=== PATIENT | male | born 1935 | race Caucasian/White ===

== ENCOUNTER 2024-01-18 09:51 | Emergency (ER) | payer MEDICARE, SELFPAY ==
[2024-01-18 09:57] VITALS: BP 98/62; PULSE 62; RESP 16; TEMP 36.4; O2SAT 97; BMI 31.4
[2024-01-18 10:41] LABS: Appearance Urine Clear (Clear); Bilirubin Urine Negative (Negative); Blood Urine Trace-intact (Negative); Color Urine Yellow (Yellow); Glucose Urine Negative (Negative); Ketones Urine Negative (Negative); Leukocyte Esterase Urine Negative (Negative); Nitrite Urine Negative (Negative); Protein Urine Negative (Negative); Urobilinogen Urine 0.2 (0.2-1.0)
--- NOTE | 2024-01-18 10:51 | ED.GENADULT ---
HPI - General Adult General Date Seen: 01/18/24 Chief complaint: Urogenital Problems, Male Stated complaint: Trouble urinating and with bm Time Seen by Provider: 01/18/24 09:58 Source: patient, RN notes reviewed and old records reviewed Mode of arrival: ambulatory Limitations: no limitations History of Present Illness HPI narrative: Patient is an 89-year-old he here for evaluation of difficulty urinating primarily. His history is a little vague, but he notes difficulty urinating over the past couple of days, wonders if he is also having difficulty with bowel movements. He says he is generally not constipated but sometimes he misses a day or 2. He is not entirely sure when his last bowel movement was. He has not had significant abdominal pain, denies fevers, nausea or vomiting. No urinary symptoms such as bleeding or pain. Takes Flomax. He says he had a little bit of a cough a couple of days ago but that is cleared. He has not had any shortness of breath. He has chronic swelling in his legs which he says is maybe a little worse than usual but not significantly. Related Data Home Medications ?Medication ?Instructions ?Recorded ?Confirmed atenolol 50 mg tablet 50 mg PO DAILY 01/18/24 01/18/24 chlorthalidone 25 mg tablet 25 mg PO DAILY 01/18/24 01/18/24 potassium chloride 20 mEq 20 meq PO 3XD 01/18/24 01/18/24 tablet,extended release(part/cryst) (Klor-Con M) pravastatin 80 mg tablet 80 mg PO QPM 01/18/24 01/18/24 tamsulosin 0.4 mg capsule 0.8 mg PO DAILY 01/18/24 01/18/24 Allergies Allergy/AdvReac Type Severity Reaction Status Date / Time No Known Drug Allergies Allergy Verified 01/18/24 10:01 Review of Systems Status of ROS: Reports: 10 or more systems reviewed and unremarkable except as noted in History and below PFSH PFSH Social History Smoking Status: Never smoker How often do you have a drink containing alcohol: 4 or more times a week How many standard drinks containing alcohol do you have on a typical day: 1 or 2 How often do you have six or more drinks on one occasion: Never AUDIT-C Alcohol total score: 4 Non-prescribed substance use: denies use Exam Narrative: Exam Narrative: Vital signs as noted above. In general, an alert, well-appearing patient. Head: Normocephalic, atraumatic. Eyes: Pupils are equal reactive. Extraocular movements are full. Conjunctivae are normal. ENT: Mucous membranes are moist. Neck: Supple without lymphadenopathy. Heart: Regular rate and rhythm. No murmur or rub. Lungs: Clear bilaterally. No increased work of breathing, crackles or wheezes. Abdomen: Soft and nontender. Rectal: Significantly enlarged prostate, nontender. No masses. No fecal impaction. Extremities: Well perfused. Moderate edema bilaterally. No erythema. No calf tenderness. Pulses intact. Neurologic: Patient is alert and oriented to person and place. Speech is fluent. Face is symmetric. Moves all extremities equally. Affect: Normal. Skin: Warm and dry. Well perfused. Const: Vital Signs, click to edit/add: Vital Signs - 24 hr 01/18/24 09:57 Temperature 97.5 F L Pulse Rate [Pulse Oximeter] 62 Respiratory Rate 16 Blood Pressure [Ri ght Upper Arm] 98/62 Pulse Oximetry 97 Oxygen Delivery Me thod Room Air Documenting provider has reviewed patient's vital signs: yes Course Course ED Course: We placed a Mcmullen here, so far he has had about 800 mL out. Will send a UA. Abdomen is benign, no fecal impaction and does not give a strong history for significant constipation. I think his primary problem is likely prostatic hypertrophy. Urinalysis is notable for 2-5 red cells, otherwise negative. He feels improved after catheter placement. I have recommended him that we leave this in for now, have him follow up with primary care later this week, they could remove in do a trial of void at that time. He does tell me that he has been having trouble intermittently with urinary flow for quite a while. May need urology follow-up but I think in terms of getting followed up in a timely manner primary care is a better option this week and they can go from there. Return for signs of infection other worsening. Vital Signs Vital signs: Initial Vital Signs Temperature 97.5 F L 01/18/24 09:57 Temperature Source Temporal Artery Scan 01/18/24 09:57 Pulse Rate 62 01/18/24 09:57 Respiratory Rate 16 01/18/24 09:57 Blood Pressure 98/62 01/18/24 09:57 Blood Pressure Mean 74 01/18/24 09:57 Blood Pressure Position Sitting 01/18/24 09:57 Pulse Oximetry 97 01/18/24 09:57 Oxygen Delivery Method Room Air 01/18/24 09:57 Vital Signs Temperature 97.5 F L 01/18/24 09:57 Pulse Rate 62 01/18/24 09:57 Respiratory Rate 16 01/18/24 09:57 Blood Pressure 98/62 01/18/24 09:57 Pulse Oximetry 97 01/18/24 09:57 Oxygen Delivery Method Room Air 01/18/24 09:57 Temperature 97.5 F L 01/18/24 09:57 Pulse Rate 62 01/18/24 09:57 Respiratory Rate 16 01/18/24 09:57 Blood Pressure 98/62 01/18/24 09:57 Pulse Oximetry 97 01/18/24 09:57 Oxygen Delivery Method Room Air 01/18/24 09:57 Medical Decision Making Lab Data Labs: Lab Results 01/18/24 Range/Units 10:35 Urine Color Yellow (Yellow) Urine Appearance Clear (Clear) Urine pH 7.0 (5.0-8.5) Ur Specific [place] 1.020 (1.000-1.030) Urine Protein Negative (Negative) Urine Glucose (UA) Negative (Negative) Urine Ketones Negative (Negative) Urine Blood Trace-intact A (Negative) Urine Nitrite Negative (Negative) Urine Bilirubin Negative (Negative) Urine Urobilinogen 0.2 (0.2-1.0) Ur Leukocyte Esterase Negative (Negative) Urine RBC 2-5 A (0-2) Urine WBC 0-2 (0-5) Ur Squamous Epith Cells Few (None-Few) Urine Bacteria None (None) Discharge Plan Discharge Clinical Impression: Benign prostatic hyperplasia, Acute retention of urine Patient Disposition: Home, Self-Care Condition: Improved Instructions: Urinary Retention in Men (ED), Mcmullen Catheter Placement and Care (ED), How to Change a Catheter Drainage Bag (DC) Additional Instructions: I would recommend leaving the catheter in for now, as I think you will have further difficulties with urinary retention if we take it out. Please call tomorrow and make a follow-up appointment with your primary care doctor, you may need follow-up with Urology as well. Your urinalysis today does not show signs of infection. If you develop abdominal pain, fevers, vomiting, etcetera, return at any time. Prescriptions: No Action chlorthalidone 25 mg tablet 25 mg PO DAILY potassium chloride [Klor-Con M20] 20 mEq tablet,ER particles/crystals 20 meq PO 3XD pravastatin 80 mg tablet 80 mg PO QPM tamsulosin 0.4 mg capsule 0.8 mg PO DAILY atenolol 50 mg tablet 50 mg PO DAILY Follow Up/Referrals: Provider,Not a Local [Primary Care Provider] - Stand Alone Forms: [employer] Info Instructions
[2024-01-18 10:59] LABS: Squamous Epithelial Cell Urine Few (None-Few); WBC Urine 0-2 (0-5)
== END 2024-01-18 11:30 | disposition home or self-care (01) ==
PROVIDERS: Emergency Provider Emergency Medicine
DX: R33.9 Retention of urine, unspecified (principal); N40.0 Benign prostatic hyperplasia without lower urinary tract symptoms
CPT/HCPCS: 51702; 81001; 99283; 99284

== ENCOUNTER 2024-01-27 17:47 | Emergency (ER) | payer MEDICARE, SELFPAY ==
[2024-01-27 18:19] VITALS: BP 129/81; PULSE 77; RESP 18; TEMP 37.2; O2SAT 96; BMI 31.6
--- NOTE | 2024-01-27 18:39 | ED.GENADULT ---
HPI - General Adult General Date Seen: 01/27/24 Chief complaint: Urogenital Problems, Male Stated complaint: pain after catheter removal Time Seen by Provider: 01/27/24 18:34 History of Present Illness HPI narrative: 89-year-old gentleman presenting to the ER today with trouble urinating. according to medical record he was seen in the ER on 01/18/2024. Apparently had had symptoms ongoing for a couple of days. Was already on Flomax (for pre-existing BPH?). Mcmullen catheter was placed in the ER and he had 800 mL of urine out. Urinalysis showed scant hematuria but otherwise was negative. Patient felt better after catheter placement and bladder decompression. He was to follow-up with primary care within a week or 2. Long-term plan was to get Urology follow-up. He saw his primary care yesterday at the [facility] clinic in [place] and had the catheter removed. They were able to set him up with an appointment to see a specialist in the [facility] next week. After getting the catheter out yesterday, he was able to void small amounts. He noted 1 episode of blood tinged urine overnight but mostly his urine has been yellow. He feels like he is able to urinate a few drops but not able empty his bladder. He was up frequently all night long because he was going to the bathroom but not able to fully void. He has been able to void sporadically today. He came back to the ER with worsening suprapubic discomfort. He says he is really not able to urinate at all now that he is here in the ER. No other symptoms. No flank pain. No fever or chills. No nausea or vomiting. Related Data Home Medications ?Medication ?Instructions ?Recorded ?Confirmed atenolol 50 mg tablet 50 mg PO DAILY 01/18/24 01/18/24 chlorthalidone 25 mg tablet 25 mg PO DAILY 01/18/24 01/18/24 potassium chloride 20 mEq 20 meq PO 3XD 01/18/24 01/18/24 tablet,extended release(part/cryst) (Klor-Con M) pravastatin 80 mg tablet 80 mg PO QPM 01/18/24 01/18/24 tamsulosin 0.4 mg capsule 0.8 mg PO DAILY 01/18/24 01/18/24 Previous Rx's ?Medication ?Instructions ?Recorded cephalexin 500 mg capsule 500 mg PO BID #14 caps 01/27/24 Allergies Allergy/AdvReac Type Severity Reaction Status Date / Time No Known Drug Allergies Allergy Verified 01/18/24 10:01 [facility] Social History Smoking Status: Never smoker Second hand tobacco smoke exposure: No How often do you have a drink containing alcohol: 4 or more times a week How many standard drinks containing alcohol do you have on a typical day: 1 or 2 How often do you have six or more drinks on one occasion: Never AUDIT-C Alcohol total score: 4 Non-prescribed substance use: denies use service: No Exam Narrative: Exam Narrative: Constitutional: Appears well-developed and well-nourished. Alert. Conversant. Non toxic. HENT: Head: Atraumatic. Nose: Nose normal. Mouth/Throat: Oral mucosa is clear and moist. no trismus. Eyes: Conjunctivae normal. EOM normal. Pupils equal, round, and reactive to light. No scleral icterus. Neck: Normal range of motion. Neck supple. No tracheal deviation present. Cardiovascular: Normal rate, regular rhythm. No gallop. No friction rub. No murmur heard. Pulmonary/Chest: Effort normal. No stridor. No respiratory distress. No wheezes. No rales. No rhonchi . Abdominal: Soft. Bowel sounds normal. No distension. No mass. Suprapubic tenderness. No CVA tenderness No rebound. No guarding. : Normal circumcised penis. Urethral meatus looks normal. Musculoskeletal: RUE: Normal range of motion. No tenderness. No deformity LUE: Normal range of motion. No tenderness. No deformity RLE: Normal range of motion. No edema. No tenderness. No deformity LLE: Normal range of motion. No edema. No tenderness. No deformity Lymph: No inguinal adenopathy. Neurological: Alert and oriented to person, place, and time. Normal strength. CN II-VII intact. No sensory deficit. GCS eye subscore is 4. GCS verbal subscore is 5. GCS motor subscore is 6. Normal coordination Skin: Skin is warm and dry. No rash noted. No pallor. Normal capillary refill. Psychiatric: Normal mood. Normal affect. Const: Vital Signs, click to edit/add: Vital Signs - 24 hr 01/27/24 18:19 Temperature 98.9 F Pulse Rate [Pulse Oximeter] 77 Respiratory Rate 18 Blood Pressure [Ri ght Upper Arm] 129/81 Pulse Oximetry 96 Oxygen Delivery Me thod Room Air Course Course ED Course: Mcmullen catheter was placed by nursing. Nurses reported that there was little bit of purulent material at the urethral meatus. They were able to pass the Mcmullen catheter easily. Patient tolerated the passage well. He then produced about a 1000 mL of cloudy hazy yellow colored urine. He felt dramatically better after decompression of his bladder. Vital Signs Vital signs: Initial Vital Signs Temperature 98.9 F 01/27/24 18:19 Temperature Source Temporal Artery Scan 01/27/24 18:19 Pulse Rate 77 01/27/24 18:19 Respiratory Rate 18 01/27/24 18:19 Blood Pressure 129/81 01/27/24 18:19 Blood Pressure Mean 97 01/27/24 18:19 Blood Pressure Position Sitting 01/27/24 18:19 Pulse Oximetry 96 01/27/24 18:19 Oxygen Delivery Method Room Air 01/27/24 18:19 Vital Signs Temperature 98.9 F 01/27/24 18:19 Pulse Rate 77 01/27/24 18:19 Respiratory Rate 18 01/27/24 18:19 Blood Pressure 129/81 01/27/24 18:19 Pulse Oximetry 96 01/27/24 18:19 Oxygen Delivery Method Room Air 01/27/24 18:19 Temperature 98.9 F 01/27/24 18:19 Pulse Rate 77 01/27/24 18:19 Respiratory Rate 18 01/27/24 18:19 Blood Pressure 129/81 01/27/24 18:19 Pulse Oximetry 96 01/27/24 18:19 Oxygen Delivery Method Room Air 01/27/24 18:19 Medications Administered Medications: Generic Name Dose Route Start Last Admin Trade Name Freq PRN Reason Stop Dose Admin Cephalexin HCl 500 mg 01/27/24 20:56 01/27/24 21:04 Cephalexin 500 Mg Capsule PO 01/27/24 20:57 500 mg ONCE ONE Administration Medical Decision Making MDM Narrative Medical decision making narrative: Very pleasant 89-year-old gentleman returns to the ER today with acute urinary retention. He had been seen here in the ER about 10 days ago with urinary retention and had placement of a Mcmullen catheter. He had outpatient follow-up with primary care yesterday and had the catheter removed. However he has not really been able to void more than a few drops since then. He has suprapubic pain from bladder distention. He is not having any flank pain, nausea vomiting, fever chills or other symptoms of systemic illness. Evaluation does show a small amount of purulence at the urethral meatus. We were able to easily pass a catheter and drained 1000 mL of cloudy yellow urine from his bladder. With this his symptoms felt better. Urinalysis does confirm pyuria, positive nitrite, bacteriuria, as well as leukocyte esterase. He has 5-10 RBC likely from Mcmullen catheter passage. I think this does indicate presence of UTI. Although would be a complicated UTI since he just had a Mcmullen catheter placed, he is not otherwise systemically ill. At this point do not think it needs to be admitted for IV antibiotics. Will start him on cephalexin 500 mg b.i.d. for 7 days. First dose administered here in the ER.. Urine culture is pending. He has an appointment next week to follow-up with urology. He will keep the catheter in place until that appointment. Discussed the risk of worsening infection and precautions for return to the ER. Patient verbalizes understanding. He understands Mcmullen catheter care and can return to the ER if he does develop any catheter with the complications as well. He is comfortable discharging home with his daughter. Lab Data Labs: Lab Results 01/27/24 Range/Units 19:40 Urine Color Yellow (Yellow) Urine Appearance Cloudy A (Clear) Urine pH 6.0 (5.0-8.5) Ur Specific [place] 1.025 (1.000-1.030) Urine Protein 2+ A (Negative) Urine Glucose (UA) Negative (Negative) Urine Ketones Negative (Negative) Urine Blood 3+ A (Negative) Urine Nitrite Positive A (Negative) Urine Bilirubin Negative (Negative) Urine Urobilinogen 0.2 (0.2-1.0) Ur Leukocyte Esterase 2+ A (Negative) Urine RBC 5-10 A (0-2) Urine WBC >100 A (0-5) Ur Squamous Epith Cells None (None-Few) Urine Bacteria Many A (None) Discharge Plan Discharge Clinical Impression: Acute urinary retention, Acute UTI Patient Disposition: Home, Self-Care Condition: Stable Instructions: Urinary Retention in Men (ED), Urinary Tract Infection in Men (DC) Additional Instructions: As we discussed please start on the antibiotics and take your next dose tomorrow morning. Hospital will contact you for we need to change her antibiotics. If you have any worsening symptoms such as fever or chills, body aches or weakness, nausea, or worsening abdominal pain, please return to the ER right away to be rechecked. Please to keep your catheter in place until you see the specialist next week. If you have any problems with the catheter prior to your appointment , please come back to the ER or see your doctor right away. Prescriptions: New cephalexin 500 mg capsule 500 mg PO BID Qty: 14 0RF No Action chlorthalidone 25 mg tablet 25 mg PO DAILY potassium chloride [Klor-Con M20] 20 mEq tablet,ER particles/crystals 20 meq PO 3XD pravastatin 80 mg tablet 80 mg PO QPM tamsulosin 0.4 mg capsule 0.8 mg PO DAILY atenolol 50 mg tablet 50 mg PO DAILY Follow Up/Referrals: Provider,Not a Local [Primary Care Provider] - Stand Alone Forms: [employer] Info Instructions
[2024-01-27 19:52] LABS: Appearance Urine Cloudy (Clear); Bilirubin Urine Negative (Negative); Blood Urine 3+ (Negative); Color Urine Yellow (Yellow); Glucose Urine Negative (Negative); Ketones Urine Negative (Negative); Leukocyte Esterase Urine 2+ (Negative); Nitrite Urine Positive (Negative); Protein Urine 2+ (Negative); Specific Gravity Urine 1.025 (1.000-1.030); Urobilinogen Urine 0.2 (0.2-1.0)
[2024-01-27 20:15] LABS: Bacteria Urine Many; WBC Urine >100 (0-5)
[2024-01-27] MEDS: cephALEXin 500 MG CAPSULE PO (21:04)
--- NOTE | 2024-02-04 12:14 | ED_ITS ---
HPI - General Adult General Chief complaint: Urogenital Problems, Male Stated complaint: pain after catheter removal Time Seen by Provider: 01/27/24 18:34 History of Present Illness HPI narrative: This is an addendum my recent ER note. Patient discharged home with prescription for cephalexin for probable catheter associated UTI. Urine culture came back growing Enterococcus which it would be resistant to cephalosporins. I contacted the patient at home. He is doing well. No fever or chills or other symptoms of did involving urosepsis. Will switch his antibiotics from cephalexin to ciprofloxacin. Prescription E prescribed to his chosen pharmacy at [facility] in [place]. He will pick it up today Related Data Home Medications ?Medication ?Instructions ?Recorded ?Confirmed atenolol 50 mg tablet 50 mg PO DAILY 01/18/24 01/18/24 chlorthalidone 25 mg tablet 25 mg PO DAILY 01/18/24 01/18/24 potassium chloride 20 mEq 20 meq PO 3XD 01/18/24 01/18/24 tablet,extended release(part/cryst) (Klor-Con M) pravastatin 80 mg tablet 80 mg PO QPM 01/18/24 01/18/24 tamsulosin 0.4 mg capsule 0.8 mg PO DAILY 01/18/24 01/18/24 Previous Rx's ?Medication ?Instructions ?Recorded cephalexin 500 mg capsule 500 mg PO BID #14 caps 01/27/24 ciprofloxacin HCl 500 mg tablet 500 mg PO BID #10 tabs 02/04/24 (Cipro) Allergies Allergy/AdvReac Type Severity Reaction Status Date / Time No Known Drug Allergies [facility] Ver[facility]/18/24 10:01 [facility] Social History Smoking Status: Never smoker Second hand tobacco smoke exposure: No How often do you have a drink containing alcohol: 4 or more times a week How many standard drinks containing alcohol do you have on a typical day: 1 or 2 How often do you have six or more drinks on one occasion: Never AUDIT-C Alcohol total score: 4 Non-prescribed substance use: denies use service: No Course Vital Signs Vital signs: Initial Vital Signs Temperature 98.9 F 01/27/24 18:19 Temperature Source Temporal Artery Scan 01/27/24 18:19 Pulse Rate 77 01/27/24 18:19 Respiratory Rate 18 01/27/24 18:19 Blood Pressure 129/81 01/27/24 18:19 Blood Pressure Mean 97 01/27/24 18:19 Blood Pressure Position Sitting 01/27/24 18:19 Pulse Oximetry 96 01/27/24 18:19 Oxygen Delivery Method Room Air 01/27/24 18:19 Vital Signs Temperature 98.9 F 01/27/24 18:19 Pulse Rate 77 01/27/24 18:19 Respiratory Rate 18 01/27/24 18:19 Blood Pressure 129/81 01/27/24 18:19 Pulse Oximetry 96 01/27/24 18:19 Oxygen Delivery Method Room Air 01/27/24 18:19 Temperature 98.9 F 01/27/24 18:19 Pulse Rate 77 01/27/24 18:19 Respiratory Rate 18 01/27/24 18:19 Blood Pressure 129/81 01/27/24 18:19 Pulse Oximetry 96 01/27/24 18:19 Oxygen Delivery Method Room Air 01/27/24 18:19 Medications Administered Medications: Discontinued Medications Generic Name Dose Route Start Last Admin Trade Name [place] PRN Reason Stop Dose Admin Cephalexin HCl 500 mg 01/27/24 20:56 01/27/24 21:04 Cephalexin 500 Mg Capsule PO 01/27/24 20:57 500 mg ONCE ONE Administration Medical Decision Making Lab Data Labs: Lab Results 01/27/24 Range/Units 19:40 Urine Color Yellow (Yellow) Urine Appearance Cloudy A (Clear) Urine pH 6.0 (5.0-8.5) Ur Specific [place] 1.025 (1.000-1.030) Urine Protein 2+ A (Negative) Urine Glucose (UA) Negative (Negative) Urine Ketones Negative (Negative) Urine Blood 3+ A (Negative) Urine Nitrite Positive A (Negative) Urine Bilirubin Negative (Negative) Urine Urobilinogen 0.2 (0.2-1.0) Ur Leukocyte Esterase 2+ A (Negative) Urine RBC 5-10 A (0-2) Urine WBC >100 A (0-5) Ur Squamous Epith Cells None (None-Few) Urine Bacteria Many A (None) Discharge Plan Discharge Clinical Impression: Acute urinary retention, Acute UTI Patient Disposition: Home, Self-Care Condition: Stable Instructions: Urinary Retention in Men (ED), Urinary Tract Infection in Men (DC) Additional Instructions: As we discussed please start on the antibiotics and take your next dose tomorrow morning. Hospital will contact you for we need to change her antibiotics. If you have any worsening symptoms such as fever or chills, body aches or weakness, nausea, or worsening abdominal pain, please return to the ER right away to be rechecked. Please to keep your catheter in place until you see the specialist next week. If you have any problems with the catheter prior to your appointment , please come back to the ER or see your doctor right away. Prescriptions: New cephalexin 500 mg capsule 500 mg PO BID Qty: 14 0RF ciprofloxacin HCl [Cipro] 500 mg tablet 500 mg PO BID Qty: 10 0RF No Action chlorthalidone 25 mg tablet 25 mg PO DAILY potassium chloride [Klor-Con M20] 20 mEq tablet,ER particles/crystals 20 meq PO 3XD pravastatin 80 mg tablet 80 mg PO QPM tamsulosin 0.4 mg capsule 0.8 mg PO DAILY atenolol 50 mg tablet 50 mg PO DAILY Follow Up/Referrals: Provider,Not a Local [Primary Care Provider] - Stand Alone Forms: [employer] Info Instructions
== END 2024-01-27 21:23 | disposition home or self-care (01) ==
PROVIDERS: Emergency Provider Emergency Medicine
DX: N39.0 Urinary tract infection, site not specified (principal)
CPT/HCPCS: 51702; 81001; 87086; 87186; 99282; 99283; A9270

== ENCOUNTER 2024-03-25 12:39 | Outpatient (CLI) | payer MEDICARE, SELFPAY ==
--- OUTSIDE RECORDS SUMMARY | 2024-03-25 12:41 | XMS_ITS | Continuity of Care Document ---
Author Organization [facility], [facility] Address [address] [place] [address] Assessment No assessment recorded. Plan of Treatment Reminders Order Date Submit Date Provider Last Modified By Organization Details Last Modified Time Details Appointments None record ed. Lab None record ed. Referral None record ed. Procedures None record ed. Surgeries None record ed. Imaging None record ed. Medication Orders None record ed. Patient TargetsNo targets recorded. Patient Instructions Encounter Date Encounter Id Patient Instructions Last Modified By Organization Details Last Modified Time 03/04/2024 [id number] failed TOV again , discussed conventional TURP SHANTELLE [email or web address] Not available 03/04/2024 15:52:55 Reason for Referral None Reported. Problems Name Status Onset Date Resolution Date Notes Provider Name and Address Organization Details Recorded Time Acute retention of urine Active 4 Luda Watson PA-C [address] [place] [address], [phone], [facility] 02/03/2024 11:29:06 Retention of urine Active 4 Edmar Vaughn MD [address] [place] [address], [phone], [facility] 02/12/2024 11:33:59 Problem Notes None recorded. Procedures Surgical History Date Name Laterality Status Provider Name and Address Organization Details Recorded Time 4 Cystoscopy- male completed Edmar Vaughn MD [address] [place] [address], [phone], [facility] 03/04/2024 14:49:59 4 Mcmullen Catheter Insertion completed Trey esquivel [facility] 03/04/2024 15:44:20 4 Cipro post Cysto completed Trey Cabral null, [facility] 02/24/2024 14:58:47 4 Fill and Pull/Voiding Trial/TOV completed Trey Cabral null, [facility] 03/04/2024 15:44:41 4 Mcmullen Catheter Insertion completed Edmar Vaughn MD [address] [place] [address],[address], [address], [facility] 02/12/2024 11:53:15 4 Fill and Pull/Voiding Trial/TOV completed Edmar Vaughn MD [address] [place] [address],[address], [place], [address], [facility] 02/12/2024 11:28:34 4 Mcmullen Catheter Insertion completed Concetta Zapata null, [facility] 02/10/2024 14:26:17 4 Fill and Pull/Voiding Trial/TOV completed [facility] Zapata null, [facility] 02/10/2024 14:25:24 4 Mcmullen Catheter Insertion completed Franko magaña null, [facility] 02/03/2024 12:10:15 4 Fill and Pull/Voiding Trial/TOV completed Luda Watson PA-C [address] [place] [address],[address], [place], [address], [facility] 02/03/2024 11:16:06 Imaging Results None recorded. Procedure Notes None recorded. Medical Equipment None Reported. Allergies No known drug allergies Medications Name Sig Start Date Stop Date Status Note LastModified by Organization Details LastModified Time chlorthalid one 25 mg tablet TAKE ONE TABLET BY MOUTH ONE TIME DAILY* active Not Available Not Available No t Available ciprofloxac in 500 mg tablet TAKE ONE TABLET BY MOUTH TWICE DAILY* 03/04 completed Not Available Not Available Not Available pravastatin 80 mg tablet TAKE ONE TABLET BY MOUTH ONE TIME DAILY AT BEDTIME* active Not Available Not Available No t Available tamsulosin 0.4 mg capsule TAKE TWO CAPSULES BY MOUTH DAILY WITH A MEAL.* active Not Available Not Available No t Available cephalexin 500 mg capsule TAKE ONE CAPSULE BY MOUTH TWICE DAILY* 02/02 completed Not Available Not Available Not Available atenolol 50 mg tablet TAKE ONE TABLET BY MOUTH ONE TIME DAILY* active Not Available Not Available No t Available Klor-Con M20 mEq tablet,exte nded release TAKE ONE TABLET BY MOUTH TWICE A DAY WITH MEALS* active Not Available Not Available No t Available Vitals Date Recorded Body height Body mass index (BMI) Body weight Provider Name and Address Organization Details Last Updated DateTime 03/04/2024 180.34 cm 30.7 kg/m2 23949.32 g Edmar Vaughn MD [address] [facility],[address], [place], [address] 03/04/2024 14:26:29 Social History Question Answer Notes LastModified by Organizat ion Details LastModified Time Tobacco Smoking Status [facility] 02/03/2024 10:40:30 What Is Your Level Of Alcohol Consumption? Moderate Beer At Supper Information not available 02/03/2024 What Is Your Level Of Caffeine Consumption? None Information not available 02/03/2024 When Did You Quit Smoking? 16+yearssinc elastcigaret te Information not available 02/03/2024 What Was The Date Of Your Most Recent Tobacco Screening? 03/04/2024 [email or web address] Information not available 03/04/2024 Have You Ever Been Counseled For Unhealthy Alcohol Use? No [email or web address] Information not available 02/12/2024 Do You Use Any Illicit Or Recreational Drugs? No Information not available 02/03/2024 Has Tobacco Cessation Counseling Been Provided? No [email or web address] Information not available 02/12/2024 Do You Or Have You Ever Used Any Other Forms Of Tobacco Or Nicotine? No [email or web address] Information not available 02/12/2024 How Many Days In The Past Year Have You Consumed 5 Or More Drinks? 0 [email or web address] Information not available 02/12/2024 Sex: Unknown Functional Status None recorded. Mental Status None recorded. Family History Relationship Description Onset Age of this Age Resolved Age Notes Father No current problems or disability Mother No current problems or disability Notes:brain cancer-cancer sp ouse-stomach cancer Medical History Condition Response Kidney Stones Y Immunizations Vaccine Type Date Status Provider Name and Address Organization Details Recorded Time Influenza, adjuvanted, trivalent, PF 09/08/2018 completed Miletzi Arvizu-Valer o null, [facility] 02/03/2024 10:37:30 Influenza, adjuvanted, trivalent, PF 09/30/2017 completed Miletzi Arvizu-Valer o null, [facility] 02/03/2024 10:37:30 Influenza, adjuvanted, trivalent, PF 10/14/2019 completed Miletzi Arvizu-Valer o null, [facility] 02/03/2024 10:37:30 zoster recombinant 12/21/2023 completed Miletzi Arvizu-Valer o null, [facility] 02/03/2024 10:37:30 Influenza, high-dose, quadrivalent, PF 06/30/2023 completed Miletzi Arvizu-Valer o null, [facility] 02/03/2024 10:37:30 Influenza, high-dose, quadrivalent, PF 07/31/2022 completed Miletzi Arvizu-Valer o null, [facility] 02/03/2024 10:37:30 Influenza, adjuvanted, quadrivalent, PF 07/08/2021 completed Miletzi Arvizu-Valer o null, [facility] 02/03/2024 10:37:30 COVID-19, mRNA, LNP-S, PF, 30 mcg/0.3 mL dose 10/06/2020 completed Miletzi Arvizu-Valer o null, [facility] 02/03/2024 10:37:30 COVID-19, mRNA, LNP-S, PF, 30 mcg/0.3 mL dose 10/27/2020 completed Miletzi Arvizu-Valer o null, [facility] 02/03/2024 10:37:30 COVID-19, mRNA, LNP-S, PF, 30 mcg/0.3 mL dose 07/08/2021 completed Miletzi Arvizu-Valer o null, [facility] 02/03/2024 10:37:30 COVID-19, mRNA, LNP-S, PF, 30 mcg/0.3 mL dose, gillian-sucrose 02/11/2022 completed Miletzi Arvizu-Valer o null, [facility] 02/03/2024 10:37:30 COVID-19, mRNA, LNP-S, bivalent, PF, 30 mcg/0.3 mL dose 07/31/2022 completed Miletzi Arvizu-Valer o null, [facility] 02/03/2024 10:37:30 RSV, recombinant, protein subunit RSVpreF, adjuvant reconstituted, 0.5 mL, PF 06/30/2023 completed Milnai Arvizu-Valer o null, [facility] 02/03/2024 10:37:30 pneumococcal polysaccharide PPV23 05/25/2006 completed Milnai Arvizu-Valer o null, [facility] 02/03/2024 10:37:30 Tdap 12/21/2023 completed Milnai Arvizu-Valer o null, [facility] 02/03/2024 10:37:30 Novel [id number], all formulations 09/14/2009 [facility] 02/03/2024 10:37:30 Pneumococcal conjugate PCV 13 08/22/2015 completed Milnai Arvizu-Valer o null, [facility] 02/03/2024 10:37:30 Influenza, high-dose, trivalent, PF 09/24/2016 completed Milnai Arvizu-Valer o null, [facility] 02/03/2024 10:37:30 Influenza, high-dose, trivalent, PF 08/21/2014 completed Milnai Arvizu-Valer o null, [facility] 02/03/2024 10:37:30 Influenza, high-dose, trivalent, PF 08/22/2015 completed Miletzi Arvizu-Valer o null, [facility] 02/03/2024 10:37:30 Influenza, split virus, trivalent, preservative 05/29/2008 completed Miletzi Arvizu-Valer o null, [facility] 02/03/2024 10:37:30 Influenza, split virus, trivalent, preservative 05/31/2007 completed Franko Zarateal-Valer o null, [facility] 02/03/2024 10:37:30 Influenza, split virus, trivalent, preservative 06/20/2010 completed Franko Zarateal-Valer o null, [facility] 02/03/2024 10:37:30 Influenza, split virus, trivalent, preservative 06/27/2004 completed Franko Beerigal-Valer o null, [facility] 02/03/2024 10:37:30 Influenza, split virus, trivalent, preservative 08/06/2012 completed Franko Zarateal-Valer o null, [facility] 02/03/2024 10:37:30 Influenza, split virus, trivalent, preservative 08/19/2013 completed Franko Zarateal-Valer o null, [facility] 02/03/2024 10:37:31 Influenza, split virus, trivalent, PF 09/14/2009 completed Franko Zarateal-Valer o null, [facility] 02/03/2024 10:37:31 Td (adult), 5 Lf tetanus toxoid, preservative free, adsorbed 05/25/2006 completed Franko Zarateal-Valer o null, [facility] 02/03/2024 10:37:31 Past Encounters Encounter ID Performer Location Encounter Start Date Encounter Closed Date Diagnosis/Indication Diagnosis SNOMED-CT Code [id number] Franko Arvizu-Latanya lero [facility] [address] [place] [id number] 02/03/2024 10:25:53 02/04/2024 08:33:51 Acute retention of urine [id number] Luda Watson PA-C [facility] [address] [place] [address] 02/10/2024 13:37:37 02/11/2024 09:27:45 Acute retention of urine [id number] Edmar Vaughn MD [facility] [address] [place] [place] [id number] 02/12/2024 10:44:21 02/15/2024 16:00:54 Retention of urine [id number] MD Filippo Clancy [address] [place] [address] 03/04/2024 14:17:21 03/22/2024 12:42:48 Retention of urine [id number] Health Concerns Section Related Observation LastModified by Organization Detai ls LastModified Time None Recorded Concern Status LastModified by Organization Details LastModified Time None Recorded Payers Encounter Date Sequence Insurance Name Policy Number Policy Masterson Covered Member ID Masterson Member ID Guarantor Name 03/04/2024 1 [employer] - DOS ON OR AFTER 19 (MEDICARE REPLACEMENT/ ADVANTAGE - HMO) [id number] 1 Kojo Ness [id number] Kojo Ness Notes Date Note Type Note Provider Name and Address Organization Details Recorded Time 03/04/2024 text/html HPI Notes: here for cysto/TOV today Edmar Vaughn MD [address] [facility] [address], [place], [address], [facility] 03/04/2024 15:55:02
--- OUTSIDE RECORDS SUMMARY | 2024-03-25 12:41 | XMS_ITS | Continuity of Care Document ---
Author Organization [facility], [facility] Address [address] [place] [address] Assessment Encounter Date Assessment Date Assessment LastModified by Organization Details LastModified Time 02/10/2024 02/10/2024 Patient was seen and evaluated by Concetta Betts RN. I did not personally see or evaluate this patient today. -Luda Watson PA-C [email or web address] Not available 02/10/2024 15:48:06 Plan of Treatment Reminders Order Date Submit Date Provider Last Modified By Organization Details Last Modified Time Details Appointments None record ed. Lab None record ed. Referral None record ed. Procedures None record ed. Surgeries None record ed. Imaging None record ed. Medication Orders None record ed. Patient TargetsNo targets recorded. Patient InstructionsNo instructions recorded. Reason for Referral None Reported. Problems Name Status Onset Date Resolution Date Notes Provider Name and Address Organization Details Recorded Time Acute retention of urine Active 4 Luda Watson PA-C [address] [place] [address],[address], [address], [facility] 02/03/2024 11:29:06 Retention of urine Active 4 Edmar Vaughn MD [address] [place] [address],[address], [address], [facility] 02/12/2024 11:33:59 Problem Notes None recorded. Procedures Surgical History Date Name Laterality Status Provider Name and Address Organization Details Recorded Time 4 Cystoscopy- male completed Edmar Vaughn MD [address] [place] [address],[address], [address], [facility] 03/04/2024 14:49:59 4 Mcmullen Catheter Insertion completed Trey esquivel [facility] 03/04/2024 15:44:20 4 Cipro post Cysto completed Trey Ortegai null, [facility] 02/24/2024 14:58:47 4 Fill and Pull/Voiding Trial/TOV completed Tery Dongcki null, [facility] 03/04/2024 15:44:41 4 Mcmullen Catheter Insertion completed Edmar Vaughn MD [address] [place] [address],[address], [address], [facility] 02/12/2024 11:53:15 4 Fill and Pull/Voiding Trial/TOV completed Edmar Vaughn MD [address] [place] [address],[address], [address], [facility] 02/12/2024 11:28:34 4 Mcmullen Catheter Insertion completed Concetta Zapata null, [facility] 02/10/2024 14:26:17 4 Fill and Pull/Voiding Trial/TOV completed Concetta Irelandkeytrish null, [facility] 02/10/2024 14:25:24 4 Mcmullen Catheter Insertion completed Franko magaña null, [facility] 02/03/2024 12:10:15 4 Fill and Pull/Voiding Trial/TOV completed Luda Watson PA-C [address] [place] [address],[address], [address], [facility] 02/03/2024 11:16:06 Imaging Results None recorded. Procedure [...] Available Not Available No t Available Vitals None Recorded Social History Question Answer Notes LastModified by Organizat ion Details LastModified Time Tobacco Smoking Status Former Smoker EDENILSON Rivera [facility] 02/03/2024 10:40:30 What Is Your Level Of Alcohol Consumption? Moderate Beer At Supper Information not available 02/03/2024 What Is Your Level Of Caffeine Consumption? None Information not available 02/03/2024 When Did You Quit Smoking? 16+yearssinc elastcigaret te Information not available 02/03/2024 What Was The Date Of Your Most Recent Tobacco Screening? 03/04/2024 [email or web address] Information not available 03/04/2024 Have You Ever Been Counseled For Unhealthy Alcohol Use? No [email or web address] Information not available 02/12/2024 Do You Use Any Illicit Or Recreational Drugs? No Information not available 02/03/2024 Has Tobacco Cessation Counseling Been Provided? No [email or web address] Information not available 02/12/2024 Do You Or Have You Ever Used Any Other Forms Of Tobacco Or Nicotine? No [email or web address] Information not available 02/12/2024 How Many Days In The Past Year Have You Consumed 5 Or More Drinks? 0 [email or web address] Information not available 02/12/2024 Sex: Unknown Functional [...] Time Influenza, adjuvanted, trivalent, PF 09/08/2018 completed EDENILSON [facility] 02/03/2024 10:37:30 Influenza, adjuvanted, trivalent, PF 09/30/2017 completed Miletzi Arvizu-Valer o null, [facility] 02/03/2024 10:37:30 Influenza, adjuvanted, trivalent, PF 10/14/2019 completed Miletzi Arvizu-Valer o null, [facility] 02/03/2024 10:37:30 zoster recombinant 12/21/2023 completed Miletzi Arvizu-Valer o null, [facility] 02/03/2024 10:37:30 Influenza, high-dose, quadrivalent, PF 06/30/2023 completed Miletzi Arvizu-Valer o null, [facility] 02/03/2024 10:37:30 Influenza, high-dose, quadrivalent, PF 07/31/2022 completed Miletzi Arvizu-Valer o null, [facility] 02/03/2024 10:37:30 Influenza, adjuvanted, quadrivalent, PF 07/08/2021 completed Miletzi Arvizu-Valer o null, [facility] 02/03/2024 10:37:30 COVID-19, mRNA, LNP-S, PF, 30 mcg/0.3 mL dose 10/06/2020 completed Miletzi Arvizu-Valer o null, [facility] 02/03/2024 10:37:30 COVID-19, mRNA, LNP-S, PF, 30 mcg/0.3 mL dose 10/27/2020 completed Miletzi Arvizu-Valer o null, [facility] 02/03/2024 10:37:30 COVID-19, mRNA, LNP-S, PF, 30 mcg/0.3 mL dose 07/08/2021 completed Miletzi Arvizu-Valer o null, [facility] 02/03/2024 10:37:30 COVID-19, mRNA, LNP-S, PF, 30 mcg/0.3 mL dose, gillian-sucrose 02/11/2022 completed Miletzi Arvizu-Valer o null, [facility] 02/03/2024 10:37:30 COVID-19, mRNA, LNP-S, bivalent, PF, 30 mcg/0.3 mL dose 07/31/2022 completed Franko Beerigal-Valer o null, [facility] 02/03/2024 10:37:30 RSV, recombinant, protein subunit RSVpreF, adjuvant reconstituted, 0.5 mL, PF 06/30/2023 [facility] 02/03/2024 10:37:30 pneumococcal polysaccharide PPV23 05/25/2006 completed Milnai Arvizu-Valer o null, [facility] 02/03/2024 10:37:30 Tdap 12/21/2023 [facility], [facility] 02/03/2024 10:37:30 Novel [id number], all formulations 09/14/2009 [facility], [facility] 02/03/2024 10:37:30 Pneumococcal conjugate PCV 13 08/22/2015 [facility], [facility] 02/03/2024 10:37:30 Influenza, high-dose, trivalent, PF 09/24/2016 completed Franko Beerigal-Valer o null, [facility] 02/03/2024 10:37:30 Influenza, high-dose, trivalent, PF 08/21/2014 completed Teddyi Arvizu-Valer o null, [facility] 02/03/2024 10:37:30 Influenza, high-dose, trivalent, PF 08/22/2015 completed Milnai Arvizu-Valer o null, [facility] 02/03/2024 10:37:30 Influenza, split virus, trivalent, preservative 05/29/2008 completed Franko Arvizu-Valer o null, [facility] 02/03/2024 10:37:30 Influenza, split virus, trivalent, preservative 05/31/2007 completed Teddyi Arvizu-Valer o null, [facility] 02/03/2024 10:37:30 Influenza, split virus, trivalent, preservative 06/20/2010 completed Franko Zarateal-Valer o null, [facility] 02/03/2024 10:37:30 Influenza, split virus, trivalent, preservative 06/27/2004 completed Franko Beerigal-Valer o null, [facility] 02/03/2024 10:37:30 Influenza, split virus, trivalent, preservative 08/06/2012 completed Franko Zarateal-Valer o null, [facility] 02/03/2024 10:37:30 Influenza, split virus, trivalent, preservative 08/19/2013 completed Franko Zarateal-Valer o null, [facility] 02/03/2024 10:37:31 Influenza, split virus, trivalent, PF 09/14/2009 completed Franko Arvizu-Valer o null, [facility] 02/03/2024 10:37:31 Td (adult), 5 Lf tetanus toxoid, preservative free, adsorbed 05/25/2006 completed Franko Zarateal-Valer o null, [facility] 02/03/2024 10:37:31 Past Encounters Encounter ID Performer Location Encounter Start Date Encounter Closed Date Diagnosis/Indication Diagnosis SNOMED-CT Code [id number] Franko Arvizu-Latanya lero [facility] [address] [place] [address] 02/03/2024 10:25:53 02/04/2024 08:33:51 Acute retention of urine [id number] Luda Watson PA-C [facility] [address] [place] [address] 02/10/2024 13:37:37 02/11/2024 09:27:45 Acute retention of urine [id number] Health Concerns Section Related Observation LastModified by Organization Detai ls LastModified Time None Recorded Concern Status LastModified by Organization Details LastModified Time None Recorded Payers Encounter Date Sequence Insurance Name Policy Number Policy Masterson Covered Member ID Masterson Member ID Guarantor Name 02/10/2024 1 [employer] - DOS ON OR AFTER 19 (MEDICARE REPLACEMENT/ ADVANTAGE - HMO) [id number] 1 Kojo Ness [id number] Kojo Ness Notes Date Note Type Note Provider Name and Address Organization Details Recorded Time 02/10/2024 text/html HPI Notes: Pt presents for 2nd TOV, did not pass, cath replaced and he will f/u with an MD per Luda's last visit note. Nurse visit completed by Concetta Donnelly RN. Luda Watson PA-C [address] [place] [address],[address], [address], [facility] 02/10/2024 15:48:09
--- OUTSIDE RECORDS SUMMARY | 2024-03-25 12:41 | XMS_ITS | Continuity of Care Document ---
Author Organization [facility], [facility] Address [address] [place] [address] Assessment No assessment recorded. Plan of Treatment [...] Modified By Organization Details Last Modified Time 02/12/2024 [id number] will replace catheter today and plan rtc 1-2 week for cysto trial of voiding. Not available 02/12/2024 11:53:30 Reason for Referral None Reported. Problems Name Status Onset Date Resolution Date Notes Provider Name and Address Organization Details Recorded Time Acute retention of urine Active 4 Luda Watson PA-C [address] [place] [address], [phone], [facility] 02/03/2024 11:29:06 Retention of urine Active 4 Edmar Vaughn MD [address] [place] [address], [phone], [facility] 02/12/2024 11:33:59 Problem Notes None recorded. Procedures Surgical History Date Name Laterality Status Provider Name and Address Organization Details Recorded Time 4 Cystoscopy- male completed Edmar Vaughn MD [address] [place] [address], [phone], [facility] 03/04/2024 14:49:59 4 Mcmullen Catheter Insertion completed Trey esquivel [facility] 03/04/2024 15:44:20 4 Cipro post Cysto completed Trey Cabral null, [facility] 02/24/2024 14:58:47 4 Fill and Pull/Voiding Trial/TOV completed Trey Cabral null, [facility] 03/04/2024 15:44:41 4 Mcmullen Catheter Insertion completed Edmar Vaughn MD [address] [place] [address],[address], [address], [facility] 02/12/2024 11:53:15 4 Fill and Pull/Voiding Trial/TOV completed Edmar Vaughn MD [address] [place] [address],[facility] [address], [address], [facility] 02/12/2024 11:28:34 4 Mcmullen Catheter Insertion completed Concetta Zapata null, [facility] 02/10/2024 14:26:17 4 Fill and Pull/Voiding Trial/TOV completed Concetta Irelandkeytrish null, [facility] 02/10/2024 14:25:24 4 Mcmullen Catheter Insertion completed Franko magaña null, [facility] 02/03/2024 12:10:15 4 Fill and Pull/Voiding Trial/TOV completed Luda Watson PA-C [address] [place] [address],[address], [address], [facility] 02/03/2024 11:16:06 Imaging Results None recorded. Procedure [...] and Address Organization Details Last Updated DateTime 02/12/2024 180.34 cm 31.4 kg/m2 657845.28 g Edmar Vaughn MD [address] [facility] [address], [address] 02/12/2024 11:05:47 Social History Question Answer Notes LastModified by Organizat ion Details LastModified Time Tobacco Smoking Status Former Sm[facility] 02/03/2024 10:40:30 What Is Your Level Of Alcohol Consumption? Moderate Beer At Supper Information not available 02/03/2024 What Is Your Level Of Caffeine Consumption? None Information not available 02/03/2024 When Did You Quit Smoking? 16+yearssinc elastcigaret te Information not available 02/03/2024 What Was The Date Of Your Most Recent Tobacco Screening? 03/04/2024 [email or web address] Information not available 03/04/2024 Have You Ever Been Counseled For Unhealthy Alcohol Use? No [email or web address] Information not available 02/12/2024 Do You Use Any Illicit Or Recreational Drugs? No Information not available 02/03/2024 Has Tobacco Cessation Counseling Been Provided? No Information not available 02/12/2024 Do You Or Have You Ever Used Any Other Forms Of Tobacco Or Nicotine? No [email or web address] Information not available 02/12/2024 How Many Days In The Past Year Have You Consumed 5 Or More Drinks? 0 [email or web address] Information not available 02/12/2024 Sex: Unknown Functional [...] PF 09/08/2018 completed Miletzi Arvizu-Valer o null, [facility] 02/03/2024 10:37:30 Influenza, adjuvanted, trivalent, PF 09/30/2017 completed Miletzi Arvizu-Valer o null, [facility] 02/03/2024 10:37:30 Influenza, adjuvanted, trivalent, PF 10/14/2019 completed Miletzi Arvizu-Valer o null, [facility] 02/03/2024 10:37:30 zoster recombinant 12/21/2023 completed Miletzi Arvizu-Valer o null, [facility] 02/03/2024 10:37:30 Influenza, high-dose, quadrivalent, PF 06/30/2023 completed Miletzi Arvizu-Valer o null, [facility] 02/03/2024 10:37:30 Influenza, high-dose, quadrivalent, PF 07/31/2022 completed Miletzi Arvizu-Valer o null, [facility] 02/03/2024 10:37:30 Influenza, adjuvanted, quadrivalent, PF 07/08/2021 completed Miletzi Arvizu-Valer o null, [facility] 02/03/2024 10:37:30 COVID-19, mRNA, LNP-S, PF, 30 mcg/0.3 mL dose 10/06/2020 completed Miletzi Arvizu-Valer o null, [facility] 02/03/2024 10:37:30 COVID-19, mRNA, LNP-S, PF, 30 mcg/0.3 mL dose 10/27/2020 completed Miletzi Arvizu-Valer o null, [facility] 02/03/2024 10:37:30 COVID-19, mRNA, LNP-S, PF, 30 mcg/0.3 mL dose 07/08/2021 completed Miletzi Arvizu-Valer o null, [facility] 02/03/2024 10:37:30 COVID-19, mRNA, LNP-S, PF, 30 mcg/0.3 mL dose, gillian-sucrose 02/11/2022 completed Miletzi Arvizu-Valer o null, [facility] 02/03/2024 10:37:30 COVID-19, mRNA, LNP-S, bivalent, PF, 30 mcg/0.3 mL dose 07/31/2022 completed Miletzi Arvizu-Valer o null, [facility] 02/03/2024 10:37:30 RSV, recombinant, protein subunit RSVpreF, adjuvant reconstituted, 0.5 mL, PF 06/30/2023 completed Miletzi Arvizu-Valer o null, [facility] 02/03/2024 10:37:30 pneumococcal polysaccharide PPV23 05/25/2006 completed Miletzi Arvizu-Valer o null, [facility] 02/03/2024 10:37:30 Tdap 12/21/2023 completed Miletzi Arvizu-Valer o null, [facility] 02/03/2024 10:37:30 Novel [id number], all formulations 09/14/2009 completed Miletzi Arvizu-Valer o null, [facility] 02/03/2024 10:37:30 Pneumococcal conjugate PCV 13 08/22/2015 completed Miletzi Arvizu-Valer o null, [facility] 02/03/2024 10:37:30 Influenza, high-dose, trivalent, PF 09/24/2016 completed Miletzi Arvizu-Valer o null, [facility] 02/03/2024 10:37:30 Influenza, high-dose, trivalent, PF 08/21/2014 completed Miletzi Arvizu-Valer o null, [facility] 02/03/2024 10:37:30 Influenza, high-dose, trivalent, PF 08/22/2015 completed Miletzi Arvizu-Valer o null, [facility] 02/03/2024 10:37:30 Influenza, split virus, trivalent, preservative 05/29/2008 completed Miletzi Arvizu-Valer o null, [facility] 02/03/2024 10:37:30 Influenza, split virus, trivalent, preservative 05/31/2007 [facility], [facility] 02/03/2024 10:37:30 Influenza, split virus, trivalent, preservative 06/20/2010 completed [facility] Arvizu-Valer o null, [facility] 02/03/2024 10:37:30 Influenza, split virus, trivalent, preservative 06/27/2004 completed Franko Zarateal-Valer o null, [facility] 02/03/2024 10:37:30 Influenza, split virus, trivalent, preservative 08/06/2012 [facility], [facility] 02/03/2024 10:37:30 Influenza, split virus, trivalent, preservative 08/19/2013 [facility], [facility] 02/03/2024 10:37:31 Influenza, split virus, trivalent, PF 09/14/2009 [facility], [facility] 02/03/2024 10:37:31 Td (adult), 5 Lf tetanus toxoid, preservative free, adsorbed 05/25/2006 [facility], [facility] 02/03/2024 10:37:31 Past Encounters Encounter ID Performer Location Encounter Start Date Encounter Closed Date Diagnosis/Indication Diagnosis SNOMED-CT Code [id number] [facility] [address] [place] [id number] 02/03/2024 10:25:53 02/04/2024 08:33:51 Acute retention of urine [id number] Luda Watson PA-C [facility] [address] [place] [address] 02/10/2024 13:37:37 02/11/2024 09:27:45 Acute retention of urine [id number] Edmar Vaughn MD [facility] [address] [place] [address] 02/12/2024 10:44:21 02/15/2024 16:00:54 Retention of urine [id number] Health Concerns Section Related Observation LastModified by Organization Detai ls LastModified Time None Recorded Concern Status LastModified by Organization Details LastModified Time None Recorded Payers Encounter Date Sequence Insurance Name Policy Number Policy Masterson Covered Member ID Masterson Member ID Guarantor Name 02/12/2024 1 [employer] - DOS ON OR AFTER 19 (MEDICARE REPLACEMENT/ ADVANTAGE - HMO) [id number] 1 Kojo Spencer Laabs [id number] Kojo N Laabs Notes Date Note Type Note Provider Name and Address Organization Details Recorded Time 02/12/2024 text/html HPI Notes: follwo up retention, TOV today 400 in and 150 out, double from last visit. tolerates catheter OK. Edmar Vaughn MD [address] [place] [address],[address], [place], [address], [facility] 02/12/2024 11:53:41
--- OUTSIDE RECORDS SUMMARY | 2024-03-25 12:41 | XMS_ITS | Data Portability ---
Author Organization [place] [facility] [place] [facility], [facility] Address [address] [place] [address] [address] [place] [address] Assessment Encounter Date Assessment Date Assessment LastModified by Organization Details LastModified Time 02/03/2024 02/03/2024 89M with acute urinary retention and nocturia. We reviewed etiologies for acute urinary retention including but not limited to acute illness, UTI, BPH, medication side effects, etc. Unfortunately only voided 75 cc of 400 cc instilled for voiding trial. Recommended replacement of Doll catheter today, which he was in agreement with. Will also give Keflex x1 for prophylaxis. May need to consider finasteride or other 5-BULMARO. 1. Acute urinary retention - TOV today with 75 cc out of 400 cc instilled - abx for ppx: Keflex 500 mg x1 - recommended replacement of 16Fr coude Doll today - continue tamsulosin 0.8 mg daily - may need to consider adding 5-BULMARO - follow up in 1 week on nursing schedule for voiding trial - if he fails voiding trial again in 1 week, replace doll and follow up with MD for KIRAN and cysto [email or web address] Not available 02/03/2024 12:06:07 02/10/2024 02/10/2024 Patient was seen and evaluated by Concetta Betts RN. I did not personally see or evaluate this patient today. -Luda Watson PA-C [email or web address] Not available 02/10/2024 15:48:06 Plan of Treatment [...] By Organization Details Last Modified Time 02/12/2024 [id number] will replace catheter today and plan rtc 1-2 week for cysto trial of voiding. [email or web address] Not available 02/12/2024 11:53:30 03/04/2024 [id number] failed TOV again , discussed conventional TURP SHANTELLE [email or web address] Not available 03/04/2024 15:52:55 Reason for Referral None Reported. Problems Name Status Onset Date Resolution Date Notes Provider Name and Address Organization Details Recorded Time Acute retention of urine Active 4 Luda Watson PA-C [address] [place] [address],[address], [address], [facility] 02/03/2024 11:29:06 Retention of urine Active 4 Edmar Vaughn MD [address] [place] [address],[address], [address], [facility] 02/12/2024 11:33:59 Problem Notes None recorded. Procedures Surgical History Date Name Laterality Status Provider Name and Address Organization Details Recorded Time 4 Cystoscopy- male completed Edmar Vaughn MD [address] [place] [address],[address], [address], [facility] 03/04/2024 14:49:59 4 Doll Catheter Insertion completed Trey esquivel, [facility] 03/04/2024 15:44:20 4 Cipro post Cysto completed Trey esquivel, [facility] 02/24/2024 14:58:47 4 Fill and Pull/Voiding Trial/TOV completed Trey esquivel, [facility] 03/04/2024 15:44:41 4 Doll Catheter Insertion completed Edmar Vaughn MD [address] [place] [address],[address], [address], [facility] 02/12/2024 11:53:15 4 Fill and Pull/Voiding Trial/TOV completed Edmar Vaughn MD [address] [place] [address],[address], [address], [facility] 02/12/2024 11:28:34 4 Doll Catheter Insertion completed Concetta Goddardamberly null, [facility] 02/10/2024 14:26:17 4 Fill and Pull/Voiding Trial/TOV completed Concetta Irelandharrison null, [facility] 02/10/2024 14:25:24 4 Doll Catheter Insertion completed Franko magaña null, [facility] 02/03/2024 12:10:15 4 Fill and Pull/Voiding Trial/TOV completed Luda Watson PA-C [address] [place] [address],[address], [address], [facility] 02/03/2024 11:16:06 Imaging Results None [...] and Address Organization Details Last Updated DateTime 02/03/2024 180.34 cm 31.4 kg/m2 188632.28 g Franko weavero [facility] 02/03/2024 10:37:24 Date Recorded Body height Body mass index (BMI) Body weight Provider Name and Address Organization Details Last Updated DateTime 02/12/2024 180.34 cm 31.4 kg/m2 687010.28 g Edmar Vaughn MD [address] [place] [address],[address] [phone] [place] [address] [facility] 02/12/2024 11:05:47 Date Recorded Body height Body mass index (BMI) Body weight Provider Name and Address Organization Details Last Updated DateTime 03/04/2024 180.34 cm 30.7 kg/m2 54088.32 g Edmar Vaughn MD [address] [place] [address],[address] [phone] [place] [address] [facility] 03/04/2024 14:26:29 Social History Question Answer Notes LastModified by Organizat ion Details LastModified Time Tobacco Smoking Status [facility]/03/[facility] 10:40:30 What Is Your Level Of Alcohol Consumption? Moderate Beer At Supper Information not available 02/03/2024 What Is Your Level Of Caffeine Consumption? None Information not available 02/03/2024 When Did You Quit Smoking? 16+yearssinc elastcigaret te Information not available 02/03/2024 What Was The Date Of Your Most Recent Tobacco Screening? 03/04/2024 [email or web address] Information not available 03/04/2024 Have You Ever Been Counseled For Unhealthy Alcohol Use? No Information not available 02/12/2024 Do You Use Any Illicit Or Recreational Drugs? No Information not available 02/03/2024 Has Tobacco Cessation Counseling Been Provided? No Information not available 02/12/2024 Do You Or Have You Ever Used Any Other Forms Of Tobacco Or Nicotine? No [email or web address] Information not available 02/12/2024 How Many Days In The Past Year Have You Consumed 5 Or More Drinks? 0 Information not available 02/12/2024 Sex: Unknown Functional [...] PF 09/08/2018 completed Miletzi Arvizu-Valer o null, [facility] 02/03/2024 10:37:30 Influenza, adjuvanted, trivalent, PF 09/30/2017 completed Miletzi Arvizu-Valer o null, [facility] 02/03/2024 10:37:30 Influenza, adjuvanted, trivalent, PF 10/14/2019 completed Miletzi Arvizu-Valer o null, [facility] 02/03/2024 10:37:30 zoster recombinant 12/21/2023 completed Miletzi Arvizu-Valer o null, [facility] 02/03/2024 10:37:30 Influenza, high-dose, quadrivalent, PF 06/30/2023 completed Miletzi Arvizu-Valer o null, [facility] 02/03/2024 10:37:30 Influenza, high-dose, quadrivalent, PF 07/31/2022 completed Miletzi Arvizu-Valer o null, [facility] 02/03/2024 10:37:30 Influenza, adjuvanted, quadrivalent, PF 07/08/2021 completed Miletzi Arvizu-Valer o null, [facility] 02/03/2024 10:37:30 COVID-19, mRNA, LNP-S, PF, 30 mcg/0.3 mL dose 10/06/2020 completed Miletzi Arvizu-Valer o null, [facility] 02/03/2024 10:37:30 COVID-19, mRNA, LNP-S, PF, 30 mcg/0.3 mL dose 10/27/2020 completed Miletzi Arvizu-Valer o null, [facility] 02/03/2024 10:37:30 COVID-19, mRNA, LNP-S, PF, 30 mcg/0.3 mL dose 07/08/2021 completed Miletzi Arvizu-Valer o null, [facility] 02/03/2024 10:37:30 COVID-19, mRNA, LNP-S, PF, 30 mcg/0.3 mL dose, gillian-sucrose 02/11/2022 completed Miletzi Arvizu-Valer o null, [facility] 02/03/2024 10:37:30 COVID-19, mRNA, LNP-S, bivalent, PF, 30 mcg/0.3 mL dose 07/31/2022 completed Miletzi Arvizu-Valer o null, [facility] 02/03/2024 10:37:30 RSV, recombinant, protein subunit RSVpreF, adjuvant reconstituted, 0.5 mL, PF 06/30/2023 completed Miletzi Arvizu-Valer o null, [facility] 02/03/2024 10:37:30 pneumococcal polysaccharide PPV23 05/25/2006 completed Miletzi Arvizu-Valer o null, [facility] 02/03/2024 10:37:30 Tdap 12/21/2023 completed Miletzi Arvziu-Valer o null, [facility] 02/03/2024 10:37:30 Novel [id number], all formulations 09/14/2009 completed Miletzi Arvizu-Valer o null, [facility] 02/03/2024 10:37:30 Pneumococcal conjugate PCV 13 08/22/2015 completed Miletzi Arvizu-Valer o null, [facility] 02/03/2024 10:37:30 Influenza, high-dose, trivalent, PF 09/24/2016 completed Miletzi Arvizu-Valer o null, [facility] 02/03/2024 10:37:30 Influenza, high-dose, trivalent, PF 08/21/2014 completed Miletzi Arvizu-Valer o null, [facility] 02/03/2024 10:37:30 Influenza, high-dose, trivalent, PF 08/22/2015 completed Miletzi Arvizu-Valer o null, [facility] 02/03/2024 10:37:30 Influenza, split virus, trivalent, preservative 05/29/2008 completed Miletzi Arvizu-Valer o null, [facility] 02/03/2024 10:37:30 Influenza, split virus, trivalent, preservative 05/31/2007 completed Franko Beerigal-Valer o null, [facility] 02/03/2024 10:37:30 Influenza, split virus, trivalent, preservative 06/20/2010 completed Franko Beerigal-Valer o null, [facility] 02/03/2024 10:37:30 Influenza, split virus, trivalent, preservative 06/27/2004 completed Franko Beerigal-Valer o null, [facility] 02/03/2024 10:37:30 Influenza, split virus, trivalent, preservative 08/06/2012 completed Franko Zarateal-Valer o null, [facility] 02/03/2024 10:37:30 Influenza, split virus, trivalent, preservative 08/19/2013 completed Franko Zarateal-Valer o null, [facility] 02/03/2024 10:37:31 Influenza, split virus, trivalent, PF 09/14/2009 completed Franko Zarateal-Valer o null, [facility] 02/03/2024 10:37:31 Td (adult), 5 Lf tetanus toxoid, preservative free, adsorbed 05/25/2006 completed Franko Arvizu-Lisaer o null, [facility] 02/03/2024 10:37:31 Past Encounters Encounter ID Performer Location Encounter Start Date Encounter Closed Date Diagnosis/Indication Diagnosis SNOMED-CT Code [id number] Franko Arvizu-Latanya lero [facility] [address] [place] [address] 02/03/2024 10:25:53 02/04/2024 08:33:51 Acute retention of urine [id number] Luda Watson PA-C [facility] [address] [place] [address] 02/10/2024 13:37:37 02/11/2024 09:27:45 Acute retention of urine [id number] Edmar Vaughn MD [facility] [address] [place] [id number] 02/12/2024 10:44:21 02/15/2024 16:00:54 Retention of urine [id number] Edmar Vaughn MD [facility] [address] [place] [id number] 03/04/2024 14:17:21 03/22/2024 12:42:48 Retention of urine [id number] Health Concerns Section Related Observation LastModified by Organization Detai ls LastModified Time None Recorded Concern Status LastModified by Organization Details LastModified Time None Recorded Advance Directives Directive None Recorded Payers Encounter Date Sequence Insurance Name Policy Number Policy Masterson Covered Member ID Masterson Member ID Guarantor Name 02/03/2024 1 [employer] - DOS ON OR AFTER 19 (MEDICARE REPLACEMENT/ ADVANTAGE - HMO) [id number] 1 Kojo N Laabs [id number] Kojo N Laabs 02/10/2024 1 [employer] - DOS ON OR AFTER 19 (MEDICARE REPLACEMENT/ ADVANTAGE - HMO) [id number] 1 Kojo N Laabs [id number] Kojo N Laabs 02/12/2024 1 [employer] - DOS ON OR AFTER 19 (MEDICARE REPLACEMENT/ ADVANTAGE - HMO) [id number] 1 Kojo N Laabs [id number] Kojo N Laabs 03/04/2024 1 [employer] - DOS ON OR AFTER 19 (MEDICARE REPLACEMENT/ ADVANTAGE - HMO) [id number] 1 Kojo N Laabs [id number] Kojo N Laabs Notes Date Note Type Note Provider Name and Address Organization Details Recorded Time 02/03/2024 text/html HPI Notes: 89M with acute urinary retention. Here with son who also provides some of the history. Seen at [facility] for inability to void on 01/18/24. Had Doll catheter placed for 800 cc of urine. Here for follow up and voiding trial. He reports some difficulty with urination since the beginning of this year. Variable strength of stream. Nocturia 4x/night on average. Had some gross hematuria the day catheter was placed, but he otherwise denies gross hematuria or dysuria. Also denies urinary frequency or urgency. Takes 0.8 mg tamsulosin daily. Denies history of UTIs, but does report kidney stones in the past. Labs: Imaging: PMH: PSH: Soc: Occ: Tobacco: EtOH: FHx: no FHx prostate cancer or bladder cancer Franko esquivel [facility] 02/03/2024 12:10:27 02/10/2024 text/html HPI Notes: Pt presents for 2nd TOV, did not pass, cath replaced and he will f/u with an MD per Luda's last visit note. Nurse visit completed by Concetta Donnelly RN. Luda Watson PA-C [address] [place] [address],[address], [place], [address], [facility] 02/10/2024 15:48:09 02/12/2024 text/html HPI Notes: follw o up retention, TOV today 400 in and 150 out, double from last visit. tolerates catheter OK. Edmar Vaughn MD [address] [place] [address],[address], [place], [address], [facility] 02/12/2024 11:53:41 03/04/2024 text/html HPI Notes: here for cysto/TOV today Edmar Vaughn MD [address] [place] [address],[address], [place], [address], [facility] 03/04/2024 15:55:02
--- OUTSIDE RECORDS SUMMARY | 2024-03-25 12:41 | XMS_ITS | Clinical Summary ---
Author Organization [facility] Address [place], [place] [address] Care Team Providers Care Chief Jailer Name Role Phone Juwan Avery MD Primary Care Provider [phone]- [phone] Allergies No known active allergies Medications Medication Sig Dispensed Refills Start Date End Date Status ASPIRIN 81 MG TAB, DELAYED RELEASE once daily 0 02/15/2007 Active MULTIVITAMIN TAB Once daily 0 05/14/2007 Active VITAMINS A,C,O-NCKB-ZHUCBY (OCUVITE PRESERVISION) 7,160-113-100 tgkl-ys-udza tablet Take 1 tablet by mouth once daily. 0 09/24/2016 Active fluorometholone (FML) 0.1 % ophthalmic suspension 11/05/2017 Active potassium chloride (KLOR-CON M20) 20 mEq extended-release tablet (part/cryst)Indicati ons:Essential hypertension Take 1 Tablet (20 mEq) by mouth two times daily with meals. 180 Tablet 3 12/16/2023 Active chlorthalidone (HYGROTON) 25 mg tabletIndications:Es sential hypertension Take 1 Tablet (25 mg) by mouth once daily. 90 Tablet 3 12/16/2023 Active atenoloL (TENORMIN) 50 mg tabletIndications:Es sential hypertension Take 1 Tablet (50 mg) by mouth once daily. 90 Tablet 12/16/2023 Active pravastatin (PRAVACHOL) 80 mg tabletIndications:Hy perlipidemia, unspecified hyperlipidemia type Take 1 Tablet (80 mg) by mouth at bedtime. 90 Tablet 12/16/2023 Active tamsulosin (FLOMAX) 0.4 mg capsuleIndications:P rostatic hypertrophy TAKE TWO CAPSULES BY MOUTH DAILY with a meal. 180 Capsule 12/16/2023 Active ferrous sulfate 325 mg delayed release tabletIndications:Mi crocytic anemia Take 1 Tablet (325 mg) by mouth two times daily with meals. 90 Tablet 3 03/17/2024 Active polyethylene glycol-electrolyte (GOLYTELY) 236-22.74-6.74 -5.86 gram suspensionIndication s:Microcytic anemia Drink 2 liters the day before colonoscopy and 2 liters 6 hours before colonoscopy appointment 4000 mL 03/17/2024 Active Active Problems Problem Noted Date Diagnosed Date Controlled type 2 diabetes m ellitus without complication, without long-term current use of insulin 10/05/2018 Other and unspecified hyperlipidemia 05/31/2007 Prostatic hypertrophy 02/15/2007 Unspecified essential hypertension AAA (abdominal aortic aneurysm) without rupture Overview: Increasing in size slowly, 4.6 cm in 2021 1 year ultrasound repeat Us in 2022 is stable. Resolved Problems Problem Noted Date Diagnosed Date Resolved Date Unspecified essential hypertension 02/15/2007 05/29/2008 Encounters Date Type Department Care Team Description 03/23/2024 Telephone [facility] [address] [place] [address] Juwan Avery MD COLONOSCOPY (QUESTIONS) 03/23/2024 Telephone [facility] [address] [place] [address] Eliecer Barreto MD Questions 03/17/2024 10:25 AM CDT Office Visit [facility] [address] [place] [address] Brian Pate MD Preoperative Exam ([place], 03/31/24, cystoscopy) 03/17/2024 Telephone [facility] [address] [place] [address] Brian Pate MD referrals needed 03/17/2024 Telephone [facility] [address] [place] [address] Eliecer Barreto MD Appointment 03/17/2024 Travel 01/26/2024 9:25 AM CDT Office Visit [facility] [address] [place] [address] Nicolette Ivan MD Catheter Problem (patient wanting catheter taken out today. ) 01/26/2024 Travel 01/19/2024 8:10 AM CDT Office Visit [facility] [address] [place] [address] Nicolette Ivan MD ER Follow up ([facility] 01/18/24. Urine retention ) 01/19/2024 Travel from Last 3 Months Immunizations Name Administration Dates Next Due COVID-19 vaccine (Maternova-Bio NTech 30mcg/0.3mL) ADRIAN RABAGO 07/08/2021,10/27/2020,10/06/2020 Influenza A (H1N1), Inactivated 09/14/2009 Influenza A (H1N1), Inactiva pablo (Age >=3 Years) 09/14/2009 Influenza, High-dose Inactivated 09/24/2016,07/26,08/21/2014 Influenza, High-dose Quadriv alent Inactivated 06/30/2023,07/31/2022 Influenza, IIV3 (Age 6-35 mos) 09/14/2009 Influenza, IIV3 (Age >=3 years) 08/19/20 13,08/06/2012,06/20/2010,09/14,05/29/2008,05/31/2007,06/27/2004 Influenza, Inactivated AIIV4 (Age 65+ Years) Preserv Free 07/08/2021 Influenza, Inactivated IIV3 (Age 65+ Years) Preserv Free 10/14/2019,09/08/2018,09/30/2017 Pneumococcal Poly,23-Valent (Pneumovax) 05/25/2006 Pneumococcal conj 13-Valent (Prevnar 13) 08/22/2015 RSV, Recombinant ADJ Reconst ituted (Arexvy 120MCG/0.5mL) 06/30/2023 Td (Age >=7 Years) 05/25/2006 Td, Preservative Free (age >= 7 Years) 6 Tdap 12/21/2023 Zoster (Shingrix-RZV, recombinant) 12/21/2023 Family History Medical History Relation Name Comments Other Brother polio Other Father alzheimer's--la te 80s Cancer Mother brain Heart Disease Other 1 none Cancer-colon Other 2 none Cancer-prostate Other 3 none Diabetes Other 4 none Relation Name Status Comments Brother Father Mother Other 1 Other 2 Other 3 Other 4 Social History Tobacco Use Types Packs/Day Years Used Date Smoking Tobacco: Former Cigarettes 1 5 0 08/24/1986 - 08/24/1991 Smokeless Tobacco: Never Tobacco Cessation:Counseling Given: Yes Alcohol Use Standard Drinks/Week Comments Yes 7 (1 standard drink = 0.6 oz pur e alcohol) one beer every night PHQ-2 Answer Date Recorded PHQ-2 TOTAL SCORE 0 12/16/2023 Social Connections Answer Date Recorded Frequency of Communication with Friends and Fami ly 0 12/16/2023 Alcohol Use Answer Date Recorded How often do you have a drink containing alcohol ? 4 12/16/2023 How many drinks containing a lcohol do you have on a typical day when you are drinking? 0 12/16/2023 How often do you have five or more drinks on one occasion? 0 12/16/2023 Financial Resource Strain Answer Date R ecorded Difficulty of Paying Living Expenses 3 12/16/2023 Difficulty of Paying Living Expenses Not on file 12/16/2023 Food Insecurity Answer Date Recorded Worried About Running Out of Food in the Last Ye ar 1 12/16/2023 Transportation Needs Answer Date Record ed Lack of Transportation (Medical) 1 12/16/2023 Housing Stability Answer Date Recorded Unable to Pay for Housing in the Last Year 1 12/16/2023 Sex and Gender Information Value Date Recorded Sex Assigned at Not on file Gender Identity Not on file Sexual Orientation Not on file Obstetrics History Last Filed Vital Signs Vital Sign Reading Time Taken Comments Blood Pressure 132/71 03/17/2024 10:35 AM CDT Pulse 61 03/17/2024 10:35 AM CDT Temperature 36.6 ??C (97.9 ??F) 03/17/2024 10:35 AM C DT Respiratory Rate 20 10/30/2020 9:31 AM CHARGE LPN Oxygen Saturation 99% 03/17/2024 10:35 AM CDT Inhaled Oxygen Concentration - - Weight 99.5 kg (219 lb 4.8 oz) 03/17/2024 10:35 AM CDT Height 175.8 cm (5' 9.2) 03/17/2024 10:35 AM CD T Body Mass Index 32.2 03/17/2024 10:35 AM CDT Plan of Treatment Upcoming Encounters Date Type Department Care Team (Late st Contact Info) Description 03/25/2024 12:45 PM CDT Office Visit [facility] at [facility] [address] [place] [address] Eliecer Barreto MD [address] [place] [address] Arrived Health Maintenance Due Date Last Done Comments COVID-19 vaccine series ( season) 2023 07/31/2022, 02/11/2022, 07/08/2021, Additional history exists Zoster (shingles) series for age 50+ (2 of 2) 02/15/2024 12/21/2023 Influenza for age 65+ 04/24/2024 06/30/2023 , 07/31/2022, 07/08/2021, Additional history exists Depression screening for age 12+ 12/15/2024 12/16/2023, 11/12/2022, 10/22/2021, Additional history exists Medicare Wellness for age 65+ 12/16/2024, 11/12/2022, 10/21/2021, Additional history exists BMI (ht and wt on same day) for age 18+ 03/17/2025 03/17/2024, 12/16/2023, 11/12/2022, Additional history exists Tetanus booster 12/20/2033 12/21/2023, 09/2005, 05/25/2006 Pneumococcal series for age 65+ Completed 5, 05/25/2006 Tdap Completed 12/21/2023 Procedures Procedure Name Priority Date/Time Associated Diagnosis Comments COLONOSCOPY SCREENING Routine 03/25/2024 8:10 AM CDT Microcytic anemia ESOPHAGOGASTRODUODENOSCOPY Routine 03/25 8:10 AM CDT Microcytic anemia EKG 12 LEAD Routine 03/21/2024 10:32 AM CDT Pre-op exam MO READING EKG - NO CHARGE, COMP ONLY Routine 03/21/2024 10:31 AM CDT Pre-op exam BASIC METABOLIC PANEL Routine 03/17/2024 12:13 PM CDT Unspecified essential hypertension FERRITIN Routine 03/17/2024 12:13 PM CDT Microcytic anemia CBC WITH AUTO DIFFERENTIAL Routine 03/17 10:30 AM CDT Unspecified essential hypertension CBC WITH AUTO DIFFERENTIAL Routine 03/17 10:30 AM CDT Unspecified essential hypertension BASIC METABOLIC PANEL Routine 01/19/2024 9:03 AM CDT Prostatic hypertrophy Acute urinary retention from Last 3 Months Results * EKG 12 LEAD (03/21/2024 10:32 AM CDT) Brian Pate MD EKG ORD * MO READING EKG - NO CHARGE, COMP ONLY (03/21/2024 10:31 AM CDT) Brian Pate MD PB - PROVIDER RE ADINGS * (ABNORMAL) FERRITIN (03/17/2024 12:13 PM CDT) Pathologist [facility] FERRITIN 29.4(L) 30.0 - 400.0 ng/mL 03/18/2024 4:09 AM CDT [facility] Blood BLOOD SPECIMEN / Unknown Venipuncture / Unknown 03/17/2024 12:13 PM CDT 03/17/2024 12:13 PM CDT Brian Pate MD CHEMISTRY [facility] [address] [place] [address], * (ABNORMAL) BASIC METABOLIC PANEL (03/17/2024 12:13 PM CDT) Only the most recent of2 resultswithin the time period is included. Pathologist [facility] SODIUM 138 136 - 145 mmol/L 03/18/2024 4:09 AM CDT [facility] POTASSIUM 4.2 3.5 - 5.1 mmol/L 03/18/2024 4:09 AM CDT [facility] CHLORIDE 103 98 - 107 mmol/L 03/18/2024 4:09 AM CDT [facility] CO2,TOTAL 28 22 - 29 mmol/L 03/18/2024 4:09 AM T [facility] ANION GAP 7 5 - 18 03/18/2024 4:09 AM CDT [facility] GLUCOSE 86 70 - 99 mg/dL 03/18/2024 4:09 AM T [facility] CALCIUM 8.8 8.8 - 10.2 mg/dL 03/18/2024 4:09 AM T [facility] BUN 20 8 - 23 mg/dL 03/18/2024 4:09 AM T [facility] CREATININE 1.03 0.70 - 1.20 mg/dL 03/18/2024 4:09 AM T [facility] BUN/CREAT RATIO 19 10 - 20 4:09 AM [facility] eGFR 70(L) >90 mL/min/1.7 3m2 03/18/2024 4:09 AM T [facility] Comment:As of 2021, eG FR is calculated by the CKD-EPI creatinine equation without race adjustment. ??eGFR can be influenced by muscle mass, exercise, and diet. ??The reported eGFR is an estimation only and is only applicable if the renal function is stable. Blood BLOOD SPECIMEN / Unknown Venipuncture / Unknown 03/17/2024 12:13 PM CDT 03/17/2024 12:13 PM CDT Brian Pate MD CHEMISTRY [facility] [address] [place] [address], * (ABNORMAL) CBC WITH AUTO DIFFERENTIAL (03/17/2024 10:30 AM CDT) [facility] WHITE BLOOD COUNT 9.6 4.5 - 11.0 thou/cu mm 03/17/2024 10:36 AM CDT [facility] RED BLOOD COUNT 4.62 4.30 - 5.90 mil/cu mm 03/17/2024 10:36 AM CDT [facility] HEMOGLOBIN 9.4(L) 13.5 - 17.5 g/dL 03/17/2024 10:36 AM CDT [facility] HEMATOCRIT 31.7(L) 37.0 - 53.0 % 03/17/2024 10:36 AM CDT [facility] MCV 69(L) 80 - 100 fL 03/17/2024 10:36 AM CDT [facility] MCH 20.3(L) 26.0 - 34.0 pg 03/17/2024 10:36 AM CDT [facility] MCHC 29.7(L) 32.0 - 36.0 g/dL 03/17/2024 10:36 AM CDT [facility] RDW 20.4(H) 11.5 - 15.5 % 03/17/2024 10:36 AM CDT [facility] PLATELET COUNT 225 140 - 440 thou/cu mm 03/17/2024 10:36 AM CDT [facility] MPV 9.0 6.5 - 11.0 fL 03/17/2024 10:36 AM CDT [facility] % NEUT 57.6 % 03/17/2024 10:36 AM CDT [facility] % LYMPH 24.3 % 03/17/2024 10:36 AM CDT [facility] % MONO 16.1 % 03/17/2024 10:36 AM CDT [facility] % EOS 1.8 % 03/17/2024 10:36 AM CDT [facility] % BASO 0.2 % 03/17/2024 10:36 AM CDT [facility] ABSOLUTE NEUTROPHILS 5.5 1.7 - 7.0 thou/cu mm 03/17/2024 10:36 AM CDT [facility] ABSOLUTE LYMPHOCYTES 2.3 0.9 - 2.9 thou/cu mm 03/17/2024 10:36 AM CDT [facility] ABSOLUTE MONOCYTES 1.6(H) <0.9 thou/cu mm 03/17/2024 10:36 AM CDT [facility] ABSOLUTE EOSINOPHILS 0.2 <0.5 ou/cu mm 03/17/2024 10:36 AM CDT [facility] ABSOLUTE BASOPHILS 0.0 <0.3 ou/cu mm 03/17/2024 10:36 AM CDT [facility] Blood BLOOD SPECIMEN / Unknown Venipuncture / Unknown 03/17/2024 10:30 AM CDT 03/17/2024 10:30 AM CDT Brian Pate MD HEMATOLOGY [facility] [address] [place] [address], from Last 3 Months Care Teams Chief Jailer Relationship Specialty Start Date End Date Juwan Avery MD [address] [place] [address] PCP - General Family Practice 11/12/22
--- OUTSIDE RECORDS SUMMARY | 2024-03-25 12:42 | XMS_ITS | Continuity of Care Document ---
Author Organization [facility] Address [address] [place] [address] Assessment Encounter Date Assessment Date Assessment LastModified [...] up with MD for KIRAN and cysto [email or web address] Not available 02/03/2024 12:06:07 Plan of Treatment Reminders Order Date Submit [...] of urine Active 4 Luda Watson PA-C [address] [place] [address],[address], [place], [address], [facility] 02/03/2024 11:29:06 Retention of urine Active 4 Edmar Vaughn MD [address] [place] [address],[address], [place], [address], [facility] 02/12/2024 11:33:59 Problem Notes None recorded. Procedures Surgical History Date Name Laterality Status Provider Name and Address Organization Details Recorded Time 4 Cystoscopy- male completed Edmar Vaughn MD [address] [place] [address],[address], [place], [address], [facility] 03/04/2024 14:49:59 4 Doll Catheter Insertion completed Trey esquivel, [facility] 03/04/2024 15:44:20 4 Cipro post Cysto completed Trey esquivel, [facility] 02/24/2024 14:58:47 4 Fill and Pull/Voiding Trial/TOV completed Trey esquivel, [facility] 03/04/2024 15:44:41 4 Doll Catheter Insertion completed Edmar Vaughn MD [address] [place] [address],[address], [place], [address], [facility] 02/12/2024 11:53:15 4 Fill and Pull/Voiding Trial/TOV completed Edmar Vaughn MD [address] [place] [address],[address], [place], [address], [facility] 02/12/2024 11:28:34 4 Doll Catheter Insertion completed Concetta esquivel, [facility] 02/10/2024 14:26:17 4 Fill and Pull/Voiding Trial/TOV completed Concetta esquivel, [facility] 02/10/2024 14:25:24 4 Doll Catheter Insertion completed Franko magaña null, [facility] 02/03/2024 12:10:15 4 Fill and Pull/Voiding Trial/TOV completed Luda Watson PA-C [address] [place] [address],[address], [place], [address], [facility] 02/03/2024 11:16:06 Imaging Results None recorded. Procedure [...] Updated DateTime 02/03/2024 180.34 cm 31.4 kg/m2 468127.28 g Franko nichols [facility] 02/03/2024 10:37:24 Social History Question Answer Notes LastModified by Organizat ion Details LastModified Time Tobacco Smoking Status [facility]/03/2024 10:40:30 What Is Your Level Of Alcohol Consumption? Moderate Beer At Supper Information not available 02/03/2024 What Is Your Level Of Caffeine Consumption? None Information not available 02/03/2024 When Did You Quit Smoking? 18+yearssinc elastcigaret te Information not available 02/03/2024 What Was The Date Of Your Most Recent Tobacco Screening? 03/04/2024 Information not available 03/04/2024 Have You Ever Been Counseled For Unhealthy Alcohol Use? No [email or web address] Information not available 02/12/2024 Do You Use Any Illicit Or Recreational Drugs? No Information not available 02/03/2024 Has Tobacco Cessation Counseling Been Provided? No [email or web address] Information not available 02/12/2024 Do You Or Have You Ever Used Any Other Forms Of Tobacco Or Nicotine? No [email or web address] Information not available 02/12/2024 How Many Days [...] PF 09/08/2018 completed Miletzi Arvizu-Valer o null, [facility] 02/03/2024 10:37:30 Influenza, adjuvanted, trivalent, PF 09/30/2017 completed Miletzi Arvizu-Valer o null, [facility] 02/03/2024 10:37:30 Influenza, adjuvanted, trivalent, PF 10/14/2019 completed Miletzi Arvizu-Valer o null, [facility] 02/03/2024 10:37:30 zoster recombinant 12/21/2023 completed Miletzi Arvizu-Valer o null, [facility] 02/03/2024 10:37:30 Influenza, high-dose, quadrivalent, PF 06/30/2023 completed Miletzi Arvizu-Valer o null, [facility] 02/03/2024 10:37:30 Influenza, high-dose, quadrivalent, PF 07/31/2022 completed Miletzi Arvizu-Valer o null, [facility] 02/03/2024 10:37:30 Influenza, adjuvanted, quadrivalent, PF 07/08/2021 completed Miletzi Arvizu-Valer o null, [facility] 02/03/2024 10:37:30 COVID-19, mRNA, LNP-S, PF, 30 mcg/0.3 mL dose 10/06/2020 completed Miletzi Arvizu-Valer o null, [facility] 02/03/2024 10:37:30 COVID-19, mRNA, LNP-S, PF, 30 mcg/0.3 mL dose 10/27/2020 completed Miletzi Arvizu-Valer o null, [facility] 02/03/2024 10:37:30 COVID-19, mRNA, LNP-S, PF, 30 mcg/0.3 mL dose 07/08/2021 completed Miletzi Arvizu-Valer o null, [facility] 02/03/2024 10:37:30 COVID-19, mRNA, LNP-S, PF, 30 mcg/0.3 mL dose, gillian-sucrose 02/11/2022 completed Miletzi Arvizu-Valer o null, [facility] 02/03/2024 10:37:30 COVID-19, mRNA, LNP-S, bivalent, PF, 30 mcg/0.3 mL dose 07/31/2022 completed Miletzi Arvizu-Valer o null, [facility] 02/03/2024 10:37:30 RSV, recombinant, protein subunit RSVpreF, adjuvant reconstituted, 0.5 mL, PF 06/30/2023 completed Miletzi Arvizu-Valer o null, [facility] 02/03/2024 10:37:30 pneumococcal polysaccharide PPV23 05/25/2006 completed Miletzi Arvizu-Valer o null, [facility] 02/03/2024 10:37:30 Tdap 12/21/2023 completed Miletzi Arvizu-Valer o null, [facility] 02/03/2024 10:37:30 Novel [id number], all formulations 09/14/2009 completed Miletzi Arvizu-Valer o null, [facility] 02/03/2024 10:37:30 Pneumococcal conjugate PCV 13 08/22/2015 completed Miletzi Arvizu-Valer o null, [facility] 02/03/2024 10:37:30 Influenza, high-dose, trivalent, PF 09/24/2016 completed Miletzi Arvizu-Valer o null, [facility] 02/03/2024 10:37:30 Influenza, high-dose, trivalent, PF 08/21/2014 completed Miletzi Arvizu-Valer o null, [facility] 02/03/2024 10:37:30 Influenza, high-dose, trivalent, PF 08/22/2015 completed Miletzi Arvizu-Valer o null, [facility] 02/03/2024 10:37:30 Influenza, split virus, trivalent, preservative 05/29/2008 completed Miletzi Arvizu-Valer o null, [facility] 02/03/2024 10:37:30 Influenza, split virus, trivalent, preservative 05/31/2007 completed Miletzi Arvizu-Valer o null, [facility] 02/03/2024 10:37:30 Influenza, split virus, trivalent, preservative 06/20/2010 completed Miletzi Arvizu-Valer o null, [facility] 02/03/2024 10:37:30 Influenza, split virus, trivalent, preservative 06/27/2004 completed Miletzi Arvizu-Valer o null, [facility] 02/03/2024 10:37:30 Influenza, split virus, trivalent, preservative 08/06/2012 completed Miletzi Arvizu-Valer o null, [facility] 02/03/2024 10:37:30 Influenza, split virus, trivalent, preservative 08/19/2013 completed Miletzi Arvizu-Valer o null, [facility] 02/03/2024 10:37:31 Influenza, split virus, trivalent, PF 09/14/2009 completed Miletzi Arvizu-Valer o null, [facility] 02/03/2024 10:37:31 Td (adult), 5 Lf tetanus toxoid, preservative free, adsorbed 05/25/2006 completed Milnai Arvizu-Valer o null, [facility] 02/03/2024 10:37:31 Past Encounters Encounter ID Performer Location Encounter Start Date Encounter Closed Date Diagnosis/Indication Diagnosis SNOMED-CT Code [id number] Franko Arvizu-Latanya lero [facility] [address] [place] [id number] 02/03/2024 10:25:53 02/04/2024 08:33:51 Acute retention of urine [id number] Health Concerns Section Related Observation LastModified by Organization Detai ls LastModified Time None Recorded Concern Status LastModified by Organization Details LastModified Time None Recorded Payers Encounter Date Sequence Insurance Name Policy Number Policy Masterson Covered Member ID Masterson Member ID Guarantor Name 02/03/2024 1 [employer] - DOS ON OR AFTER 19 (MEDICARE REPLACEMENT/ ADVANTAGE - HMO) [id number] 1 Kojo Ness [id number] Kojo Ness Notes Date Note Type Note Provider Name and Address Organization Details Recorded Time 02/03/2024 text/html HPI Notes: 89M with acute urinary retention. Here with son who also provides some of the history. Seen at [place] [facility] for inability to void on 01/18/24. [...] no FHx prostate cancer or bladder cancer EDENILSON Rivera - [facility] 02/03/2024 12:10:27
--- NOTE | 2024-03-25 15:07 | W.ANESCHARGE ---
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
== END 2024-03-25 12:40 | disposition home or self-care (01) ==
LOC: OP CLINIC 12:39
PROVIDERS: Visit Provider Internal Medicine Gastroenterology
DX: D50.9 Iron deficiency anemia, unspecified (principal); K92.1 Melena; K22.89 Other specified disease of esophagus; K63.5 Polyp of colon; D49.0 Neoplasm of unspecified behavior of digestive system; K57.30 Diverticulosis of large intestine without perforation or abscess without bleeding; K56.690 Other partial intestinal obstruction; Z13.71 Encounter for nonprocreative screening for genetic disease carrier status
CPT/HCPCS: 00813; 43239; 45380; 45381; 45385; 81210; 88305; 88341; 88342; 99100; J2704; J3010

== ENCOUNTER 2024-03-31 07:29 | Emergency (ER) | payer MEDICARE, SELFPAY ==
[2024-03-31 07:39] VITALS: BP 124/75; PULSE 71; RESP 18; TEMP 36.1; O2SAT 96; BMI 29.3
--- NOTE | 2024-03-31 08:18 | ED.MALEGU ---
HPI - Male Genitourinary General Date Seen: 03/31/24 Chief complaint: Urogenital Problems, Male Stated complaint: blood in urine, has catheter Time Seen by Provider: 03/31/24 08:13 Source: patient Mode of arrival: ambulatory Limitations: no limitations History of Present Illness HPI Narrative: Is an 89-year-old male presenting to the emergency department for a clogged Mcmullen catheter. He has had this fully and for little over 2 months, placed . It has been giving him no issues at all but he started noticing yesterday morning has little bit of blood when he emptied it. Since then he has had no output from it. Was doing well overall yesterday was able to go about his day as normal. Still has not had any output this morning she was concerned and came to the emergency department for evaluation. Of note was supposed to have a procedure today next for his urethra but that was canceled due to them finding colon cancer on colonoscopy last Thursday. Denies fevers, chills, abdominal pain, diarrhea, constipation, weakness, numbness, headache, vision changes. No other concerns noted Related Data Home Medications ?Medication ?Instructions ?Recorded ?Confirmed atenolol 50 mg tablet 50 mg PO DAILY 01/18/24 03/31/24 chlorthalidone 25 mg tablet 25 mg PO DAILY 01/18/24 03/31/24 potassium chloride 20 mEq 20 meq PO 3XD 01/18/24 03/31/24 tablet,extended release(part/cryst) (Klor-Con M) pravastatin 80 mg tablet 80 mg PO QPM 01/18/24 03/31/24 tamsulosin 0.4 mg capsule 0.8 mg PO DAILY 01/18/24 03/31/24 ferrous sulfate 325 mg (65 mg 325 mg PO BID 03/31/24 03/31/24 iron) tablet,delayed release peg 3350-electrolytes 236 ml PO 03/31/24 gram-22.74 gram-6.74 gram-5.86 gram solution (GaviLyte-G) Previous Rx's ?Medication ?Instructions ?Recorded cephalexin 500 mg capsule 500 mg PO BID #14 caps 01/27/24 ciprofloxacin HCl 500 mg tablet 500 mg PO BID #10 tabs 02/04/24 (Cipro) Allergies Allergy/AdvReac Type Severity Reaction Status Date / Time No Known Drug Allergies Allergy Verified 01/18/24 10:01 Review of Systems Status of ROS: Reports: 10 or more systems reviewed and unremarkable except as noted in History and below PFSH PFS Social History Smoking Status: Never smoker Second hand tobacco smoke exposure: No How often do you have a drink containing alcohol: 4 or more times a week How many standard drinks containing alcohol do you have on a typical day: 1 or 2 How often do you have six or more drinks on one occasion: Never AUDIT-C Alcohol total score: 4 Non-prescribed substance use: denies use service: No Exam Narrative: Exam Narrative: Const: Well-nourished, Well-developed, in new distress Eyes: PERRL, no conjunctival injection, and symmetrical lids HENT: Atraumatic external nose and ears. Moist mucous membranes. Neck: Symmetric, trachea midline, No thyromegaly. CVS: RRR, No murmurs or gallops. Peripheral pulses 2+ and equal in all extremities RESP: Unlabored respiratory effort. Clear to auscultation bilaterally. GI: Mild suprapubic tenderness, Nondistended, No rebound or guarding. MSK:Extremities w/o deformity, Normal Active ROM Skin: Warm, Dry. No rashes or lesions. Neuro: Normal Muscle tone, No focal neurological deficits. Psych: Awake, Alert, & Oriented x3. Appropriate mood and affect. Const: Vital Signs, click to edit/add: Vital Signs - 24 hr 03/31/24 07:39 Temperature 97.0 F L Pulse Rate [Left P ulse Oximeter] 71 Respiratory Rate 18 Blood Pressure [Le ft Upper Arm] 124/75 Pulse Oximetry 96 Oxygen Delivery Me thod Room Air Course Vital Signs Vital signs: Initial Vital Signs Temperature 97.0 F L 03/31/24 07:39 Temperature Source Temporal Artery Scan 03/31/24 07:39 Pulse Rate 71 03/31/24 07:39 Pulse Rhythm Regular 03/31/24 07:39 Pulse Strength 3+ Normal 03/31/24 07:39 Respiratory Rate 18 03/31/24 07:39 Blood Pressure 124/75 03/31/24 07:39 Blood Pressure Mean 91 03/31/24 07:39 Blood Pressure Position Sitting 03/31/24 07:39 Pulse Oximetry 96 03/31/24 07:39 Oxygen Delivery Method Room Air 03/31/24 07:39 Vital Signs Temperature 97.0 F L 03/31/24 07:39 Pulse Rate 71 03/31/24 07:39 Respiratory Rate 18 03/31/24 07:39 Blood Pressure 124/75 03/31/24 07:39 Pulse Oximetry 96 03/31/24 07:39 Oxygen Delivery Method Room Air 03/31/24 07:39 Temperature 97.0 F L 03/31/24 07:39 Pulse Rate 71 03/31/24 07:39 Respiratory Rate 18 03/31/24 07:39 Blood Pressure 124/75 03/31/24 07:39 Pulse Oximetry 96 03/31/24 07:39 Oxygen Delivery Method Room Air 03/31/24 07:39 Medications Administered Medications: Generic Name Dose Route Start Last Admin Trade Name Freq PRN Reason Stop Dose Admin Lidocaine HCl 6 ml 03/31/24 08:06 03/31/24 08:45 Lidocaine Hcl 2 % Jelly (Top) Sterile UR 6 ml ONCE PRN Administration MDM - Male Genitourinary MDM Narrative Medical decision making narrative: Patient is an 89-year-old male presenting to the emergency department for a blocked Mcmullen catheter. We tried to flush it without any success. Will remove the catheter and place a 3 way catheter for possible CBI if indicated. With a new catheter placed we were able to drain 1100 mL of fluid. It was garrison in color no signs of blood. Will do a BMP to make sure there were not any electrolyte abnormalities. BMP showed no concerning abnormalities. And the hour he did drain another 300 mL of fluid. I spoke to family about concern a post obstruction diuresis and explain we can monitor him in the emergency department or they can monitor his urinary drainage at home. They would rather monitor it at home at this time. Patient will be discharged. Lab Data Labs: Lab Results 03/31/24 Range/Units 08:58 Sodium 135 (135-149) mmol/L Potassium 3.7 (3.6-5.1) mmol/L Chloride 101 (96-114) mmol/L Carbon Dioxide 28 (20-32) mmol/L Anion Gap 6 L (7-15) mEq/L BUN 19 (7-30) mg/dL Creatinine 1.0 (0.5-1.5) mg/dL Estimated Creat Clear 55.43 Estimated GFR 73 ml/min Glucose 158 H (60-115) mg/dL Calcium 8.6 (8.4-10.6) mg/dL Discharge Plan Discharge Clinical Impression: Blocked urinary catheter Qualifiers: Encounter type: initial encounter Qualified Code(s): T83.098A - Other mechanical complication of other urinary catheter, initial encounter Patient Disposition: Home, Self-Care Condition: Improved Instructions: Catheter-associated Urinary Tract Infection (ED) Additional Instructions: If you notice another blockage use the provided material to flush it. Monitor his urine output at home for the next few hours. If he noticed greater than 200 mL of output per hour for 3 consecutive hours there is concerned he could be developing post obstruction diuresis and he should be re-evaluated. Prescriptions: No Action chlorthalidone 25 mg tablet 25 mg PO DAILY potassium chloride [Klor-Con M20] 20 mEq tablet,ER particles/crystals 20 meq PO 3XD pravastatin 80 mg tablet 80 mg PO QPM tamsulosin 0.4 mg capsule 0.8 mg PO DAILY atenolol 50 mg tablet 50 mg PO DAILY cephalexin 500 mg capsule 500 mg PO BID Qty: 14 0RF ciprofloxacin HCl [Cipro] 500 mg tablet 500 mg PO BID Qty: 10 0RF ferrous sulfate 325 mg (65 mg iron) tablet,delayed release (DR/EC) 325 mg PO BID peg 3350-electrolytes [GaviLyte-G] 236-22.74-6.74 -5.86 gram recon soln PO Follow Up/Referrals: Provider,Not a Local [Staff Physician] - Stand Alone Forms: [facility] Info Instructions
[2024-03-31] MEDS: lidocaine HCL 2 % JELLY (TOP) STERILE 6 ML UR (08:45)
--- OUTSIDE RECORDS SUMMARY | 2024-03-31 09:06 | XMS_ITS | Continuity of Care Document ---
Author Organization [facility], [facility] Address [address] [place] [address] Assessment Encounter Date Assessment Date Assessment LastModified [...] up with MD for KIRAN and cysto [email or web address] Not available 02/03/2024 12:06:07 Plan of Treatment [...] of urine Active 4 Luda Watson PA-C [address] [place] [address],[address], [place], [address], [facility] 02/03/2024 11:29:06 Retention of urine Active 4 Edmar Vaughn MD [address] [place] [address],[address], [place], [address], [facility] 02/12/2024 11:33:59 Problem Notes None recorded. Procedures Surgical History Date Name Laterality Status Provider Name and Address Organization Details Recorded Time 4 Cystoscopy- male completed Edmar Vuaghn MD [address] [place] [address],[address], [place], [address], [facility] 03/04/2024 14:49:59 4 Doll Catheter Insertion completed Trey esquivel, [facility] 03/04/2024 15:44:20 4 Cipro post Cysto completed Trey esquivel, [facility] 02/24/2024 14:58:47 4 Fill and Pull/Voiding Trial/TOV completed Trey esquivel, [facility] 03/04/2024 15:44:41 4 Doll Catheter Insertion completed Edmar Vaughn MD [address] [place] [address],[address], [place], [address], [facility] 02/12/2024 11:53:15 4 Fill and Pull/Voiding Trial/TOV completed Edmar Vaughn MD [address] [place] [address],[address], [place], [address], [facility] 02/12/2024 11:28:34 4 Doll Catheter Insertion completed Concetta esquivel, [facility] 02/10/2024 14:26:17 4 Fill and Pull/Voiding Trial/TOV completed Concetta esquivel, [facility] 02/10/2024 14:25:24 4 Doll Catheter Insertion completed Franko magaña null, [facility] 02/03/2024 12:10:15 4 Fill and Pull/Voiding Trial/TOV completed Luda Watson PA-C [address] [place] [address],[address], [place], [address], [facility] 02/03/2024 11:16:06 Imaging Results None recorded. [...] Updated DateTime 02/03/2024 180.34 cm 31.4 kg/m2 566872.28 g Franko nichols [facility] 02/03/2024 10:37:24 Social History Question Answer Notes LastModified by Organizat ion Details LastModified Time Tobacco Smoking Status [facility] 10:40:30 What Is Your Level Of Alcohol Consumption? Moderate Beer At Supper Information not available 02/03/2024 What Is Your Level Of Caffeine Consumption? None Information not available 02/03/2024 When Did You Quit Smoking? 16+yearssinc [email or web address] te Information not available 02/03/2024 What Was The Date Of Your Most Recent Tobacco Screening? 03/04/2024 [email or web address] Information not available 03/04/2024 Have You Ever Been Counseled For Unhealthy Alcohol Use? No [email or web address] Information not available 02/12/2024 Do You Use Any Illicit Or Recreational Drugs? No Information not available 02/03/2024 Has Tobacco Cessation Counseling Been Provided? No [email or web address] Information not available 02/12/2024 Do You Or Have You Ever Used Any Other Forms Of Tobacco Or Nicotine? No [email or web address] Information not available 02/12/2024 How Many Days In The Past Year Have You Consumed 5 Or More Drinks? 0 [email or web address] Information not available 02/12/2024 Sex: Unknown Functional [...] PF 09/08/2018 completed Miletzi Arvizu-Valer o null, [facility] 02/03/2024 10:37:30 Influenza, adjuvanted, trivalent, PF 09/30/2017 completed Miletzi Arvizu-Valer o null, [facility] 02/03/2024 10:37:30 Influenza, adjuvanted, trivalent, PF 10/14/2019 completed Miletzi Arvizu-Valer o null, [facility] 02/03/2024 10:37:30 zoster recombinant 12/21/2023 completed Miletzi Arvizu-Valer o null, [facility] 02/03/2024 10:37:30 Influenza, high-dose, quadrivalent, PF 06/30/2023 completed Miletzi Arvizu-Valer o null, [facility] 02/03/2024 10:37:30 Influenza, high-dose, quadrivalent, PF 07/31/2022 completed Miletzi Arvizu-Valer o null, [facility] 02/03/2024 10:37:30 Influenza, adjuvanted, quadrivalent, PF 07/08/2021 completed Miletzi Arvizu-Valer o null, [facility] 02/03/2024 10:37:30 COVID-19, mRNA, LNP-S, PF, 30 mcg/0.3 mL dose 10/06/2020 completed Miletzi Arvizu-Valer o null, [facility] 02/03/2024 10:37:30 COVID-19, mRNA, LNP-S, PF, 30 mcg/0.3 mL dose 10/27/2020 completed Miletzi Arvizu-Valer o null, [facility] 02/03/2024 10:37:30 COVID-19, mRNA, LNP-S, PF, 30 mcg/0.3 mL dose 07/08/2021 completed Miletzi Arvizu-Valer o null, [facility] 02/03/2024 10:37:30 COVID-19, mRNA, LNP-S, PF, 30 mcg/0.3 mL dose, gillian-sucrose 02/11/2022 completed Miletzi Arvizu-Valer o null, [facility] 02/03/2024 10:37:30 COVID-19, mRNA, LNP-S, bivalent, PF, 30 mcg/0.3 mL dose 07/31/2022 completed Miletzi Arvizu-Valer o null, [facility] 02/03/2024 10:37:30 RSV, recombinant, protein subunit RSVpreF, adjuvant reconstituted, 0.5 mL, PF 06/30/2023 completed Miletzi Arvizu-Valer o null, [facility] 02/03/2024 10:37:30 pneumococcal polysaccharide PPV23 05/25/2006 completed Miletzi Arvizu-Valer o null, [facility] 02/03/2024 10:37:30 Tdap 12/21/2023 completed Miletzi Arvizu-Valer o null, [facility] 02/03/2024 10:37:30 Novel [id number], all formulations 09/14/2009 completed Miletzi Arvizu-Valer o null, [facility] 02/03/2024 10:37:30 Pneumococcal conjugate PCV 13 08/22/2015 completed Miletzi Arvizu-Valer o null, [facility] 02/03/2024 10:37:30 Influenza, high-dose, trivalent, PF 09/24/2016 completed Miletzi Arvizu-Valer o null, [facility] 02/03/2024 10:37:30 Influenza, high-dose, trivalent, PF 08/21/2014 completed Miletzi Arvizu-Valer o null, [facility] 02/03/2024 10:37:30 Influenza, high-dose, trivalent, PF 08/22/2015 completed Miletzi Arvizu-Valer o null, [facility] 02/03/2024 10:37:30 Influenza, split virus, trivalent, preservative 05/29/2008 completed Miletzi Arvizu-Valer o null, [facility] 02/03/2024 10:37:30 Influenza, split virus, trivalent, preservative 05/31/2007 completed Miletzi Arvizu-Valer o null, [facility] 02/03/2024 10:37:30 Influenza, split virus, trivalent, preservative 06/20/2010 completed Miletzi Arvizu-Valer o null, [facility] 02/03/2024 10:37:30 Influenza, split virus, trivalent, preservative 06/27/2004 completed Miletzi Arvizu-Valer o null, [facility] 02/03/2024 10:37:30 Influenza, split virus, trivalent, preservative 08/06/2012 completed Miletzi Arvizu-Valer o null, [facility] 02/03/2024 10:37:30 Influenza, split virus, trivalent, preservative 08/19/2013 completed Miletzi Arvizu-Valer o null, [facility] 02/03/2024 10:37:31 Influenza, split virus, trivalent, PF 09/14/2009 completed Miletzi Arvizu-Valer o null, [facility] 02/03/2024 10:37:31 Td (adult), 5 Lf tetanus toxoid, preservative free, adsorbed 05/25/2006 completed Milnai Arvizu-Valer o null, [facility] 02/03/2024 10:37:31 Past Encounters Encounter ID Performer Location Encounter Start Date Encounter Closed Date Diagnosis/Indication Diagnosis SNOMED-CT Code [id number] Franko Arvizu-Latanya lero [facility] [address] [place] [address] 02/03/2024 10:25:53 02/04/2024 08:33:51 Acute retention of urine [id number] Health Concerns Section Related Observation LastModified by Organization Detai ls LastModified Time None Recorded Concern Status LastModified by Organization Details LastModified Time None Recorded Payers Encounter Date Sequence Insurance Name Policy Number Policy Masterson Covered Member ID Masterson Member ID Guarantor Name 02/03/2024 1 [employer] - DOS ON OR AFTER 19 (MEDICARE REPLACEMENT/ ADVANTAGE - HMO) [id number] 1 Kojo Ness [id number] Kojo Ness Notes Date Note Type Note Provider Name and Address Organization Details Recorded Time 02/03/2024 text/html HPI Notes: 89M with acute urinary retention. Here with son who also provides some of the history. Seen at [facility] for inability to void on 01/18/24. [...] cancer or bladder cancer EDENILSON Rivera - [facility] 02/03/2024 12:10:27
--- OUTSIDE RECORDS SUMMARY | 2024-03-31 09:06 | XMS_ITS | Continuity of Care Document ---
Author Organization [facility], [facility] Address [address] [place] [address] Assessment No assessment recorded. Plan of Treatment [...] By Organization Details Last Modified Time 03/04/2024 [id number] failed TOV again , discussed conventional TURP SHANTELLE [email or web address] Not available 03/04/2024 15:52:55 Reason for Referral None Reported. Problems Name Status Onset Date Resolution Date Notes Provider Name and Address Organization Details Recorded Time Acute retention of urine Active 4 Luda Watson PA-C [address] [place] [address], [phone], [facility] 02/03/2024 11:29:06 Retention of urine Active 4 Edmar Vaughn MD [address] [place] [address], [phone], [facility] 02/12/2024 11:33:59 Problem Notes None recorded. Procedures Surgical History Date Name Laterality Status Provider Name and Address Organization Details Recorded Time 4 Cystoscopy- male completed Edmar Vaughn MD [address] [place] [address], [phone], [facility] 03/04/2024 14:49:59 4 Mcmullen Catheter Insertion completed Trey esquivel [facility] 03/04/2024 15:44:20 4 Cipro post Cysto completed Trey Cabral null, [facility] 02/24/2024 14:58:47 4 Fill and Pull/Voiding Trial/TOV completed Trey Cabral null, [facility] 03/04/2024 15:44:41 4 Mcmullen Catheter Insertion completed Edmar Vaughn MD [address] [place] [address],[address], [place], [address], [facility] 02/12/2024 11:53:15 4 Fill and Pull/Voiding Trial/TOV completed Edmar Vaughn MD [address] [place] [address],[address], [place], [address], [facility] 02/12/2024 11:28:34 4 Mcmullen Catheter Insertion completed Concetta Zapata null, [facility] 02/10/2024 14:26:17 4 Fill and Pull/Voiding Trial/TOV completed Concetta Zapata null, [facility] 02/10/2024 14:25:24 4 Mcmullen Catheter Insertion completed Franko magaña null, [facility] 02/03/2024 12:10:15 4 Fill and Pull/Voiding Trial/TOV completed Luda Watson PA-C [address] [place] [address],[address], [place], [address], [facility] 02/03/2024 11:16:06 Imaging Results None recorded. [...] Updated DateTime 03/04/2024 180.34 cm 30.7 kg/m2 11836.32 g Edmar Vaughn MD [address] [facility],[address], [place], [address] 03/04/2024 14:26:29 Social History Question Answer Notes LastModified by Organizat ion Details LastModified Time Tobacco Smoking Status Former Smoker [facility] 02/03/2024 10:40:30 What Is Your Level Of Alcohol Consumption? Moderate Beer At Supper Information not available 02/03/2024 What Is Your Level Of Caffeine Consumption? None Information not available 02/03/2024 When Did You Quit Smoking? 16+yearssinc elastcigaret te Information not available 02/03/2024 What Was The Date Of Your Most Recent Tobacco Screening? 03/04/2024 [email or web address] Information not available 03/04/2024 Have You Ever Been Counseled For Unhealthy Alcohol Use? No [email or web address] Information not available 02/12/2024 Do You Use Any Illicit Or Recreational Drugs? No Information not available 02/03/2024 Has Tobacco Cessation Counseling Been Provided? No [email or web address] Information not available 02/12/2024 Do You Or Have You Ever Used Any Other Forms Of Tobacco Or Nicotine? No [email or web address] Information not available 02/12/2024 How Many Days [...] PF 09/08/2018 completed Miletzi Arvizu-Valer o null, [facility] 02/03/2024 10:37:30 Influenza, adjuvanted, trivalent, PF 09/30/2017 completed Miletzi Arvizu-Valer o null, [facility] 02/03/2024 10:37:30 Influenza, adjuvanted, trivalent, PF 10/14/2019 completed Miletzi Arvizu-Valer o null, [facility] 02/03/2024 10:37:30 zoster recombinant 12/21/2023 completed Miletzi Arvizu-Valer o null, [facility] 02/03/2024 10:37:30 Influenza, high-dose, quadrivalent, PF 06/30/2023 completed Miletzi Arvizu-Valer o null, [facility] 02/03/2024 10:37:30 Influenza, high-dose, quadrivalent, PF 07/31/2022 completed Miletzi Arvizu-Valer o null, [facility] 02/03/2024 10:37:30 Influenza, adjuvanted, quadrivalent, PF 07/08/2021 completed Miletzi Arvizu-Valer o null, [facility] 02/03/2024 10:37:30 COVID-19, mRNA, LNP-S, PF, 30 mcg/0.3 mL dose 10/06/2020 completed Miletzi Arvizu-Valer o null, [facility] 02/03/2024 10:37:30 COVID-19, mRNA, LNP-S, PF, 30 mcg/0.3 mL dose 10/27/2020 completed Miletzi Arvizu-Valer o null, [facility] 02/03/2024 10:37:30 COVID-19, mRNA, LNP-S, PF, 30 mcg/0.3 mL dose 07/08/2021 completed Miletzi Arvizu-Valer o null, [facility] 02/03/2024 10:37:30 COVID-19, mRNA, LNP-S, PF, 30 mcg/0.3 mL dose, gillian-sucrose 02/11/2022 completed Miletzi Arvizu-Valer o null, [facility] 02/03/2024 10:37:30 COVID-19, mRNA, LNP-S, bivalent, PF, 30 mcg/0.3 mL dose 07/31/2022 completed Miletzi Arvizu-Valer o null, [facility] 02/03/2024 10:37:30 RSV, recombinant, protein subunit RSVpreF, adjuvant reconstituted, 0.5 mL, PF 06/30/2023 completed Milnai Arvizu-Valer o null, [facility] 02/03/2024 10:37:30 pneumococcal polysaccharide PPV23 05/25/2006 completed Milnai Arvizu-Valer o null, [facility] 02/03/2024 10:37:30 Tdap 12/21/2023 completed Milnai Arvizu-Valer o null, [facility] 02/03/2024 10:37:30 Novel [id number], all formulations 09/14/2009 [facility], [facility] 02/03/2024 10:37:30 Pneumococcal conjugate PCV 13 08/22/2015 completed Milnai Arvizu-Valer o null, [facility] 02/03/2024 10:37:30 Influenza, high-dose, trivalent, PF 09/24/2016 completed Milnai Arvizu-Valer o null, [facility] 02/03/2024 10:37:30 Influenza, high-dose, trivalent, PF 08/21/2014 completed Milnai Arvizu-Valer o null, [facility] 02/03/2024 10:37:30 Influenza, high-dose, trivalent, PF 08/22/2015 completed Miletzi Arvizu-Valer o null, [facility] 02/03/2024 10:37:30 Influenza, split virus, trivalent, preservative 05/29/2008 completed Miletzi Arvizu-Valer o null, [facility] 02/03/2024 10:37:30 Influenza, split virus, trivalent, preservative 05/31/2007 completed Franko Zarateal-Valer o null, [facility] 02/03/2024 10:37:30 Influenza, split virus, trivalent, preservative 06/20/2010 completed Franko Zarateal-Valer o null, [facility] 02/03/2024 10:37:30 Influenza, split virus, trivalent, preservative 06/27/2004 completed Franko Beerigal-Valer o null, [facility] 02/03/2024 10:37:30 Influenza, split virus, trivalent, preservative 08/06/2012 completed Franko Zarateal-Valer o null, [facility] 02/03/2024 10:37:30 Influenza, split virus, trivalent, preservative 08/19/2013 completed Franko Zarateal-Valer o null, [facility] 02/03/2024 10:37:31 Influenza, split virus, trivalent, PF 09/14/2009 completed Franko Zarateal-Valer o null, [facility] 02/03/2024 10:37:31 Td (adult), 5 Lf tetanus toxoid, preservative free, adsorbed 05/25/2006 completed Franko Zarateal-Valer o null, [facility] 02/03/2024 10:37:31 Past Encounters Encounter ID Performer Location Encounter Start Date Encounter Closed Date Diagnosis/Indication Diagnosis SNOMED-CT Code [id number] Franko Arvizu-Latanya lero [facility] [address] [place] [id number] 02/03/2024 10:25:53 02/04/2024 08:33:51 Acute retention of urine [id number] Luda Watson PA-C [facility] [address] [place] [id number] 02/10/2024 13:37:37 02/11/2024 09:27:45 Acute retention of urine [id number] Edmar Vaughn MD [facility] [address] [id number] 02/12/2024 10:44:21 02/15/2024 16:00:54 Retention of urine [id number] MD Filippo Clancy [address] [id number] 03/04/2024 14:17:21 03/22/2024 12:42:48 Retention of urine [id number] Health Concerns Section Related Observation LastModified by Organization Detai ls LastModified Time None Recorded Concern Status LastModified by Organization Details LastModified Time None Recorded Payers Encounter Date Sequence Insurance Name Policy Number Policy Masterson Covered Member ID Masterson Member ID Guarantor Name 03/04/2024 1 UC[employer] - DOS ON OR AFTER 19 (MEDICARE REPLACEMENT/ ADVANTAGE - HMO) [id number] 1 Kojo Ness [id number] Kojo Ness Notes Date Note Type Note Provider Name and Address Organization Details Recorded Time 03/04/2024 text/html HPI Notes: here for cysto/TOV today Edmar Vaughn MD [address] [facility] [address], [place], [address], [facility] 03/04/2024 15:55:02
--- OUTSIDE RECORDS SUMMARY | 2024-03-31 09:06 | XMS_ITS | Continuity of Care Document ---
Author Organization [facility], [facility] Address [address] [place] [address] Assessment No assessment recorded. Plan of Treatment [...] By Organization Details Last Modified Time 02/12/2024 [id number] will replace catheter today and plan rtc 1-2 week for cysto trial of voiding. Not available 02/12/2024 11:53:30 Reason for Referral None Reported. Problems Name Status Onset Date Resolution Date Notes Provider Name and Address Organization Details Recorded Time Acute retention of urine Active 4 Luda Watson PA-C [address] [place] [address], [address], [facility] 02/03/2024 11:29:06 Retention of urine Active 4 Edmar Vaughn MD [address] [place] [address], [address], [facility] 02/12/2024 11:33:59 Problem Notes None recorded. Procedures Surgical History Date Name Laterality Status Provider Name and Address Organization Details Recorded Time 4 Cystoscopy- male completed Edmar Vaughn MD [address] [place] [address], [phone], [facility] 03/04/2024 14:49:59 4 Mcmullen Catheter Insertion completed Trey esquivel [facility] 03/04/2024 15:44:20 4 Cipro post Cysto completed Trey Cabral null, [facility] 02/24/2024 14:58:47 4 Fill and Pull/Voiding Trial/TOV completed Trey Cabral null, [facility] 03/04/2024 15:44:41 4 Mcmullen Catheter Insertion completed Edmar Vaughn MD [address] [place] [address],[address], [place], [address], [facility] 02/12/2024 11:53:15 4 Fill and Pull/Voiding Trial/TOV completed Edmar Vaughn MD [address] [place] [address],[facility] [address], [place], [address], [facility] 02/12/2024 11:28:34 4 Mcmullen Catheter Insertion completed Concetta Zapata null, [facility] 02/10/2024 14:26:17 4 Fill and Pull/Voiding Trial/TOV completed Concetta Irelandkeytrish null, [facility] 02/10/2024 14:25:24 4 Mcmullen Catheter Insertion completed Franko magaña null, [facility] 02/03/2024 12:10:15 4 Fill and Pull/Voiding Trial/TOV completed Luda Watson PA-C [address] [place] [address],[address], [address], [facility] 02/03/2024 11:16:06 Imaging Results None recorded. [...] Updated DateTime 02/12/2024 180.34 cm 31.4 kg/m2 086652.28 g Edmar Vaughn MD [address] [facility] [address], [place], [address] 02/12/2024 11:05:47 Social History Question Answer Notes LastModified by Organizat ion Details LastModified Time Tobacco Smoking Status Former Sm[facility] 02/03/2024 10:40:30 What Is Your Level Of Alcohol Consumption? Moderate Beer At Supper Information not available 02/03/2024 What Is Your Level Of Caffeine Consumption? None Information not available 02/03/2024 When Did You Quit Smoking? 16+yearssinc elastcigaret te Information not available 02/03/2024 What Was The Date Of Your Most Recent Tobacco Screening? 03/04/2024 [email or web address] Information not available 03/04/2024 Have You Ever Been Counseled For Unhealthy Alcohol Use? No [email or web address] Information not available 02/12/2024 Do You Use Any Illicit Or Recreational Drugs? No Information not available 02/03/2024 Has Tobacco Cessation Counseling Been Provided? No [email or web address] Information not available 02/12/2024 Do You Or Have You Ever Used Any Other Forms Of Tobacco Or Nicotine? No [email or web address] Information not available 02/12/2024 How Many Days In The Past Year Have You Consumed 5 Or More Drinks? 0 [email or web address] Information not available 02/12/2024 Sex: Unknown Functional [...] PF 09/08/2018 completed Miletzi Arvizu-Valer o null, [facility] 02/03/2024 10:37:30 Influenza, adjuvanted, trivalent, PF 09/30/2017 completed Miletzi Arvizu-Valer o null, [facility] 02/03/2024 10:37:30 Influenza, adjuvanted, trivalent, PF 10/14/2019 completed Miletzi Arvizu-Valer o null, [facility] 02/03/2024 10:37:30 zoster recombinant 12/21/2023 completed Miletzi Arvizu-Valer o null, [facility] 02/03/2024 10:37:30 Influenza, high-dose, quadrivalent, PF 06/30/2023 completed Miletzi Arvizu-Valer o null, [facility] 02/03/2024 10:37:30 Influenza, high-dose, quadrivalent, PF 07/31/2022 completed Miletzi Arvizu-Valer o null, [facility] 02/03/2024 10:37:30 Influenza, adjuvanted, quadrivalent, PF 07/08/2021 completed Miletzi Arvizu-Valer o null, [facility] 02/03/2024 10:37:30 COVID-19, mRNA, LNP-S, PF, 30 mcg/0.3 mL dose 10/06/2020 completed Miletzi Arvizu-Valer o null, [facility] 02/03/2024 10:37:30 COVID-19, mRNA, LNP-S, PF, 30 mcg/0.3 mL dose 10/27/2020 completed Miletzi Arvizu-Valer o null, [facility] 02/03/2024 10:37:30 COVID-19, mRNA, LNP-S, PF, 30 mcg/0.3 mL dose 07/08/2021 completed Miletzi Arvizu-Valer o null, [facility] 02/03/2024 10:37:30 COVID-19, mRNA, LNP-S, PF, 30 mcg/0.3 mL dose, gillian-sucrose 02/11/2022 completed Miletzi Arvizu-Valer o null, [facility] 02/03/2024 10:37:30 COVID-19, mRNA, LNP-S, bivalent, PF, 30 mcg/0.3 mL dose 07/31/2022 completed Miletzi Arvizu-Valer o null, [facility] 02/03/2024 10:37:30 RSV, recombinant, protein subunit RSVpreF, adjuvant reconstituted, 0.5 mL, PF 06/30/2023 completed Miletzi Arvizu-Valer o null, [facility] 02/03/2024 10:37:30 pneumococcal polysaccharide PPV23 05/25/2006 completed Miletzi Arvizu-Valer o null, [facility] 02/03/2024 10:37:30 Tdap 12/21/2023 completed Miletzi Arvizu-Valer o null, [facility] 02/03/2024 10:37:30 Novel [id number], all formulations 09/14/2009 completed Miletzi Arvizu-Valer o null, [facility] 02/03/2024 10:37:30 Pneumococcal conjugate PCV 13 08/22/2015 completed Miletzi Arvizu-Valer o null, [facility] 02/03/2024 10:37:30 Influenza, high-dose, trivalent, PF 09/24/2016 completed Miletzi Arvizu-Valer o null, [facility] 02/03/2024 10:37:30 Influenza, high-dose, trivalent, PF 08/21/2014 completed Miletzi Arvizu-Valer o null, [facility] 02/03/2024 10:37:30 Influenza, high-dose, trivalent, PF 08/22/2015 completed Miletzi Arvizu-Valer o null, [facility] 02/03/2024 10:37:30 Influenza, split virus, trivalent, preservative 05/29/2008 completed Miletzi Arvizu-Valer o null, [facility] 02/03/2024 10:37:30 Influenza, split virus, trivalent, preservative 05/31/2007 [facility], [facility] 02/03/2024 10:37:30 Influenza, split virus, trivalent, preservative 06/20/2010 completed [facility] Arvizu-Valer o null, [facility] 02/03/2024 10:37:30 Influenza, split virus, trivalent, preservative 06/27/2004 completed Franko Zarateal-Valer o null, [facility] 02/03/2024 10:37:30 Influenza, split virus, trivalent, preservative 08/06/2012 [facility], [facility] 02/03/2024 10:37:30 Influenza, split virus, trivalent, preservative 08/19/2013 [facility], [facility] 02/03/2024 10:37:31 Influenza, split virus, trivalent, PF 09/14/2009 [facility], [facility] 02/03/2024 10:37:31 Td (adult), 5 Lf tetanus toxoid, preservative free, adsorbed 05/25/2006 [facility], [facility] 02/03/2024 10:37:31 Past Encounters Encounter ID Performer Location Encounter Start Date Encounter Closed Date Diagnosis/Indication Diagnosis [facility]ED[facility] Code [id number] [facility] [address] [place] [id number] 02/03/2024 10:25:53 02/04/2024 08:33:51 Acute retention of urine [id number] Luda Watson PA-C [facility] [address] [place] [address] 02/10/2024 13:37:37 02/11/2024 09:27:45 Acute retention of urine [id number] Edmar Vaughn MD [facility] [address] [place] [address] 02/12/2024 10:44:21 02/15/2024 16:00:54 Retention of urine [id number] Health Concerns Section Related Observation LastModified by Organization Detai ls LastModified Time None Recorded Concern Status LastModified by Organization Details LastModified Time None Recorded Payers Encounter Date Sequence Insurance Name Policy Number Policy Masterson Covered Member ID Masterson Member ID Guarantor Name 02/12/2024 1 [employer] - DOS ON OR AFTER 19 (MEDICARE REPLACEMENT/ ADVANTAGE - HMO) [id number] 1 Kojo Spencer Laabs [id number] Kojo N Laabs Notes Date Note Type Note Provider Name and Address Organization Details Recorded Time 02/12/2024 text/html HPI Notes: follwo up retention, TOV today 400 in and 150 out, double from last visit. tolerates catheter OK. Edmar Vaughn MD [address] [place] [address],[address], [place], [address], [facility] 02/12/2024 11:53:41
--- OUTSIDE RECORDS SUMMARY | 2024-03-31 09:06 | XMS_ITS | Data Portability ---
Author Organization [place] [facility], [facility] Address [address] [place] [address] [address] [place] [address] Assessment Encounter Date Assessment Date Assessment LastModified [...] up with MD for KIRAN and cysto [email or web address] Not available 02/03/2024 12:06:07 02/10/2024 02/10/2024 Patient was seen and evaluated by Concetta Betts RN. I did not personally see or evaluate this patient today. -Luda Watson PA-C [email or web address] Not available 02/10/2024 15:48:06 Plan of Treatment [...] By Organization Details Last Modified Time 02/12/2024 [id number] will replace catheter today and plan rtc 1-2 week for cysto trial of voiding. [email or web address] Not available 02/12/2024 11:53:30 03/04/2024 [id number] failed TOV again , discussed conventional TURP SHANTELLE [email or web address] Not available 03/04/2024 15:52:55 Reason for Referral None Reported. Problems Name Status Onset Date Resolution Date Notes Provider Name and Address Organization Details Recorded Time Acute retention of urine Active 4 Luda Watson PA-C [address] [place] [address],[address], [address], [facility] 02/03/2024 11:29:06 Retention of urine Active 4 Edmar Vaughn MD [address] [place] [address],[address], [address], [facility] 02/12/2024 11:33:59 Problem Notes None recorded. Procedures Surgical History Date Name Laterality Status Provider Name and Address Organization Details Recorded Time 4 Cystoscopy- male completed Edmar Vaughn MD [address] [place] [address],[address], [address], [facility] 03/04/2024 14:49:59 4 Doll Catheter Insertion completed Trey esquivel, [facility] 03/04/2024 15:44:20 4 Cipro post Cysto completed Trey esquivel, [facility] 02/24/2024 14:58:47 4 Fill and Pull/Voiding Trial/TOV completed Trey esquivel, [facility] 03/04/2024 15:44:41 4 Doll Catheter Insertion completed Edmar Vaughn MD [address] [place] [address],[address], [address], [facility] 02/12/2024 11:53:15 4 Fill and Pull/Voiding Trial/TOV completed Edmar Vaughn MD [address] [place] [address],[address], [address], [facility] 02/12/2024 11:28:34 4 Doll Catheter Insertion completed Concetta Goddardamberly null, [facility] 02/10/2024 14:26:17 4 Fill and Pull/Voiding Trial/TOV completed Concetta Irelandharrison null, [facility] 02/10/2024 14:25:24 4 Doll Catheter Insertion completed Franko magaña null, [facility] 02/03/2024 12:10:15 4 Fill and Pull/Voiding Trial/TOV completed Luda Watson PA-C [address] [place] [address],[address], [address], [facility] 02/03/2024 11:16:06 Imaging Results [...] Updated DateTime 02/03/2024 180.34 cm 31.4 kg/m2 821067.28 g Franko weavero [facility] 02/03/2024 10:37:24 Date Recorded Body height Body mass index (BMI) Body weight Provider Name and Address Organization Details Last Updated DateTime 02/12/2024 180.34 cm 31.4 kg/m2 828497.28 g Edmar Vaughn MD [address] [place] [address],[address] [phone] [place] [address] [facility] 02/12/2024 11:05:47 Date Recorded Body height Body mass index (BMI) Body weight Provider Name and Address Organization Details Last Updated DateTime 03/04/2024 180.34 cm 30.7 kg/m2 65004.32 g Edmar Vaughn MD [address] [place] [address],[address] [phone] [place] [address] [facility] 03/04/2024 14:26:29 Social History Question Answer Notes LastModified by Organizat ion Details LastModified Time Tobacco Smoking Status [facility]/03/[facility]24 10:40:30 What Is Your Level Of Alcohol Consumption? Moderate Beer At Supper Information not available 02/03/2024 What Is Your Level Of Caffeine Consumption? None Information not available 02/03/2024 When Did You Quit Smoking? 16+yearssinc elastcigaret te Information not available 02/03/2024 What Was The Date Of Your Most Recent Tobacco Screening? 03/04/2024 [email or web address] Information not available 03/04/2024 Have You Ever Been Counseled For Unhealthy Alcohol Use? No [email or web address] Information not available 02/12/2024 Do You Use Any Illicit Or Recreational Drugs? No Information not available 02/03/2024 Has Tobacco Cessation Counseling Been Provided? No [email or web address] Information not available 02/12/2024 Do You Or Have You Ever Used Any Other Forms Of Tobacco Or Nicotine? No [email or web address] Information not available 02/12/2024 How Many Days In The Past Year Have You Consumed 5 Or More Drinks? 0 [email or web address] Information not available 02/12/2024 Sex: Unknown Functional [...] PF 09/08/2018 completed Miletzi Arvizu-Valer o null, [facility] 02/03/2024 10:37:30 Influenza, adjuvanted, trivalent, PF 09/30/2017 completed Miletzi Arvizu-Valer o null, [facility] 02/03/2024 10:37:30 Influenza, adjuvanted, trivalent, PF 10/14/2019 completed Miletzi Arvizu-Valer o null, [facility] 02/03/2024 10:37:30 zoster recombinant 12/21/2023 completed Miletzi Arvizu-Valer o null, [facility] 02/03/2024 10:37:30 Influenza, high-dose, quadrivalent, PF 06/30/2023 completed Miletzi Arvizu-Valer o null, [facility] 02/03/2024 10:37:30 Influenza, high-dose, quadrivalent, PF 07/31/2022 completed Miletzi Arvizu-Valer o null, [facility] 02/03/2024 10:37:30 Influenza, adjuvanted, quadrivalent, PF 07/08/2021 completed Miletzi Arvizu-Valer o null, [facility] 02/03/2024 10:37:30 COVID-19, mRNA, LNP-S, PF, 30 mcg/0.3 mL dose 10/06/2020 completed Miletzi Arvizu-Valer o null, [facility] 02/03/2024 10:37:30 COVID-19, mRNA, LNP-S, PF, 30 mcg/0.3 mL dose 10/27/2020 completed Miletzi Arvizu-Valer o null, [facility] 02/03/2024 10:37:30 COVID-19, mRNA, LNP-S, PF, 30 mcg/0.3 mL dose 07/08/2021 completed Miletzi Arvizu-Valer o null, [facility] 02/03/2024 10:37:30 COVID-19, mRNA, LNP-S, PF, 30 mcg/0.3 mL dose, gillian-sucrose 02/11/2022 completed Miletzi Arvizu-Valer o null, [facility] 02/03/2024 10:37:30 COVID-19, mRNA, LNP-S, bivalent, PF, 30 mcg/0.3 mL dose 07/31/2022 completed Miletzi Arvizu-Valer o null, [facility] 02/03/2024 10:37:30 RSV, recombinant, protein subunit RSVpreF, adjuvant reconstituted, 0.5 mL, PF 06/30/2023 completed Miletzi Arvizu-Valer o null, [facility] 02/03/2024 10:37:30 pneumococcal polysaccharide PPV23 05/25/2006 completed Miletzi Arvizu-Valer o null, [facility] 02/03/2024 10:37:30 Tdap 12/21/2023 completed Miletzi Arvizu-Valer o null, [facility] 02/03/2024 10:37:30 Novel [id number]-[id number], all formulations 09/14/2009 completed Miletzi Arvizu-Valer o null, [facility] 02/03/2024 10:37:30 Pneumococcal conjugate PCV 13 08/22/2015 completed Miletzi Arvizu-Valer o null, [facility] 02/03/2024 10:37:30 Influenza, high-dose, trivalent, PF 09/24/2016 completed Miletzi Arvizu-Valer o null, [facility] 02/03/2024 10:37:30 Influenza, high-dose, trivalent, PF 08/21/2014 completed Miletzi Arvizu-Valer o null, [facility] 02/03/2024 10:37:30 Influenza, high-dose, trivalent, PF 08/22/2015 completed Miletzi Arvizu-Valer o null, [facility] 02/03/2024 10:37:30 Influenza, split virus, trivalent, preservative 05/29/2008 completed Miletzi Arvizu-Valer o null, [facility] 02/03/2024 10:37:30 Influenza, split virus, trivalent, preservative 05/31/2007 completed Franko Beerigal-Valer o null, [facility] 02/03/2024 10:37:30 Influenza, split virus, trivalent, preservative 06/20/2010 completed Franko Beerigal-Valer o null, [facility] 02/03/2024 10:37:30 Influenza, split virus, trivalent, preservative 06/27/2004 completed Franko Beerigal-Valer o null, [facility] 02/03/2024 10:37:30 Influenza, split virus, trivalent, preservative 08/06/2012 completed Franko Zarateal-Valer o null, [facility] 02/03/2024 10:37:30 Influenza, split virus, trivalent, preservative 08/19/2013 completed Franko Zarateal-Valer o null, [facility] 02/03/2024 10:37:31 Influenza, split virus, trivalent, PF 09/14/2009 completed Franko Zarateal-Valer o null, [facility] 02/03/2024 10:37:31 Td (adult), 5 Lf tetanus toxoid, preservative free, adsorbed 05/25/2006 completed Franko Arvizu-Lisaer o null, [facility] 02/03/2024 10:37:31 Past Encounters Encounter ID Performer Location Encounter Start Date Encounter Closed Date Diagnosis/Indication Diagnosis SNOMED-CT Code [id number] Franko Arvizu-Latanya lero [facility] [address] [place] [address] 02/03/2024 10:25:53 02/04/2024 08:33:51 Acute retention of urine [id number] Luda Watson PA-C [facility] [address] [place] [address] 02/10/2024 13:37:37 02/11/2024 09:27:45 Acute retention of urine [id number] Edmar Vaughn MD [facility] [address] [place] [address] 02/12/2024 10:44:21 02/15/2024 16:00:54 Retention of urine [id number] Edmar Vaughn MD [facility] [address] [place] [id number] 03/04/2024 14:17:21 03/22/2024 12:42:48 Retention of urine [id number] Health Concerns Section Related Observation LastModified by Organization Detai ls LastModified Time None Recorded Concern Status LastModified by Organization Details LastModified Time None Recorded Advance Directives Directive None Recorded Payers Encounter Date Sequence Insurance Name Policy Number Policy Masterson Covered Member ID Masterson Member ID Guarantor Name 02/03/2024 1 [employer] - DOS ON OR AFTER 19 (MEDICARE REPLACEMENT/ ADVANTAGE - HMO) [id number] 1 Kojo N Laabs [id number] Kojo N Laabs 02/10/2024 1 [employer] - DOS ON OR AFTER 19 (MEDICARE REPLACEMENT/ ADVANTAGE - HMO) [id number] 1 Kojo N Laabs [id number] Kojo N Laabs 02/12/2024 1 [employer] - DOS ON OR AFTER 19 (MEDICARE REPLACEMENT/ ADVANTAGE - HMO) [id number] 1 Kojo N Laabs [id number] Kojo N Laabs 03/04/2024 1 [employer] - DOS ON OR AFTER 19 (MEDICARE REPLACEMENT/ ADVANTAGE - HMO) [id number] 1 Kojo N Laabs [id number] Kojo N Laabs Notes Date Note Type Note Provider Name and Address Organization Details Recorded Time 02/03/2024 text/html HPI Notes: 89M with acute urinary retention. Here with son who also provides some of the history. Seen at [facility] for inability to void on 01/18/24. [...] prostate cancer or bladder cancer Franko esquivel [facility] 02/03/2024 12:10:27 02/10/2024 text/html HPI Notes: Pt presents for 2nd TOV, did not pass, cath replaced and he will f/u with an MD per Luda's last visit note. Nurse visit completed by Concetta Donnelly RN. Luda Watson PA-C [address] [place] [address],[address], [address], [facility] 02/10/2024 15:48:09 02/12/2024 text/html HPI Notes: follw o up retention, TOV today 400 in and 150 out, double from last visit. tolerates catheter OK. Edmar Vaughn MD [address] [place] [address],[address], [place], [address], [facility] 02/12/2024 11:53:41 03/04/2024 text/html HPI Notes: here for cysto/TOV today Edmar Vaughn MD [address] [place] [address],[address], [place], [address], [facility] 03/04/2024 15:55:02
--- OUTSIDE RECORDS SUMMARY | 2024-03-31 09:06 | XMS_ITS | Continuity of Care Document ---
Author Organization [facility], [facility] Address [address] [place] [address] Assessment Encounter Date Assessment Date Assessment LastModified by Organization Details LastModified Time 02/10/2024 02/10/2024 Patient was seen and evaluated by Concetta Betts RN. I did not personally see or evaluate this patient today. -Luda Watson PA-C Not available 02/10/2024 15:48:06 Plan of Treatment [...] urine Active 4 Luda Watson PA-C [address] [place] [address],[address], [address], [facility] 02/03/2024 11:29:06 Retention of urine Active 4 Edmar Vaughn MD [address] [place] [address],[address], [address], [facility] 02/12/2024 11:33:59 Problem Notes None recorded. Procedures Surgical History Date Name Laterality Status Provider Name and Address Organization Details Recorded Time 4 Cystoscopy- male completed Edmar Vaughn MD [address] [place] [address],[address], [address], [facility] 03/04/2024 14:49:59 4 Mcmullen Catheter Insertion completed Trey esquivel [facility] 03/04/2024 15:44:20 4 Cipro post Cysto completed Trey Ortegai null, [facility] 02/24/2024 14:58:47 4 Fill and Pull/Voiding Trial/TOV completed Trey Dongcki null, [facility] 03/04/2024 15:44:41 4 Mcmullen Catheter Insertion completed Edmar Vaughn MD [address] [place] [address],[address], [address], [facility] 02/12/2024 11:53:15 4 Fill and Pull/Voiding Trial/TOV completed Edmar Vaughn MD [address] [place] [address],[address], [address], [facility] 02/12/2024 11:28:34 4 Mcmullen Catheter Insertion completed Concetta Zapata null, [facility] 02/10/2024 14:26:17 4 Fill and Pull/Voiding Trial/TOV completed Concetta Irelandkeytrish null, [facility] 02/10/2024 14:25:24 4 Mcmullen Catheter Insertion completed Franko magaña null, [facility] 02/03/2024 12:10:15 4 Fill and Pull/Voiding Trial/TOV completed Luda Watson PA-C [address] [place] [address],[address], [address], [facility] 02/03/2024 11:16:06 Imaging Results None recorded. Procedure [...] Tobacco Smoking Status Former Smoker [place] Rivera [facility] 02/03/2024 10:40:30 What Is Your Level Of Alcohol Consumption? Moderate Beer At Supper Information not available 02/03/2024 What Is Your Level Of Caffeine Consumption? None Information not available 02/03/2024 When Did You Quit Smoking? 16+yearssinc elastcigaret te Information not available 02/03/2024 What Was The Date Of Your Most Recent Tobacco Screening? 03/04/2024 [email or web address] Information not available 03/04/2024 Have You Ever Been Counseled For Unhealthy Alcohol Use? No [email or web address] Information not available 02/12/2024 Do You Use Any Illicit Or Recreational Drugs? No Information not available 02/03/2024 Has Tobacco Cessation Counseling Been Provided? No [email or web address] Information not available 02/12/2024 Do You Or Have You Ever Used Any Other Forms Of Tobacco Or Nicotine? No [email or web address] Information not available 02/12/2024 How Many Days In The Past Year Have You Consumed 5 Or More Drinks? 0 [email or web address] Information not available 02/12/2024 Sex: Unknown Functional [...] adjuvanted, trivalent, PF 09/08/2018 completed [place] [facility] 02/03/2024 10:37:30 Influenza, adjuvanted, trivalent, PF 09/30/2017 completed Miletzi Arvizu-Valer o null, [facility] 02/03/2024 10:37:30 Influenza, adjuvanted, trivalent, PF 10/14/2019 completed Miletzi Arvizu-Valer o null, [facility] 02/03/2024 10:37:30 zoster recombinant 12/21/2023 completed Miletzi Arvizu-Valer o null, [facility] 02/03/2024 10:37:30 Influenza, high-dose, quadrivalent, PF 06/30/2023 completed Miletzi Arvizu-Valer o null, [facility] 02/03/2024 10:37:30 Influenza, high-dose, quadrivalent, PF 07/31/2022 completed Miletzi Arvizu-Valer o null, [facility] 02/03/2024 10:37:30 Influenza, adjuvanted, quadrivalent, PF 07/08/2021 completed Miletzi Arvizu-Valer o null, [facility] 02/03/2024 10:37:30 COVID-19, mRNA, LNP-S, PF, 30 mcg/0.3 mL dose 10/06/2020 completed Miletzi Arvizu-Valer o null, [facility] 02/03/2024 10:37:30 COVID-19, mRNA, LNP-S, PF, 30 mcg/0.3 mL dose 10/27/2020 completed Miletzi Arvizu-Valer o null, [facility] 02/03/2024 10:37:30 COVID-19, mRNA, LNP-S, PF, 30 mcg/0.3 mL dose 07/08/2021 completed Miletzi Arvizu-Valer o null, [facility] 02/03/2024 10:37:30 COVID-19, mRNA, LNP-S, PF, 30 mcg/0.3 mL dose, gillian-sucrose 02/11/2022 completed Miletzi Arvizu-Valer o null, [facility] 02/03/2024 10:37:30 COVID-19, mRNA, LNP-S, bivalent, PF, 30 mcg/0.3 mL dose 07/31/2022 completed Franko Beerigal-Valer o null, [facility] 02/03/2024 10:37:30 RSV, recombinant, protein subunit RSVpreF, adjuvant reconstituted, 0.5 mL, PF 06/30/2023 [facility], [facility] 02/03/2024 10:37:30 pneumococcal polysaccharide PPV23 05/25/2006 completed Milnai Arvizu-Valer o null, [facility] 02/03/2024 10:37:30 Tdap 12/21/2023 completed [facility], [facility] 02/03/2024 10:37:30 Novel [id number]-[id number], all formulations 09/14/2009 [facility], [facility] 02/03/2024 10:37:30 Pneumococcal conjugate PCV 13 08/22/2015 [facility], [facility] 02/03/2024 10:37:30 Influenza, high-dose, trivalent, PF 09/24/2016 completed Franko Beerigal-Valer o null, [facility] 02/03/2024 10:37:30 Influenza, high-dose, trivalent, PF 08/21/2014 completed Teddyi Arvizu-Valer o null, [facility] 02/03/2024 10:37:30 Influenza, high-dose, trivalent, PF 08/22/2015 completed Milnai Arvizu-Valer o null, [facility] 02/03/2024 10:37:30 Influenza, split virus, trivalent, preservative 05/29/2008 completed Franko Arvizu-Valer o null, [facility] 02/03/2024 10:37:30 Influenza, split virus, trivalent, preservative 05/31/2007 completed Teddyi Arvizu-Valer o null, [facility] 02/03/2024 10:37:30 Influenza, split virus, trivalent, preservative 06/20/2010 completed Franko Zarateal-Valer o null, [facility] 02/03/2024 10:37:30 Influenza, split virus, trivalent, preservative 06/27/2004 completed Franko Beerigal-Valer o null, [facility] 02/03/2024 10:37:30 Influenza, split virus, trivalent, preservative 08/06/2012 completed Franko Zarateal-Valer o null, [facility] 02/03/2024 10:37:30 Influenza, split virus, trivalent, preservative 08/19/2013 completed Franko Zarateal-Valer o null, [facility] 02/03/2024 10:37:31 Influenza, split virus, trivalent, PF 09/14/2009 completed Franko Arvizu-Valer o null, [facility] 02/03/2024 10:37:31 Td (adult), 5 Lf tetanus toxoid, preservative free, adsorbed 05/25/2006 completed Franko Zarateal-Valer o null, [facility] 02/03/2024 10:37:31 Past Encounters Encounter ID Performer Location Encounter Start Date Encounter Closed Date Diagnosis/Indication Diagnosis SNOMED-CT Code [id number] Franko Arvizu-Latanya lero [facility] [address] [place] [address] 02/03/2024 10:25:53 02/04/2024 08:33:51 Acute retention of urine [id number] Luda Watson PA-C [facility] [address] [place] [address] 02/10/2024 13:37:37 02/11/2024 09:27:45 Acute retention of urine [id number] Health Concerns Section Related Observation LastModified by Organization Detai ls LastModified Time None Recorded Concern Status LastModified by Organization Details LastModified Time None Recorded Payers Encounter Date Sequence Insurance Name Policy Number Policy Masterson Covered Member ID Masterson Member ID Guarantor Name 02/10/2024 1 [employer] - DOS ON OR AFTER 19 (MEDICARE REPLACEMENT/ ADVANTAGE - HMO) [id number] 1 Kojo Ness [id number] Kojo Ness Notes Date Note Type Note Provider Name and Address Organization Details Recorded Time 02/10/2024 text/html HPI Notes: Pt presents for 2nd TOV, did not pass, cath replaced and he will f/u with an MD per Luda's last visit note. Nurse visit completed by Concetta Donnelly RN. Luda Watson PA-C [address] [place] [address],[address], [address], [facility] 02/10/2024 15:48:09
--- OUTSIDE RECORDS SUMMARY | 2024-03-31 09:06 | XMS_ITS | Clinical Summary ---
Author Organization [employer] Address [place], [place] [address] Care Team Providers [employer] Chief Creative Officer Name Role Phone Juwan Avery MD Primary Care Provider [phone]- [phone] Allergies No known active allergies Medications Medication Sig Dispensed Refills Start Date End Date Status ASPIRIN 81 MG TAB, DELAYED RELEASE once daily 0 02/15/2007 Active MULTIVITAMIN TAB Once daily 0 05/14/2007 Active VITAMINS A,C,S-HQCJ-PVUNQB (OCUVITE PRESERVISION) 7,160-113-100 [id number] tablet Take 1 tablet by mouth once [...] Encounters Date Type Department Care Team Description 03/29/2024 Telephone [facility] [address] [place] [address] Eliecer Barreto MD Results 03/25/2024 12:45 PM CDT Office Visit [facility] at [address] [phone] Eliecer Barreto MD 03/25/2024 Lab Requisition [facility] [phone] Eliecer Barreto MD 03/25/2024 Lab Requisition [facility] [phone] Eliecer Barreto MD 03/23/2024 Telephone [facility] [address] [place] [address] Juwan Avery MD COLONOSCOPY (QUESTIONS) 03/23/2024 Telephone [facility] [address] [place] [address] Eliecer Barreto MD Questions 03/17/2024 10:25 AM CDT Office Visit [facility] [address] [place] [address] VoteBrian bravo MD Preoperative Exam ([place], 03/31/24, cystoscopy) 03/17/2024 Telephone [facility] [address] [place] [address] Brian Pate MD referrals needed 03/17/2024 Telephone [facility] [address] [place] [address] Eliecer Barreto MD Appointment 03/17/2024 Travel 01/26/2024 9:25 AM CDT Office Visit [facility] [address] [place] [address] Nicolette Ivan MD Catheter Problem (patient wanting catheter taken out today. ) 01/26/2024 Travel 01/19/2024 8:10 AM CDT Office Visit [facility] [address] [place] [address] Nicolette Ivan MD ER Follow up ([facility] 01/18/24. Urine retention ) 01/19/2024 Travel from Last 3 Months Immunizations Name Administration Dates Next Due COVID-19 vaccine ([employer] 30mcg/0.3mL) PF MDV 07/08/2021,10/27/2020,10/06/2020 Influenza A (H1N1), Inactivated 09/14/2009 Influenza [...] DT Respiratory Rate 20 10/30/2020 9:31 AM RESIDENTIAL NURSE Oxygen Saturation 99% 03/17/2024 10:35 AM CDT Inhaled Oxygen Concentration - - Weight 99.5 kg (219 lb 4.8 oz) 03/17/2024 10:35 AM CDT Height 175.8 cm (5' 9.2) 03/17/2024 10:35 AM CD T Body Mass Index 32.2 03/17/2024 10:35 AM CDT Plan of Treatment Health Maintenance Due Date Last Done Comments [...] Procedure Name Priority Date/Time Associated Diagnosis Comments LAB TRACKING EVENT Routine 03/25/2024 2:35 PM CDT LAB TRACKING EVENT Routine 03/25/2024 2:10 PM CDT PATH TISSUE EXAM Routine 03/25/2024 2:10 PM CDT COLONOSCOPY SCREENING Routine 03/25/2024 12:00 AM CDT Iron deficiency anemia, unspecified iron deficiency anemia type ESOPHAGOGASTRODUODENOSCOPY Routine 03/25 12:00 AM CDT Iron deficiency anemia, unspecified iron deficiency anemia type EKG 12 LEAD Routine 03/21/2024 10:32 AM CDT Pre-op exam CA READING EKG - NO CHARGE, COMP ONLY [...] retention from Last 3 Months Results * LAB TRACKING EVENT (03/25/2024 2:35 PM CDT) Only the most recent of2 resultswithin the time period is included. Other (Other) Client Collect / Unknown 03/25/2024 2:35 PM CDT 03/25/2024 10:00 PM CDT Eliecer Barreto MD LAB BILL ONLY [facility] [address] [place] [address], * PATH TISSUE EXAM (03/25/2024 2:10 PM CDT) Case Report Pathology Report ?Case: [id number] ? Authorizing Provider: ??Eliecer Barreto, ?? Collected: ? 03/25/2024 1410 ? Ordering Location: ? [facility] ?Received: ?03/26/2024 0617 ? Pathologist: ? Hugh Foote, ? MD ? Specimens: ?? A) - Duodenum Biopsy ? B) - Stomach Biopsy ? C) - Transverse Colon Biopsy ? D) - Descending Colon Biopsy ? 4 12:23 PM CDT [facility] Amendment 03/29/2024 - DNA mismatch repair enzyme IHC added, see final diagnosis and synoptic sections. 4 12:23 PM CDT [facility] Final Diagnosis A) DUODENUM, BIOPSY: 1. Normal duodenal mucosa 2. Negative for celiac disease and other enteropathy B) STOMACH, BIOPSY: 1. Normal gastric antral and body mucosae 2. Negative for Helicobacter C) COLON, PROXIMAL TRANSVERSE, PARTIALLY OBSTRUCTING TUMOR, BIOPSY: 1. Adenocarcinoma, low grade (moderately differentiated) 2. Background adenoma is not present 3. Please order CEA level and CT imaging (chest/abdomen/pelvis) prior to treatment 4. Ancillary Testing: ?? a. Loss of DNA mismatch repair enzyme MLH1 with secondary loss of PMS2 ?? b. BRAF testing is pending (ordered on 03/29/2024); results will be issued in an amendment D) COLON, DESCENDING, POLYPECTOMIES: 1. Sessile serrated adenomas (3) 2. Negative for overt dysplasia 3. Per the colonoscopy report: ?? a. Polyp sizes: 5 mm - 8 mm ?? b. Resection: Complete ?? c. Retrieval: Complete 12:23 PM CDT [facility] Amendment electronically signed by Hugh Foote MD on 03/29/2024 at 12:23 PM Comment C) Dr. Foote discussed the case with Dr. Barreto on 03/28/2024. This case was seen in consultation with Dr. Light. Please contact us with any questions ([facility] GI pathology service [phone]). Formalin-fixed, paraffin-embedded tissue is available for ancillary studies, to request please contact the [facility] ([phone]). Neoplastic tissue available for ancillary studies: ?? [facility] NGS testing: ?- FFPE tissue blocks: C1 ?- Cytology slides: No cytology slides prepared from this specimen ?? Tests using immunostains and/or FISH (requiring 100 cells): C1 ?? Send out (outside vendor) testing requiring 5 x 5 mm of tumor: C1 12:23 PM CDT [facility] Clinical Information Mr. Ness is a 89 y.o. with a preoperative diagnosis of iron deficiency anemia due to suspected upper GI bleeding. EGD reveals a normal esophagus with an irregular Z-line at 40 cm. The stomach was normal. The duodenum was normal. Patient also presents for colonoscopy due to evaluation of unexplained GI bleeding presenting with hematochezia and unexplained iron deficiency anemia. Colonoscopy demonstrates a likely malignant partially obstructing tumor in the proximal transverse colon. 3 separate polyps are present in the descending colon and removed. 4 12:23 PM CDT [facility] Gross Description A) Received in formalin are 4 canseco mucosal fragments ranging from 3 mm to 5 mm in greatest dimension, which are entirely submitted in one cassette. It is labeled with the patient's name and designated duodenum. B) Received in formalin are 4 canseco mucosal fragments ranging from 4 mm to 6 mm in greatest dimension, which are entirely submitted in one cassette. It is labeled with the patient's name and designated random stomach. C) Received in formalin is a 7 x 6 x 1 mm aggregate of canseco mucosa. Submitted in one cassette. It is labeled with the patient's name and designated colon-transverse, mass. D) Received in formalin are 3 canseco mucosal fragments ranging from 5 mm to 7 mm in greatest dimension, which are entirely submitted in one cassette. It is labeled with the patient's name and designated colon-descending, polyps. Jania Canseco 03/26/2024 10:33 AM 12:23 PM CDT [facility] Microscopic Description The final diagnosis is based on microscopic examination of appropriate sections of all specimens. Immunohistochemistry was performed on block C1 and interpreted with the following results: MLH1: Negative MSH2: Positive MSH6: Positive PMS2: Negative 4 12:23 PM CDT [facility] SYNOPTIC REPORTING Colon and Rectum Biomarker Reporting Template COLON AND RECTUM: BIOMARKER REPORTING TEMPLATE - All Specimens Protocol posted: 02/20/2021 RESULTS ?? Mismatch Repair: ? Immunohistochemistry (IHC) Testing for Mismatch Repair (MMR) Proteins: ? MLH1 Result: ?Loss of nuclear expression ? Immunohistochemistry (IHC) Testing for Mismatch Repair (MMR) Proteins: ? MSH2 Result: ?Intact nuclear expression ? Immunohistochemistry (IHC) Testing for Mismatch Repair (MMR) Proteins: ? MSH6 Result: ?Intact nuclear expression ? Immunohistochemistry (IHC) Testing for Mismatch Repair (MMR) Proteins: ? PMS2 Result: ?Loss of nuclear expression ? Immunohistochemistry (IHC) Testing for Mismatch Repair (MMR) Proteins: ?Background nonneoplastic tissue / internal control with intact nuclear expression ? IHC Interpretation: ?Loss of nuclear expression of MLH1 and PMS2: testing for methylation of the MLH1 promoter and / or mutation of BRAF is indicated (the presence of a BRAF V600E mutation and / or MLH1 methylation suggests that the tumor is sporadic and germline evaluation is probably not indicated; absence of both MLH1 methylation and of BRAF V600E mutation suggests the possibility of Bill syndrome and sequencing and / or large deletion / duplication testing of germline MLH1 may be indicated) 4 12:23 PM T [facility] Additional Information Interpreted at [facility], Central Laboratory - [address] [place] [address] [address] Immunohistochemistry controls were reviewed and approved by the pathologist during this examination. 4 12:23 PM [facility] Other (Duodenum Biopsy) 03/25/2024 2:10 PM CDT 03/26/2024 6:17 AM CDT Specimen (specimen) (Stomach Biopsy) 03/25/2024 2:10 PM CDT 03/26/2024 6:17 AM CDT Specimen (specimen) (Transverse Colon Biopsy) 03/25/2024 2:10 PM CDT 03/26/2024 6:17 AM CDT Specimen (specimen) (Descending Colon Biopsy) 03/25/2024 2:10 PM CDT 03/26/2024 6:17 AM CDT Eliecer Barreto MD PATHOLOGY/CYTOLOG Y Performing Organization Address [facility] Co de Phone Number [facility] [address] [place] [address], * ESOPHAGOGASTRODUODENOSCOPY (03/25/2024 12:00 AM CDT) Brian Pate MD GI PROCEDURE ORD * COLONOSCOPY SCREENING (03/25/2024 12:00 AM CDT) Brian Pate MD GI PROCEDURE ORD * EKG 12 LEAD (03/21/2024 10:32 AM CDT) Brian Pate MD EKG ORD * CA READING EKG - NO CHARGE, COMP ONLY (03/21/2024 10:31 AM CDT) Brian Pate MD PB - PROVIDER RE ADINGS * (ABNORMAL) FERRITIN (03/17/2024 12:13 PM CDT) Pathologist [facility] FERRITIN 29.4(L) 30.0 - 400.0 ng/mL 03/18/2024 4:09 AM CDT [facility] Blood BLOOD SPECIMEN / Unknown Venipuncture / Unknown 03/17/2024 12:13 PM CDT 03/17/2024 12:13 PM CDT Brian Pate MD CHEMISTRY Performing Organization Address [facility] Co de Phone Number [facility] [address] [place] [address], * (ABNORMAL) BASIC METABOLIC PANEL (03/17/2024 12:13 PM CDT) Only the most recent of2 resultswithin the time period is included. Pathologist [facility] SODIUM 138 136 - 145 mmol/L 03/18/2024 4:09 AM CDT [facility] POTASSIUM 4.2 3.5 - 5.1 mmol/L 03/18/2024 4:09 AM T [facility] CHLORIDE 103 98 - 107 mmol/L 03/18/2024 4:09 AM CDT [facility] CO2,TOTAL 28 22 - 29 mmol/L 03/18/2024 4:09 AM CDT [facility] ANION GAP 7 5 - 18 03/18/2024 4:09 AM CDT [facility] GLUCOSE 86 70 - 99 mg/dL 03/18/2024 4:09 AM T [facility] CALCIUM 8.8 8.8 - 10.2 mg/dL 03/18/2024 4:09 AM T [facility] BUN 20 8 - 23 mg/dL 03/18/2024 4:09 AM T [facility] CREATININE 1.03 0.70 - 1.20 mg/dL 03/18/2024 4:09 AM T [facility] BUN/CREAT RATIO 19 10 - 20 4:09 AM T [facility] eGFR 70(L) >90 mL/min/1.7 3m2 03/18/2024 4:09 AM T [facility] Comment:As of 2021, eG FR [...] 12:13 PM CDT Brian Pate MD CHEMISTRY [facility] [address] [place] [address], [place] * (ABNORMAL) CBC WITH AUTO DIFFERENTIAL (03/17/2024 10:30 AM CDT) [facility] WHITE BLOOD COUNT 9.6 4.5 - 11.0 thou/cu mm 03/17/2024 10:36 AM CDT [facility] RED BLOOD COUNT 4.62 4.30 - 5.90 mil/cu mm 03/17/2024 10:36 AM CDT [facility] HEMOGLOBIN 9.4(L) 13.5 - 17.5 g/dL 03/17/2024 10:36 AM CDT [facility] HEMATOCRIT 31.7(L) 37.0 - 53.0 % 03/17/2024 10:36 AM CDT [facility] MCV 69(L) 80 - 100 fL 03/17/2024 10:36 AM CDT [facility] MCH 20.3(L) 26.0 - 34.0 pg 03/17/2024 10:36 AM CDT [facility] MCHC 29.7(L) 32.0 - 36.0 g/dL 03/17/2024 10:36 AM CDT [facility] RDW 20.4(H) 11.5 - 15.5 % 03/17/2024 10:36 AM CDT [facility] PLATELET COUNT 225 140 - 440 thou/cu mm 03/17/2024 10:36 AM CDT [facility] MPV 9.0 6.5 - 11.0 fL 03/17/2024 10:36 AM CDT [facility] % NEUT 57.6 % 03/17/2024 10:36 AM CDT [facility] % LYMPH 24.3 % 03/17/2024 10:36 AM CDT [facility] % MONO 16.1 % 03/17/2024 10:36 AM CDT [facility] % EOS 1.8 % 03/17/2024 10:36 AM CDT [facility] % BASO 0.2 % 03/17/2024 10:36 AM CDT [facility] ABSOLUTE NEUTROPHILS 5.5 1.7 - 7.0 thou/cu mm 03/17/2024 10:36 AM CDT [facility] ABSOLUTE LYMPHOCYTES 2.3 0.9 - 2.9 thou/cu mm 03/17/2024 10:36 AM CDT [facility] ABSOLUTE MONOCYTES 1.6(H) <0.9 thou/cu mm 03/17/2024 10:36 AM CDT [facility] ABSOLUTE EOSINOPHILS 0.2 <0.5 thou/cu mm 03/17/2024 10:36 AM CDT [facility] ABSOLUTE BASOPHILS 0.0 <0.3 thou/cu mm 03/17/2024 10:36 AM CDT [facility] Blood BLOOD SPECIMEN / Unknown Venipuncture / Unknown 03/17/2024 10:30 AM CDT 03/17/2024 10:30 AM CDT Brian Pate MD HEMATOLOGY [facility] [address] [place] [address], from Last 3 Months Care [employer] Chief Creative Officer Relationship Specialty Start Date End Date Juwan Avery MD [address] [place] [address] PCP - General Family Practice 3/22/23
[2024-03-31 09:21] LABS: Chloride* 101 mmol/L (96-114); Potassium* 3.7 mmol/L (3.6-5.1); Sodium* 135 mmol/L (135-149)
[2024-03-31 09:24] LABS: Anion Gap 6 mEq/L (7-15); Blood Urea Nitrogen* 19 mg/dL (7-30); Calcium* 8.6 mg/dL (8.4-10.6); Carbon Dioxide* 28 mmol/L (20-32); Est. Creatinine Clearance* 55.43; Estimated Glomerular Filt Rate 73 ml/min; Glucose* 158 mg/dL (60-115)
== END 2024-03-31 10:12 | disposition home or self-care (01) ==
PROVIDERS: Emergency Provider Student in an Organized Health Care Education/Training Program; PCP Family Medicine
DX: T83.098A Other mechanical complication of other urinary catheter, initial encounter (principal)
CPT/HCPCS: 51702; 36415; 80048; 99282

== ENCOUNTER 2024-06-25 09:26 | Emergency (ER) | payer MEDICARE, SELFPAY ==
[2024-06-25 09:34] VITALS: BP 140/76; PULSE 66; RESP 18; TEMP 36.8; O2SAT 97; BMI 30.8
--- NOTE | 2024-06-25 09:51 | ED.MALEGU ---
HPI - Male Genitourinary General Chief complaint: Urogenital Problems, Male Stated complaint: Leaking catheter Time Seen by Provider: 06/25/24 09:47 History of Present Illness HPI Narrative: This 89-year-old male comes in stating that his catheter bag leaked urine last night. He does not report any other symptoms and is simply here requesting a different bag. Related Data Home Medications ?Medication ?Instructions ?Recorded ?Confirmed atenolol 50 mg tablet 50 mg PO DAILY 01/18/24 03/31/24 chlorthalidone 25 mg tablet 25 mg PO DAILY 01/18/24 03/31/24 potassium chloride 20 mEq 20 meq PO 3XD 01/18/24 03/31/24 tablet,extended release(part/cryst) (Klor-Con M) pravastatin 80 mg tablet 80 mg PO QPM 01/18/24 03/31/24 tamsulosin 0.4 mg capsule 0.8 mg PO DAILY 01/18/24 03/31/24 ferrous sulfate 325 mg (65 mg 325 mg PO BID 03/31/24 03/31/24 iron) tablet,delayed release peg 3350-electrolytes 236 ml PO 03/31/24 gram-22.74 gram-6.74 gram-5.86 gram solution (GaviLyte-G) Previous Rx's ?Medication ?Instructions ?Recorded cephalexin 500 mg capsule 500 mg PO BID #14 caps 01/27/24 ciprofloxacin HCl 500 mg tablet 500 mg PO BID #10 tabs 02/04/24 (Cipro) Allergies Allergy/AdvReac Type Severity Reaction Status Date / Time No Known Drug Allergies Allergy Verified 01/18/24 10:01 Review of Systems Status of ROS: Reports: 10 or more systems reviewed and unremarkable except as noted in History and below Narrative: Constitutional: No fevers, no weight gain or loss. Eyes: No discharge. No vision changes. HENT: No congestion, no sore throat, no ear pain. Cardiovascular: No chest pain, no palpitations. Respiratory: No shortness of breath, no wheezes, no cough. Gastrointestinal: No abdominal pain, no vomiting, no diarrhea. Genitourinary: No dysuria, no hematuria. Musculoskeletal: Normal range of motion. Skin: No rashes, no pruritis. Neurological: No dizziness, weakness, sensory change, speech change. Endo/Heme/Allergies: No bruising or bleeding. No polydipsia. Pysch: no suicidality, no anxiety, no insomnia. All other systems reviewed and are negative. PFSH PFS Social History Smoking Status: Never smoker Second hand tobacco smoke exposure: No How often do you have a drink containing alcohol: 4 or more times a week How many standard drinks containing alcohol do you have on a typical day: 1 or 2 How often do you have six or more drinks on one occasion: Never AUDIT-C Alcohol total score: 4 Non-prescribed substance use: denies use service: No Exam Narrative: Exam Narrative: Constitutional: Well-developed, well-nourished, no acute distress. HEENT: Normocephalic, atraumatic. Neck: Normal range of motion. Nontender. Supple. Heart: Intact distal pulses. Lungs: No chest discomfort. No wheezes, rhonchi, or rales. Abdomen: Nontender. Back: Normal range of motion. Extremities: Normal range of motion. No injury. Skin: Intact. No rash. Warm. No erythema or pallor. Neurologic: No altered sensation. No weakness. Alert and oriented. Psychiatric: No suicidality. No anxiety or depression. No insomnia. Nursing notes and vitals signs are reviewed. Const: Vital Signs, click to edit/add: Vital Signs - 24 hr 06/25/24 09:34 Temperature 98.2 F Pulse Rate [Right Pulse Oximeter] 66 Respiratory Rate 18 Blood Pressure [Ri ght Upper Arm] 140/76 H Pulse Oximetry 97 Oxygen Delivery Me thod Room Air Course Vital Signs Vital signs: Initial Vital Signs Temperature 98.2 F 06/25/24 09:34 Temperature Source Temporal Artery Scan 06/25/24 09:34 Pulse Rate 66 06/25/24 09:34 Respiratory Rate 18 06/25/24 09:34 Blood Pressure 140/76 H 06/25/24 09:34 Blood Pressure Mean 97 06/25/24 09:34 Blood Pressure Position Sitting 06/25/24 09:34 Pulse Oximetry 97 06/25/24 09:34 Oxygen Delivery Method Room Air 06/25/24 09:34 Vital Signs Temperature 98.2 F 06/25/24 09:34 Pulse Rate 66 06/25/24 09:34 Respiratory Rate 18 06/25/24 09:34 Blood Pressure 140/76 H 06/25/24 09:34 Pulse Oximetry 97 06/25/24 09:34 Oxygen Delivery Method Room Air 06/25/24 09:34 Temperature 98.2 F 06/25/24 09:34 Pulse Rate 66 06/25/24 09:34 Respiratory Rate 18 06/25/24 09:34 Blood Pressure 140/76 H 06/25/24 09:34 Pulse Oximetry 97 06/25/24 09:34 Oxygen Delivery Method Room Air 06/25/24 09:34 MDM - Male Genitourinary MDM Narrative Medical decision making narrative: This patient comes in requesting a different bag to collect urine from his Mcmullen catheter. He states that he believes that it is leaking as he woke this morning with urine around the bag. The nurse tells me that it appears that the bag was not properly connected to the tubing but he is insistent that there was a problem with the bag itself. He did receive a new catheter bag and will continue his current plans. Discharge Plan Discharge Clinical Impression: Mcmullen catheter problem Patient Disposition: Home, Self-Care Condition: Stable Additional Instructions: Continue current plans. Follow up with MD as needed. Return if worsening. Prescriptions: No Action chlorthalidone 25 mg tablet 25 mg PO DAILY potassium chloride [Klor-Con M20] 20 mEq tablet,ER particles/crystals 20 meq PO 3XD pravastatin 80 mg tablet 80 mg PO QPM tamsulosin 0.4 mg capsule 0.8 mg PO DAILY atenolol 50 mg tablet 50 mg PO DAILY cephalexin 500 mg capsule 500 mg PO BID Qty: 14 0RF ciprofloxacin HCl [Cipro] 500 mg tablet 500 mg PO BID Qty: 10 0RF ferrous sulfate 325 mg (65 mg iron) tablet,delayed release (DR/EC) 325 mg PO BID peg 3350-electrolytes [GaviLyte-G] 236-22.74-6.74 -5.86 gram recon soln PO Follow Up/Referrals: Juwan Avery MD [Primary Care Provider] - Stand Alone Forms: [facility] Instructions
--- OUTSIDE RECORDS SUMMARY | 2024-06-25 10:09 | XMS_ITS | Continuity of Care Document ---
Author Organization [facility], [facility] Address [address] [facility] [place] [address] Assessment No assessment recorded. Plan of Treatment Reminders Order Date Submit Date Provider Last Modified By Organization Details Last Modified Time Details Appointments HOSPITA L 210 2023 08:00A M Nicola Dillon MD Not available Not available Not available Lab None recorde d. Referral None recorde d. Procedures urodyna keesha testing , complex (PROC) 2023 024 [email or web address] Not available 05/11/2024 07:49:35 Surgeries nephrec og, hand assiste d laparos copic (SURG) 2023 024 [email or web address] Not available 06/09/2024 09:18:50 Imaging None recorde d. Medication Orders None recorde d. Patient TargetsNo targets recorded. Patient InstructionsNo instructions recorded. Reason for Referral None Reported. Results Created Date Observation Date Name Description Value Unit Range Abnormal Flag Note LastModifiedBy Organization Detail LastModifiedTime 04/13/[address], abdom en + pelvi s, w/ contr ast No observ ation record ed. [email or web address] Not Available 03/26 09:39:06 04/26/20 24 04/06/2024 CT, chest + abdom en + pelvi s, w/ contr ast No observ ation record ed. [email or web address] Not Available 2023 14:08:46 Result Notes None recorded. Problems Name Problem SNOMED Code Status Onset Date Resolution Date Notes Provider Name and Address Organization Details Recorded Time Acute retention of urine 126602479 Active 024 Luda Watson PA-C [address] [facility] [address], [place], [address] , [facility] 4 11:29:06 Retention of urine 149932505 Active 024 Edmar Vaughn MD [address] [place] [address],[address] [place] [address], [phone], [facility] 4 11:33:59 Problem Notes None recorded. Procedures Surgical History Date Name Laterality Status Provider Name and Address Organization Details Recorded Time 4 Urodynamic Studies completed Garrett Vazquez [facility] 05/16/2024 17:20:05 4 BRAVO CHANGE completed Akila Mccall [facility] 05/27/2024 11:54:40 4 COMPLEX VISIT completed Nicola Dillon MD [address] [place] [address],[address] [place] [address], [phone], [facility] 04/28/2024 14:39:20 4 BRAVO CHANGE completed Nicola Dillon MD [address] [place] [address],[facility] [[email or web address] [address], [place], [address], [facility] 04/28/2024 14:39:08 4 Cystoscopy- male completed Edmar Vaughn MD [address] [place] [address],[facility] [[email or web address]] [address], [place], [address], [facility] 03/04/2024 14:49:59 4 Bravo Catheter Insertion completed Trey Cbaral [facility] 03/04/2024 15:44:20 4 Cipro post Cysto completed Trey Cabral [facility] 02/24/2024 14:58:47 4 Fill and Pull/Voiding Trial/TOV completed Trey Cabral [facility] 03/04/2024 15:44:41 4 Bravo Catheter Insertion completed Edmar Vaughn MD [address] [place] [address],[address], [place], [address], [facility] 02/12/2024 11:53:15 4 Fill and Pull/Voiding Trial/TOV completed Edmar Vaughn MD [address] [place] [address],[address], [place], [address], [facility] 02/12/2024 11:28:34 4 Bravo Catheter Insertion completed Concetta Zapata [facility] 02/10/2024 14:26:17 4 Fill and Pull/Voiding Trial/TOV completed Concetta Zapata [facility] 02/10/2024 14:25:24 4 Bravo Catheter Insertion completed Fantasmaолег magaña [facility] 02/03/2024 12:10:15 4 Fill and Pull/Voiding Trial/TOV completed Luda Watson PA-C [address] [place] [address],[address], [place], [address], [facility] 02/03/2024 11:16:06 Imaging Results None recorded. [...] completed Not Available Not Available Not Available ferrous sulfate 325 mg (65 mg iron) tablet,terrence yed release TAKE ONE TABLET BY MOUTH TWICE A DAY WITH MEALS* active Not Available Not Available No t Available atenolol 50 mg tablet TAKE ONE TABLET BY MOUTH ONE TIME DAILY* active Not Available Not Available No t Available Klor-Con M20 mEq tablet,exte nded release TAKE ONE TABLET BY MOUTH TWICE A DAY WITH MEALS* active Not Available Not Available No t Available GaviLyte-G 236 gram-22.74 gram-6.74 gram-5.86 gram oral solution Drink 2 liters the day before colonosco py and 2 liters 6 hours before colonosco py appointme nt* active Not Available Not Available No t Available Vitals Date Recorded Body height Provider Name an d Address Organization Details Last Updated DateTime 04/28/2024 180.34 cm Nicola Dillon MD [address] [place] [address],[facility] [[email or web address]] [address], [place], [address], [facility] 04/28/2024 14:01:24 Social History Question Answer Notes LastModified by Organizat ion Details LastModified Time Tobacco Smoking Status Former Smoker Franko esquivel, [facility] 02/03/2024 10:40:30 What Is Your Level Of Alcohol Consumption? Moderate Beer At Supper Information not available 02/03/2024 What Is Your Level Of Caffeine Consumption? None Information not available 02/03/2024 When Did You Quit Smoking? 16+yearssinc elastcigaret te Information not available 02/03/2024 What Was The Date Of Your Most Recent Tobacco Screening? 04/28/2024 [email or web address] Information not available 04/28/2024 Have You Ever Been Counseled For Unhealthy Alcohol Use? No [email or web address] Information not available 02/12/2024 Do You Use Any Illicit Or Recreational Drugs? No Information not available 02/03/2024 Has Tobacco Cessation Counseling Been Provided? No [email or web address] Information not available 02/12/2024 Do You Or Have You Ever Used Any Other Forms Of Tobacco Or Nicotine? No [email or web address] Information not available 02/12/2024 How Many Days In The Past Year Have You Consumed 5 Or More Drinks? 0 [email or web address] Information not available 02/12/2024 Sex: Unknown Functional Status None recorded. Mental Status None recorded. Family History Relationship Description Onset Age of this Age Resolved Age Notes LastModified by Organization Details LastModified Time Father No current problems or disability [email or web address] Not available 02/21 14:27:02 Mother No current problems or disability [email or web address] Not available 02/21 14:27:03 Notes:brain cancer-cancer sp ouse-stomach cancer Medical History Condition Response Kidney Stones Y Immunizations Vaccine Type Date Status Provider Name and Address Organization Details Recorded Time Influenza, adjuvanted, trivalent, PF 09/08/2018 completed Miletzi Arvizu-Valer o null, [facility] 02/03/2024 10:37:30 Influenza, adjuvanted, trivalent, PF 09/30/2017 completed [facility], [facility] 02/03/2024 10:37:30 Influenza, adjuvanted, trivalent, PF 10/14/2019 completed Miletzi Arvizu[facility]Valer [facility] null, [facility] 02/03/2024 10:37:30 zoster recombinant 12/21/2023 completed Miletzi Arvizu-Valer o null, [facility] 02/03/2024 10:37:30 Influenza, high-dose, quadrivalent, PF 06/30/2023 completed Miletzi Arvizu-Valer o null, [facility] 02/03/2024 10:37:30 Influenza, high-dose, quadrivalent, PF 07/31/2022 completed Miletzi Arvizu-Valer o null, [facility] 02/03/2024 10:37:30 Influenza, adjuvanted, quadrivalent, PF 07/08/2021 completed Miletzi Arvizu-Valer o null, [facility] 02/03/2024 10:37:30 COVID-19, mRNA, LNP-S, PF, 30 mcg/0.3 mL dose 10/06/2020 completed Miletzi Arvizu-Valer o null, [facility] 02/03/2024 10:37:30 COVID-19, mRNA, LNP-S, PF, 30 mcg/0.3 mL dose 10/27/2020 completed Miletzi Arvizu-Valer o null, [facility] 02/03/2024 10:37:30 COVID-19, mRNA, LNP-S, PF, 30 mcg/0.3 mL dose 07/08/2021 completed Miletzi Arvizu-Valer o null, [facility] 02/03/2024 10:37:30 COVID-19, mRNA, LNP-S, PF, 30 mcg/0.3 mL dose, gillian-sucrose 02/11/2022 completed Miletzi Arvizu-Valer o null, [facility] 02/03/2024 10:37:30 COVID-19, mRNA, LNP-S, bivalent, PF, 30 mcg/0.3 mL dose 07/31/2022 completed Miletzi Arvizu-Valer o null, [facility] 02/03/2024 10:37:30 RSV, recombinant, protein subunit RSVpreF, adjuvant reconstituted, 0.5 mL, PF 06/30/2023 completed Miletzi Arvizu-Valer o null, [facility] 02/03/2024 10:37:30 pneumococcal polysaccharide PPV23 05/25/2006 completed Miletzi Arvizu-Valer o null, [facility] 02/03/2024 10:37:30 Tdap 12/21/2023 completed Miletzi Arvizu-Valer o null, [facility] 02/03/2024 10:37:30 Novel [id number], all formulations 09[facility]14/2009 [facility] 02/03/2024 10:37:30 Pneumococcal conjugate PCV 13 08/22/2015 completed Miletzi Arvizu-Valer o null, [facility] 02/03/2024 10:37:30 Influenza, high-dose, trivalent, PF 09/24/2016 completed Miletzi Arvizu-Valer o null, [facility] 02/03/2024 10:37:30 Influenza, high-dose, trivalent, PF 08/21/2014 completed Miletzi Arvizu-Valer o null, [facility] 02/03/2024 10:37:30 Influenza, high-dose, trivalent, PF 08/22/2015 completed Miletzi Arvizu-Valer o null, [facility] 02/03/2024 10:37:30 Influenza, split virus, trivalent, preservative 05/29/2008 completed Miletzi Arvizu-Valer o null, [facility] 02/03/2024 10:37:30 Influenza, split virus, trivalent, preservative 05/31/2007 completed Miletzi Arvizu-Valer o null, [facility] 02/03/2024 10:37:30 Influenza, split virus, trivalent, preservative 06/20/2010 [facility] 02/03/2024 10:37:30 Influenza, split virus, trivalent, preservative 06/27/2004 [facility], [facility] 02/03/2024 10:37:30 Influenza, split virus, trivalent, preservative 08/06/2012 completed [facility] Arvizu-Valer o null, [facility] 02/03/2024 10:37:30 Influenza, split virus, trivalent, preservative 08/19/2013 [facility]-Lisameg pichardo null, [facility] 02/03/2024 10:37:31 Influenza, split virus, trivalent, PF 09/14/2009 completed [facility] Arvizu-Maliha pichardo null, [facility] 02/03/2024 10:37:31 Td (adult), 5 Lf tetanus toxoid, preservative free, adsorbed 05/25/2006 completed [facility] Arvizu-Maliha pichardo null, [facility] 02/03/2024 10:37:31 Past Encounters Encounter ID Performer Location Encounter Start Date Encounter Closed Date Diagnosis/Indication Diagnosis SNOMED-CT Code Diagnosis ICD10 Code [id number] Nicola Dillon MD [facility] [address] [place] [address] 04/28/2024 13:46:52 05/06/2024 08:43:02 Renal mass 497676760 N28.89 Chronic re tention of urine 099510406 R33.8 Health Concerns Section Related Observation LastModified by Organization Detai ls LastModified Time None Recorded Concern Status LastModified by Organization Details LastModified Time None Recorded Payers Encounter Date Sequence Insurance Name Policy Number Policy Masterson Covered Member ID Masterson Member ID Guarantor Name 04/28/2024 1 [employer] - DOS ON OR AFTER 19 (MEDICARE REPLACEMENT/ ADVANTAGE - HMO) [id number] Kojo Palmer [place] [id number] Kojo Ness Notes Date Note Type Note Provider Name and Address Organization Details Recorded Time 04/28/2024 text/html HPI Notes: Referred for a renal mass. It is 5cm right side. 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 He's failed multiple voiding trials. He came with his daughter. He has met with Dr Morfin with [facility] and they discussed systemic therapy (immunotherapy) as a first step. This would not be standard of care for kidney cancer but could be an option. Without clearly knowing the pathology, it is a bit risky. Nicola Dillon MD [address] [facility],[address], [place], [address], [facility] 04/28/2024 14:39:38
--- OUTSIDE RECORDS SUMMARY | 2024-06-25 10:09 | XMS_ITS | Clinical Summary ---
Author Organization [employer] [facility] Address [place], [place] [address] Care Team Providers Care Aircrewman Name Role Phone Juwan Avery MD Primary Care Provider [phone] Venkat Elena RN Unavailable [phone] Star Morfin MD Unavailable [phone] SoNicola peralta MD Unavailable [phone] Allergies No known active allergies Medications Medication Sig Dispensed Refills Start Date End Date Status MULTIVITAMIN TAB Once daily 0 05/14/2007 Active VITAMINS A,C,L-JVDX-OWFSHC (OCUVITE PRESERVISION) 7,160-113-100 tqfb-[id number]-wkty tablet Take 1 tablet. by mouth two times daily. 0 09/24/2016 Active fluorometholone (FML) 0.1 % ophthalmic suspension 11/05/2017 Active potassium chloride (KLOR-CON M20) 20 mEq extended-release tablet (part/cryst)Indicat ions:Essential hypertension Take 1 Tablet (20 mEq) by mouth two times daily with meals. 180 Tablet 3 12/16/2023 Active chlorthalidone (HYGROTON) 25 mg tabletIndications:E ssential hypertension Take 1 Tablet (25 mg) by mouth once daily. 90 Tablet 3 12/16/2023 Active atenoloL (TENORMIN) 50 mg tabletIndications:E ssential hypertension Take 1 Tablet (50 mg) by mouth once daily. 90 Tablet 3 12/16/2023 Active pravastatin (PRAVACHOL) 80 mg tabletIndications:H yperlipidemia, unspecified hyperlipidemia type Take 1 Tablet (80 mg) by mouth at bedtime. 90 Tablet 3 12/16/2023 Active tamsulosin (FLOMAX) 0.4 mg capsuleIndications: Prostatic hypertrophy TAKE TWO CAPSULES BY MOUTH DAILY with a meal. 180 Capsule 3 12/16/2023 Active Additional Information Patient taking differently: 0.4 mg Oral BID, TAKE TWO CAPSULES BY MOUTH DAILY with a meal., Reported on 04/26/2024 ferrous sulfate 325 mg delayed release tabletIndications:M icrocytic anemia Take 1 Tablet (325 mg) by mouth two times daily with meals. 90 Tablet 3 03/17/2024 Active ibuprofen (AdviL) 200 mg tablet Take 200 mg by mouth 4 times daily if needed. Active sodium chloride (ADSORBONAC) 2 % ophthalmic solution 1 Drop. Activ e ASPIRIN 81 MG TAB, DELAYED RELEASE once daily 0 02/15/2007 06/22/20 24 Discontinu ed(*Med complete/R egimen complete/L evel of care change) Active Problems Problem Noted Date Diagnosed Date Malignant neoplasm of transverse colon Overview (03/31/2024): Colonoscopy 03/2024 tumor, polyps, refer to surgery, repeat in 1 year Acute retention of urine 02/03/2024 Controlled type 2 diabetes m ellitus without complication, without long-term current use of insulin 10/05/2018 Other and unspecified hyperlipidemia 05/31/2007 Prostatic hypertrophy 02/15/2007 Unspecified essential hypertension AAA (abdominal aortic aneurysm) without rupture Overview (11/24/2022): Increasing in size slowly, 4.6 cm in 2021 1 year ultrasound repeat Us in 2022 is stable. Resolved Problems Problem Noted Date Diagnosed Date Resolved Date Unspecified essential hypertension 02/15/2007 05/29/2008 Encounters Date Type Department Care Team Description 06/22/2024 9:35 AM CDT Office Visit [facility] [address] [place] [address] Fazal Perez MD Preoperative Exam (07/04/24/ABNW/LAPAR OSCOPIC RIGHT HEMICOLECTOMY & HAND ASSISTED LAPAROSCOPIC RIGHT NEPHRECTOMY /Sovell, Nicola Damon MD /Star Morfin MD /); Immunization/Injecti on 06/22/2024 Travel 06/09/2024 Telephone [facility] [address] [place] [address] Norma Francisco PA Abstract (Pt has no known allergies- confirmed ) 05/06/2024 11:00 AM CDT Telemedicine [facility] [address] [place] [address] Star Morfin MD Follow Up 05/06/2024 Travel 04/27/2024 Telephone [facility] [address] [place] [address] Star Morfin MD 04/26/2024 2:00 PM CDT Office Visit [facility] [address] [place] [address] Star Morfin MD Initial Consult 04/26/2024 Travel 04/15/2024 Telephone [facility] [address] [place] [address] [facility] 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) 04/15/2024 Telephone [facility] [address] [place] [address] Juwan Avery MD Referral (Specialist ) 04/13/2024 Telephone [facility] [address] [place] [address] Eliecer Barreto MD Results 04/12/2024 1:30 PM CDT Office Visit [facility] [address] [place] [address] Juwan Avery MD Follow Up (Go over results - colonoscopy and CT scan) 04/12/2024 Telephone [facility] [address] [place] [address] Juwan Avery MD Follow Up (Surgical consult information) 04/12/2024 Travel 04/07/2024 Telephone [facility] [address] [place] [address] Eliecer Barreto MD Results 04/06/2024 10:30 AM CDT Ancillary Procedure [facility] [address] [facility] [address] 04/06/2024 Travel 03/29/2024 Telephone [facility] [address] [place] [address] Eliecer Barreto MD Results 03/25/2024 12:45 PM CDT Office Visit [facility] at [facility] [address] [place] [address] Eliecer Barreto MD 03/25/2024 Lab Requisition [facility] [phone] Eliecer Barreto MD 03/25/2024 Lab Requisition [facility] [phone] Eliecer Barreto MD from Last 3 Months Immunizations Name Administration Dates Next Due COVID-19 VACCINE SPIKEVAX (M ODERNA 50MCG/0.5ML) 12YO+ PFS 06/22/2024 COVID-19 vaccine (Giftxoxo-Bio NTech 30mcg/0.3mL) PF, MDV 07/08/2021,10/27/2020,10/06/2020 Influenza A (H1N1), Inactivated 09/14/2009 Influenza A (H1N1), Inactiva pablo (Age >=3 Years) 09/14/2009 Influenza, High-dose Inactivated 09/24/2016,07/26,08/21/2014 Influenza, High-dose Quadriv alent Inactivated 06/30/2023,07/31/2022 Influenza, IIV3 (Age 6-35 mos) 09/14/2009 Influenza, IIV3 (Age >=3 years) 08/19/20 13,08/06/2012,06/20/2010,09/14,05/29/2008,05/31/2007,06/27/2004 Influenza, Inactivated AIIV4 (Age 65+ Years) Preserv Free 07/08/2021 Influenza, Inactivated IIV3 (Age 65+ Years) Preserv Free 06/22/2024,10/14/2019,09/08/2018,09/30 Pneumococcal Poly,23-Valent (Pneumovax) 05/25/2006 Pneumococcal conj 13-Valent [...] Cigarettes 1 5 0 08/24/1986 - 08/24/1991 Passive Smoke Exposure: Never Smokeless Tobacco: Never Tobacco Cessation:Counseling Given: Not Answered Alcohol Use Standard Drinks/Week Comments Not Currently 0 (1 standard drink = 0.6 oz pur e alcohol) one beer every night PHQ-2 Answer Date Recorded PHQ-2 TOTAL SCORE 0 12/16/2023 Social Connections Answer Date Recorded Do you often feel lonely or isolated from those around you? 0 12/16/2023 Alcohol Use Answer Date Recorded How often do you have a drink containing alcohol ? 4 04/12/2024 How many drinks containing a lcohol do you have on a typical day when you are drinking? 0 04/12/2024 How often do you have five or more drinks on one occasion? 0 04/12/2024 Financial Resource Strain Answer Date R ecorded Difficulty of Paying Living Expenses 3 12/16/2023 Difficulty of Paying Living Expenses Not on file 12/16/2023 Food Insecurity Answer Date Recorded Do you worry your food will run out before you are able to buy more? 1 12/16/2023 Transportation Needs Answer Date Record ed Does lack of transportation keep you from medica l appointments? 1 12/16/2023 Does lack of transportation keep you from work, meetings or getting things that you need? 1 12/16/2023 Housing Stability Answer Date Recorded What is your housing situation today? 1 12/16/2023 Sex and Gender Information Value Date Recorded Sex Assigned at Not on file Gender Identity Not on file Sexual Orientation Not on file Obstetrics History Last Filed Vital Signs Vital Sign Reading Time Taken Comments Blood Pressure 131/64 06/22/2024 9:35 AM CDT Pulse 59 06/22/2024 9:35 AM CDT Temperature 36.4 ??C (97.5 ??F) 06/22/2024 9:35 AM CD T Respiratory Rate 16 06/22/2024 9:35 AM CDT Oxygen Saturation 97% 06/22/2024 9:35 AM CDT Inhaled Oxygen Concentration - - Weight 96 kg (211 lb 11.2 oz) 06/22/2024 9:35 AM CDT Height 178.2 cm (5' 10.16) 06/22/2024 9:35 AM C DT Body Mass Index 30.24 06/22/2024 9:35 AM CDT Plan of Treatment Upcoming Encounters Date Type Department Care Team (Latest Contact Info) Description 07/04/2024 7:30 AM UTILITY SPECIALIST Hospital Encounter [facility] [address] [place] [address] [place] [address] [id number] 07/04/2024 7:30 AM UTILITY SPECIALIST - 07/04/2024 1:27 PM UTILITY SPECIALIST Surgery [facility] [address] [place] [address] [place] [address] [id number] LAPAROSCOPIC RIGHT HEMICOLECTOMY Scheduled Procedures Name Priority Associated Diagnoses Date/Ti ri LAPAROSCOPIC SHAYNE COLECTOMY RIGHT Elective Colon adenocarcinoma (HC) 07/04/2024 7:30 AM UTILITY SPECIALIST LAPAROSCOPIC NEPHRECTOMY HAND ASSISTED Elective Colon adenocarcinoma (HC) 07/04/2024 7:30 AM UTILITY SPECIALIST Health Maintenance Due Date Last Done Comments Zoster (shingles) series for age 50+ (2 of 2) 02/15/2024 12/21/2023 COVID-19 vaccine series ( season) 2024 06/22/2024, 07/31/2022, 02/11/2022, Additional history exists Depression screening for age 12+ 12/15/2024 12/16/2023, 11/12/2022, 10/22/2021, Additional history exists Medicare Wellness for age 65+ 12/16/2024, 11/12/2022, 10/21/2021, Additional history exists BMI (ht and wt on same day) for age 18+ 06/22/2025 06/22/2024, 04/26/2024, 03/17/2024, Additional history exists Tetanus booster 12/20/2033 12/21/2023, 09/2005, 05/25/2006 Pneumococcal series for age 65+ Completed 5, 05/25/2006 RSV vaccine for adults or Completed 06/30/2023 Tdap Completed 12/21/2023 Influenza for age 65+ Completed 06/22/2024 , 06/30/2023, 07/31/2022, Additional history exists Procedures Procedure Name Priority Date/Time Associated Diagnosis Comments BASIC METABOLIC PANEL Routine 06/22/2024 10:29 AM CDT Pre-op evaluation Unspecified essential hypertension HEMOGLOBIN Routine 06/22/2024 10:29 AM CDT Pre-op evaluation Malignant neoplasm of transverse colon (HC) Renal mass CWS PATH REVIEW HEMATOLOGY Routine 04/12 2:26 PM CDT Malignant neoplasm of transverse colon (HC) RED CELL MORPHOLOGY Routine 04/12/2024 2 :26 PM CDT Malignant neoplasm of transverse colon (HC) PLATELET ESTIMATE Routine 04/12/2024 2:2 6 PM CDT Malignant neoplasm of transverse colon (HC) CBC WITH AUTO DIFFERENTIAL Routine 04/12 2:26 PM CDT Malignant neoplasm of transverse colon (HC) CEA Routine 04/12/2024 2:26 PM CDT Malignant neoplasm of transverse colon (HC) COMP METABOLIC PANEL Routine 04/12/2024 2:26 PM CDT Malignant neoplasm of transverse colon (HC) CBC WITH AUTO DIFFERENTIAL Routine 04/12 2:26 PM CDT Malignant neoplasm of transverse colon (HC) CT CHEST ABDOMEN PELVIS W Routine 2023 11:05 AM CDT Malignant neoplasm of transverse colon (HC) LAB TRACKING EVENT Routine 03/25/2024 2: 35 PM CDT LAB TRACKING EVENT Routine 03/25/2024 2: 10 PM CDT PATH TISSUE EXAM Routine 03/25/2024 2:10 PM CDT BRAF V600 MUTATION ANALYSIS Routine 09/2023 2:10 PM CDT COLONOSCOPY SCREENING Routine 03/25/2024 12:00 AM CDT Iron deficiency anemia, unspecified iron deficiency anemia type ESOPHAGOGASTRODUODENOSCOPY Routine 03/25 12:00 AM CDT Iron deficiency anemia, unspecified iron deficiency anemia type from Last 3 Months Results * HEMOGLOBIN (06/22/2024 10:29 AM CDT) HEMOGLOBIN 13.3 13.2 - 17.1 g/dL [facility] Blood BLOOD SPECIMEN / Unknown 06/22/2024 10:29 AM CDT 06/22/2024 10:29 AM CDT Fazal Perez MD HEMATOL [employer] [facility] [address] [place] [address], [facility] [address] [place] [address] * (ABNORMAL) BASIC METABOLIC PANEL (06/22/2024 10:29 AM CDT) GLUCOSE 121(H) 65 - 99 mg/dL [facility] Comment: ? Fasting reference interval For someone without known diabetes, a glucose value between 100 and 125 mg/dL is consistent with prediabetes and should be confirmed with a follow-up test. UREA NITROGEN (BUN) 23 7 - 25 mg/dL [facility] CREATININE 1.15 0.70 - 1.22 mg/dL [facility] EGFR 62 > OR = 60 mL/min/1. 73m2 [facility] BUN/CREATININE RATIO SEE NOTE: (calc) [facility] Comment: ?? Not Reported: BUN and Creatinine are within ?? reference range. ? SODIUM 142 135 - 146 mmol/L [facility] POTASSIUM 3.9 3.5 - 5.3 mmol/L [facility] CHLORIDE 103 98 - 110 mmol/L [facility] CARBON DIOXIDE 29 20 - 32 mmol/L [facility] ELECTROLYTE BALANCE 10 7 - 17 mmol/L (calc) [facility] CALCIUM 8.8 8.6 - 10.3 mg/dL [facility] Blood BLOOD SPECIMEN / Unknown 06/22/2024 10:29 AM CDT 06/22/2024 10:29 AM CDT Fazal Perez MD COAL BAGGER RY [employer] [facility] [address] [place] [address], [facility] [address] [place] [address] * CWS PATH REVIEW HEMATOLOGY (04/12/2024 2:26 PM CDT) PATH COMMENT Reviewed by KM on 04/14/2024 04/14/2024 12:49 PM CDT [facility] Comment: Blood BLOOD SPECIMEN / Unknown Venipuncture / Unknown 04/12/2024 2:26 PM CDT 04/12/2024 2:26 PM CDT Eliecer Barreto MD LABORATORY [facility] [address] [place] [address], * (ABNORMAL) CBC WITH AUTO DIFFERENTIAL (04/12/2024 2:26 PM CDT) WHITE BLOOD COUNT 10.1 4.5 - 11.0 thou/cu mm 04/12/2024 3:02 PM CDT [facility] RED BLOOD COUNT 5.06 4.30 - 5.90 mil/cu mm 04/12/2024 3:02 PM CDT [facility] HEMOGLOBIN 11.7(L) 13.5 - 17.5 g/dL 04/12/2024 3:02 PM CDT [facility] HEMATOCRIT 37.8 37.0 - 53.0 % 04/12/2024 3:02 PM CDT [facility] MCV 75(L) 80 - 100 fL 04/12/2024 3:02 PM CDT [facility] MCH 23.1(L) 26.0 - 34.0 pg 04/12/2024 3:02 PM CDT [facility] MCHC 31.0(L) 32.0 - 36.0 g/dL 04/12/2024 3:02 PM CDT [facility] RDW 27.2(H) 11.5 - 15.5 % 04/12/2024 3:02 PM CDT [facility] PLATELET COUNT 229 140 - 440 thou/cu mm 04/12/2024 3:02 PM CDT [facility] MPV 9.9 6.5 - 11.0 fL 04/12/2024 3:02 PM CDT [facility] % NEUT 66.4 % 04/12/2024 3:02 PM CDT [facility] % LYMPH 17.7 % 04/12/2024 3:02 PM CDT [facility] % MONO 13.6 % 04/12/2024 3:02 PM CDT [facility] % EOS 2.0 % 04/12/2024 3:02 PM CDT [facility] % BASO 0.3 % 04/12/2024 3:02 PM CDT [facility] ABSOLUTE NEUTROPHILS 6.7 1.7 - 7.0 thou/cu mm 04/12/2024 3:02 PM CDT [facility] ABSOLUTE LYMPHOCYTES 1.8 0.9 - 2.9 thou/cu mm 04/12/2024 3:02 PM CDT [facility] ABSOLUTE MONOCYTES 1.4(H) <0.9 thou/cu mm 04/12/2024 3:02 PM CDT [facility] ABSOLUTE EOSINOPHILS 0.2 <0.5 thou/cu mm 04/12/2024 3:02 PM CDT [facility] ABSOLUTE BASOPHILS 0.0 <0.3 thou/cu mm 04/12/2024 3:02 PM CDT [facility] Blood BLOOD SPECIMEN / Unknown Venipuncture / Unknown 04/12/2024 2:26 PM CDT 04/12/2024 2:26 PM CDT Eliecer Barreto MD HEMATOLOGY [facility] [address] [place] [address], [place] [phone] * (ABNORMAL) RED CELL MORPHOLOGY (04/12/2024 2:26 PM CDT) ELLIPTOCYTES Moderate 04/12/2024 3:02 PM CDT [facility] RBC COMMENT Present(A) RBC morphology appears normal, RBC morphology within normal limits for newborns. 04/12/2024 3:02 PM CDT [facility] Blood BLOOD SPECIMEN / Unknown Venipuncture / Unknown 04/12/2024 2:26 PM CDT 04/12/2024 2:26 PM CDT Eliecer Barreto MD HEMATOLOGY Performing Organization Address City/[facility]/ZIP Co de Phone Number [facility] [address] [place] [address], [place] [phone] * PLATELET ESTIMATE (04/12/2024 2:26 PM CDT) Pathologist [facility] PLATELET ESTIMATE Adequate Adequate, No estimate 04/12/2024 3:02 PM CDT [facility] Blood BLOOD SPECIMEN / Unknown Venipuncture / Unknown 04/12/2024 2:26 PM CDT 04/12/2024 2:26 PM CDT Eliecer Barreto MD HEMATOLOGY [facility] [address] [place] [address], * CEA (04/12/2024 2:26 PM CDT) [facility] CEA 6.1 ng/mL 04/12/2024 11:40 PM CDT [facility] Blood BLOOD SPECIMEN / Unknown Venipuncture / Unknown 04/12/2024 2:26 PM CDT 04/12/2024 2:26 PM CDT Narrative [facility] - 04/12/2024 11:40 PM CDT ?CEA Ranges Age Range ? Reference Range 20 years up to 70 years (all subjects) ?<4.8 ng/mL 40 years up to 70 years (all subjects) ?<5.3 ng/mL 20 years up to 70 years (non smoker) ?<3.9 ng/mL 40 years up to 70 years (non smoker) ?<5.1 ng/mL 20 years up to 70 years (smoker) ?<5.6 ng/mL 40 years up to 70 years (smoker) ?<6.6 ng/mL The test method changed on 08/26/2022. If this test has been used for serial monitoring, rebaselining is recommended. Rebaselining consists of 2 measurements, collected 3-6 weeks apart. The [employer] CEA assay is an electrochemiluminescence immunoassay ECLIA performed on the [employer] Roxanna e immunoassy analyzers. ?? Values obtained with different assay methods may be different and cannot be used interchangeably. ? Biotin supplements may cause clinically significant interference for this test assay. If interference is suspected, it is strongly recomended that biotin is discontinued for at least one week prior to retesting. Eliecer Barreto MD [facility] [address] [place] [address], * (ABNORMAL) COMP METABOLIC PANEL (04/12/2024 2:26 PM CDT) SODIUM 142 136 - 145 mmol/L 04/12/2024 11:40 PM CDT [facility] POTASSIUM 3.7 3.5 - 5.1 mmol/L 04/12/2024 11:40 PM CDT [facility] CHLORIDE 103 98 - 107 mmol/L 04/12/2024 11:40 PM CDT [facility] CO2,TOTAL 28 22 - 29 mmol/L 04/12/2024 11:40 PM CDT [facility] ANION GAP 11 5 - 18 04/12/2024 11:40 PM CDT [facility] GLUCOSE 109(H) 70 - 99 mg/dL 04/12/2024 11:40 PM CDT [facility] CALCIUM 8.9 8.8 - 10.2 mg/dL 04/12/2024 11:40 PM CDT [facility] BUN 18 8 - 23 mg/dL 04/12/2024 11:40 PM CDT [facility] CREATININE 1.04 0.70 - 1.20 mg/dL 04/12/2024 11:40 PM CDT [facility] BUN/CREAT RATIO 17 10 - 20 11:40 PM CDT [facility] eGFR 69(L) >90 mL/min/1.7 3m2 04/12/2024 11:40 PM CDT [facility] Comment:As of 2021, eG FR is calculated by the CKD-EPI creatinine equation without race adjustment. ??eGFR can be influenced by muscle mass, exercise, and diet. ??The reported eGFR is an estimation only and is only applicable if the renal function is stable. ALBUMIN 3.6(L) 4.0 - 4.9 g/dL 04/12/2024 11:40 PM CDT [facility] PROTEIN,TOTAL 6.3 6.0 - 8.0 g/dL 04/12/2024 11:40 PM CDT [facility] BILIRUBIN,TOTAL 0.4 0.0 - 1.2 mg/dL 04/12/2024 11:40 PM CDT [facility] ALK PHOSPHATASE 60 40 - 129 IU/L 04/12/2024 11:40 PM CDT [facility] ALT (SGPT) 12 10 - 50 IU/L 04/12/2024 11:40 PM CDT [facility] AST (SGOT) 20 10 - 50 IU/L 04/12/2024 11:40 PM CDT [facility] Blood BLOOD SPECIMEN / Unknown Venipuncture / Unknown 04/12/2024 2:26 PM CDT 04/12/2024 2:26 PM CDT Eliecer Barreto MD CHEMISTRY [facility] [address] [place] [address], [place] * CT CHEST ABDOMEN PELVIS W (04/06/2024 11:05 AM CDT) Anatomical Region Laterality Modality Abdomen, Pelvis, AORTA, LIVER, SPLEEN, CHEST Computed Tomography 04/07/2024 9:28 AM CDT Impressions 04/07/2024 9:28 AM CDT 1. Hepatic flexure mass measuring approximately 9.4 cm. Small colocolonic associated intussusception. No associated upstream dilatation to suggest obstruction. 2. No discrete distant metastatic disease. 3. Upper pole right renal heterogeneously enhancing mass measuring up to 4.2 cm. 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 Other less likely differential considerations include oncocytoma or lipid poor angiomyolipoma. No discrete associated renal vein thrombus. 4. Infrarenal abdominal aortic aneurysm measuring up to 4.9 cm. Please note that all CT scans at this facility use dose modulation, iterative reconstruction, and/or weight-based dosing when appropriate to reduce radiation dose to as low as reasonably achievable. Dictated by Bruce Robles MD @ 04/07/2024 9:28:41 AM (Electronically Signed) Narrative 04/07/2024 9:28 AM CDT For Patients: ??As a result of the 21st Century Cures Act, medical imaging exams and procedure reports are released immediately into your electronic medical record. ??You may view this report before your referring provider. ??If you have questions, please contact your health care provider. INDICATION: Malignant neoplasm of transverse colon TECHNIQUE: CT chest, abdomen and pelvis acquired 100 milliliters omni 350 contrast. COMPARISON: None. FINDINGS: CHEST: Lungs and Airways: No mass or consolidation. Basilar linear opacities likely linear atelectasis/linear fibrosis. No endoluminal lesion. Heart and Mediastinum: The visualized portions of the thyroid are normal. No axillary or supraclavicular lymphadenopathy. No mediastinal, hilar or retrocrural lymphadenopathy. Normal heart size. Normal caliber aorta. Atherosclerotic and coronary artery calcifications Pleura: The pleural spaces are normal. ABDOMEN: Liver: Normal enhancement. No focal suspicious hepatic lesions. Gallbladder and biliary: Cholelithiasis. Normal caliber bile ducts. Spleen: Tiny hypodensity in the spleen, statistically of no clinical consequence. Pancreas: Normal enhancement without peripancreatic inflammatory changes or ductal dilatation. Adrenal glands: Normal adrenal glands. Kidneys and ureters: Normal enhancement. No radio-opaque calculi. No hydroureteronephrosis. Subcentimeter hypodensities are too small to characterize however statistically represent cysts. Upper pole right renal heterogeneously enhancing mass measuring up to 4.2 cm. No discrete associated renal vein thrombus. Subcentimeter hypodensities are too small to characterize however statistically represent cysts. 5 millimeter interpolar left renal exophytic focus measuring simple attenuation. Too small to characterize. GI tract: Stomach is partially distended with fluid and air. Duodenum diverticulum. Normal caliber small and large bowel loops. The appendix is not definitively visualized however there are no secondary signs of acute appendicitis. Severe colonic diverticulosis without diverticulitis. Hepatic flexure mass measuring approximately 9.4 cm. Small colocolonic associated intussusception. No associated upstream dilatation to suggest obstruction. Vascular structures: Infrarenal abdominal aortic aneurysm measuring up to 4.9 cm. Severe atherosclerotic calcifications. Lymph nodes: No lymphadenopathy in the abdomen or pelvis by size criteria. Peritoneum: No free air, free fluid, or focal drainable fluid collection. PELVIS: Genitourinary system: Urinary bladder is partially decompressed with a catheter. Catheter tip indents upon the bladder wall. Mild wall thickening in this location, potentially reactive edema however difficult to completely characterize. Prostatomegaly. Tiny bilateral fat containing inguinal hernias. SKELETAL STRUCTURES AND SOFT TISSUES: Vertebral body hemangiomas. Multilevel spondylosis. Procedure Note Bruce Robles MD - 04/07/2024 For Patients: As a result of the 21st Century Cures Act, medical imagingexams and procedure reports are released immediately into your electronicmedical record. You may view this report before your referring provider.If you have questions, please contact your health care provider. INDICATION: Malignant neoplasm of transverse colon TECHNIQUE: CT chest, abdomen and pelvis acquired 100 milliliters omni 350 contrast. COMPARISON: None. FINDINGS: CHEST: Lungs and Airways: No mass or consolidation. Basilar linear opacitieslikely linear atelectasis/linear fibrosis. No endoluminal lesion. Heart and Mediastinum: The visualized portions of the thyroid are normal.No axillary or supraclavicular lymphadenopathy. No mediastinal, hilar orretrocrural lymphadenopathy. Normal heart size. Normal caliber aorta.Atherosclerotic and coronary artery calcifications Pleura: The pleural spaces are normal. ABDOMEN: Liver: Normal enhancement. No focal suspicious hepatic lesions. Gallbladder and biliary: Cholelithiasis. Normal caliber bile ducts. Spleen: Tiny hypodensity in the spleen, statistically of no clinicalconsequence. Pancreas: Normal enhancement without peripancreatic inflammatory changesor ductal dilatation. Adrenal glands: Normal adrenal glands. Kidneys and ureters: Normal enhancement. No radio-opaque calculi. Nohydroureteronephrosis. Subcentimeter hypodensities are too small tocharacterize however statistically represent cysts. Upper pole right renalheterogeneously enhancing mass measuring up to 4.2 cm. No discreteassociated renal vein thrombus. Subcentimeter hypodensities are too smallto characterize however statistically represent cysts. 5 millimeterinterpolar left renal exophytic focus measuring simple attenuation. Toosmall to characterize. GI tract: Stomach is partially distended with fluid and air. Duodenumdiverticulum. Normal caliber small and large bowel loops. The appendix isnot definitively visualized however there are no secondary signs of acuteappendicitis. Severe colonic diverticulosis without diverticulitis.Hepatic flexure mass measuring approximately 9.4 cm. Small colocolonicassociated intussusception. No associated upstream dilatation to suggestobstruction. Vascular structures: Infrarenal abdominal aortic aneurysm measuring up to4.9 cm. Severe atherosclerotic calcifications. Lymph nodes: No lymphadenopathy in the abdomen or pelvis by sizecriteria. Peritoneum: No free air, free fluid, or focal drainable fluidcollection. PELVIS: Genitourinary system: Urinary bladder is partially decompressed with acatheter. Catheter tip indents upon the bladder wall. Mild wall thickeningin this location, potentially reactive edema however difficult tocompletely characterize. Prostatomegaly. Tiny bilateral fat containinginguinal hernias. SKELETAL STRUCTURES AND SOFT TISSUES: Vertebral body hemangiomas.Multilevel spondylosis. IMPRESSION: 1. Hepatic flexure mass measuring approximately 9.4 cm. Small colocolonicassociated intussusception. No associated upstream dilatation to suggestobstruction. 2. No discrete distant metastatic disease. 3. Upper pole right renal heterogeneously enhancing mass measuring up to4.2 cm. 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 Other less likely differential considerations includeoncocytoma or lipid poor angiomyolipoma. No discrete associated renal veinthrombus. 4. Infrarenal abdominal aortic aneurysm measuring up to 4.9 cm. Please note that all CT scans at this facility use dose modulation,iterative reconstruction, and/or weight-based dosing when appropriate toreduce radiation dose to as low as reasonably achievable. Dictated by Bruce Robles MD @ 04/07/2024 9:28:41 AM (Electronically Signed) Eliecer Barreto MD CT * LAB TRACKING EVENT (03/25/2024 2:35 PM CDT) Only the most recent of2 resultswithin the time period is included. Other (Other) Client Collect / Unknown 03/25/2024 2:35 PM CDT 03/25/2024 10:00 PM CDT Eliecer Barreto MD LAB BILL ONLY Performing Organization Address City/[facility] Co de Phone Number [facility] [address] [place] [address], * BRAF V600 MUTATION ANALYSIS (03/25/2024 2:10 PM CDT) RESULT COMMENT See Anatomic Pathology case 04/05/2024 2:49 PM CDT [facility] Other (Transverse Colon Biopsy) 03/25/2024 2:10 PM CDT 03/29/2024 12:40 PM CDT Eliecer Barreto MD LABORATORY Performing Organization Address City/[facility] Co de Phone Number [facility] [address] [place] [address], * PATH TISSUE EXAM (03/25/2024 2:10 PM CDT) Case Report Pathology Report ?Case: [id number] ? Authorizing Provider: ??Eliecer Barreto, ?? Collected: ? 03/25/2024 1410 ? Ordering Location: ? [facility] ?Received: ?03/26/2024 0617 ? Pathologist: ? Hugh Foote, ? MD ? Specimens: ?? A) - Duodenum Biopsy ? B) - Stomach Biopsy ? C) - Transverse Colon Biopsy ? D) - Descending Colon Biopsy ? 4 2:26 PM CDT [facility] Amendment 03/29/2024 - DNA mismatch repair enzyme IHC added, see final diagnosis and synoptic sections. 04/05/2024 - Report updated to incorporate BRAF testing, see synoptic section and updated diagnosis ?? 4 2:26 PM CDT [facility] Final Diagnosis A) DUODENUM, BIOPSY: [...] enzyme MLH1 with secondary loss of PMS2 (intact staining for MSH2 and MSH6) ?? b. Positive for BRAF mutation ?? c. See comment and synoptic sections below D) COLON, DESCENDING, POLYPECTOMIES: 1. Sessile serrated adenomas (3) 2. Negative for overt dysplasia 3. Per the colonoscopy report: ?? a. Polyp sizes: 5 mm - 8 mm ?? b. Resection: Complete ?? c. Retrieval: Complete 4 2:26 PM CDT [facility] Amendment electronically signed by Moses Rodas IV, MD on 04/05/2024 at 2:26 PM Amendment electronically signed by Hugh Foote MD on 03/29/2024 at 12:23 PM Comment C) Dr. Foote discussed the case with Dr. Barreto on 03/28/2024. This case was seen in consultation with Dr. Light. Please contact us with any questions ([facility] GI pathology service [phone]). Formalin-fixed, paraffin-embedded tissue is available for ancillary studies, to request please contact the [facility] ([phone]). Neoplastic tissue available for ancillary studies: ?? Joby NGS testing: ?- FFPE tissue blocks: C1 ?- Cytology slides: No cytology slides prepared from this specimen ?? Tests using immunostains and/or FISH (requiring 100 cells): C1 ?? 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 Microsatellite instability (MSI) is present in all such cases, so PCR testing would be redundant. Bill Syndrome is essentially excluded; however, if there is high clinical suspicion or if patient is younger than 50, consideration should be given to additional testing for other inherited colon cancer syndromes. Please contact us if you have questions ([facility] GI Pathology Service [phone]). 4 2:26 PM CDT [facility] Clinical Information Mr. Ness is a [...] in the descending colon and removed. 4 2:26 PM CDT [facility] Gross Description A) Received in formalin [...] colon-descending, polyps. Jania Canseco 03/26/2024 10:33 AM 2:26 PM CDT [facility] Microscopic Description The final diagnosis is based on microscopic examination of appropriate sections of all specimens. Immunohistochemistry was performed on block C1 and interpreted with the following results: MLH1: Negative MSH2: Positive MSH6: Positive PMS2: Negative 2:26 PM CDT [facility] Molecular Diagnostics Summary BRAF V600 Mutation Analysis Result: ?? Positive for BRAF V600 mutation (codon 600, exon 15) BRAF Methods: DNA is extracted from FFPE sections using the enavu?? DNA Sample Preparation kit after a corresponding H&E stained slide is evaluated by a pathologist. Sample is macrodissected to enrich for tumor if section contains less than 50% tumor. Extracted DNA is then tested using the roxanna?? 4800 BRAF V600 Test. Specimen Assessment: ?? H&E slide reviewed by Ed East M.D. and determined adequate for analysis. The roxanna?? 4800 BRAF V600 Mutation Test is an in vitro diagnostic device intended for the qualitative detection of BRAF V600 mutation in DNA extracted from formalin-fixed, paraffin-embedded human tissue. The roxanna?? 4800 BRAF V600 Mutation Test is a real-time PCR test on the roxanna?? 4800 system. In addition to the most common V600E mutations, in data submitted to the FDA the BRAF V600 mutation assay was also able to detect V600K, V600E2, and V600D mutations (Gio package insert BRAF V600 assay). FDA required disclaimer: ??This test was developed and its performance characteristics determined by the [facility]. It has not been cleared or approved by the FDA. The FDA has determined, however, that in most cases, such approval is not necessary. This test is used for clinical purposes. It should not be regarded as investigational or for research. 08/13/202 4 2:26 PM CDT [facility] SYNOPTIC REPORTING Colon and Rectum [...] testing of germline MLH1 may be indicated) Colon and Rectum Biomarker Reporting Template COLON AND RECTUM: BIOMARKER REPORTING TEMPLATE - C Protocol posted: 02/20/2021 RESULTS ?? BRAF: ? BRAF Mutational Analysis: ?BRAF V600E (c.1799 T>A) mutation METHODS ?? Dissection Method(s): ?Whole tissue section - no tumor enrichment procedure employed (test name): BRAF ?? BRAF Testing Method(s): ?Real-time PCR 4 2:26 PM [facility] Additional Information Interpreted at [facility], Central Laboratory - [address] [facility] [address], [place] [address] Immunohistochemistry controls were reviewed and approved by the pathologist during this examination. 2:26 PM CDT [facility]- [facility]AL [facility]ORATORY Other (Duodenum Biopsy) 03/25/2024 2:10 PM CDT 03/26/2024 6:17 AM CDT Specimen (specimen) (Stomach Biopsy) 03/25/2024 2:10 PM CDT 03/26/2024 6:17 AM CDT Specimen (specimen) (Transverse Colon Biopsy) 03/25/2024 2:10 PM CDT 03/26/2024 6:17 AM CDT Specimen (specimen) (Descending Colon Biopsy) 03/25/2024 2:10 PM CDT 03/26/2024 6:17 AM CDT Eliecer Barreto MD PATHOLOGY/CYTOLOG Y [facility] 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
--- OUTSIDE RECORDS SUMMARY | 2024-06-25 10:09 | XMS_ITS | Continuity of Care Document ---
Author Organization [facility], [facility] Address [address] [place] [address] Assessment No assessment recorded. Plan of Treatment Reminders Order Date Submit Date Provider Last Modified By Organization Details Last Modified Time Details Appointments [facility] 210 2023 08:00A M Nicola Dillon MD Not available Not available Not available Lab None recorded. Referral None recorded. Procedures None recorded. Surgeries None recorded. Imaging None recorded. Medication Orders None recorded. Patient TargetsNo targets recorded. Patient InstructionsNo instructions recorded. Reason for Referral None Reported. Problems Name Problem SNOMED Code Status Onset Date Resolution Date Notes Provider Name and Address Organization Details Recorded Time Acute retention of urine 861859578 Active 024 Luda Watson PA-C [address] [facility] [address] [place] [address], [phone], [facility] 4 11:29:06 Retention of urine 301263028 Active 024 Edmar Vaughn MD [address] [facility],[address] [place] [address], [phone], [facility] 4 11:33:59 Problem Notes None recorded. Procedures Surgical History Date Name Laterality Status Provider Name and Address Organization Details Recorded Time 4 Urodynamic Studies completed Garrett Vazquez [facility] 05/16/2024 17:20:05 4 BRAVO CHANGE completed Akila Mccall [facility] 05/27/2024 11:54:40 4 COMPLEX VISIT completed Nicola Dillon MD [address] [facility],[address] [place] [address], [phone], [facility] 04/28/2024 14:39:20 4 BRAVO CHANGE completed Nicola Dillon MD [address] [facility],[address], [place], [address], [facility] 04/28/2024 14:39:08 4 Cystoscopy- male completed Edmar Vaughn MD [address] [facility],[address], [place], [address], [facility] 03/04/2024 14:49:59 4 Bravo Catheter Insertion completed Trey Cabral [facility] 03/04/2024 15:44:20 4 Cipro post Cysto completed Trey Cabral [facility] 02/24/2024 14:58:47 4 Fill and Pull/Voiding Trial/TOV completed Trey Cabral [facility] 03/04/2024 15:44:41 4 Bravo Catheter Insertion completed Edmar Vaughn MD [address] [place] [address],[address], [place], [address], [facility] 02/12/2024 11:53:15 4 Fill and Pull/Voiding Trial/TOV completed Edmar Vaughn MD [address] [place] [address],[address], [place], [address], [facility] 02/12/2024 11:28:34 4 Bravo Catheter Insertion completed Concetta Zapata [facility] 02/10/2024 14:26:17 4 Fill and Pull/Voiding Trial/TOV completed Concetta Zapata [facility] 02/10/2024 14:25:24 4 Bravo Catheter Insertion [facility] 02/03/2024 12:10:15 4 Fill and Pull/Voiding Trial/TOV completed Luda Watson PA-C [address] [place] [address],[address], [place], [address], [facility] 02/03/2024 11:16:06 Imaging Results None [...] d Address Organization Details Last Updated DateTime 05/27/2024 180.34 cm Akila Mccall [facility] 05/27/2024 11:54:17 Social History Question Answer Notes LastModified by Organizat ion Details LastModified Time Tobacco Smoking Status Former Smoker Franko esquivel [facility] 02/03/2024 10:40:30 What Is Your [...] Been Counseled For Unhealthy Alcohol Use? No [email or web address] Information not available 02/12/2024 Do You Use Any Illicit Or Recreational Drugs? No Information not available 02/03/2024 Has Tobacco Cessation Counseling Been Provided? No [email or web address] Information not available 02/12/2024 Do You Or Have You Ever Used Any Other Forms Of Tobacco Or Nicotine? No Information not available 02/12/2024 How Many Days In The Past Year Have You Consumed 5 Or More Drinks? 0 [email or web address] Information not available 02/12/2024 Sex: Unknown Functional Status None recorded. Mental Status None recorded. Family History Relationship Description Onset Age of this Age Resolved Age Notes LastModified by Organization Details LastModified Time Father No current problems or disability Not available 02/21 14:27:02 Mother No current problems or disability [email or web address] Not available 02/21 14:27:03 Notes:brain cancer-cancer sp ouse-stomach cancer Medical History Condition Response Kidney Stones Y Immunizations Vaccine Type Date Status Provider Name and Address Organization Details Recorded Time Influenza, adjuvanted, trivalent, PF 09/08/2018 completed Miletzi Arvizu-Valer o null, [facility] 02/03/2024 10:37:30 Influenza, adjuvanted, trivalent, PF 09/30/2017 completed Miletzi Arvizu-Valer o null, [facility] 02/03/2024 10:37:30 Influenza, adjuvanted, trivalent, PF 10/14/2019 completed Miletzi Arvizu-Valer o null, [facility] 02/03/2024 10:37:30 zoster recombinant 12/21/2023 completed Miletzi Arvizu-Valer o null, [facility] 02/03/2024 10:37:30 Influenza, high-dose, quadrivalent, PF 06/30/2023 completed Miletzi Arvizu-Valer o null, [facility] 02/03/2024 10:37:30 Influenza, high-dose, quadrivalent, PF 07/31/2022 completed Miletzi Arvizu-Valer o null, [facility] 02/03/2024 10:37:30 Influenza, adjuvanted, quadrivalent, PF 07/08/2021 completed Miletzi Arvizu-Valer o null, [facility] 02/03/2024 10:37:30 COVID-19, mRNA, LNP-S, PF, 30 mcg/0.3 mL dose 10/06/2020 completed Miletzi Arvizu-Valer o null, [facility] 02/03/2024 10:37:30 COVID-19, mRNA, LNP-S, PF, 30 mcg/0.3 mL dose 10/27/2020 completed Miletzi Arvizu-Valer o null, [facility] 02/03/2024 10:37:30 COVID-19, mRNA, LNP-S, PF, 30 mcg/0.3 mL dose 07/08/2021 completed Miletzi Arvizu-Valer o null, [facility] 02/03/2024 10:37:30 COVID-19, mRNA, LNP-S, PF, 30 mcg/0.3 mL dose, gillian-sucrose 02/11/2022 completed Miletzi Arvizu-Valer o null, [facility] 02/03/2024 10:37:30 COVID-19, mRNA, LNP-S, bivalent, PF, 30 mcg/0.3 mL dose 07/31/2022 completed Miletzi Arvizu-Valer o null, [facility] 02/03/2024 10:37:30 RSV, recombinant, protein subunit RSVpreF, adjuvant reconstituted, 0.5 mL, PF 06/30/2023 completed Miletzi Arvizu-Valer o null, [facility] 02/03/2024 10:37:30 pneumococcal polysaccharide PPV23 05/25/2006 completed Miletzi Arvizu-Valer o null, [facility] 02/03/2024 10:37:30 Tdap 12/21/2023 completed Miletzi Arvizu-Valer o null, [facility] 02/03/2024 10:37:30 Novel [id number], all formulations 09/14/2009 completed Miletzi Arvizu-Valer o null, [facility] 02/03/2024 10:37:30 Pneumococcal conjugate PCV 13 08/22/2015 completed Miletzi Arvizu-Valer o null, [facility] 02/03/2024 10:37:30 Influenza, high-dose, trivalent, PF 09/24/2016 completed Miletzi Arvizu-Valer o null, [facility] 02/03/2024 10:37:30 Influenza, high-dose, trivalent, PF 08/21/2014 completed Miletzi Arvizu-Valer o null, [facility] 02/03/2024 10:37:30 Influenza, high-dose, trivalent, PF 08/22/2015 completed Miletzi Arvizu-Valer o null, [facility] 02/03/2024 10:37:30 Influenza, split virus, trivalent, preservative 05/29/2008 completed Miletzi Arvizu-Valer o null, [facility] 02/03/2024 10:37:30 Influenza, split virus, trivalent, preservative 05/31/2007 completed Miletzi Arvizu-Valer o null, [facility] 02/03/2024 10:37:30 Influenza, split virus, trivalent, preservative 06/20/2010 completed Miletzi Arvizu-Valer o null, [facility] 02/03/2024 10:37:30 Influenza, split virus, trivalent, preservative 06/27/2004 completed Miletzi Arvizu-Valer o null, [facility] 02/03/2024 10:37:30 Influenza, split virus, trivalent, preservative 08/06/2012 completed Miletzi Arvizu-Valer o null, [facility] 02/03/2024 10:37:30 Influenza, split virus, trivalent, preservative 08/19/2013 completed Miletzi Arvizu-Valer o null, [facility] 02/03/2024 10:37:31 Influenza, split virus, trivalent, PF 09/14/2009 completed Miletzi Arvizu-Valer o null, [place] [facility] 02/03/2024 10:37:31 Td (adult), 5 Lf tetanus toxoid, preservative free, adsorbed 05/25/2006 completed EDENILSON Dickson [facility] 02/03/2024 10:37:31 Past Encounters Encounter ID Performer Location Encounter Start Date Encounter Closed Date Diagnosis/Indication Diagnosis SNOMED-CT Code Diagnosis ICD10 Code [id number] Nicola Dillon MD [facility] [address] [place] [address] 04/28/2024 13:46:52 05/06/2024 08:43:02 Renal mass 083948205 N28.89 Chronic re tention of urine 691177503 R33.8 [id number] Akila Mccall [facility] [address] [place] [address] 05/27/2024 10:39:20 05/30/2024 10:54:56 Retention of urine 536118821 R33.9 Health Concerns Section Related Observation LastModified by Organization Detai ls LastModified Time None Recorded Concern Status LastModified by Organization Details LastModified Time None Recorded Payers Encounter Date Sequence Insurance Name Policy Number Policy Masterson Covered Member ID Masterson Member ID Guarantor Name 05/27/2024 1 [employer] - DOS ON OR AFTER 19 (MEDICARE REPLACEMENT/ ADVANTAGE - HMO) [id number] 1 Kojo Ness [id number] Kojo Ness Notes Date Note Type Note Provider Name and Address Organization Details Recorded Time 05/27/2024 text/html HPI Notes: Date of Service: 05/27/2024 Indication: Urinary retention Referring Physician: Dr. Dillon Testing today included: Multichannel cystometry, EMG, and pressure flow study. Details of procedure: After discussing the purpose and nature of visit, the patient consented to proceed. Urine collected from 7fr coude cath. Urine dipstick negative for infection. Uroflow: Not performed d/t bravo catheter. Filling phase: 7 fr air charged catheters were used. Fill rate: 45-50mL/minute The first sensation of bladder filling occurred at 42 mL. The first desire to void occurred at 66 mL. The strong desire to void occurred at 95 mL The maximum capacity is 178mL. The bladder compliance is low. Detrusor pressure during filling is active Detrusor Overactivity: Patient demonstrated DO at 153 mL. Stress Urinary Incontinence: No QUINCY noted Pressure flow study: Patient voided 80 mL after permission to void was given. Maximum flow rate 3.7 mL/second with PDet at max flow 73cm H2O. Post void residual 98mL. Visual detrusor contraction was noted. Abdominal straining was noted. *Notable flatulence during voiding phase, but RN ensured rectal catheter stayed in place. EMG: The sphincteric EMG shows an increase in activity with increased abdominal pressure. The EMG activity shows relaxation with permission to void. Jordy Notes: - Bravo cath replaced after test - Sacrum appears red- possible stage 1 pressure wound. Patient is able to stand/reposition himself. He does admit to sitting for long periods of time each day. I encouraged patient to reposition himself every 2 hours while awake to prevent skin breakdown Patient was given (Bactrim DS #1) for UTI prevention Jordy name: EDENILSON Jamison RN - [facility] 05/27/2024 11:56:43
--- OUTSIDE RECORDS SUMMARY | 2024-06-25 10:09 | XMS_ITS | Data Portability ---
Author Organization [facility], [facility] Address [address] [place] [address] [address] [place] [address] Assessment No assessment recorded. Plan of Treatment [...] assiste d laparos copic (SURG) 2023 024 [email or web address] Not available 06/09/2024 09:18:50 Imaging None recorde d. Medication Orders None recorde d. Patient TargetsNo targets recorded. Patient Instructions Encounter Date Encounter Id Patient Instructions Last Modified By Organization Details Last Modified Time 02/12/2024 [id number] will replace catheter today and plan rtc 1-2 week for cysto trial of voiding. [email or web address] Not available 02/12/2024 11:53:30 03/04/2024 [id number] failed TOV again , discussed conventional TURP SHANTELLE [email or web address] Not available 03/04/2024 15:52:55 Reason for Referral None Reported. Results Created Date Observation Date Name Description Value Unit Range Abnormal Flag Note LastModifiedBy Organization Detail LastModifiedTime 04/13/20 CT, abdom en + pelvi s, w/ [...] Details Recorded Time Acute retention of urine [id number] Active 024 Luda Watson PA-C [address] [place] [address],[address], [address], [facility] 4 11:29:06 Retention of urine [id number] Active 024 Edmar Vaughn MD [address] [place] [address],[address], [place], [address], [facility] 4 11:33:59 Problem Notes None recorded. Procedures Surgical History Date Name Laterality Status Provider Name and Address Organization Details Recorded Time 4 Urodynamic Studies completed Garrett Vazquez [facility] 05/16/2024 17:20:05 4 BRAVO CHANGE completed Akila Mccall [facility] 05/27/2024 11:54:40 4 COMPLEX VISIT completed Nicola Dillon MD [address] [place] [address],[address], [address], [facility] 04/28/2024 14:39:20 4 BRAVO CHANGE completed Nicola Dillon MD [address] [place] [address],[address], [address], [facility] 04/28/2024 14:39:08 4 Cystoscopy- male completed Edmar Vaughn MD [address] [place] [address],[address], [address], [facility] 03/04/2024 14:49:59 4 Bravo Catheter Insertion completed Trey Cabral [facility] 03/04/2024 15:44:20 4 Cipro post Cysto completed Trey Cabral [facility] 02/24/2024 14:58:47 4 Fill and Pull/Voiding Trial/TOV completed Trey Cabral [facility] 03/04/2024 15:44:41 4 Bravo Catheter Insertion completed Edmar Vaughn MD [address] [place] [address],[address], [address], [facility] 02/12/2024 11:53:15 4 Fill and Pull/Voiding Trial/TOV completed Edmar Vaughn MD [address] [place] [address],[address], [address], [facility] 02/12/2024 11:28:34 4 Bravo Catheter Insertion completed Concetta Zapata [facility] 02/10/2024 14:26:17 4 Fill and Pull/Voiding Trial/TOV completed Concetta Zapata [facility] 02/10/2024 14:25:24 4 Bravo Catheter Insertion completed Franko magaña [facility] 02/03/2024 12:10:15 4 Fill and Pull/Voiding Trial/TOV completed Luda Watson PA-C [address] [place] [address],[address], [address], [facility] 02/03/2024 11:16:06 Imaging Results Imaging Date Name Status LastModified by Organiz ation Details LastModified Time 04/13/2024 CT, abdomen + pelvis, w/ contrast completed [email or web address] Information not available 04/22/2024 09:39:06 04/06/2024 CT, chest + abdomen + pelvis, w/ contrast completed [email or web address] Information not available 04/26/2024 14:08:46 Procedure Notes None recorded. Medical Equipment None [...] Updated DateTime 02/12/2024 180.34 cm 31.4 kg/m2 180031.28 g Edmar Vaughn MD [address] [place] [address], [phone] [place] [address] 02/12/2024 11:05:47 Date Recorded Body height Body mass index (BMI) Body weight Provider Name and Address Organization Details Last Updated DateTime 03/04/2024 180.34 cm 30.7 kg/m2 32668.32 g Edmar Vaughn MD [address] [place] [address], [phone] [place] [address] 03/04/2024 14:26:29 Date Recorded Body height Provider Name an d Address Organization Details Last Updated DateTime 04/28/2024 180.34 cm Nicola Dillon MD [address] [place] [address], [phone] [place] [address] 04/28/2024 14:01:24 Date Recorded Body height Provider Name an d Address Organization Details Last Updated DateTime 05/27/2024 180.34 cm Akila Mccall [facility] 05/27/2024 11:54:17 Date Recorded Body height Provider Name an d Address Organization Details Last Updated DateTime 06/13/2024 180.34 cm Alma Delia Shellrbmicah [facility] 06/13/2024 13:46:21 Social History Question Answer Notes LastModified by Organizat ion Details LastModified Time Tobacco Smoking Status Former Smoker Franko esquivel [facility] 02/03/2024 10:40:30 What Is Your [...] Been Counseled For Unhealthy Alcohol Use? No [email or web address] Information not available 02/12/2024 Do You Use Any Illicit Or Recreational Drugs? No Information not available 02/03/2024 Has Tobacco Cessation Counseling Been Provided? No [email or web address] Information not available 02/12/2024 Do You Or Have You Ever Used Any Other Forms Of Tobacco Or Nicotine? No [email or web address] Information not available 02/12/2024 How Many Days In The Past Year Have You Consumed 5 Or More Drinks? 0 [email or web address] Information not available 02/12/2024 Sex: Unknown Functional Status None recorded. Mental Status None recorded. Family History Relationship Description Onset Age of this Age Resolved Age Notes LastModified by Organization Details LastModified Time Father No current problems or disability [email or web address] Not available 02/21 14:27:02 Mother No current problems or disability [email or web address] Not available 02/21 14:27:03 Notes:brain cancer-cancer sp ouse-stomach cancer Medical History Condition Response Kidney Stones Y Immunizations Vaccine Type Date Status Provider Name and Address Organization Details Recorded Time Influenza, adjuvanted, trivalent, PF 09/08/2018 john esquivel [facility] 02/03/2024 10:37:30 Influenza, adjuvanted, trivalent, PF 09/30/2017 john esquivel [facility] 02/03/2024 10:37:30 Influenza, adjuvanted, trivalent, PF 10/14/2019 completed Miletzi Arvizu-Valer o null, [facility] 02/03/2024 10:37:30 zoster recombinant 12/21/2023 completed Miletzi Arvizu-Valer o null, [facility] 02/03/2024 10:37:30 Influenza, high-dose, quadrivalent, PF 06/30/2023 completed Miletzi Arvizu-Valer o null, [facility] 02/03/2024 10:37:30 Influenza, high-dose, quadrivalent, PF 07/31/2022 completed Miletzi Arvizu-Valer o null, [facility] 02/03/2024 10:37:30 Influenza, adjuvanted, quadrivalent, PF 07/08/2021 completed Miletzi Arvizu-Valer o null, [facility] 02/03/2024 10:37:30 COVID-19, mRNA, LNP-S, PF, 30 mcg/0.3 mL dose 10/06/2020 completed Miletzi Arvizu-Valer o null, [facility] 02/03/2024 10:37:30 COVID-19, mRNA, LNP-S, PF, 30 mcg/0.3 mL dose 10/27/2020 completed Miletzi Arvizu-Valer o null, [facility] 02/03/2024 10:37:30 COVID-19, mRNA, LNP-S, PF, 30 mcg/0.3 mL dose 07/08/2021 completed Miletzi Arvizu-Valer o null, [facility] 02/03/2024 10:37:30 COVID-19, mRNA, LNP-S, PF, 30 mcg/0.3 mL dose, gillian-sucrose 02/11/2022 completed Miletzi Arvizu-Valer o null, [facility] 02/03/2024 10:37:30 COVID-19, mRNA, LNP-S, bivalent, PF, 30 mcg/0.3 mL dose 07/31/2022 completed Miletzi Arvizu-Valer o null, [facility] 02/03/2024 10:37:30 RSV, recombinant, protein subunit RSVpreF, adjuvant reconstituted, 0.5 mL, PF 06/30/2023 completed Miletzi Arvizu-Valer o null, [facility] 02/03/2024 10:37:30 pneumococcal polysaccharide PPV23 05/25/2006 completed Miletzi Arvizu-Valer o null, [facility] 02/03/2024 10:37:30 Tdap 12/21/2023 completed Miletzi Arvizu-Valer o null, [facility] 02/03/2024 10:37:30 Novel [id number], all formulations 09/14/2009 completed Miletzi Arvizu-Valer o null, [facility] 02/03/2024 10:37:30 Pneumococcal conjugate PCV 13 08/22/2015 [facility] null, [facility] 02/03/2024 10:37:30 Influenza, high-dose, trivalent, PF 09/24/2016 completed Miletzi Arvizu-Valer o null, [facility] 02/03/2024 10:37:30 Influenza, high-dose, trivalent, PF 08/21/2014 completed Miletzi Arvizu-Valer o null, [facility] 02/03/2024 10:37:30 Influenza, high-dose, trivalent, PF 08/22/2015 completed Miletzi Arvizu-Valer o null, [facility] 02/03/2024 10:37:30 Influenza, split virus, trivalent, preservative 05/29/2008 completed Miletzi Arvizu-Valer o null, [facility] 02/03/2024 10:37:30 Influenza, split virus, trivalent, preservative 05/31/2007 completed Miletzi Arvizu-Valer o null, [facility] 02/03/2024 10:37:30 Influenza, split virus, trivalent, preservative 06/20/2010 completed Miletzi Arvizu-Valer o null, [facility] 02/03/2024 10:37:30 Influenza, split virus, trivalent, preservative 06/27/2004 completed Fantasmaолег Arvizu-Valer o null, [facility] 02/03/2024 10:37:30 Influenza, split virus, trivalent, preservative 08/06/2012 completed Teddyyvonne Zarateal-Valer o null, [facility] 02/03/2024 10:37:30 Influenza, split virus, trivalent, preservative 08/19/2013 completed Teddyyvonne Zarateal-Valer o null, [facility] 02/03/2024 10:37:31 Influenza, split virus, trivalent, PF 09/14/2009 completed Fantasmaолег Arvizu-Maliha pichardo null, [facility] 02/03/2024 10:37:31 Td (adult), 5 Lf tetanus toxoid, preservative free, adsorbed 05/25/2006 completed Franko Arvizu-Maliha pichardo null, [facility] 02/03/2024 10:37:31 Past Encounters Encounter ID Performer Location Encounter Start Date Encounter Closed Date Diagnosis/Indication Diagnosis SNOMED-CT Code Diagnosis ICD10 Code [id number] Franko Nolberto-Nadira alero [facility] [address] [place] [id number] 02/03/2024 10:25:53 02/04/2024 08:33:51 Acute retention of urine 811598427 R33.8 [id number] Luda Watson PA-C [facility] [address] [place] [address] 02/10/2024 13:37:37 02/11/2024 09:27:45 Acute retention of urine 165563416 R33.8 [id number] MD SARAHI Cl[facility] [address] [place] [id number] 02/12/2024 10:44:21 02/15/2024 16:00:54 Retention of urine 421881285 R33.9 [id number] MD SARAHI Clancy_Michela [address] [place] [address] 03/04/2024 14:17:21 03/22/2024 12:42:48 Retention of urine 450792872 R33.9 [id number] Nicola Dillon MD [facility] 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 [place] [id number] 05/27/2024 10:39:20 05/30/2024 10:54:56 Retention of urine 018923605 R33.9 Health Concerns Section Related Observation LastModified by Organization Detai ls LastModified Time None Recorded Concern Status LastModified by Organization Details LastModified Time None Recorded Advance Directives Directive None Recorded Payers Encounter Date Sequence Insurance Name Policy Number Policy Masterson Covered Member ID Masterson Member ID Guarantor Name 02/12/2024 1 [employer] - DOS ON OR AFTER 19 (MEDICARE REPLACEMENT/ ADVANTAGE - HMO) [id number] 1 Kojo N Laabs [id number] Kojo N Laabs 03/04/2024 1 [employer] - DOS ON OR AFTER 19 (MEDICARE REPLACEMENT/ ADVANTAGE - HMO) [id number] Kojo N Laabs [id number] Kojo N Laabs 04/28/2024 1 [employer] - DOS ON OR AFTER 19 (MEDICARE REPLACEMENT/ ADVANTAGE - HMO) [id number] Kojo N Laabs [id number] Okjo N Laabs 05/27/2024 1 [employer] - DOS ON OR AFTER 19 (MEDICARE REPLACEMENT/ ADVANTAGE - HMO) [id number] Kojo N Laabs [id number] Kojo N Laabs Notes Date Note Type Note Provider Name and Address Organization Details Recorded Time 02/12/2024 text/html HPI Notes: follw o up retention, TOV today 400 in and 150 out, double from last visit. tolerates catheter OK. Edmar Vaughn MD [address] [place] [address],[address], [place], [address], [facility] 02/12/2024 11:53:41 03/04/2024 text/html HPI Notes: here for cysto/TOV today Edmar Vaughn MD [address] [facility],[address], [place], [address], [facility] 03/04/2024 15:55:02 04/28/2024 text/html HPI Notes: Referred for a [...] a bit risky. Nicola Dillon MD [address] [facility],[address], [place], [address], [facility] 04/28/2024 14:39:38 05/27/2024 text/html HPI Notes: Date of Service: [...] prevention Jordy name: [place] Jamison RN - [facility] 05/27/2024 11:56:43
== END 2024-06-25 10:24 | disposition home or self-care (01) ==
LOC: ED 10:08
PROVIDERS: Emergency Provider Emergency Medicine Emergency Medical Services; PCP Family Medicine
DX: T83.031A Leakage of indwelling urethral catheter, initial encounter (principal)
CPT/HCPCS: 99282; 99283; 99284

== ENCOUNTER 2024-08-28 10:30 | Emergency (ER) | payer MEDICARE, SELFPAY ==
--- OUTSIDE RECORDS SUMMARY | 2024-08-28 10:33 | XMS_ITS | Data Portability ---
Author Organization [place] [facility] [place] [facility] Address [address] [place] [address] Assessment No assessment recorded. Plan of Treatment Reminders Order Date Submit Date Provider Last Modified By Organization Details Last Modified Time Details Appointments None recorded . Lab None recorded . Referral None recorded . Procedures urodynam ic testing, complex (PROC) 2023 024 [email or web address] Not available 07:49:35 vascular emboliza tion or occlusio n; for tumors, organ ischemia , or infarcti on (PROC) - 184cc prostate on office ultrasou nd 2023 024 [facility] [address], [address], [place], [address], 5 15:50:32 Surgeries nephrect loretta, hand assisted laparosc opic (SURG) 2023 024 [email or web address] Not available 4 09:18:50 Imaging None recorded . Medication Orders None recorded . Patient TargetsNo targets recorded. Patient Instructions Encounter Date Encounter Id Patient Instructions Last Modified By Organization Details Last Modified Time 03/04/2024 [id number] failed TOV again , discussed conventional TURP SHANTELLE [email or web address] Not available 03/04/2024 15:52:55 06/13/2024 [id number] 35 minutes spent with patient and reviewing chart [email or web address] Not available 07/11/2024 10:10:09 Reason for Referral None Reported. Results Created Date Observation Date Name Description Value Unit Range Abnormal Flag Note LastModifiedBy Organization Detail LastModifiedTime 04/13/[address], abdom en + pelvi s, w/ contr ast No observ ation record ed. [email or web address] Not Available 03/26 09:39:06 04/26/20 24 04/06/2024 CT, chest + abdom en + pelvi s, w/ contr ast No observ ation record ed. [email or web address] Not Available 2023 14:08:46 Result Notes None recorded. Problems Name Problem SNOMED Code Status Onset Date Resolution Date Notes Provider Name and Address Organization Details Recorded Time Acute retention of urine 015025310 Active 024 Luda Watson PA-C [address], [place], [address], [facility] 4 11:29:06 Retention of urine 497849042 Active 024 Edmar Vaughn MD [address], [place], [address], [facility] 4 11:33:59 Problem Notes None recorded. Procedures Surgical History Date Name Laterality Status Provider Name and Address Organization Details Recorded Time 08/18/20 24 Urethral Catheter Change completed Genet Álvarez [facility] 08/19/2024 15:14:03 08/18/20 24 TRUS- Volume size only completed Nicola Dillon MD [address] [place] [address],[address], [place], [address], [facility] 08/18/2024 15:08:20 07/04/20 24 NEPHRECTOMY, HAND ASSISTED LAPAROSCOPIC (SURG) completed Reena Paez [facility] 07/07/2024 09:40:04 06/13/20 24 COMPLEX VISIT completed Nicola Dillon MD [address] [place] [address],[address], [place], [address], [facility] 07/01/2024 13:18:31 05/27/20 24 Urodynamic Studies completed Garrett Vazquez [facility] 05/16/2024 17:20:05 05/27/20 24 BRAVO CHANGE completed Akila Mccall [facility] 05/27/2024 11:54:40 04/28/20 24 COMPLEX VISIT completed Nicola Dillon MD [address] [place] [address],[address], [place], [address], [facility] 04/28/2024 14:39:20 04/28/20 24 BRAVO CHANGE completed Nicola Dillon MD [address] [place] [address],[address], [place], [address], [facility] 04/28/2024 14:39:08 03/04/20 24 Cystoscopy- male completed Edmar Vaughn MD [address] [place] [address],[address], [place], [address], [facility] 03/04/2024 14:49:59 03/04/20 24 Bravo Catheter Insertion completed Trey Cabral [facility] 03/04/2024 15:44:20 03/04/20 24 Cipro post Cysto completed Trey Cabral [facility] 02/24/2024 14:58:47 03/04/20 24 Fill and Pull/Voiding Trial/TOV completed Trey Cabral [facility] 03/04/2024 15:44:41 02/12/20 24 Bravo Catheter Insertion completed Edmar Vaughn MD [address] [place] [address],[address], [place], [address], [facility] 02/12/2024 11:53:15 02/12/20 24 Fill and Pull/Voiding Trial/TOV completed Edmar Vaughn MD [address] [place] [address],[address], [place], [address], [facility] 02/12/2024 11:28:34 02/10/20 24 Bravo Catheter Insertion completed Concetta Zapata [facility] 02/10/2024 14:26:17 02/10/20 24 Fill and Pull/Voiding Trial/TOV completed Concetta Zapata [facility] 02/10/2024 14:25:24 02/03/20 24 Bravo Catheter Insertion completed Franko magaña [facility] 02/03/2024 12:10:15 02/03/20 24 Fill and Pull/Voiding Trial/TOV completed Luda Watson PA-C [address] [place] [address],[address], [place], [address], [facility] 02/03/2024 11:16:06 Imaging Results Imaging Date Name Status LastModified by Organiz ation Details LastModified Time 04/13/2024 CT, abdomen + pelvis, w/ contrast completed [email or web address] Information not available 04/22/2024 09:39:06 04/06/2024 CT, chest + abdomen + pelvis, w/ contrast completed [email or web address] Information not available 04/26/2024 14:08:46 Procedure Notes None recorded. Medical Equipment None Reported. Allergies No known drug allergies Medications Name Sig Start Date Stop Date Status Note LastModified by Organization Details LastModified Time metronidazo le 500 mg tablet Take 1 tablet by mouth at 1pm, 2pm and 11 pm.* 08/18 completed Not Available Not Available Not Available chlorthalid one 25 mg tablet TAKE ONE [...] completed Not Available Not Available Not Available neomycin 500 mg tablet Take 2 tablets by mouth at 1pm, 2pm and 11pm.* active Not Available Not Available No t Available ferrous sulfate 325 mg (65 mg iron) tablet,terrence yed release TAKE ONE TABLET BY MOUTH TWICE A DAY WITH MEALS* active Not Available Not Available No t Available ondansetron 4 mg disintegrat ing tablet DISSOLVE ONE TABLET IN MOUTH EVERY FOUR HOURS NEEDED FOR NAUSEA* active Not Available Not Available No t [...] 6 hours before colonosco py appointme nt* 08/18 completed Not Available Not Available Not Available Vitals Date Recorded Body height Body mass index (BMI) Body weight Provider Name and Address Organization Details Last Updated DateTime 03/04/2024 180.34 cm 30.7 kg/m2 82799.32 g Edmar Vaughn MD [address], [address] 03/04/2024 14:26:29 Date Recorded Body height Provider Name an d Address Organization Details Last Updated DateTime 04/28/2024 180.34 cm Nicola Dillon MD [address],[facility] [address], [place], [address] 04/28/2024 14:01:24 Date Recorded Body height Provider Name an d Address Organization Details Last Updated DateTime 05/27/2024 180.34 cm Akila Mccall [facility] 05/27/2024 11:54:17 Date Recorded Body height Provider Name an d Address Organization Details Last Updated DateTime 06/13/2024 180.34 cm Alma Delia Casey [facility] 06/13/2024 13:46:21 Date Recorded Body height Body mass index (BMI) Body weight Provider Name and Address Organization Details Last Updated DateTime 08/18/2024 180.34 cm 27.9 kg/m2 02780.47 g Genet Henri [facility] 08/18/2024 14:24:16 Social History Question Answer Notes LastModified by Organizat ion Details LastModified Time Tobacco Smoking Status Former Smoker Franko esquivel [facility] 02/03/2024 10:40:30 What Is Your Level Of Alcohol Consumption? Moderate Beer At Supper Information not available 02/03/2024 What Is Your Level Of Caffeine Consumption? None Information not available 02/03/2024 When Did You Quit Smoking? 16+yearssinc elastcigaret te Information not available 02/03/2024 What Was The Date Of Your Most Recent Tobacco Screening? 08/18/2024 [email or web address] Information not available 08/18/2024 Have You Ever Been Counseled For Unhealthy Alcohol Use? No [email or web address] Information not available 02/12/2024 Do You Use Any Illicit Or Recreational Drugs? No Information not available 02/03/2024 Has Tobacco Cessation Counseling Been Provided? No [email or web address] Information not available 02/12/2024 Do You Or Have You Ever Used Any Other Forms Of Tobacco Or Nicotine? No [email or web address] Information not available 02/12/2024 How Many Days In The Past Year Have You Consumed 5 Or More Drinks? 0 [email or web address] Information not available 02/12/2024 Sex: Unknown Functional Status None recorded. Mental Status None recorded. Family History Relationship Description Onset Age of this Age Resolved Age Notes LastModified by Organization Details LastModified Time Father No current problems or disability [email or web address] Not available 02/21 14:27:02 Mother No current problems or disability [email or web address] Not available 02/21 14:27:03 Notes:brain cancer-cancer sp ouse-stomach cancer Medical History Condition Response Kidney Stones Y Immunizations Vaccine Type Date Status Note Provider Nam e and Address Organization Details Recorded Time Influenza, adjuvanted, trivalent, PF 9 completed Miletzi Arvizu-Aurora ro null, [facility] 02/03/2024 10:37:30 Influenza, adjuvanted, trivalent, PF 8 completed Miletzi Arvizu-Aurora ro null, [facility] 02/03/2024 10:37:30 Influenza, adjuvanted, trivalent, PF 0 completed Miletzi Arvizu-Bouchra ro null, [facility] 02/03/2024 10:37:30 zoster recombinant 4 completed Miletzi Arvizu-Bouchra ro null, [facility] 02/03/2024 10:37:30 Influenza, high-dose, quadrivalent, PF 3 completed Miletzi Arvizu-Aurora ro null, [facility] 02/03/2024 10:37:30 Influenza, high-dose, quadrivalent, PF 2 completed Miletzi Arvizu-Aurora ro null, [facility] 02/03/2024 10:37:30 Influenza, adjuvanted, quadrivalent, PF 1 completed Miletzi Arvizu-Bouchra ro null, [facility] 02/03/2024 10:37:30 COVID-19, mRNA, LNP-S, PF, 30 mcg/0.3 mL dose 1 completed Miletzi Arvizu-Aurora ro null, [facility] 02/03/2024 10:37:30 COVID-19, mRNA, LNP-S, PF, 30 mcg/0.3 mL dose 1 completed Miletzi Arvizu-Aurora ro null, [facility] 02/03/2024 10:37:30 COVID-19, mRNA, LNP-S, PF, 30 mcg/0.3 mL dose 1 completed Miletzi Arvizu-Aurora ro null, [facility] 02/03/2024 10:37:30 COVID-19, mRNA, LNP-S, PF, 30 mcg/0.3 mL dose, gillian-sucrose 2 completed Miletzi Arvizu-Bouchra ro null, [facility] 02/03/2024 10:37:30 COVID-19, mRNA, LNP-S, bivalent, PF, 30 mcg/0.3 mL dose 2 completed Miletzi Arvizu-Aurora ro null, [facility] 02/03/2024 10:37:30 RSV, recombinant, protein subunit RSVpreF, adjuvant reconstituted, 0.5 mL, PF 3 completed Miletzi Arvizu-Aurora ro null, [facility] 02/03/2024 10:37:30 pneumococcal polysaccharide PPV23 6 completed Miletzi Arvizu-Aurora ro null, [facility] 02/03/2024 10:37:30 Tdap 4 completed Miletzi Arvizu-Bouchra ro null, [facility] 02/03/2024 10:37:30 Novel Lupdclzyf-Z1P9-06, all formulations 0 completed Miletzi Arvizu-Aurora ro null, [facility] 02/03/2024 10:37:30 Pneumococcal conjugate PCV 13 5 completed Miletzi Arvizu-Bouchra ro null, [facility] 02/03/2024 10:37:30 Influenza, high-dose, trivalent, PF 7 completed Miletzi Arvizu-Bouchra ro null, [facility] 02/03/2024 10:37:30 Influenza, high-dose, trivalent, PF 4 completed Miletzi Arvizu-Aurora ro null, [facility] 02/03/2024 10:37:30 Influenza, high-dose, trivalent, PF 5 completed Miletzi Arvizu-Bouchra ro null, [facility] 02/03/2024 10:37:30 Influenza, split virus, trivalent, preservative 8 completed Miletzi Arvizu-Bouchra ro null, [facility] 02/03/2024 10:37:30 Influenza, split virus, trivalent, preservative 7 completed Miletzi Arvizu-Bouchra ro null, [facility] 02/03/2024 10:37:30 Influenza, split virus, trivalent, preservative 0 completed Miletzi Arvizu-Bouchra ro null, [facility] 02/03/2024 10:37:30 Influenza, split virus, trivalent, preservative 4 completed Miletzi Arvizu-Bouchra ro null, [facility] 02/03/2024 10:37:30 Influenza, split virus, trivalent, preservative 2 completed Miletzi Arvizu-Aurora ro null, [facility] 02/03/2024 10:37:30 Influenza, split virus, trivalent, preservative 3 completed Miletzi Arvizu-Aurora ro null, [facility] 02/03/2024 10:37:31 Influenza, split virus, trivalent, PF 0 completed Miletzi Arvizu-Bouchra ro null, [facility] 02/03/2024 10:37:31 Td (adult), 5 Lf tetanus toxoid, preservative free, adsorbed 6 completed Franko Cyr ro null, [facility] 02/03/2024 10:37:31 Influenza, adjuvanted, trivalent, PF 4 completed Genet Henri null, [facility] 08/18/2024 14:24:21 COVID-19, mRNA, LNP-S, PF, 50 mcg/0.5 mL 4 completed Genet Henri null, [facility] 08/18/2024 14:24:21 Past Encounters Encounter ID Performer Location Encounter Start Date Encounter Closed Date Diagnosis/Indication Diagnosis SNOMED-CT Code Diagnosis ICD10 Code [id number] Franko asencio [facility] [address] [place] [address] 02/03/2024 10:25:53 02/04/2024 08:33:51 Acute retention of urine 328955386 R33.8 [id number] Luda Watson PA-C [facility] [address] [place] [address] 02/10/2024 13:37:37 02/11/2024 09:27:45 Acute retention of urine 230870657 R33.8 [id number] Edmar Vaughn MD [facility] [address] [place] [address] 02/12/2024 10:44:21 02/15/2024 16:00:54 Retention of urine 010952325 R33.9 [id number] Edmar Vaughn MD [facility] [address] [place] [address] 03/04/2024 14:17:21 03/22/2024 12:42:48 Retention of urine 387615585 R33.9 [id number] Nicola Dillon MD [facility] [address] [place] [address] 04/28/2024 13:46:52 05/06/2024 08:43:02 Renal mass 631028689 N28.89 Chronic re tention of urine 883315761 R33.8 [id number] Akila Mccall [facility] [address] [place] [address] 05/27/2024 10:39:20 05/30/2024 10:54:56 Retention of urine 951107106 R33.9 [id number] Nicola Dillon MD [facility] [address] [place] [address] 06/13/2024 13:46:00 07/12/2024 08:41:58 Chronic retention of urine 438116207 R33.8 Renal mass 708610293 N28 .89 [id number] Genet Álvarez [facility] 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 813860 D30.01 Lower urin harshad tract symptoms due to benign prostatic hypertrophy 5939716290 9101 N40.1 Health Concerns Section Related Observation LastModified by Organization Detai ls LastModified Time None Recorded Concern Status LastModified by Organization Details LastModified Time None Recorded Advance Directives Directive None Recorded Payers Encounter Date Sequence Insurance Name Policy Number Policy Masterson Covered Member ID Masterson Member ID Guarantor Name 03/04/2024 1 [employer] - DOS ON OR AFTER 19 (MEDICARE REPLACEMENT/ ADVANTAGE - HMO) [id number] Kojo N Laabs [id number] Kojo N Laabs 04/28/2024 1 [employer] - DOS ON OR AFTER 19 (MEDICARE REPLACEMENT/ ADVANTAGE - HMO) [id number] Kojo N Laabs [id number] Kojo N Laabs 05/27/2024 1 [employer] - DOS ON OR AFTER 19 (MEDICARE REPLACEMENT/ ADVANTAGE - HMO) [id number] Kojo N Laabs [id number] Kojo N Laabs 06/13/2024 1 [employer] - DOS ON OR AFTER 19 (MEDICARE REPLACEMENT/ ADVANTAGE - HMO) [id number] Kojo N Laabs [id number] Kojo N Laabs 08/18/2024 1 [employer] - DOS ON OR AFTER 19 (MEDICARE REPLACEMENT/ ADVANTAGE - HMO) [id number] 1_[id number] Kojo Ness [id number] Kojo Ness Notes Date Note Type Note Provider Name and Address Organization Details Recorded Time 03/04/2024 text/html here for cysto/T OV today Edmar Vaughn MD [address], [place], [address], [facility] 03/04/2024 15:55:02 04/28/2024 text/html Referred for a r enal mass. It is 5cm right side. There [...] a bit risky. Nicola Dillon MD [address], [place], [address], [facility] 04/28/2024 14:39:38 05/27/2024 text/html Date of Service:05/27/2024Indic ation:Urinary retentionReferring Physician:Dr. Peteresting today included:Multichannel cystometry, EMG, and pressure flow study.Details of procedure:After discussing the purpose and nature of visit, the patient consented to proceed. Urine collected from 7fr coude cath. Urine dipstick negative for infection.Uroflow:Not performed d/t bravo catheter.Filling phase:7 fr air charged catheters were used.Fill rate:45-50mL/minuteThe first sensation of bladder filling occurred at 42 mL.The first desire to void occurred at 66 mL.The strong desire to void occurred at 95 mLThe maximum capacity is 178mL.The bladder compliance is low.Detrusor pressure during filling is activeDetrusor Overactivity:Patient demonstrated DO at 153 mL.Stress Urinary Incontinence:No QUINCY notedPressure flow study:Patient voided 80 mL after permission to void was given. Maximum flow rate 3.7 mL/second with PDet at max flow 73cm H2O. Post void residual 98mL. Visual detrusor contraction was noted. Abdominal straining was noted. *Notable flatulence during voiding phase, but RN ensured rectal catheter stayed in place.EMG:The sphincteric EMG shows an increase in activity with increased abdominal pressure. The EMG activity shows relaxation with permission to void.Jordy Notes:- Bravo cath replaced after test- Sacrum appears red- possible stage 1 pressure wound. Patient is able to stand/reposition himself. He does admit to sitting for long periods of time each day. I encouraged patient to reposition himself every 2 hours while awake to prevent skin breakdownPatient was given (Bactrim DS #1) for UTI preventionTester name:Akila esquivel [facility] 05/27/2024 11:56:43 06/13/2024 text/html Follow up for hi s Bravo dependent urinary retention. His son and other family members were a part of the visit. He did have urodynamics on 05/27/23 and we reviewed the results. He does have decent bladder strength indicating prostatic obstruction. 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 He is scheduled for surgical resection on 07/04. Prior to conducting our video visit, the patient was apprised of the risks, benefits and alternatives to video visits including but not limited to poor video quality, interrupted visits due to technological limitations, delays in medical evaluation and treatment due to deficiencies or failures of equipment, failure of security protocols resulting in a breach of privacy of personal medical information and a lack of access to complete medical records resulting in not fully informed decisions. It was not possible for the patient to sign the privacy regulations, HIPAA release and assignment of benefits forms. The patient was given the opportunity to ask questions about these policies and gave verbal acknowledgement and approval of these policies as well as to hold this meeting by video. Lastly, the patient agreed to allowing their medication history to be pulled from a national pharmacy database to facilitate and coordinate their care. Nciola Dillon MD [address] [place] [address],[address], [place], [address], [facility] 07/11/2024 10:10:14 08/18/2024 text/html 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 He's recovered well from the double cancer surgery. He did have a prolonged ileus but is eating well now. Also has urinary retention wtih an indwelling Bravo.He came with his daughter and that was helpful. Genet esquivel [place] [facility] 08/19/2024 15:14:22
--- OUTSIDE RECORDS SUMMARY | 2024-08-28 10:33 | XMS_ITS | Continuity of Care Document ---
Author Organization [facility], [facility] Address [address] [place] [address] Assessment No assessment recorded. Plan of Treatment Reminders Order Date Submit Date Provider Last Modified By Organization Details Last Modified Time Details Appointments None recorded. Lab None recorded. Referral None recorded. Procedures vascular embolizati on or occlusion; for tumors, organ ischemia, or infarction (PROC) - 184cc prostate on office ultrasound 2023 024 [facility], [address], [address], [place], [address], 5 15:50:32 Surgeries None recorded. Imaging None recorded. Medication Orders None recorded. Patient TargetsNo targets recorded. Patient InstructionsNo instructions recorded. Reason for Referral None Reported. Problems Name Problem SNOMED Code Status Onset Date Resolution Date Notes Provider Name and Address Organization Details Recorded Time Acute retention of urine 424895415 Active 024 Luda Watson PA-C [address] [facility],[address] [place] [address], [phone], [facility] 4 11:29:06 Retention of urine 842875721 Active 024 Edmar Vaughn MD [address] [facility],[address], [place], [address], [facility] 4 11:33:59 Problem Notes None recorded. Procedures Surgical History Date Name Laterality Status Provider Name and Address Organization Details Recorded Time 08/18/20 24 Urethral Catheter Change completed Genet Álvarez [facility] 08/19/2024 15:14:03 08/18/20 24 TRUS- Volume size only completed Nicola Dillon MD [address] [facility],[address], [place], [address], [facility] 08/18/2024 15:08:20 07/04/20 24 NEPHRECTOMY, HAND ASSISTED LAPAROSCOPIC (SURG) completed Reena Paez [facility] 07/07/2024 09:40:04 06/13/20 24 COMPLEX VISIT completed Nicola Dillon MD [address] [place] [address],[address], [place], [address], [facility] 07/01/2024 13:18:31 05/27/20 24 Urodynamic Studies completed Garrett Vazquez [facility] 05/16/2024 17:20:05 05/27/20 24 BRAVO CHANGE completed Akila Mccall [facility] 05/27/2024 11:54:40 04/28/20 24 COMPLEX VISIT completed Nicola Dillon MD [address] [place] [address],[address], [place], [address], [facility] 04/28/2024 14:39:20 04/28/20 24 BRAVO CHANGE completed Nicola Dillon MD [address] [place] [address],[address], [place], [address], [facility] 04/28/2024 14:39:08 03/04/20 24 Cystoscopy- male completed Edmar Vaughn MD [address] [place] [address],[address], [place], [address], [facility] 03/04/2024 14:49:59 03/04/20 24 Bravo Catheter Insertion completed Trey Cabral [facility] 03/04/2024 15:44:20 03/04/20 24 Cipro post Cysto completed Trey Cabral [facility] 02/24/2024 14:58:47 03/04/20 24 Fill and Pull/Voiding Trial/TOV [facility] 03/04/2024 15:44:41 02/12/20 24 Bravo Catheter Insertion completed Edmar Vaughn MD [address] [place] [address],[address], [place], [address], [facility] 02/12/2024 11:53:15 02/12/20 24 Fill and Pull/Voiding Trial/TOV completed Edmar Vaughn MD [address] [facility] [address], [place], [address], [facility] 02/12/2024 11:28:34 02/10/20 24 Bravo Catheter Insertion completed Concetta Zapata [facility] 02/10/2024 14:26:17 02/10/20 24 Fill and Pull/Voiding Trial/TOV completed Concetta Zapata [facility] 02/10/2024 14:25:24 02/03/20 24 Bravo Catheter Insertion completed Franko magaña [facility] 02/03/2024 12:10:15 02/03/20 24 Fill and Pull/Voiding Trial/TOV completed Luda Watson PA-C [address] [facility] [address], [place], [address], [facility] 02/03/2024 11:16:06 Imaging Results [...] Updated DateTime 08/18/2024 180.34 cm 27.9 kg/m2 45565.47 g Genet Álvarez [facility] 08/18/2024 14:24:16 Social History Question Answer Notes LastModified by Organizat ion Details LastModified Time Tobacco Smoking Status [facility] 02/03/2024 10:40:30 What Is Your Level Of Alcohol Consumption? Moderate Beer At Supper Information not available 02/03/2024 What Is Your Level Of Caffeine Consumption? None Information not available 02/03/2024 When Did You Quit Smoking? 18+yearssinc elastcigaret te Information not available 02/03/2024 What Was The Date Of Your Most Recent Tobacco Screening? 08/18/2024 Information not available 08/18/2024 Have You Ever Been Counseled For Unhealthy Alcohol Use? No [email or web address] Information not available 02/12/2024 Do You Use Any Illicit Or Recreational Drugs? No Information not available 02/03/2024 Has Tobacco Cessation Counseling Been Provided? No [email or web address] Information not available 02/12/2024 Do You Or Have You Ever Used Any Other Forms Of Tobacco Or Nicotine? No [email or web address] Information not available 02/12/2024 How Many Days In The Past Year Have You Consumed 5 Or More Drinks? 0 [email or web address] Information not available 02/12/2024 Sex: Unknown Functional Status None recorded. Mental Status None recorded. Family History Relationship Description Onset Age of this Age Resolved Age Notes LastModified by Organization Details LastModified Time Father No current problems or disability [email or web address] Not available 02/21 14:27:02 Mother No current problems or disability [email or web address] Not available 02/21 14:27:03 Notes:brain cancer-cancer sp ouse-stomach cancer Medical History Condition Response Kidney Stones Y Immunizations Vaccine Type Date Status Note Provider Nam e and Address Organization Details Recorded Time Influenza, adjuvanted, trivalent, PF 9 completed Miletzi Arvizu-Ceredo ro null, [facility] 02/03/2024 10:37:30 Influenza, adjuvanted, trivalent, PF 8 completed Miletzi Arvizu-Bouchra ro null, [facility] 02/03/2024 10:37:30 Influenza, adjuvanted, trivalent, PF 0 completed Miletzi Arvizu-Bouchra ro null, [facility] 02/03/2024 10:37:30 zoster recombinant 4 completed Miletzi Arvizu-Ceredo ro null, [facility] 02/03/2024 10:37:30 Influenza, high-dose, quadrivalent, PF 3 completed Miletzi Arvizu-Bouchra ro null, [facility] 02/03/2024 10:37:30 Influenza, high-dose, quadrivalent, PF 2 completed Miletzi Arvizu-Bouchra ro null, [facility] 02/03/2024 10:37:30 Influenza, adjuvanted, quadrivalent, PF 1 completed Miletzi Arvizu-Ceredo ro null, [facility] 02/03/2024 10:37:30 COVID-19, mRNA, LNP-S, PF, 30 mcg/0.3 mL dose 1 completed Miletzi Arvizu-Ceredo ro null, [facility] 02/03/2024 10:37:30 COVID-19, mRNA, LNP-S, PF, 30 mcg/0.3 mL dose 1 completed Miletzi Arvizu-Bouchra ro null, [facility] 02/03/2024 10:37:30 COVID-19, mRNA, LNP-S, PF, 30 mcg/0.3 mL dose 1 completed Miletzi Arvizu-Bouchra ro null, [facility] 02/03/2024 10:37:30 COVID-19, mRNA, LNP-S, PF, 30 mcg/0.3 mL dose, gillian-sucrose 2 completed Miletzi Arvizu-Ceredo ro null, [facility] 02/03/2024 10:37:30 COVID-19, mRNA, LNP-S, bivalent, PF, 30 mcg/0.3 mL dose 2 completed Miletzi Arvizu-Ceredo ro null, [facility] 02/03/2024 10:37:30 RSV, recombinant, protein subunit RSVpreF, adjuvant reconstituted, 0.5 mL, PF 3 completed Miletzi Arvizu-Bouchra ro null, [facility] 02/03/2024 10:37:30 pneumococcal polysaccharide PPV23 6 completed Miletzi Arvizu-Ceredo ro null, [facility] 02/03/2024 10:37:30 Tdap 4 completed Miletzi Arvizu-Bouchra ro null, [facility] 02/03/2024 10:37:30 Novel Kpompfett-[id number], all formulations 0 completed Miletzi Arvizu-Ceredo ro null, [facility] 02/03/2024 10:37:30 Pneumococcal conjugate PCV 13 5 completed Miletzi Arvizu-Ceredo ro null, [facility] 02/03/2024 10:37:30 Influenza, high-dose, trivalent, PF 7 completed Miletzi Arvizu-Ceredo ro null, [facility] 02/03/2024 10:37:30 Influenza, high-dose, trivalent, PF 4 completed Miletzi Arvizu-Ceredo ro null, [facility] 02/03/2024 10:37:30 Influenza, high-dose, trivalent, PF 5 completed Miletzi Arvizu-Bouchra ro null, [facility] 02/03/2024 10:37:30 Influenza, split virus, trivalent, preservative 8 completed Miletzi Arvizu-Bouchra ro null, [facility] 02/03/2024 10:37:30 Influenza, split virus, trivalent, preservative 7 completed Miletzi Arvizu-Ceredo ro null, [facility] 02/03/2024 10:37:30 Influenza, split virus, trivalent, preservative 0 completed Miletzi Arvizu-Bouchra ro null, [facility] 02/03/2024 10:37:30 Influenza, split virus, trivalent, preservative 4 completed Milnai Arvizu-Bouchra ro null, [facility] 02/03/2024 10:37:30 Influenza, split virus, trivalent, preservative 2 completed Miletzi Arvizu-Ceredo ro null, [facility] 02/03/2024 10:37:30 Influenza, split virus, trivalent, preservative 3 completed Miletzi Arvizu-Bouchra ro null, [facility] 02/03/2024 10:37:31 Influenza, split virus, trivalent, PF 0 [facility], [facility] 02/03/2024 10:37:31 Td (adult), 5 Lf tetanus toxoid, preservative free, adsorbed 6 completed Miletzi Arvizu-Bouchra ro null, [facility] 02/03/2024 10:37:31 Influenza, adjuvanted, trivalent, PF 4 completed Genet Álvarez null, [facility] 08/18/2024 14:24:21 COVID-19, mRNA, LNP-S, PF, 50 mcg/0.5 mL 4 completed [facility] 08/18/2024 14:24:21 Past Encounters Encounter ID Performer Location Encounter Start Date Encounter Closed Date Diagnosis/Indication Diagnosis SNOMED-CT Code Diagnosis ICD10 Code [id number] Genet Starkss [facility] 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 952918 D30.01 Lower urin harshad tract symptoms due to benign prostatic hypertrophy 8795175419 9101 N40.1 Health Concerns Section Related Observation LastModified by Organization Detai ls LastModified Time None Recorded Concern Status LastModified by Organization Details LastModified Time None Recorded Payers Encounter Date Sequence Insurance Name Policy Number Policy Masterson Covered Member ID Masterson Member ID Guarantor Name 08/18/2024 1 [employer] - DOS ON OR AFTER 19 (MEDICARE REPLACEMENT/ ADVANTAGE - HMO) [id number] Kojo Ness [id number] Kojo Ness Notes Date Note Type Note Provider Name and Address Organization Details Recorded Time 08/18/2024 text/html 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 He's recovered well from the double cancer surgery. He did have a prolonged ileus but is eating well now. Also has urinary retention wtih an indwelling Bravo.He came with his daughter and that was helpful. [facility] 08/19/2024 15:14:22
--- OUTSIDE RECORDS SUMMARY | 2024-08-28 10:33 | XMS_ITS | Clinical Summary ---
Author Organization [facility] Address [place], [place] [address] Care Team Providers Care Streetcar Conductor Name Role Phone Juwan Avery MD Primary Care Provider [phone] Venkat Elena RN Unavailable [phone] Star Morfin MD Unavailable [phone] SoNicola peralta MD Unavailable [phone] [facility] Allergies No known active allergies Medications VITAMINS A,C,X-WCMU-NMSQMK (OCUVITE PRESERVISION) 7,160-113-100 wiww-mn-jium tablet Take 2 Tablets by mouth two times daily. 0 09/24/19 17 Active fluorometholone (FML) 0.1 % ophthalmic suspension Place 1 Drop into right eye two times daily. 11/06/19 18 Active potassium chloride (KLOR-CON M20) 20 mEq extended-release tablet (part/cryst)Indica tions:Essential hypertension Take 1 Tablet (20 mEq) by mouth two times daily with meals. 180 Tablet 3 12/16/19 24 Active atenoloL (TENORMIN) 50 mg tabletIndications: Essential hypertension Take 1 Tablet (50 mg) by mouth once daily. 90 Tablet 3 12/16/19 24 Active pravastatin (PRAVACHOL) 80 mg tabletIndications: Hyperlipidemia, unspecified hyperlipidemia type Take 1 Tablet (80 mg) by mouth at bedtime. 90 Tablet 3 12/16/19 24 Active tamsulosin (FLOMAX) 0.4 mg capsuleIndications :Prostatic hypertrophy TAKE TWO CAPSULES BY MOUTH DAILY with a meal. 180 Capsule 3 12/16/19 Active Additional Information Patient taking differently: 0.4 mg Oral BID, (No instructions reported), Informant: Family, Reported on 07/04/2024 ferrous sulfate 325 mg delayed release tabletIndications: Microcytic anemia Take 1 Tablet (325 mg) by mouth two times daily with meals. 90 Tablet 3 03/17/20 Active sodium chloride (ADSORBONAC) 2 % ophthalmic solution Place 1 Drop into right eye two times daily. Active ondansetron (ZOFRAN ODT) 4 mg disintegrating tabletIndications: Metastatic carcinoid tumor (HC) Take 1 tablet every 4 hours if needed for nausea. 6 Tablet 06/29/20 Active WalkerIndications: Renal mass, right Walker with front wheels for home use. 1 Each 07/11/20 Active acetaminophen (TYLENOL EXTRA STRGTH) 500 mg tabletIndications: Renal mass, right,Post-operati ve pain Take 1-2 Tablets (500-1,000 mg) by mouth every 6 hours if needed for Pain. Max acetaminophen dose: 4000mg in 24 hrs. 07/15/20 Active apixaban (Eliquis) 2.5 mg tabletIndications: Renal mass, right,Malignant neoplasm of transverse colon (HC) Take 1 Tablet (2.5 mg) by mouth two times daily for 17 days. 34 Tablet 4 4:32 PM LEAD QA ANALYST 07/15/20 024 Active Problems Problem Noted Date Diagnosed Date Renal mass, right 07/04/2024 Bilateral leg edema 07/04/2024 Malignant neoplasm of transverse colon 4 Overview (03/31/2024): Colonoscopy 03/2024 tumor, polyps, refer [...] Encounters Date Type Department Care Team Description 08/23/2024 2:15 PM LEAD QA ANALYST Orders Only [facility] [address] [facility] [address] [facility], [place] [facility] 08/23/2024 Travel 08/15/2024 8:45 AM LEAD QA ANALYST Home Care Visit [facility] [address] [place] [address] Bruce Nunes, PT PT - OASIS DISCHARGE 08/10/2024 8:45 AM LEAD QA ANALYST Home Care Visit [facility] [address] [place] [address] Bruce Nunes, PT PT - HOME VISIT 08/05/2024 8:45 AM LEAD QA ANALYST Home Care Visit [facility] [address] [place] [address] Bruce Nunes, PT PT - HOME VISIT 08/05/2024 Travel 08/02/2024 9:00 AM LEAD QA ANALYST Home Care Visit [facility] [address] [place] [address] Bruce Nunes, PT PT - HOME VISIT 08/02/2024 Travel 07/29/2024 9:00 AM LEAD QA ANALYST Home Care Visit [facility] [address] [place] [address] Bruce Nunes, PT PT - HOME VISIT 07/27/2024 9:00 AM LEAD QA ANALYST Home Care Visit [facility] [address] [place] [address] Bruce Nunes, PT PT - HOME VISIT 07/27/2024 Travel 07/26/2024 10:30 AM LEAD QA ANALYST Office Visit [facility] [address] [place] [address] Star Morfin MD Post-op 07/26/[address] [place] [address] [place], [facility] 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) 07/26/2024 Travel 07/25/2024 Telephone [facility] [address] [place] [address] Silvia Palmer, Results 07/22/2024 11:00 AM LEAD QA ANALYST Office Visit [facility] [address] [place] [address] Silvia Palmer, DO Hospital F/U (R hemicolectomy ) 07/22/2024 Travel 07/19/2024 10:30 AM LEAD QA ANALYST Home Care Visit [facility] [address] [place] [phone] Bruce Nunes, PT PT - OASIS START OF CARE 07/19/2024 Plan of Care Documentation [facility] [address] [place] [phone] 07/19/2024 Patient Outreach [facility] Care Management - Advanced Care Team [address] [place] [address] Gabi Kennedy, IT SECURITY SPECIALIST Complex Care Management (CCM Engagement Outreach) 07/19/2024 Travel 07/18/2024 Patient Outreach [facility] [address] [place] [address] Claritza Ramos, RN Primary RN Care Management; Hospital F/U (LACE 65) 07/15/2024 Home Care Visit [facility] [address] [place] [phone] Toyin Blas, RN CARE COORDINATION 07/12/2024 Travel 07/04/2024 8:07 AM LEAD QA ANALYST Anesthesia Event [facility] [address] [place] [address] Tyler Mckoy MD Nelson, Kathryn M, LINER WORKER Student 07/04/2024 7:30 AM LEAD QA ANALYST - 07/04/2024 1:27 PM LEAD QA ANALYST Surgery [facility] [address] [place] [address] Star Morfin MD LAPAROSCOPIC RIGHT HEMICOLECTOMY 07/04/2024 6:35 AM LEAD QA ANALYST - 07/15/2024 5:16 PM LEAD QA ANALYST Hospital Encounter [facility] [address] [place] [address] Star Morfin MD 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); Renal mass, right; Post-operative pain; Deep vein thrombosis (DVT) prophylaxis prescribed at discharge Discharge Disposition: Home Health 07/04/2024 Travel 07/01/2024 1:50 PM LEAD QA ANALYST Nurse/Clinic Staff Only [facility] [address] [place] [address] Urinary Problem (Leaking doll cath leg bag) 07/01/2024 Travel 07/01/2024 Telephone [facility] [address] [place] [address] Star Morfin MD pre surgical call 06/29/2024 Telephone [facility] [address] [place] [phone] Star Morfin MD pre op teaching 06/22/2024 9:35 AM CDT Office Visit [facility] [address] [place] [address] Fazal Perez MD Preoperative Exam (07/04/24/ABNW/LAPA ROSCOPIC RIGHT HEMICOLECTOMY & HAND ASSISTED LAPAROSCOPIC RIGHT NEPHRECTOMY /Nicola Dillon MD /Star Morfin MD /); Immunization/Inject ion 06/22/2024 Travel 06/09/2024 Telephone [facility] [address] [place] [address] Norma Francisco PA Abstract (Pt has no known allergies- confirmed ) from Last 3 Months Immunizations Name Administration Dates Next Due COVID-19 VACCINE SPIKEVAX (M ODERNA 50MCG/0.5ML) 12YO+ PFS 06/22/2024 COVID-19 vaccine ([employer] NTech 30mcg/0.3mL) ADRIAN RABAGO 07/08/2021,10/27/2020,10/06/2020 Influenza A [...] Not Answered Alcohol Use Standard Drinks/Week Comments Yes 0 (1 standard drink = 0.6 oz pur e alcohol) one beer every night [facility] Utilities Answer Date Recorded Do you have trouble paying f or utilities (for example, heat, electricity, water, phone)? Yes 07/05/2024 PHQ-2 Answer Date Recorded PHQ-2 TOTAL SCORE 0 12/16/2023 Social Connections Answer Date Recorded Do you often feel lonely or isolated from those around you? 0 07/05/2024 Alcohol Use Answer Date Recorded How often [...] you are able to buy more? 1 07/05/2024 Transportation Needs Answer Date Record ed Does lack of transportation keep you from medica l appointments? 1 07/05/2024 Does lack of transportation keep you from work, meetings or getting things that you need? 1 07/05/2024 Housing Stability Answer Date Recorded What is your housing situation today? 1 07/05/2024 Interpersonal Safety Answer Date Record ed Are you being hit, kicked, p ushed or yelled at (see row info)? No 07/05/2024 Interpersonal Safety Abuse 12 - 18 Not on file 07/05/2024 Interpersonal Safety Ambulatory Vulnerability No t on file 07/05/2024 Sex and Gender Information Value Date Recorded Sex Assigned at Not on file Legal Sex Male 7:00 AM LEAD QA ANALYST Gender Identity Not on file Sexual Orientation Not on file Occupation Industry Job Start Date Job End Date retired Not on file Not on file Not on file Obstetrics History Last Filed Vital Signs Vital Sign Reading Time Taken Comments Blood Pressure 128/64 08/15/2024 9:37 AM LEAD QA ANALYST Pulse 52 08/15/2024 9:37 AM LEAD QA ANALYST Temperature 37.3 C (99.1 F) 08/15/2024 9:37 AM LEAD QA ANALYST Respiratory Rate 18 08/15/2024 9:37 AM LEAD QA ANALYST Oxygen Saturation 98% 08/15/2024 9:37 AM LEAD QA ANALYST Inhaled Oxygen Concentration - - Weight 88.2 kg (194 lb 8 oz) 07/26/2024 10:24 AM LEAD QA ANALYST Height 177.8 cm (5' 10) 07/26/2024 10:24 AM LEAD QA ANALYST Body Mass Index 27.91 07/26/2024 10:24 AM LEAD QA ANALYST Plan of Treatment Upcoming Encounters Date Type Department Care Team (Late st Contact Info) Description 08/30/2024 3:00 PM LEAD QA ANALYST Office Visit [facility] [place] [address] [place] [phone] Marquita Omer MD [address] [facility] [place] [address] Health Maintenance Due Date Last Done Comments Zoster (shingles) series for age 50+ (2 of 2) 02/15/2024 12/21/2023 COVID-19 vaccine series ( season) 2024 06/22/2024, 07/31/2022, 02/11/2022, Additional history exists Depression screening for age 12+ 12/15/2024 12/16/2023, 11/12/2022, 10/22/2021, Additional history exists Medicare Wellness for age 65+ 12/16/2024, 11/12/2022, 10/21/2021, Additional history exists BMI (ht and wt on same day) for age 18+ 07/26/2025 07/26/2024, 06/22/2024, 04/26/2024, Additional history exists Tetanus booster 12/20/2033 12/21/2023, 09/2005, 05/25/2006 Pneumococcal series for age 50+ Completed 5, 05/25/2006 RSV vaccine for adults or Completed 06/30/2023 Tdap Completed 12/21/2023 Influenza for age 65+ Completed 06/22/2024 , 06/30/2023, 07/31/2022, Additional history exists Procedures Procedure Name Priority Date/Time Associated Diagnosis Comments CBC W PLT NO DIFF Routine 08/23/2024 2:1 3 PM LEAD QA ANALYST Anemia due to acute blood loss BASIC METABOLIC PANEL Routine 08/23/2024 2:13 PM LEAD QA ANALYST SUNG (acute kidney injury) (HC) CBC WITH AUTO DIFFERENTIAL Routine 07/22/2024 11:28 AM LEAD QA ANALYST Hospital discharge follow-up Anemia due to acute blood loss BASIC METABOLIC PANEL Routine 07/22/2024 11:28 AM LEAD QA ANALYST Hospital discharge follow-up BASIC METABOLIC PANEL Early AM 07/14/2024 5:22 AM LEAD QA ANALYST CBC W PLT NO DIFF Early AM 07/14/2024 5:2 2 AM LEAD QA ANALYST XR ABDOMEN 1 VIEW PORTABLE Routine 07/13/2024 8:[address] ABDOMEN PELVIS WO BILLY 07/12/2024 1:30 PM LEAD QA ANALYST XR ABDOMEN 1 VIEW PORTABLE Routine 07/12/2024 9:19 AM LEAD QA ANALYST CBC W PLT NO DIFF Early AM 07/12/2024 4:4 7 AM LEAD QA ANALYST BASIC METABOLIC PANEL Early AM 07/12/2024 4:47 AM LEAD QA ANALYST XR ABDOMEN 1 VIEW PORTABLE Routine 07/11/2024 9:36 AM LEAD QA ANALYST CBC W PLT NO DIFF Early AM 07/11/2024 5:0 4 AM LEAD QA ANALYST BASIC METABOLIC PANEL Early AM 07/11/2024 5:04 AM LEAD QA ANALYST LACTATE VENOUS Early AM 07/10/2024 5:57 AM LEAD QA ANALYST CBC W PLT NO DIFF Early AM 07/10/2024 5:5 7 AM LEAD QA ANALYST BASIC METABOLIC PANEL Early AM 07/10/2024 5:57 AM LEAD QA ANALYST CBC WITH AUTO DIFFERENTIAL Timed 07/09/2024 1:29 PM LEAD QA ANALYST LACTATE VENOUS STAT 07/09/2024 1:29 PM LEAD QA ANALYST BASIC METABOLIC PANEL Today 07/09/2024 1:29 PM LEAD QA ANALYST CBC WITH AUTO DIFFERENTIAL Timed 07/09/2024 1:29 PM LEAD QA ANALYST LACTATE VENOUS STAT 07/09/2024 11:17 AM LEAD QA ANALYST XR ABDOMEN 1 VIEW PORTABLE STAT 07/09/2024 9:19 AM LEAD QA ANALYST CBC WITH AUTO DIFFERENTIAL STAT 07/09/2024 9:05 AM LEAD QA ANALYST LACTATE VENOUS STAT 07/09/2024 9:05 AM LEAD QA ANALYST CBC WITH AUTO DIFFERENTIAL STAT 07/09/2024 9:05 AM LEAD QA ANALYST BLOOD GAS,VENOUS STAT 07/09/2024 9:05 AM LEAD QA ANALYST GLUCOSE METER Timed 07/09/2024 9:02 AM LEAD QA ANALYST XR CHEST 1 VIEW PORTABLE STAT 07/09/2024 8:44 AM LEAD QA ANALYST BASIC METABOLIC PANEL Early AM 07/09/2024 4:43 AM LEAD QA ANALYST US RENAL LEFT Routine 07/08/2024 3:49 PM LEAD QA ANALYST BASIC METABOLIC PANEL Early AM 07/08/2024 5:47 AM LEAD QA ANALYST CBC W PLT NO DIFF Early AM 07/08/2024 5:4 7 AM LEAD QA ANALYST URINALYSIS MICROSCOPIC Timed 07/07/2024 9:54 AM LEAD QA ANALYST URINE CULTURE Today 07/07/2024 9:54 AM LEAD QA ANALYST UA W/ SEDIMENT EXAM REFLEXED PER CRITERIA Today 07/07/2024 9:54 AM LEAD QA ANALYST BASIC METABOLIC PANEL Early AM 07/07/2024 5:05 AM LEAD QA ANALYST CBC W PLT NO DIFF Early AM 07/07/2024 5:0 5 AM LEAD QA ANALYST BASIC METABOLIC PANEL Early AM 07/06/2024 6:07 AM LEAD QA ANALYST CBC W PLT NO DIFF Early AM 07/06/2024 6:0 7 AM LEAD QA ANALYST BASIC METABOLIC PANEL Early AM 07/05/2024 4:12 AM LEAD QA ANALYST CBC W PLT NO DIFF Early AM 07/05/2024 4:1 2 AM LEAD QA ANALYST GLUCOSE METER Timed 07/04/2024 12:26 PM LEAD QA ANALYST PATH TISSUE EXAM Today 07/04/2024 9:45 AM LEAD QA ANALYST OR IMAGE CAPTURE Routine 07/04/2024 8:50 AM LEAD QA ANALYST AHC AN IV START Routine 07/04/2024 8:40 AM LEAD QA ANALYST ENDOTRACHEAL TUBE Routine 07/04/2024 8:3 8 AM LEAD QA ANALYST TYPE & SCREEN Preop 07/04/2024 7:37 AM LEAD QA ANALYST LAPAROSCOPIC NEPHRECTOMY HAND ASSISTED Elective 07/04/2024 7:35 AM LEAD QA ANALYST Colon adenocarcinoma (HC) LAPAROSCOPIC SHAYNE COLECTOMY RIGHT Elective 07/04/2024 7:35 AM LEAD QA ANALYST Colon adenocarcinoma (HC) GLUCOSE METER Timed 07/04/2024 7:31 AM LEAD QA ANALYST SCAN-CARDIAC STRIP 07/04/2024 12 :00 AM LEAD QA ANALYST BASIC METABOLIC PANEL Routine 06/22/2024 10:29 AM CDT Pre-op evaluation Unspecified essential hypertension HEMOGLOBIN Routine 06/22/2024 10:29 AM CDT Pre-op evaluation Malignant neoplasm of transverse colon (HC) Renal mass from Last 3 Months Results * (ABNORMAL) CBC W PLT NO DIFF (08/23/2024 2:13 PM LEAD QA ANALYST) Only the most recent of9 resultswithin the time period is included. WHITE BLOOD CELL COUNT 9.9 3.8 - 10.8 Thousand/u L [facility] RED BLOOD CELL COUNT 4.42 4.20 - 5.80 Million/uL [facility] HEMOGLOBIN 12.6(L) 13.2 - 17.1 g/dL [facility] HEMATOCRIT 39.6 38.5 - 50.0 % [facility] MCV 89.6 80.0 - 100.0 fL [facility] MCH 28.5 27.0 - 33.0 pg [facility] MCHC 31.8(L) 32.0 - 36.0 g/dL [facility] Comment: For adults, a slight decrease in the calculated MCHC value (in the range of 30 to 32 g/dL) is most likely not clinically significant; however, it should be interpreted with caution in correlation with other red cell parameters and the patient's clinical condition. RDW 14.5 11.0 - 15.0 % [facility] PLATELET COUNT 156 140 - 400 Thousand/u L [facility] MPV 11.5 7.5 - 12.5 fL [facility] Blood BLOOD SPECIMEN / Unknown 08/23/2024 2:13 PM LEAD QA ANALYST 08/23/2024 2:13 PM LEAD QA ANALYST us Silvia Palmer DO HEMATOLOGY Final Result [facility] [address] [place] [address], [facility] [address] [place] [address] * (ABNORMAL) BASIC METABOLIC PANEL (08/23/2024 2:13 PM LEAD QA ANALYST) Only the most recent of13 resultswithin the time period is included. Pathologist [facility] GLUCOSE 91 65 - 99 mg/dL [facility] Comment: Fasting reference interval UREA NITROGEN (BUN) 23 7 - 25 mg/dL [facility] CREATININE 1.58(H) 0.70 - 1.22 mg/dL [facility] EGFR 42(L) > OR = 60 mL/min/1.7 3m2 [facility] BUN/CREATININE RATIO 15 6 - 22 (calc) [facility] SODIUM 142 135 - 146 mmol/L [facility] POTASSIUM 4.7 3.5 - 5.3 mmol/L [facility] CHLORIDE 106 98 - 110 mmol/L [facility] CARBON DIOXIDE 29 20 - 32 mmol/L [facility] ELECTROLYTE BALANCE 7 7 - 17 mmol/L (calc) [facility] CALCIUM 9.2 8.6 - 10.3 mg/dL [facility] Blood BLOOD SPECIMEN / Unknown 08/23/2024 2:13 PM LEAD QA ANALYST 08/23/2024 2:13 PM LEAD QA ANALYST us Silvia Palmer DO CHEMISTRY Final Result [facility] [address] [place] [address], [facility] [address] [place] [address] * (ABNORMAL) CBC AND DIFFERENTIAL (07/22/2024 11:28 AM LEAD QA ANALYST) WHITE BLOOD CELL COUNT 8.5 3.8 - 10.8 Thousand/u L [facility] RED BLOOD CELL COUNT 4.45 4.20 - 5.80 Million/uL [facility] HEMOGLOBIN 12.3(L) 13.2 - 17.1 g/dL [facility] HEMATOCRIT 39.5 38.5 - 50.0 % [facility] MCV 88.8 80.0 - 100.0 fL [facility] MCH 27.6 27.0 - 33.0 pg [facility] MCHC 31.1(L) 32.0 - 36.0 g/dL [facility] Comment: For adults, a slight decrease in the calculated MCHC value (in the range of 30 to 32 g/dL) is most likely not clinically significant; however, it should be interpreted with caution in correlation with other red cell parameters and the patient's clinical condition. RDW 14.2 11.0 - 15.0 % [facility] PLATELET COUNT 268 140 - 400 Thousand/u L [facility] MPV 11.2 7.5 - 12.5 fL [facility] ABSOLUTE NEUTROPHILS 6,018 1,500 - 7,800 cells/uL [facility] ABSOLUTE LYMPHOCYTES 1,462 850 - 3,900 cells/uL [facility] ABSOLUTE MONOCYTES 748 200 - 950 cells/uL [facility] ABSOLUTE EOSINOPHILS 238 15 - 500 cells/uL [facility] ABSOLUTE BASOPHILS 34 0 - 200 cells/uL [facility] NEUTROPHILS 70.8 % [facility] LYMPHOCYTES 17.2 % [facility] MONOCYTES 8.8 % [facility] EOSINOPHILS 2.8 % [facility] BASOPHILS 0.4 % [facility] Blood BLOOD SPECIMEN / Unknown 07/22/2024 11:28 AM LEAD QA ANALYST 07/22/2024 11:28 AM LEAD QA ANALYST us Silvia Palmer DO HEMATOLOGY Final Result [facility] [address] [place] [address], [facility] [address] [facility] [place] [address] * XR ABDOMEN 1 VIEW PORTABLE (07/13/2024 8:03 AM LEAD QA ANALYST) Only the most recent of4 resultswithin the time period is included. Anatomical Region Laterality Modality Abdomen Digital Radiogra phy 07/13/2024 9:03 AM LEAD QA ANALYST Narrative 07/13/2024 9:03 AM LEAD QA ANALYST For Patients: As a result of the Cures Act, medical imaging exams and procedure reports are released immediately into your electronic medical record. You may view this report before your referring provider. If you have questions, please contact your health care provider. Indication: Abnormal bowel function. Technique: Abdomen hemipelvis. View. Comparison: CT abdomen and pelvis June 2024 Findings: Re-demonstration of normal gaseous distention of the small bowel loops scattered throughout the abdomen. No significant change when compared to recent CT abdomen and pelvis given the difference in the technique. Doll catheter is identified projecting over the left Impression: Findings are again concerning for ileus bowel pattern versus developing small bowel obstruction. Continued radiographic follow-up is recommended Dictated by Nayely Abdul MD @ Jul 13 2024 9:03AM (Electronically Signed) [email or web address] Procedure Note Nayely Abdul MD - 07/13/2024 For Patients: As a result of the Cures Act, medical imagingexams and procedure reports are released immediately into your electronicmedical record. You may view this report before your referring provider.If you have questions, please contact your health care provider. Indication: Abnormal bowel function. Technique: Abdomen hemipelvis. View. Comparison: CT abdomen and pelvis June 2024 Findings: Re-demonstration of normal gaseous distention of the small bowel loopsscattered throughout the abdomen. No significant change when compared torecent CT abdomen and pelvis given the difference in the technique. Foleycatheter is identified projecting over the left Impression: Findings are again concerning for ileus bowel pattern versus developingsmall bowel obstruction. Continued radiographic follow-up is recommended Dictated by Nayely Abdul MD @ Jul 13 2024 9:03AM (Electronically Signed) [email or web address] us [facility] Final Result * CT ABDOMEN PELVIS WO (07/12/2024 1:30 PM LEAD QA ANALYST) Anatomical Region Laterality Modality Abdomen, Pelvis, AORTA, LIVER, SPLEEN Computed Tomography 07/12/2024 4:56 PM LEAD QA ANALYST Narrative 07/12/2024 4:56 PM LEAD QA ANALYST For Patients: As a result of the Cures Act, medical imaging exams and procedure reports are released immediately into your electronic medical record. You may view this report before your referring provider. If you have questions, please contact your health care provider. Indication: Postoperative nausea and vomiting and distended loops of bowel Technique: CT abdomen and pelvis after the intravenous administration of oral contrast Comparison: CT chest, abdomen and pelvis 04/06/2024 Findings: Multivessel coronary artery atherosclerotic calcifications are noted within the borderline enlarged heart. Very small right pleural effusion and bibasilar atelectasis noted. Cholelithiasis is redemonstrated. The liver, spleen, adrenal glands, and pancreas are normal. Interval right nephrectomy. Left kidney cysts and tiny nonobstructive stones are unchanged. Doll catheter is within the decompressed urinary bladder. The prostate is enlarged. Postsurgical changes of right hemicolectomy are present. Dilated loops of small bowel measuring up to 33 millimeters are identified and there is no abrupt discrete transition point; gradual tapering and nonvisualization of contrast in the region of the anastomosis within the right mid abdomen. Stable distal colonic diverticulosis. There is no free air, ascites or lymphadenopathy. Infrarenal abdominal aortic aneurysm averages 47 millimeters, previously 46 millimeters. Midline abdominal incision is noted throughout the mid to upper abdomen. Bones are stable. Impression: Ileus versus developing small bowel obstruction Please note that all CT scans at this facility use dose modulation, iterative reconstruction, and/or weight-based dosing when appropriate to reduce radiation dose to as low as reasonably achievable. Dictated by Thanh Arellano MD @ 07/12/2024 4:56:17 PM (Electronically Signed) Procedure Note Thanh Arellano MD - 07/12/2024 For Patients: As a result of the Cures Act, medical imagingexams and procedure reports are released immediately into your electronicmedical record. You may view this report before your referring provider.If you have questions, please contact your health care provider. Indication: Postoperative nausea and vomiting and distended loops of bowel Technique: CT abdomen and pelvis after the intravenous administration of oralcontrast Comparison: CT chest, abdomen and pelvis 04/06/2024 Findings: Multivessel coronary artery atherosclerotic calcifications are notedwithin the borderline enlarged heart. Very small right pleural effusionand bibasilar atelectasis noted. Cholelithiasis is redemonstrated. The liver, spleen, adrenal glands, andpancreas are normal. Interval right nephrectomy. Left kidney cysts andtiny nonobstructive stones are unchanged. Doll catheter is within thedecompressed urinary bladder. The prostate is enlarged. Postsurgical changes of right hemicolectomy are present. Dilated loops ofsmall bowel measuring up to 33 millimeters are identified and there is noabrupt discrete transition point; gradual tapering and nonvisualization ofcontrast in the region of the anastomosis within the right mid abdomen.Stable distal colonic diverticulosis. There is no free air, ascites or lymphadenopathy. Infrarenal abdominalaortic aneurysm averages 47 millimeters, previously 46 millimeters. Midline abdominal incision is noted throughout the mid to upper abdomen.Bones are stable. Impression: Ileus versus developing small bowel obstruction Please note that all CT scans at this facility use dose modulation,iterative reconstruction, and/or weight-based dosing when appropriate toreduce radiation dose to as low as reasonably achievable. Dictated by Thanh Arellano MD @ 07/12/2024 4:56:17 PM (Electronically Signed) us Oksana REECE CT Final Result * LACTATE VENOUS (07/10/2024 5:57 AM LEAD QA ANALYST) Only the most recent of4 resultswithin the time period is included. LACTATE,VENOUS 1.2 0.5 - 2.0 mmol/L 07/10/2024 6:35 AM LEAD QA ANALYST [facility] [employer] [facility] Blood BLOOD SPECIMEN / Unknown Venipuncture / Unknown 07/10/2024 5:57 AM LEAD QA ANALYST 07/10/2024 6:14 AM LEAD QA ANALYST us Alphonso Esteban RN CHEMISTRY Final Result [facility] [address] [place] [address], [place] * (ABNORMAL) CBC WITH AUTO DIFFERENTIAL (07/09/2024 1:29 PM LEAD QA ANALYST) Only the most recent of2 resultswithin the time period is included. WHITE BLOOD COUNT 15.8(H) 4.5 - 11.0 thou/cu mm 07/09/2024 1:[address] [facility] TRAL LABORATORY RED BLOOD COUNT 4.86 4.30 - 5.90 mil/cu mm 07/09/2024 1:[address] [facility] TRAL LAB[facility]ORY HEMOGLOBIN 12.8(L) 13.5 - 17.5 g/dL 07/09/2024 1:[address] [facility] TRAL LABORATORY HEMATOCRIT 40.8 37.0 - 53.0 % 07/09/2024 1:[address] [facility] TRAL LAB[facility]ATORY MCV 84 80 - 100 fL 07/09/2024 1:[address] [facility] TRAL LAB[facility] MCH 26.3 26.0 - 34.0 pg 07/09/2024 1:[address] [facility] TR[facility] LAB[facility] MCHC 31.4(L) 32.0 - 36.0 g/dL 07/09/2024 1:[address] [facility] TRAL LAB[facility] RDW 16.2(H) 11.5 - 15.5 % 07/09/2024 1:[address] [facility] TRAL LAB[facility]ATORY PLATELET COUNT 226 140 - 440 thou/cu mm 07/09/2024 1:[address] [facility] TRAL LAB[facility] MPV 10.7 6.5 - 11.0 fL 07/09/2024 1:[address] [facility]AL LAB[facility] NRBC 0.0 % 07/09/2024 1:[address] [facility] LAB[facility] ABS NRBC 0.0 thou /cu mm 07/09/2024 1:[address] [facility] TRAL LABORATORY % NEUT 79.7 % 07/09/2024 1:[address] [facility] TRAL LAB[facility] % LYMPH 9.8 % 07/09/2024 1:[address] [facility] TRAL LAB[facility]ORY % MONO 9.9 % 07/09/2024 1:[address] [facility] TRAL LAB[facility] % EOS 0.1 % 07/09/2024 1:55 PM LEAD QA ANALYST [facility] TRAL LABORATORY % BASO 0.1 % 07/09/2024 1:55 PM LEAD QA ANALYST [facility] TRAL LABOR[facility] % IMMATURE GRAN (METAS,MYELOS,AR OS) 0.4 % 07/09/2024 1:55 PM LEAD QA ANALYST [facility] TRAL LABORATORY ABSOLUTE NEUTROPHILS 12.6(H) 1.7 - 7.0 thou/cu mm 07/09/2024 1:55 PM LEAD QA ANALYST [facility] TRAL LAB[facility] ABSOLUTE LYMPHOCYTES 1.5 0.9 - 2.9 thou/cu mm 07/09/2024 1:55 PM LEAD QA ANALYST [facility] TRAL LAB[facility]ORY ABSOLUTE MONOCYTES 1.6(H) <0.9 thou/cu mm 07/09/2024 1:55 PM LEAD QA ANALYST [facility] TRAL [facility] ABSOLUTE EOSINOPHILS 0.0 <0.5 thou/cu mm 07/09/2024 1:55 PM LEAD QA ANALYST [facility] ABSOLUTE BASOPHILS 0.0 <0.3 thou/cu mm 07/09/2024 1:55 PM LEAD QA ANALYST [facility] TRAL [facility] ABSOLUTE IMMATURE GRANULOCYTES(MET ,MYELOS,PROS) 0.1 <0.3 thou/cu mm 07/09/2024 1:55 PM LEAD QA ANALYST [facility] Blood BLOOD SPECIMEN / Unknown Butterfly / Unknown 07/09/2024 1:29 PM LEAD QA ANALYST 07/09/2024 1:[address] [facility] us Radha REECE HEMATOLOGY Final Result [facility] [address] [place] [address], * (ABNORMAL) BLOOD GAS,VENOUS (07/09/2024 9:05 AM LEAD QA ANALYST) PH, VENOUS 7.35 7.32 - 7.43 07/09/2024 9:21 AM LEAD QA ANALYST [facility] PCO2, VENOUS 39(L) 41 - 51 mmHg 07/09/2024 9:21 AM LEAD QA ANALYST [facility] TRA [facility]ORATORY PO2, VENOUS 61(H) 35 - 40 mmHg 07/09/2024 9:21 AM [facility] HCO3,VENOUS 22 22 - 29 mmol/L 07/09/2024 9:21 AM [facility] BASE EXCESS, VENOUS, POCT -3.8(L) -2.0 - 3.0 07/09/2024 9:21 AM [facility] O2 SATURATION, VENOUS 90(H) 70 - 75 % 07/09/2024 9:21 AM [facility] PATIENT TEMPERATURE 37.0 Degrees C 07/09/2024 9:21 AM [facility] Blood VENOUS BLOOD SPECIMEN / Unknown Non-Lab Venipuncture / Unknown 07/09/2024 9:05 AM LEAD QA ANALYST 07/09/2024 9:15 AM LEAD QA ANALYST us Alphonso Esteban RN CHEMISTRY Final Result Performing Organization Address City/[facility]/ZIP Co de Phone Number [facility] [address] [address], [place] * (ABNORMAL) GLUCOSE METER (07/09/2024 9:02 AM LEAD QA ANALYST) Only the most recent of3 resultswithin the time period is included. [facility] Signature GLUCOSE METER 177(H) 65 - 100 mg/dL 07/09/2024 9:07 AM LEAD QA ANALYST [facility] Blood BLOOD SPECIMEN / Unknown 07/09/2024 9:02 AM LEAD QA ANALYST 07/09/2024 9:07 AM LEAD QA ANALYST us Star Morfin MD CHEMISTRY Final Re sult [facility] [address] [place] [id number], [place] * XR Chest 1 View Portable - BENZENE OPERATOR (07/09/2024 8:44 AM LEAD QA ANALYST) Anatomical Region Laterality Modality HEART, THORAX, CHEST Digital Rad iography 07/09/2024 9:28 AM LEAD QA ANALYST Narrative 07/09/2024 9:28 AM LEAD QA ANALYST For Patients: As a result of the Cures Act, medical imaging exams and procedure reports are released immediately into your electronic medical record. You may view this report before your referring provider. If you have questions, please contact your health care provider. INDICATION: Shortness of breath TECHNIQUE: Single-view chest. COMPARISON: No comparison FINDINGS: Enlarged cardiac silhouette low lung volumes. Findings of probable pneumoperitoneum subcutaneous emphysema along the right lateral chest wall. No pneumothorax is seen basilar atelectasis. Dictated by Jennifer Salter MD @ Jul 09 2024 9:28AM (Electronically Signed) [email or web address] Procedure Note Jennifer Salter MD - 07/09/2024 For Patients: As a result of the Cures Act, medical imagingexams and procedure reports are released immediately into your electronicmedical record. You may view this report before your referring provider.If you have questions, please contact your health care provider. INDICATION: Shortness of breath TECHNIQUE: Single-view chest. COMPARISON: No comparison FINDINGS: Enlarged cardiac silhouette low lung volumes. Findings of probablepneumoperitoneum subcutaneous emphysema along the right lateral chestwall. No pneumothorax is seen basilar atelectasis. 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 No hydronephrosis or other acute source for renal failure demonstrated in the remaining left kidney. Dictated by Pierre Zepeda MD @ 07/08/2024 6:07:34 PM (Electronically Signed) Narrative 07/08/2024 6:07 PM LEAD QA ANALYST For Patients: As a result of the Cures Act, medical imaging exams and procedure reports are released immediately into your electronic medical record. You may view this report before your referring provider. If you have questions, please contact your health care provider. INDICATION: Renal failure. COMPARISON: CT 06 April 2024. FINDINGS: Left kidney is 15 x 8 x 7 cm. Normal cortical thickness. No solid mass. Partially exophytic upper pole 6 x 5 x 5 cm cyst. No complexity identified. Enlarged prostate. Doll catheter. No imaging of the right kidney which reportedly has been removed in the interim from comparison. Procedure Note Pierre Zepeda MD - 07/08/2024 For Patients: As a result of the Cures Act, medical imagingexams and procedure reports are released immediately into your electronicmedical record. You may view this report before your referring provider.If you have questions, please contact your health care provider. INDICATION: Renal failure. COMPARISON: CT 06 April 2024. FINDINGS: Left kidney is 15 x 8 x 7 cm. Normal cortical thickness. No solid mass.Partially exophytic upper pole 6 x 5 x 5 cm cyst. No complexityidentified. Enlarged prostate. Doll catheter. No imaging of the rightkidney which reportedly has been removed in the interim from comparison. 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 Arch chronic cyst upper poleleft kidney. No hydronephrosis or other acute source for renal failuredemonstrated in the remaining left kidney. Dictated by Pierre Zepeda MD @ 07/08/2024 6:07:34 PM (Electronically Signed) us Fazal Villarreal MD Final Result * (ABNORMAL) URINALYSIS MICROSCOPIC (07/07/2024 9:54 AM LEAD QA ANALYST) RBC 3-5(A) 0-2, None Seen /HPF 07/07/2024 10:18 AM LEAD QA ANALYST [employer] [facility]AL LAB[facility]AT[facility] WBC 26-50(A) 0-2, 3-5, None Seen /HPF 07/07/2024 10:18 AM LEAD QA ANALYST [facility] BACTERIA None Seen None Seen, Rare, Few Bacteria/ HPF 07/07/2024 10:18 AM LEAD QA ANALYST [facility] TRAL LABORATORY EPITHELIAL CELLS None Seen None Seen, Few Epi/HPF 07/07/2024 10:18 AM LEAD QA ANALYST [facility] TRAL LABORATORY HYALINE CASTS 11-25(A) 0-2, 3-5 /LPF 07/07/2024 10:18 AM LEAD QA ANALYST [facility] Urine URINE SPECIMEN / Unknown Non-Blood / Unknown 07/07/2024 9:54 AM LEAD QA ANALYST 07/07/2024 10:09 AM LEAD QA ANALYST Emilie REECE URINE Fin al Result Performing Organization Address City/[facility]/ZIP Co de Phone Number [facility] [address] [address], [place] * URINE CULTURE (07/07/2024 9:54 AM LEAD QA ANALYST) CULTURE No growth (<1,000 CFU/mL) 07/08/2024 7:40 AM LEAD QA ANALYST [facility] Urine URINE SPECIMEN / Unknown Non-Blood / Unknown 07/07/2024 9:54 AM LEAD QA ANALYST 07/07/2024 10:09 AM LEAD QA ANALYST Emilie REECE MICROBIOLOGY Fin al Result Performing Organization Address City/[facility]/ZIP Co de Phone Number [facility] [address] [address], [place] * (ABNORMAL) UA W/ SEDIMENT EXAM REFLEXED PER CRITERIA (07/07/2024 9:54 AM LEAD QA ANALYST) COLOR Yellow Yellow Color 07/07/2024 10:18 AM LEAD QA ANALYST [facility] [employer] LABORATORY- NTRAL LABORATORY CLARITY Clear Clear Clarity 07/07/2024 10:18 AM LEAD QA ANALYST [facility] LABORAT[facility]- NTRND LABORATORY SPECIFIC GRAVITY,URINE 1.010 1.010, 1.015, 1.020, 1.025 07/07/2024 10:18 AM LEAD QA ANALYST [facility] NTRND LABORATORY PH,URINE 5.5 6.0, 7.0, 8.0, 5.5, 6.5, 7.5, 8.5 07/07/2024 10:18 AM LEAD QA ANALYST [facility]- NTRND LAB[facility]ATORY UROBILINOGEN, QUALITATIVE Normal Normal EU/dl 07/07/2024 10:18 AM LEAD QA ANALYST [facility] NTRND LABORATORY PROTEIN, URINE Trace(A) Negative mg/dL 07/07/2024 10:18 AM LEAD QA ANALYST [facility]- NTRAL LABORATORY GLUCOSE, URINE Negative Negative mg/dL 07/07/2024 10:18 AM LEAD QA ANALYST [facility] NTRAL LABORATORY KETONES,URINE Negative Negative mg/dL 07/07/2024 10:18 AM LEAD QA ANALYST [facility] NTRAL LABORATORY BILIRUBIN,URI NE Negative Negative 07/07/2024 10:18 AM LEAD QA ANALYST [facility] NTRND LABORATORY OCCULT BLOOD,URINE Moderate(A) Negative 07/07/2024 10:18 AM [facility] NTRAL LABORATORY NITRITE Negative Negative 07/07/2024 10:18 AM [facility] NTRND LABORATORY LEUKOCYTE ESTERASE Moderate(A) Negative 07/07/2024 10:18 AM LEAD QA ANALYST [facility] NTRND LABORATORY Urine URINE SPECIMEN / Unknown Non-Blood / Unknown 07/07/2024 9:54 AM LEAD QA ANALYST 07/07/2024 10:09 AM LEAD QA ANALYST Emilie REECE URINE Fin al Result [facility] [address] [place] [address], * PATH TISSUE EXAM (07/04/2024 9:45 AM LEAD QA ANALYST) Case Report Pathology Report Case: [id number] Authorizing Provider: Nicola Dillon MD Collected: 07/04/202445 Ordering Location: [facility] Received: 07/04/2024 0954 [facility] Pathologist: Luis E Palacios MD Specimens: A) - Right Kidney B) - Right Colon 07/05/2024 4:15 PM LEAD QA ANALYST [facility] [employer] LABORATORY-C ENTRAL LABORATORY Final Diagnosis A) KIDNEY, RIGHT, HAND ASSISTED LAPAROSCOPIC RIGHT NEPHRECTOMY 1. Renal oncocytoma (4 cm) 2. Multiple benign cortical cysts 3. Margins are free of neoplasm B) TERMINAL ILEUM, APPENDIX AND RIGHT COLON, RIGHT HEMICOLECTOMY: 1. Adenocarcinoma, low grade (moderately differentiated), characterized by: a. Tumor site: Hepatic flexure b. Tumor size: 6.5 cm c. Tumor extension: pT2 (tumor invades muscularis propria) d. Lymphovascular invasion: Absent e. Perineural invasion: Absent f. Tumor budding: Low score g. Margins negative h. See synoptic section below for complete details 2. Ancillary testing performed on prior biopsy [id number]: a. 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 Positive for BRAF mutation 3. Lymph nodes: Negative for metastatic carcinoma in 65 lymph nodes 4. 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 Appendix: fibrous obliteration of lumen is present 07/05/2024 4:15 PM LEAD QA ANALYST [facility]C ENTRAL LABORATORY Comment Dr. Kodak Terrell has reviewed slides A3-A7 [address] Juan F East has reviewed slides B5-B8. 07/05/2024 4:15 PM LEAD QA ANALYST [employer] LABORATORY-C ENTRAL LABORATORY Clinical Information Colon cancer and renal mass 07/05/2024 4:15 PM LEAD QA ANALYST [facility] ENTRAL LABORATORY Gross Description A) Received fresh, labeled with the patient's name and right kidney, is a 752 g right radical nephrectomy specimen to include a kidney (10.5 x 5.5 x 4.5 cm), with attached ureter (5.5 x 0.4 cm) and attached perinephric fat to a thickness of up to 3 mL cm. The hilar vessel margins appear patent without gross renal vein margin tumor involvement. The margins are trimmed en face as is the ureteral margin. The focally intact Gerota's fascia is inked blue. The perinephric fat is inked black. The kidney is bivalved to reveal a tumor located in the upper pole with the following characteristics: Size: 4 x 3.5 x 2.8 cm Color: brown-canseco with a homogenous appearance Canseco/white change: Absent Cystic change: Absent Necrosis: Absent Intra-tumor hemorrhage: Absent Distance of tumor to margins: Ureter: 8 cm Vascular: 2 cm Hilar soft tissue: 1.3 cm Other: N/A Extent of tumor involvement: Confined to the kidney: Yes Extension through capsule into perinephric fat: No Renal vein: No Renal sinus fat: Yes Major renal calyx: Yes Gerota's fascia: No - 2 cm Additional findings: Other lesions: multiple benign appearing unilocular cysts Cortical thickness: 0.5 cm Ureter and renal pelvis: Grossly unremarkable Adrenal gland present: No Lymph nodes: No Self Propelled Mining Machine Operator sections: 1. Ureteral margin 2. Hilar vessels subjacent to the trimmed staple line 3-4. Tumor with overlying pelvis, renal sinus and adjacent kidney parenchyma 4-5. Tumor with adjacent parenchyma and renal sinus 6. Tumor with renal pyramid 7. Additional pharmacy services representative mass bulging the renal cortex 8. Ureteropelvic junction 9. Gerota's fascia and hilar soft tissue margin perpendicular 10. Lower pole with cyst The specimen is photographed and the images are uploaded. Time and date in formalin: 954 on 07/04/2024 B) Received fresh, labeled with the patient's name and right hemicolectomy is a right hemicolectomy consisting of 8.5 cm long, 2.5 cm diameter terminal ileum, 32 cm long, 4.5 cm diameter right colon with attached appendix, closed by 2 staple lines. The smooth serosa is inked blue. The retroperitoneal margin is inked black. The staple lines are trimmed and the open specimen reveals a fungating tumor, previously injected tattoo ink and 3 sessile polyps in the distal colon. Tumor characteristics: Tumor location: Ascending colon Tumor size: 6.5 x 6 x 2.2 cm Tumor extension: Invades into the bowel wall with possible superficial extension into the pericolonic fat Tumor perforation: Absent Tumor deposits: None identified grossly Distance of tumor from margins: Proximal margin: 17 cm Distal margin: 21 cm Mesenteric margin: 12 cm Retroperitoneal margin: 2 cm Lymph nodes: Lymph nodes found: 59 possible lymph nodes are identified Grossly involved: None identified Additional findings: Other lesions: 3 sessile polyps at the ascending colon between 0.5 and 1.3 cm greatest dimension located 14 cm distal to the tumor, and 5 cm from the closest, distal margin Ileal mucosa: Grossly unremarkable Colonic mucosa: Grossly unremarkable Appendix: Grossly unremarkable, 7 x 0.6 cm Self Propelled Mining Machine Operator sections are submitted as follows: 1. Proximal colon subjacent to trimmed staple line (grossly normal) en face 2. Distal margin (grossly normal) en face 3. Mesenteric vessels subjacent to the trimmed staple line en face 4. Retroperitoneal (posterior soft tissue) margin (perpendicular) 5-7. Tumor with possible extension into the pericolonic fat 8. Tumor with adjacent bowel 9. 2 sessile polyps in toto 10. 1 sessile polyp trisected 11. Appendix with entire bisected tip 12. 7 possible lymph nodes in toto 13. 7 possible lymph nodes in toto 14. 7 possible lymph nodes in toto 15. 6 possible lymph nodes in toto 16. 6 possible lymph nodes in toto 17. 6 possible lymph nodes in toto 18. 6 possible lymph nodes in toto 19. 2 lymph nodes bisected, separately inked blue and red 20-23. 12 lymph nodes bisected, separately inked blue, green and red; 3 lymph nodes per cassette Digital photographs have been uploaded. Placed in formalin at 1053 on 07/04/2024 DPL 07/04/2024 07/05/2024 4:15 PM LEAD QA ANALYST [employer] LABORATORY-C ENTRAL LABORATORY Microscopic Description The final diagnosis is based on microscopic examination of appropriate sections of all specimens. 07/05/2024 4:15 PM LEAD QA ANALYST [employer] LABORATORY-C ENTRAL LABORATORY SYNOPTIC REPORTING COLON AND RECTUM: Resection COLON AND RECTUM: RESECTION - All Specimens 8th Edition - Protocol posted: 08/05/2023 SPECIMEN Procedure: Right hemicolectomy TUMOR Tumor Site: Hepatic flexure Histologic Type: Adenocarcinoma Histologic Grade: G2, moderately differentiated Tumor Size: Greatest dimension (Centimeters): 6.5 cm Additional Dimension (Centimeters): 6 cm Additional Dimension (Centimeters): 2.2 cm Tumor Extent: Invades into muscularis propria Macroscopic Tumor Perforation: Not identified Lymphatic and / or Vascular Invasion: Not identified Perineural Invasion: Not identified Tumor Budding Score: Low (0-4) Type of Polyp in which Invasive Carcinoma Arose: None identified Treatment Effect: No known presurgical therapy MARGINS Margin Status for Invasive Carcinoma: All margins negative for invasive carcinoma Closest Margin(s) to Invasive Carcinoma: Deep: Mesenteric Distance from Invasive Carcinoma to Closest Margin: 2 cm Distance from Invasive Carcinoma to Distal Margin: 21 cm Margin Status for Non-Invasive Tumor: Not applicable REGIONAL LYMPH NODES Regional Lymph Node Status: : All regional lymph nodes negative for tumor Number of Lymph Nodes Examined: 65 Tumor Deposits: Not identified pTNM CLASSIFICATION (AJCC 8th Edition) Reporting of pT, pN, and (when applicable) pM categories is based on information available to the pathologist at the time the report is issued. As per the AJCC (Chapter 1, 8th Ed.) it is the managing physician s responsibility to establish the final pathologic stage based upon all pertinent information, including but potentially not limited to this pathology report. pT Category: pT2 pN Category: pN0 Comment(s): Best block for potential ancillary testing: B6 07/05/2024 4:15 PM LEAD QA ANALYST [facility] Additional Information [facility] - [address] [address] 07/05/2024 4:15 PM LEAD QA ANALYST [facility] LABORATORY Tissue (Right Kidney) 07/04/2024 9:45 AM LEAD QA ANALYST 07/04/2024 9:54 AM LEAD QA ANALYST Tissue specimen (specimen) (Right Colon) 07/04/2024 9:45 AM LEAD QA ANALYST 07/04/2024 10:44 AM LEAD QA ANALYST Nicola Dillon MD PATHOLOGY/CYTOLOGY Final Result [facility] [address] [place] [address], * IV Start (07/04/2024 8:40 AM LEAD QA ANALYST) Narrative Anai Perdomo CRNA Student - 07/05/2024 6:33 AM LEAD QA ANALYST Anai Perdomo CRNA Student 07/04/2024 8:41 AM IV Start Patient location during procedure: OR PIV Site was prepped per hospital policy Laterality: right Needle Size: 18 G Site: wrist Insertion Technique: anatomical landmarks Supplies Used: extension set Tyler Mckoy MD ANESTHESIA PX NOTE ORDERABLES Final Result * ETT (07/04/2024 8:38 AM LEAD QA ANALYST) Narrative Anai Perdomo CRNA Student - 07/04/2024 8:38 AM LEAD QA ANALYST Anai Perdomo CRNA Student 07/04/2024 8:40 AM Procedure: ETT Patient location during procedure: OR ETT Properties Mask Ventilation: oral airway and difficult Final Technique: direct laryngoscopy and cricoid pressure Type: straight Location: oral Cuffed: yes Tube Size: 8.0 mm Stylet: yes Laryngoscope Blade: Jay Blade Size: 2 Cormack-Lehane Grade View: 2 Insertion Attempts: 1 Placement Verification: auscultation, end tidal CO2 and symmetrical chest wall movement Assessment: pharynx clear, atraumatic and dentition unchanged Secured at: 23 Measured From: lips Tooth guard used and removed: yes Difficulty: 1 (somewhat) Difficulty Comment: anterior glottis and limited neck mobility Notes: DLx1 with MAC 3 and Jay 2 by NANCY. DLx1 with Jay 2 by TERRI with successful intubation attempt x1. us Tyler Mckoy MD ANESTHESIA PX NOTE ORDERABLES Final Result * Type and Screen (07/04/2024 7:37 AM LEAD QA ANALYST) Pathologist [facility] ABORH A Rh Positive 07/04/2024 8:42 AM LEAD QA ANALYST [facility] [employer] LAB-CENTRAL LAB BLOOD BANK ANTIBODY SCREEN Negative Negative 07/04/2024 8:42 AM LEAD QA ANALYST [facility] LAB-CENTRAL LAB BLOOD BANK SPECIMEN EXPIRATION DATE/TIME 07/07/24 23:59 07/04/2024 8:42 AM LEAD QA ANALYST [facility] LAB-CENTRAL LAB BLOOD BANK Blood BLOOD SPECIMEN / Unknown Venipuncture / Unknown 07/04/2024 7:37 AM LEAD QA ANALYST 07/04/2024 7:48 AM LEAD QA ANALYST Norma REECE BLOOD BANK Final Resu lt [facility] LAB-CENTRAL LAB BLOOD BANK [address] [place] [address], * SCAN-CARDIAC STRIP (07/04/2024 12:00 AM LEAD QA ANALYST) Narrative 07/04/2024 12:00 AM LEAD QA ANALYST Ordered by an unspecified provider. us Other Clinical Staff OTHER Final Resul t * HEMOGLOBIN (06/22/2024 10:29 AM CDT) HEMOGLOBIN 13.3 13.2 - 17.1 g/dL [employer] Blood BLOOD SPECIMEN / Unknown 06/22/2024 10:29 AM CDT 06/22/2024 10:29 AM CDT Fazal Perez MD HEMATOLOGY Final Result 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
--- OUTSIDE RECORDS SUMMARY | 2024-08-28 10:33 | XMS_ITS | Continuity of Care Document ---
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
[2024-08-28 11:33] VITALS: BP 157/78; PULSE 58; RESP 16; TEMP 36.9; O2SAT 98; BMI 27.1
--- OUTSIDE RECORDS SUMMARY | 2024-08-28 11:56 | XMS_ITS | Clinical Summary ---
Author Organization [facility] Address [place], [place] [address] Care Team Providers Care Svp Programmatic Tv Name Role Phone Juwan Avery MD Primary Care Provider [phone] Venkat Elena RN Unavailable [phone] Star Morfin MD Unavailable [phone] SoNicola peralta MD Unavailable [phone] [facility] Allergies No known active allergies Medications VITAMINS A,C,O-OEEN-ZKREQZ (OCUVITE PRESERVISION) 7,[id number] jsai-mq-ibda tablet Take 2 Tablets by mouth two [...] 17 days. 34 Tablet 4 4:32 PM R[facility]ER [employer] [employer]ARD 07/15/20 024 Active Problems Problem Noted Date [...] Department Care Team Description 08/23/2024 2:15 PM [facility] Orders Only [facility] [address] [facility] [address] [facility], [place] [facility] 08/23/2024 Travel 08/15/2024 8:45 AM [facility] [employer] Home Care Visit [facility] [address] [place] [address] Bruce Nunes, PT PT - OASIS DISCHARGE 08/10/2024 8:45 AM [facility] [employer] Home Care Visit [facility] [address] [place] [address] Bruce Nunes, PT PT - HOME VISIT 08/05/2024 8:45 AM [facility] [employer] Home Care Visit [facility] [address] [place] [phone] Bruce Nunes, PT PT - HOME VISIT 08/05/2024 Travel 08/02/2024 9:00 AM [employer] [employer] [employer] Home Care Visit [facility] [address] [place] [phone] Bruce Nunes, PT PT - HOME VISIT 08/02/2024 Travel 07/29/2024 9:00 AM [employer] [employer] [employer] Home Care Visit [facility] [address] [place] [address] Bruce Nunes, PT PT - HOME VISIT 07/27/2024 9:00 AM [employer] [employer] [employer] Home Care Visit [facility] [address] [place] [address] Bruce Nunes, PT PT - HOME VISIT 07/27/2024 Travel 07/26/2024 10:30 AM [employer] [employer] Office Visit [facility] [address] [place] [address] Star Morfin MD Post-op 07/26/[address] [place] [address] [place], [facility] Cancer 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) 07/26/2024 Travel 07/25/[address] [facility] [address] [place] [address] Silvia Palmer, Results 07/22/2024 11:00 AM [employer] [employer] Office Visit [facility] [address] [place] [address] Silvia Palmer, DO Hospital F/U (R hemicolectomy ) 07/22/2024 Travel 07/19/2024 10:30 AM [employer] [employer] [employer] Home Care Visit [facility] [address] [place] [phone] Bruce Nunes, PT PT - OASIS START OF CARE 07/19/2024 Plan of Care Documentation [facility] [address] [place] [phone] 07/19/2024 Patient Outreach [facility] Care Management - Advanced Care Team [address] [place] [address] Gabi Kennedy, MATRIX BATH ATTENDANT Complex Care Management (CCM Engagement Outreach) 07/19/2024 Travel 07/18/[address] 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 Student 07/04/2024 7:30 AM [facility] [employer]ARD - 07/04/2024 1:27 PM [employer] [employer] Surgery [facility] [address] [place] [address] Star Morfin MD LAPAROSCOPIC RIGHT HEMICOLECTOMY 07/04/2024 6:35 AM [employer] - 07/15/2024 5:16 PM R[employer]ER [employer] BOARD Hospital Encounter [facility] [address] [place] [phone] Star Morfin MD 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 [address] [place] [address] Urinary Problem (Leaking doll cath leg bag) 07/01/2024 Travel 07/01/2024 Telephone [facility] [address] [place] [address] Star Morfin MD pre surgical call 06/29/2024 Telephone [facility] [address] [place] [phone] Star Morfin MD pre op teaching 06/22/2024 9:35 AM CDT Office Visit [facility] [address] [place] [address] Fazal Perez MD Preoperative Exam (07/04/24/ABNW/LAPA ROSCOPIC RIGHT HEMICOLECTOMY & HAND ASSISTED LAPAROSCOPIC RIGHT NEPHRECTOMY /Nicola Dillon MD /Star Morfin MD /); Immunization/Inject ion 06/22/2024 Travel 06/09/2024 Telephone [facility] [address] [place] [phone] Norma Francisco PA Abstract (Pt has no known allergies- confirmed ) from Last 3 Months Immunizations Name Administration Dates Next Due COVID-19 VACCINE SPIKEVAX (M ODERNA 50MCG/0.5ML) 12YO+ PFS 06/22/2024 COVID-19 vaccine (Comeks-Bio NTech 30mcg/0.3mL) [place] RABAGO 07/08/2021,10/27/2020,10/06/2020 Influenza A [...] pur e alcohol) one beer every night [facility] Utilities Answer Date Recorded Do you [...] on file Legal Sex Male 7:00 AM [employer] [employer] Gender Identity Not on file Sexual Orientation Not on file Occupation Industry Job Start Date Job End Date retired Not on file Not on file Not on file Obstetrics History Last Filed Vital Signs Vital Sign Reading Time Taken Comments Blood Pressure 128/64 08/15/2024 9:37 AM [facility] [employer]ARD Pulse 52 08/15/2024 9:37 AM [employer] [employer] Temperature 37.3 C (99.1 F) 08/15/2024 9:37 AM [employer] [employer]ARD Respiratory Rate 18 08/15/2024 9:37 AM [employer] [employer] BOARD Oxygen Saturation 98% 08/15/2024 9:37 AM [employer] [employer]ARD Inhaled Oxygen Concentration - - Weight 88.2 kg (194 lb 8 oz) 07/26/2024 10:24 AM [facility] BOARD Height 177.8 cm (5' 10) 07/26/2024 10:24 AM [facility] BOARD Body Mass Index 27.91 07/26/2024 10:24 AM R[employer]ER [facility] BOARD Plan of Treatment Upcoming Encounters Date Type Department Care Team (Late st Contact Info) Description 08/30/2024 3:00 PM [employer] [employer]ARD Office Visit [facility] Cancer [place] [address] [place] [phone] Marquita Omer MD [address] [facility] [place] [place] [address] Health Maintenance Due Date Last Done Comments [...] NO DIFF Routine 08/23/2024 2:1 3 PM [employer] [employer]ARD Anemia due to acute blood loss BASIC METABOLIC PANEL Routine 08/23/2024 2:13 PM [employer] [employer] [employer]ARD SUNG (acute kidney injury) (HC) CBC WITH AUTO DIFFERENTIAL Routine 07/22/2024 11:28 AM [employer] [employer] [employer] Hospital discharge follow-up Anemia due to acute blood loss BASIC METABOLIC PANEL Routine 07/22/2024 11:28 AM [employer] [employer] [employer] Hospital discharge follow-up BASIC METABOLIC PANEL Early AM 07/14/2024 5:22 AM [employer] [employer]ARD CBC W PLT NO DIFF Early AM 07/14/2024 5:2 2 AM [employer] [employer]ARD XR ABDOMEN 1 VIEW PORTABLE Routine 07/13/2024 8:[address] ABDOMEN PELVIS WO BILLY 07/12/2024 1:30 PM [employer]ARD XR ABDOMEN 1 VIEW PORTABLE Routine 07/12/2024 9:19 AM R[employer] BOARD CBC W PLT NO DIFF Early AM 07/12/2024 4:4 7 AM [employer]ARD BASIC METABOLIC PANEL Early AM 07/12/2024 4:47 AM [employer]ARD XR ABDOMEN 1 VIEW PORTABLE Routine 07/11/2024 9:36 AM R[employer] BOARD CBC W PLT NO DIFF Early AM 07/11/2024 5:0 4 AM [employer] [employer]ARD BASIC METABOLIC PANEL Early AM 07/11/2024 5:04 AM [employer]ARD LACTATE VENOUS Early AM 07/10/2024 5:57 AM [employer] [employer]ARD CBC W PLT NO DIFF Early AM 07/10/2024 5:5 7 AM [employer]ARD BASIC METABOLIC PANEL Early AM 07/10/2024 5:57 AM [employer] [employer]ARD CBC WITH AUTO DIFFERENTIAL Timed 07/09/2024 1:29 PM [facility] [employer]ARD LACTATE VENOUS STAT 07/09/2024 1:29 PM [employer] [employer] BOARD BASIC METABOLIC PANEL Today 07/09/2024 1:29 PM [employer] [employer]ARD CBC WITH AUTO DIFFERENTIAL Timed 07/09/2024 1:29 PM [employer] [employer]ARD LACTATE VENOUS STAT 07/09/2024 11:17 AM [facility] [employer]ARD XR ABDOMEN 1 VIEW PORTABLE STAT 07/09/2024 9:19 AM [facility] [employer] BOARD CBC WITH AUTO DIFFERENTIAL STAT 07/09/2024 9:05 AM [facility] [employer]ARD LACTATE VENOUS STAT 07/09/2024 9:05 AM R[employer] [employer] BOARD CBC WITH AUTO DIFFERENTIAL STAT 07/09/2024 9:05 AM [facility] BOARD BLOOD GAS,VENOUS STAT 07/09/2024 9:05 AM [facility] [employer]ARD GLUCOSE METER Timed 07/09/2024 9:02 AM [employer] [employer]ARD XR CHEST 1 VIEW PORTABLE STAT 07/09/2024 8:44 AM [employer] [employer] BOARD BASIC METABOLIC PANEL Early AM 07/09/2024 4:43 AM [employer]ARD US RENAL LEFT Routine 07/08/2024 3:49 PM [employer] [employer]ARD BASIC METABOLIC PANEL Early AM 07/08/2024 5:47 AM [employer] [employer]ARD CBC W PLT NO DIFF Early AM 07/08/2024 5:4 7 AM [employer] [employer]ARD URINALYSIS MICROSCOPIC Timed 07/07/2024 9:54 AM [employer] [employer] BOARD URINE CULTURE Today 07/07/2024 9:54 AM [employer] [employer]AVE BOARD UA W/ SEDIMENT EXAM REFLEXED PER CRITERIA Today 07/07/2024 9:54 AM R[employer]ER [employer]AVE BOARD BASIC METABOLIC PANEL Early AM 07/07/2024 5:05 AM [employer] [employer] BOARD CBC W PLT NO DIFF Early AM 07/07/2024 5:0 5 AM [employer] BOARD BASIC METABOLIC PANEL Early AM 07/06/2024 6:07 AM [employer] BOARD CBC W PLT NO DIFF Early AM 07/06/2024 6:0 7 AM [employer] [employer] BOARD BASIC METABOLIC PANEL Early AM 07/05/2024 4:12 AM [employer] [employer]ARD CBC W PLT NO DIFF Early AM 07/05/2024 4:1 2 AM [employer] [employer] BOARD GLUCOSE METER Timed 07/04/2024 12:26 PM [employer]ER [employer]AVE BOARD PATH TISSUE EXAM Today 07/04/2024 9:45 AM R[employer]ER [employer]AVE BOARD OR IMAGE CAPTURE Routine 07/04/2024 8:50 AM R[employer]ER [employer] BOARD AHC AN IV START Routine 07/04/2024 8:40 AM R[facility]ER OCTAVE BOARD ENDOTRACHEAL TUBE Routine 07/04/2024 8:3 8 AM [employer] [employer] [employer]ARD TYPE & SCREEN Preop 07/04/2024 7:37 AM [employer] [employer] BOARD LAPAROSCOPIC NEPHRECTOMY HAND ASSISTED Elective 07/04/2024 7:35 AM R[employer]ER OCTAVE BOARD Colon adenocarcinoma (HC) LAPAROSCOPIC SHAYNE COLECTOMY RIGHT Elective 07/04/2024 7:35 AM RACKER OCTAVE BOARD Colon adenocarcinoma (HC) GLUCOSE METER Timed 07/04/2024 7:31 AM [employer] BOARD SCAN-CARDIAC STRIP 07/04/2024 12 :00 AM R[employer]ER [employer]AVE BOARD BASIC METABOLIC PANEL Routine 06/22/2024 10:29 AM CDT Pre-op evaluation Unspecified essential hypertension HEMOGLOBIN Routine 06/22/2024 10:29 AM CDT Pre-op evaluation Malignant neoplasm of transverse colon (HC) Renal mass from Last 3 Months Results * (ABNORMAL) CBC W PLT NO DIFF (08/23/2024 2:13 PM RACKER OCTAVE BOARD) Only the most recent of9 resultswithin the time period is included. WHITE BLOOD CELL COUNT 9.9 3.8 - 10.8 Thousand/u L [facility] RED BLOOD CELL COUNT 4.42 4.20 - 5.80 Million/uL [facility] HEMOGLOBIN 12.6(L) 13.2 - 17.1 g/dL [facility] HEMATOCRIT 39.6 38.5 - 50.0 % [facility] MCV 89.6 80.0 - 100.0 fL [facility] MCH 28.5 27.0 - 33.0 pg [facility] MCHC 31.8(L) 32.0 - 36.0 g/dL [facility] Comment: For adults, a slight decrease in the calculated MCHC value (in the range of 30 to 32 g/dL) is most likely not clinically significant; however, it should be interpreted with caution in correlation with other red cell parameters and the patient's clinical condition. RDW 14.5 11.0 - 15.0 % [facility] PLATELET COUNT 156 140 - 400 Thousand/u L [facility] MPV 11.5 7.5 - 12.5 fL [facility] Blood BLOOD SPECIMEN / Unknown 08/23/2024 2:13 PM [facility] [employer] BOARD 08/23/2024 2:13 PM [employer] [employer] BOARD us Silvia Palmer DO HEMATOLOGY Final Result [facility] [address] [place] [address], [facility] [address] [place] [address] * (ABNORMAL) BASIC METABOLIC PANEL (08/23/2024 2:13 PM R[employer] [employer] BOARD) Only the most recent of13 resultswithin the time period is included. Pathologist [facility] GLUCOSE 91 65 - 99 mg/dL [facility] [...] CALCIUM 9.2 8.6 - 10.3 mg/dL [facility] Blood BLOOD SPECIMEN / Unknown 08/23/2024 2:13 PM [facility] [employer] [employer]ARD 08/23/2024 2:13 PM [facility] [employer] us Silvia Palmer DO CHEMISTRY Final Result [facility] [address] [place] [address], [facility] [address] [place] [address] * (ABNORMAL) CBC AND DIFFERENTIAL (07/22/2024 11:28 AM R[employer] [employer] BOARD) WHITE BLOOD CELL COUNT 8.5 3.8 - 10.8 Thousand/u L [facility] RED BLOOD CELL COUNT 4.45 4.20 - 5.80 Million/uL [facility] HEMOGLOBIN 12.3(L) 13.2 - 17.1 g/dL [facility] HEMATOCRIT 39.5 38.5 - 50.0 % [facility] MCV 88.8 80.0 - 100.0 fL [facility] MCH 27.6 27.0 - [...] BLOOD SPECIMEN / Unknown 07/22/2024 11:28 AM [facility] [employer] BOARD 07/22/2024 11:28 AM [employer] us Silvia Palmer DO HEMATOLOGY Final Result [facility] [address] [place] [address], [facility] [address] [place] [address] * XR ABDOMEN 1 VIEW PORTABLE (07/13/2024 8:03 AM R[facility]ER [employer]AVE BOARD) Only the most recent of4 resultswithin the time period is included. Anatomical Region Laterality Modality Abdomen Digital Radiogra phy 07/13/2024 9:03 AM R[facility] [employer] BOARD Narrative 07/13/2024 9:03 AM R[employer]ER OCTAVE BOARD For Patients: As a result of the [...] @ Jul 13 2024 9:03AM (Electronically Signed) [email or web address] Procedure Note Nayely Abdul MD - 07/13/2024 [...] @ Jul 13 2024 9:03AM (Electronically Signed) [email or web address] us Oksana REECE GENERAL IMAGING Final Result * CT ABDOMEN PELVIS WO (07/12/2024 1:30 PM RACKER [employer]AVE BOARD) Anatomical Region Laterality Modality Abdomen, Pelvis, AORTA, LIVER, SPLEEN Computed Tomography 07/12/2024 4:56 PM [employer]ER [employer] BOARD Narrative 07/12/2024 4:56 PM [employer] BOARD For Patients: As a result of the [...] @ 07/12/2024 4:56:17 PM (Electronically Signed) us Oskana REECE CT Final Result * LACTATE VENOUS (07/10/2024 5:57 AM R[facility] [employer] BOARD) Only the most recent of4 resultswithin the time period is included. LACTATE,VENOUS 1.2 0.5 - 2.0 mmol/L 07/10/2024 6:35 AM [facility] [employer] BOARD [facility] [employer] [facility] Blood BLOOD SPECIMEN / Unknown Venipuncture / Unknown 07/10/2024 5:57 AM [facility]ARD 07/10/2024 6:14 AM [employer] us Alphonso Esteban RN CHEMISTRY Final Result [facility] [address] [place] [address], [place] * (ABNORMAL) CBC WITH AUTO DIFFERENTIAL (07/09/2024 1:29 PM R[facility]ER [employer]AVE BOARD) Only the most recent of2 resultswithin the time period is included. WHITE BLOOD COUNT 15.8(H) 4.5 - 11.0 thou/cu mm 07/09/2024 1:55 PM [facility] RED BLOOD COUNT 4.86 4.30 - 5.90 mil/cu mm 07/09/2024 1:55 PM [facility] HEMOGLOBIN 12.8(L) 13.5 - 17.5 g/dL 07/09/2024 1:55 PM [facility] HEMATOCRIT 40.8 37.0 - 53.0 % 07/09/2024 1:55 PM [facility] MCV 84 80 - 100 fL 07/09/2024 1:55 PM [facility] MCH 26.3 26.0 - 34.0 pg 07/09/2024 1:55 PM [facility] MCHC 31.4(L) 32.0 - 36.0 g/dL 07/09/2024 1:55 PM [facility] RDW 16.2(H) 11.5 - 15.5 % 07/09/2024 1:55 PM [facility] PLATELET COUNT 226 140 - 440 thou/cu mm 07/09/2024 1:55 PM [facility] MPV 10.7 6.5 - 11.0 fL 07/09/2024 1:55 PM [facility] NRBC 0.0 % 07/09/2024 1:55 PM [facility] ABS NRBC 0.0 thou /cu mm 07/09/2024 1:55 PM [facility] % NEUT 79.7 % 07/09/2024 1:55 PM [facility] % LYMPH 9.8 % 07/09/2024 1:55 PM [facility] % MONO 9.9 % 07/09/2024 1:55 PM [facility] % EOS 0.1 % 07/09/2024 1:55 PM [facility] % BASO 0.1 % 07/09/2024 1:55 PM [facility] [employer] [employer] % IMMATURE GRAN (METAS,MYELOS,TN OS) 0.4 % 07/09/2024 1:55 PM [facility] [employer] [employer]ARD [facility] ABSOLUTE NEUTROPHILS 12.6(H) 1.7 - 7.0 thou/cu mm 07/09/2024 1:55 PM [facility] [employer]ARD [facility] ABSOLUTE LYMPHOCYTES 1.5 0.9 - 2.9 thou/cu mm 07/09/2024 1:55 PM [facility] [employer]ARD [facility] ABSOLUTE MONOCYTES 1.6(H) <0.9 thou/cu mm 07/09/2024 1:55 PM [facility] [employer] ABSOLUTE EOSINOPHILS 0.0 <0.5 thou/cu mm 07/09/2024 1:55 PM [facility] [employer] [facility] ABSOLUTE BASOPHILS 0.0 <0.3 thou/cu mm 07/09/2024 1:55 PM [facility] [employer] [employer]ARD [facility] ABSOLUTE IMMATURE GRANULOCYTES(MET ,MYELOS,PROS) 0.1 <0.3 thou/cu mm 07/09/2024 1:55 PM [facility] Blood BLOOD SPECIMEN / Unknown Butterfly / Unknown 07/09/2024 1:29 PM [facility] [employer] [employer]ARD 07/09/2024 1:49 PM [facility] us Radha REECE HEMATOLOGY Final Result [facility] [address] [place] [address], * (ABNORMAL) BLOOD GAS,VENOUS (07/09/2024 9:05 AM R[facility]ER [employer] BOARD) PH, VENOUS 7.35 7.32 - 7.43 07/09/2024 9:21 AM [facility] PCO2, VENOUS 39(L) 41 - 51 mmHg 07/09/2024 9:21 AM [facility] [employer] [employer]ARD [facility] PO2, VENOUS 61(H) 35 - 40 mmHg 07/09/2024 9:[address] [facility] HCO3,VENOUS 22 22 - 29 mmol/L 07/09/2024 9:[address] [facility] BASE EXCESS, VENOUS, POCT -3.8(L) -2.0 - 3.0 07/09/2024 9:[address] [facility] O2 SATURATION, VENOUS 90(H) 70 - 75 % 07/09/2024 9:[address] [facility] PATIENT TEMPERATURE 37.0 Degrees C 07/09/2024 9:[address] [facility] Blood VENOUS BLOOD SPECIMEN / Unknown Non-Lab Venipuncture / Unknown 07/09/2024 9:05 AM [facility] [employer] 07/09/2024 9:15 AM [employer] [employer] [employer] us Alphonso Esteban RN CHEMISTRY Final Result Performing Organization Address City/[facility]/ZIP Co de Phone Number [facility] [address] [address], [place] * (ABNORMAL) GLUCOSE METER (07/09/2024 9:02 AM RACKER [employer]AVE BOARD) Only the most recent of3 resultswithin the time period is included. [facility] Signature GLUCOSE METER 177(H) 65 - 100 mg/dL 07/09/2024 9:07 AM [facility] BOARD [facility] Blood BLOOD SPECIMEN / Unknown 07/09/2024 9:02 AM [employer]ARD 07/09/2024 9:07 AM [employer] us Star Morfin MD CHEMISTRY Final Re sult [facility] [address] [place] [address], [place] * XR Chest 1 View Portable - FRONT WORKER (07/09/2024 8:44 AM R[facility] [employer]) Anatomical Region Laterality Modality HEART, THORAX, CHEST Digital Rad iography 07/09/2024 9:28 AM [employer] [employer]ARD Narrative 07/09/2024 9:28 AM [employer] [employer] For Patients: As a result of the [...] @ Jul 09 2024 9:28AM (Electronically Signed) [email or web address] Procedure Note Jennifer Salter MD - 07/09/2024 [...] @ Jul 09 2024 9:28AM (Electronically Signed) [email or web address] us Alphonso Esteban RN GENERAL IMAGING Final Result * US RENAL LEFT LIMITED (07/08/2024 3:49 PM R[employer]ER [employer] BOARD) Anatomical Region Laterality Modality KIDNEY L, KIDNEYS Ultrasound 07/08/2024 6:07 PM [employer] [employer] Impressions 07/08/2024 6:07 PM [employer] 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 No hydronephrosis or other acute source for renal failure demonstrated in the remaining left kidney. Dictated by Pierre Zepeda MD @ 07/08/2024 6:07:34 PM (Electronically Signed) Narrative 07/08/2024 6:07 PM [employer] [employer] For Patients: As a result of the [...] * (ABNORMAL) URINALYSIS MICROSCOPIC (07/07/2024 9:54 AM RACKER [employer] BOARD) RBC 3-5(A) 0-2, None Seen /HPF 07/07/2024 10:18 AM [employer] [employer] [facility] WBC 26-50(A) 0-2, 3-5, None Seen /HPF 07/07/2024 10:18 AM [facility] [employer] BACTERIA None Seen None Seen, Rare, Few Bacteria/ HPF 07/07/2024 10:18 AM [facility] [employer] EPITHELIAL CELLS None Seen None Seen, Few Epi/HPF 07/07/2024 10:18 AM [facility] [employer] [facility] HYALINE CASTS 11-25(A) 0-2, 3-5 /LPF 07/07/2024 10:18 AM [facility] Urine URINE SPECIMEN / Unknown Non-Blood / Unknown 07/07/2024 9:54 AM [employer] [employer]ARD 07/07/2024 10:09 AM [facility] [employer] Emilie REECE URINE Fin al Result Performing Organization Address City/[facility]/ZIP Co de Phone Number [facility] [address] [address], [place] * URINE CULTURE (07/07/2024 9:54 AM [facility] [employer]) CULTURE No growth (<1,000 CFU/mL) 07/08/2024 7:40 AM [facility] [employer] Urine URINE SPECIMEN / Unknown Non-Blood / Unknown 07/07/2024 9:54 AM [employer] [employer]ARD 07/07/2024 10:09 AM [facility] [employer] [employer] Emilie REECE MICROBIOLOGY Fin al Result Performing Organization Address City/[facility]/ZIP Co de Phone Number [facility] [address] [address], [place] * (ABNORMAL) UA W/ SEDIMENT EXAM REFLEXED PER CRITERIA (07/07/2024 9:54 AM R[facility]ER [facility] BOARD) COLOR Yellow Yellow Color 07/07/2024 10:18 AM [facility]ARD [facility] [employer] LABORATORY- [facility] CLARITY Clear Clear Clarity 07/07/2024 10:18 AM [facility]ARD [facility] SPECIFIC GRAVITY,URINE 1.010 1.010, 1.015, 1.020, 1.025 07/07/2024 10:18 AM [facility] PH,URINE 5.5 6.0, 7.0, 8.0, 5.5, 6.5, 7.5, 8.5 07/07/2024 10:18 AM [facility] UROBILINOGEN, QUALITATIVE Normal Normal EU/dl 07/07/2024 10:18 AM [facility] PROTEIN, URINE Trace(A) Negative mg/dL 07/07/2024 10:18 AM [facility] [employer] [employer] GLUCOSE, URINE Negative Negative mg/dL 07/07/2024 10:18 AM [facility] KETONES,URINE Negative Negative mg/dL 07/07/2024 10:18 AM [facility] BILIRUBIN,URI NE Negative Negative 07/07/2024 10:18 AM [facility] OCCULT BLOOD,URINE Moderate(A) Negative 07/07/2024 10:18 AM [facility] NITRITE Negative Negative 07/07/2024 10:18 AM [facility] LEUKOCYTE ESTERASE Moderate(A) Negative 07/07/2024 10:18 AM [facility] Urine URINE SPECIMEN / Unknown Non-Blood / Unknown 07/07/2024 9:54 AM [facility] 07/07/2024 10:09 AM [facility] Emilie REECE URINE Fin al Result [facility] [address] [place] [address], * PATH TISSUE EXAM (07/04/2024 9:45 AM [facility] [employer] [employer]) Case Report Pathology Report Case: [id number] Authorizing Provider: Nicola Dillon MD Collected: 07/04/202445 Ordering Location: [facility] Received: 07/04/2024 0954 [place] [facility] Pathologist: Luis E Palacios MD Specimens: A) - Right Kidney B) - Right Colon 07/05/2024 4:15 PM RACKER OCTAVE BOARD [facility] [employer] LABORATORY-C ENTRAL LABORATORY Final Diagnosis A) KIDNEY, [...] 2. Ancillary testing performed on prior biopsy [id number]: a. 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 Positive for BRAF mutation 3. Lymph nodes: Negative for metastatic carcinoma in 65 lymph nodes 4. 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 Appendix: fibrous obliteration of lumen is present 07/05/2024 4:15 PM RACKER OCTAVE BOARD [email or web address]AL LABORATORY Comment Dr. Kodak Terrell has reviewed slides A3-A7 [address] Juan F East has reviewed slides B5-B8. 07/05/2024 4:15 PM RACKER OCTAVE BOARD [employer] LABORATORY-C ENTRAL LABORATORY Clinical Information Colon cancer and renal mass 07/05/2024 4:15 PM RACKER OCTAVE BOARD [email or web address]-C ENTRAL LABORATORY Gross Description A) Received [...] Adrenal gland present: No Lymph nodes: No Russet Repairer sections: 1. Ureteral margin 2. Hilar vessels subjacent to the trimmed staple line 3-4. Tumor with overlying pelvis, renal sinus and adjacent kidney parenchyma 4-5. Tumor with adjacent parenchyma and renal sinus 6. Tumor with renal pyramid 7. Additional physician representative mass bulging the renal cortex 8. [...] Appendix: Grossly unremarkable, 7 x 0.6 cm Russet Repairer sections are submitted as follows: 1. Proximal [...] on 07/04/2024 DPL 07/04/2024 07/05/2024 4:15 PM RACKER OCTAVE BOARD [employer] LABORATORY-C ENTRAL LABORATORY Microscopic Description The final diagnosis is based on microscopic examination of appropriate sections of all specimens. 07/05/2024 4:15 PM RACKER OCTAVE BOARD [employer] LABORATORY-C ENTRAL LABORATORY SYNOPTIC REPORTING COLON AND [...] potential ancillary testing: B6 07/05/2024 4:15 PM RACKER OCTAVE BOARD [email or web address]C ENTRAL LABORATORY Additional Information Interpreted at [facility] - [address] [address] 07/05/2024 4:15 PM RACKER OCTAVE BOARD [email or web address]-C ENTRAL LABORATORY Tissue (Right Kidney) 07/04/2024 9:45 AM RACKER OCTAVE BOARD 07/04/2024 9:54 AM RACKER OCTAVE BOARD Tissue specimen (specimen) (Right Colon) 07/04/2024 9:45 AM RACKER OCTAVE BOARD 07/04/2024 10:44 AM RACKER OCTAVE BOARD Nicola Dillon MD PATHOLOGY/CYTOLOGY Final Result [email or web address] [address] [place] [address], * IV Start (07/04/2024 8:40 AM RACKER OCTAVE BOARD) Narrative Anai Perdomo CRNA Student - 07/05/2024 6:33 AM RACKER OCTAVE BOARD Anai Perdomo CRNA Student 07/04/2024 8:41 AM IV Start Patient location during procedure: OR PIV Site was prepped per hospital policy Laterality: right Needle Size: 18 G Site: wrist Insertion Technique: anatomical landmarks Supplies Used: extension set Tyler Mckoy MD ANESTHESIA PX NOTE ORDERABLES Final Result * ETT (07/04/2024 8:38 AM RACKER OCTAVE BOARD) Narrative Anai Perdomo CRNA Student - 07/04/2024 8:38 AM RACKER OCTAVE BOARD Anai Perdomo CRNA Student 07/04/2024 8:40 AM [...] * Type and Screen (07/04/2024 7:37 AM RACKER OCTAVE BOARD) Pathologist [facility] ABORH A Rh Positive 07/04/2024 8:42 AM RACKER OCTAVE BOARD [facility] [employer] LAB-CENTRAL LAB BLOOD BANK ANTIBODY SCREEN Negative Negative 07/04/2024 8:42 AM RACKER OCTAVE BOARD [facility] LAB-CENTRAL LAB BLOOD BANK SPECIMEN EXPIRATION DATE/TIME 07/07/24 23:59 07/04/2024 8:42 AM RACKER OCTAVE BOARD [facility] LAB-CENTRAL LAB BLOOD BANK Blood BLOOD SPECIMEN / Unknown Venipuncture / Unknown 07/04/2024 7:37 AM RACKER OCTAVE BOARD 07/04/2024 7:48 AM RACKER OCTAVE BOARD Norma REECE BLOOD BANK Final Resu lt [facility] LAB-CENTRAL LAB BLOOD BANK [address] [place] [address], * SCAN-CARDIAC STRIP (07/04/2024 12:00 AM RACKER OCTAVE BOARD) Narrative 07/04/2024 12:00 AM RACKER OCTAVE BOARD Ordered by an unspecified provider. us Other Clinical Staff OTHER Final Resul t * HEMOGLOBIN (06/22/2024 10:29 AM CDT) HEMOGLOBIN 13.3 13.2 - 17.1 g/dL [facility]-Harrison Johnson Blood BLOOD SPECIMEN / Unknown 06/22/2024 10:29 AM CDT 06/22/2024 10:29 AM CDT Fazal Perez MD HEMATOLOGY Final Result [facility] [address] [facility] [facility] [place] [address], [facility]ostics[facility] Johnson [address] [place] [address] from Last 3 Months Insurance [employer] MEDICARE ADVANTAGE MR MEDICARE PART A HB ONLY HC [employer] MEDICARE PDGM WORKERS COMP Advance Directives * Full Code (Latest Code Status on File) Date Activated Date Inactivated Comments 07/04/2024 6:49 AM 07/15/2024 7:21 PM Question Answer Comments Code Status Discussion: Reviewed Preferences Care Teams Svp Programmatic Tv Relationship Specialty Start Date End Date Juwan Avery MD [address] [place] [address] PCP - General Family Practice 11/12/22 Venkat Elena, RN [address] [address] Nurse Navigator - Oncology Registered Nurse 04/26/24 Star Morfin MD [address] [place] [address] Surgery - General 04/26/24 Nicola Dillon MD [address] [place] [address] Surgery - Urology 05/03/24 Akila Markham, RN [address] [place] [address] Nurse Navigator - Oncology Registered Nurse 07/28/24
--- OUTSIDE RECORDS SUMMARY | 2024-08-28 11:56 | XMS_ITS | Continuity of Care Document ---
Author Name NwHIN User [email or web address] llowed Address Unknown Organization Unknown Address Unknown Encounters FILTER APPLIED:Only known Encounters with Admission Date within the last 5 years Encounter Location Admission Discharge Billing Code Gis Professor Attender Inpatient [facility] RHINA CARDONA
== END 2024-08-28 12:00 | disposition left against medical advice (07) ==
LOC: ED 11:55
PROVIDERS: PCP Family Medicine
DX: Z53.21 Procedure and treatment not carried out due to patient leaving prior to being seen by health care provider (principal)

== ENCOUNTER 2024-09-05 17:24 | Emergency (ER) | payer MEDICARE, SELFPAY ==
--- OUTSIDE RECORDS SUMMARY | 2024-09-05 17:27 | XMS_ITS | Data Portability ---
Author Organization [place] [facility] Address [address] [place] [address] Assessment No assessment recorded. Plan of Treatment Reminders Order Date Submit Date Provider Last Modified By Organization Details Last Modified Time Details Appointments None recorded . Lab None recorded . Referral None recorded . Procedures urodynam ic testing, complex (PROC) 2023 024 [email or web address] Not available 4 07:49:35 vascular emboliza tion or occlusio n; for tumors, organ ischemia , or infarcti on (PROC) - 184cc prostate on office ultrasou nd 2023 024 kaveh [facility], [address], [address], [place], [address], 5 08:15:21 Surgeries nephrect loretta, hand assisted laparosc opic (SURG) 2023 024 [email or web address] Not available 4 09:18:50 Imaging None recorded . Medication Orders None recorded . Patient TargetsNo targets recorded. Patient Instructions Encounter Date Encounter Id Patient Instructions Last Modified By Organization Details Last Modified Time 03/04/2024 [id number] failed TOV again , discussed conventional TURP SHANTELLE Not available 03/04/2024 15:52:55 06/13/2024 [id number] 35 minutes spent with patient and reviewing chart [email or web address] Not available 07/11/2024 10:10:09 Reason for Referral None Reported. Results Created Date Observation Date Name Description Value Unit Range Abnormal Flag Note LastModifiedBy Organization Detail LastModifiedTime 04/13/[address], abdom en + pelvi s, w/ contr ast No observ ation record ed. [email or web address] Not Available 03/26 09:39:06 04/26/20 24 04/06/2024 CT, chest + abdom en + pelvi s, w/ contr ast No observ ation record ed. [email or web address] Not Available 2023 14:08:46 Result Notes None recorded. Problems Name Problem SNOMED Code Status Onset Date Resolution Date Notes Provider Name and Address Organization Details Recorded Time Acute retention of urine 958583658 Active 024 Luda Watson PA-C [address], [place], [address], [facility] 4 11:29:06 Retention of urine 917437410 Active 024 Edmar Vaughn MD [address], [place], [address], [facility] 4 11:33:59 Problem Notes None recorded. Procedures Surgical History Date Name Laterality Status Provider Name and Address Organization Details Recorded Time 08/18/20 24 Urethral Catheter Change completed Genet Álvarez [facility] 08/19/2024 15:14:03 08/18/20 24 TRUS- Volume size only completed Nicola Dillon MD [address] [place] [address],[address], [place], [address], [facility] 08/18/2024 15:08:20 07/04/20 24 NEPHRECTOMY, HAND ASSISTED LAPAROSCOPIC (SURG) completed Reena Paez [facility] 07/07/2024 09:40:04 06/13/20 24 COMPLEX VISIT completed Nicola Dillon MD [address] [place] [address],[address], [place], [address], [facility] 07/01/2024 13:18:31 05/27/20 24 Urodynamic Studies completed Garrett Vazquez [facility] 05/16/2024 17:20:05 05/27/20 24 BRAVO CHANGE completed Akila Mccall [facility] 05/27/2024 11:54:40 04/28/20 24 COMPLEX VISIT completed Nicola Dillon MD [address] [place] [address],[address], [place], [address], [facility] 04/28/2024 14:39:20 04/28/20 24 BRAVO CHANGE completed Nicola Dillon MD [address], [place], [address], [facility] 04/28/2024 14:39:08 03/04/20 24 Cystoscopy- male completed Edmar Vaughn MD [address] [place] [address],[address], [place], [address], [facility] 03/04/2024 14:49:59 03/04/20 24 Bravo Catheter Insertion completed Trey Cabral [facility] 03/04/2024 15:44:20 03/04/20 24 Cipro post Cysto completed Trey Cabral [facility] 02/24/2024 14:58:47 03/04/20 24 Fill and Pull/Voiding Trial/TOV completed Trey Cabral [facility] 03/04/2024 15:44:41 02/12/20 24 Bravo Catheter Insertion completed Edmar Vaughn MD [address] [place] [address],[address], [place], [address], [facility] 02/12/2024 11:53:15 02/12/20 24 Fill and Pull/Voiding Trial/TOV completed Edmar Vaughn MD [address] [place] [address],[address], [place], [address], [facility] 02/12/2024 11:28:34 02/10/20 24 Bravo Catheter Insertion completed Concetta Zapata [facility] 02/10/2024 14:26:17 02/10/20 24 Fill and Pull/Voiding Trial/TOV completed Concetta Zapata [facility] 02/10/2024 14:25:24 02/03/20 24 Bravo Catheter Insertion completed Franko magaña [facility] 02/03/2024 12:10:15 02/03/20 24 Fill and Pull/Voiding Trial/TOV completed Luda Watson PA-C [address] [place] [address],[address], [place], [address], [facility] 02/03/2024 11:16:06 Imaging Results Imaging Date Name [...] Updated DateTime 03/04/2024 180.34 cm 30.7 kg/m2 12902.32 g Edmar Vaughn MD [address] [facility],[address], [address] 03/04/2024 14:26:29 Date Recorded Body height Provider Name an d Address Organization Details Last Updated DateTime 04/28/2024 180.34 cm Nicola Dillon MD [address],[facility] [address], [place], [address] 04/28/2024 14:01:24 Date Recorded Body height Provider Name an d Address Organization Details Last Updated DateTime 05/27/2024 180.34 cm Akila Cal [facility] 05/27/2024 11:54:17 Date Recorded Body height Provider Name an d Address Organization Details Last Updated DateTime 06/13/2024 180.34 cm Alma Delia Casey [facility] 06/13/2024 13:46:21 Date Recorded Body height Body mass index (BMI) Body weight Provider Name and Address Organization Details Last Updated DateTime 08/18/2024 180.34 cm 27.9 kg/m2 03854.47 g Genet Henri [facility] 08/18/2024 14:24:16 Social History Question Answer Notes LastModified by Organizat ion Details LastModified Time Tobacco Smoking Status Former Smoker [facility] 02/03/2024 10:40:30 What Is [...] Been Counseled For Unhealthy Alcohol Use? No [email or web address] Information not available 02/12/2024 Do You Use Any Illicit Or Recreational Drugs? No Information not available 02/03/2024 Has Tobacco Cessation Counseling Been Provided? No [email or web address] Information not available 02/12/2024 Do You Or Have You Ever Used Any Other Forms Of Tobacco Or Nicotine? No [email or web address] Information not available 02/12/2024 How Many Days In The Past Year Have You Consumed 5 Or More Drinks? 0 [email or web address] Information not available 02/12/2024 Sex: Unknown Functional Status None recorded. Mental Status None recorded. Family History Relationship Description Onset Age of this Age Resolved Age Notes LastModified by Organization Details LastModified Time Father No current problems or disability [email or web address] Not available 02/21 14:27:02 Mother No current problems or disability [email or web address] Not available 02/21 14:27:03 Notes:brain cancer-cancer sp ouse-stomach cancer Medical History Condition Response Kidney Stones Y Immunizations Vaccine Type Date Status Note Provider Nam e and Address Organization Details Recorded Time Influenza, adjuvanted, trivalent, PF 9 completed Miletzi Arvizu-Bouchra ro null, [facility] 02/03/2024 10:37:30 Influenza, adjuvanted, trivalent, PF 8 completed Miletzi Arvizu-Bouchra ro null, [facility] 02/03/2024 10:37:30 Influenza, adjuvanted, trivalent, PF 0 completed Miletzi Arvizu-Bouchra ro null, [facility] 02/03/2024 10:37:30 zoster recombinant 4 completed Miletzi Avrizu-[place] ro null, [facility] 02/03/2024 10:37:30 Influenza, high-dose, quadrivalent, PF 3 completed Miletzi Arvizu-Bouchra ro null, [facility] 02/03/2024 10:37:30 Influenza, high-dose, quadrivalent, PF 2 completed Miletzi Arvizu-[place] ro null, [facility] 02/03/2024 10:37:30 Influenza, adjuvanted, quadrivalent, PF 1 completed Miletzi Arvizu-Bouchra ro null, [facility] 02/03/2024 10:37:30 COVID-19, mRNA, LNP-S, PF, 30 mcg/0.3 mL dose 1 completed Miletzi Arvizu-Bouchra ro null, [facility] 02/03/2024 10:37:30 COVID-19, mRNA, LNP-S, PF, 30 mcg/0.3 mL dose 1 completed Miletzi Arvizu-Bouchra ro null, [facility] 02/03/2024 10:37:30 COVID-19, mRNA, LNP-S, PF, 30 mcg/0.3 mL dose 1 completed Miletzi Arvizu-[place] ro null, [facility] 02/03/2024 10:37:30 COVID-19, mRNA, LNP-S, PF, 30 mcg/0.3 mL dose, gillian-sucrose 2 completed Miletzi Arvizu-Bouchra ro null, [facility] 02/03/2024 10:37:30 COVID-19, mRNA, LNP-S, bivalent, PF, 30 mcg/0.3 mL dose 2 completed Miletzi Arvizu-Bouchra ro null, [facility] 02/03/2024 10:37:30 RSV, recombinant, protein subunit RSVpreF, adjuvant reconstituted, 0.5 mL, PF 3 completed Miletzi Arvizu-[place] ro null, [facility] 02/03/2024 10:37:30 pneumococcal polysaccharide PPV23 6 completed Miletzi Arvizu-[place] ro null, [facility] 02/03/2024 10:37:30 Tdap 4 completed Miletzi Arvizu-Bouchra ro null, [facility] 02/03/2024 10:37:30 Novel Wocsnndag-[id number], all formulations 0 completed Miletzi Arvizu-Bouchra ro null, [facility] 02/03/2024 10:37:30 Pneumococcal conjugate PCV 13 5 completed Miletzi [facility]izu[facility] [facility], [facility] 02/03/[facility] 10:37:30 Influenza, high-dose, trivalent, PF 7 completed Miletzi Arvizu-Bouchra ro null, [facility] 02/03/2024 10:37:30 Influenza, high-dose, trivalent, PF 4 completed Miletzi Arvizu-[place] ro null, [facility] 02/03/2024 10:37:30 Influenza, high-dose, trivalent, PF 5 completed Miletzi Arvizu-[place] ro null, [facility] 02/03/2024 10:37:30 Influenza, split virus, trivalent, preservative 8 completed Miletzi Arvizu-[place] ro null, [facility] 02/03/2024 10:37:30 Influenza, split virus, trivalent, preservative 7 completed Miletzi Arvizu-[place] ro null, [facility] 02/03/2024 10:37:30 Influenza, split virus, trivalent, preservative 0 completed Miletzi Arvizu-Bouchra ro null, [facility] 02/03/2024 10:37:30 Influenza, split virus, trivalent, preservative 4 completed Miletzi Arvizu-Bouchra ro null, [facility] 02/03/2024 10:37:30 Influenza, split virus, trivalent, preservative 2 completed Miletzi Arvizu-Bouchra ro null, [facility] 02/03/2024 10:37:30 Influenza, split virus, trivalent, preservative 3 completed Miletzi Arvizu-Bouchra ro null, [facility] 02/03/2024 10:37:31 Influenza, split virus, trivalent, PF 0 completed Miletzi Arvizu-[place] ro null, [facility] 02/03/2024 10:37:31 Td (adult), 5 Lf tetanus toxoid, preservative free, adsorbed 6 completed Franko Arvizu-Bouchra ro null, [facility] 02/03/2024 10:37:31 Influenza, adjuvanted, trivalent, PF 4 completed Genet Henri null, [facility] 08/18/2024 14:24:21 COVID-19, mRNA, LNP-S, PF, 50 mcg/0.5 mL 4 completed Genet Álvarez null, [facility] 08/18/2024 14:24:21 Past Encounters Encounter ID Performer Location Encounter Start Date Encounter Closed Date Diagnosis/Indication Diagnosis SNOMED-CT Code Diagnosis ICD10 Code Diagnosis Note [id number] Franko Arvizu-Nadira hinesro [facility] [address] [place] [address] 02/03/2024 10:25:53 02/04/2024 08:33:51 Acute retention of urine 645848319 R33.8 [id number] Luda Watson PA-C [facility] [address] [place] [address] 02/10/2024 13:37:37 02/11/2024 09:27:45 Acute retention of urine 412448147 R33.8 [id number] Edmar Vaughn MD [facility] [address] [place] [address] 02/12/2024 10:44:21 02/15/2024 16:00:54 Retention of urine 270687620 R33.9 [id number] Edmar Vaughn MD [facility] [address] [place] [address] 03/04/2024 14:17:21 03/22/2024 12:42:48 Retention of urine 044454456 R33.9 [id number] Nicola Dillon MD [facility] [address] [place] [address] 04/28/2024 13:46:52 05/06/2024 08:43:02 Renal mass 752780195 N28.89 It is reasonable to have surgery to remove his kidney and colonic mass.I'll talk to Dr Morfin again and we'll try and coordinate the schedule. They were considerin g systemic therapy but would prefer to handle it surgically . Chronic re tention of urine 276680182 R33.8 We'll manage this with Bravo drainage for now. He'll also need Urodynamic s to asses bladder strength or lack of it. [id number] Akila Mccall [facility] [address] 05/27/2024 10:39:20 05/30/2024 10:54:56 Retention of urine 058253894 R33.9 F/u with CS or TF for UDS review [id number] Nicola Dillon MD [facility] [address] [place] [address] 06/13/2024 13:46:00 07/12/2024 08:41:58 Chronic retention of urine 785403657 R33.8 Will keep the Bravo for the next month but he could benefit from a HoLEP or Auquablati on. 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 I'll have him f/u with Dr Gonzáles or Levi to further discuss. Renal mass 659094061 N28 .89 Will plan on a combined colectomy and nephrectom y. Risks, benefits, and complicati ons of the procedure were discussed including infection, bleeding, voiding discomfort , urinary retention, fever, chills, sepsis, and others. In particular , nephrectom y has the added risk of bowel or vascular injury. All questions were answered. [id number] Genet Álvarez [facility] [address] 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 He would not need any follow up.He can f/u prn. 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 We discussed suprapubic prostatect loretta, HoLEP and PAE. Given his age and recent surgeries, prostate artery embolizati on is a safe and effective option. Dr Khan. Health Concerns Section Related Observation LastModified by Organization Detai ls LastModified Time None Recorded Concern Status LastModified by Organization Details LastModified Time None Recorded Advance Directives Directive None Recorded Payers Encounter Date Sequence Insurance Name Policy Number Policy Masterson Covered Member ID Masterson Member ID Guarantor Name 03/04/2024 1 [employer] - DOS ON OR AFTER 19 (MEDICARE REPLACEMENT/ ADVANTAGE - HMO) [id number] Kojo N Laabs [id number] Kojo N Laabs 04/28/2024 1 [employer] - DOS ON OR AFTER 19 (MEDICARE REPLACEMENT/ ADVANTAGE - HMO) [id number] Kojo N Laabs [id number] Kojo N Laabs 05/27/2024 1 [employer] - DOS ON OR AFTER 19 (MEDICARE REPLACEMENT/ ADVANTAGE - HMO) [id number] Kojo N Laabs [id number] Kojo N Laabs 06/13/2024 1 [employer] - DOS ON OR AFTER 19 (MEDICARE REPLACEMENT/ ADVANTAGE - HMO) [id number] 1_[id number] Kojo N Laabs [id number] Kojo N Laabs 08/18/2024 1 [employer] - DOS ON OR AFTER 19 (MEDICARE REPLACEMENT/ ADVANTAGE - HMO) [id number] 1_[id number] Kojo N Laabs [id number] Kojo N Laabs Notes Date Note Type Note Provider Name and Address Organization Details Recorded Time 03/04/2024 text/html here for cysto/T OV today Edmar Vaughn MD [address] [place] [address],[address], [place], [address], [facility] 03/04/2024 15:55:02 04/28/2024 text/html Referred for [...] a bit risky. Nicola Dillon MD [address] [facility], [place], [address], [facility] 04/28/2024 14:39:38 05/27/2024 text/html Date of [...] DS #1) for UTI preventionTester name:Akila esquivel [facility] 05/27/2024 11:56:43 06/13/2024 text/html Follow up [...] database to facilitate and coordinate their care. 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 He's recovered well from the double cancer surgery. He did have a prolonged ileus but is eating well now. Also has urinary retention wtih an indwelling Bravo.He came with his daughter and that was helpful. Genet esquivel [facility] 08/19/2024 15:14:22
--- OUTSIDE RECORDS SUMMARY | 2024-09-05 17:27 | XMS_ITS | Clinical Summary ---
Author Organization [employer] [facility] Address [place], [place] [address] Care Team Providers Care Public Health Dentist Name Role Phone Juwan Avery MD Primary Care Provider [phone] Venkat Elena RN Unavailable [phone] Star Morfin MD Unavailable [phone] SoNicola peralta MD Unavailable [phone] [facility] Unavailable Allergies No known active allergies Medications VITAMINS A,C,U-TRHE-BBURJY (OCUVITE PRESERVISION) 7,160-113-100 [id number] tablet Take 2 Tablets by mouth two [...] (No instructions reported), Informant: Family, Reported on 08/30/2024 ferrous sulfate 325 mg delayed release tabletIndications: [...] dose: 4000mg in 24 hrs. 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, pN0, cM0) - Signed by Marquita Omer MD on 08/30/2024 Overview (03/31/2024): Colonoscopy 03/2024 tumor, polyps, refer [...] Encounters Date Type Department Care Team Description 08/30/2024 3:00 PM DIRECTOR OF PROPERTY MANAGEMENT Office Visit [facility] [address] [facility] [place] [address] Marquita Omer MD Consult 08/30/2024 Travel 08/23/2024 2:15 PM DIRECTOR OF PROPERTY MANAGEMENT Orders Only [facility] [address] [facility] [place] [address] Lab, [place] Lab 08/23/2024 Travel 08/15/2024 8:45 AM DIRECTOR OF PROPERTY MANAGEMENT Home Care Visit [facility] [address] [place] [address] Bruce Nunes, PT PT - OASIS DISCHARGE 08/10/2024 8:45 AM DIRECTOR OF PROPERTY MANAGEMENT Home Care Visit [facility] [address] [place] [phone] Bruce Nunes, PT PT - HOME VISIT 08/05/2024 8:45 AM DIRECTOR OF PROPERTY MANAGEMENT Home Care Visit [facility] [address] [place] [phone] Bruce Nunes, PT PT - HOME VISIT 08/05/2024 Travel 08/02/2024 9:00 AM DIRECTOR OF PROPERTY MANAGEMENT Home Care Visit [facility] [address] [place] [address] Bruce Nunes, PT PT - HOME VISIT 08/02/2024 Travel 07/29/2024 9:00 AM DIRECTOR OF PROPERTY MANAGEMENT Home Care Visit [facility] [address] [place] [phone] Bruce Nunes, PT PT - HOME VISIT 07/27/2024 9:00 AM DIRECTOR OF PROPERTY MANAGEMENT Home Care Visit [facility] [address] [place] [phone] Bruce Nunes, PT PT - HOME VISIT 07/27/2024 Travel 07/26/2024 10:30 AM DIRECTOR OF PROPERTY MANAGEMENT Office Visit [facility] [address] [place] [address] Star Morfin MD Post-op 07/26/2024 Telephone [facility] [address] [facility] [place] [phone] [place] 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) 07/26/2024 Travel 07/25/2024 Telephone [facility] [address] [place] [address] Silvia Palmer, DO Results 07/22/2024 11:00 AM DIRECTOR OF PROPERTY MANAGEMENT Office Visit [facility] [address] [place] [address] Silvia Palmer, DO Hospital F/U (R hemicolectomy ) 07/22/2024 Travel 07/19/2024 10:30 AM DIRECTOR OF PROPERTY MANAGEMENT Home Care Visit [facility] [address] [place] [phone] Bruce Nunes, PT PT - OASIS START OF CARE 07/19/2024 Plan of Care Documentation [facility] [address] [place] [phone] 07/19/2024 Patient Outreach [facility] - Advanced Care Team [address] [place] [address] Gabi Kennedy, PATIENT ADVOCATE Complex Care Management (CCM Engagement Outreach) 07/19/2024 Travel 07/18/2024 Patient Outreach [facility] [address] [place] [address] Claritza Ramos, RN Primary RN Care Management; Hospital F/U (LACE 65) 07/15/2024 Home Care Visit [facility] [address] [place] [phone] Toyin Blas, RN CARE COORDINATION 07/12/2024 Travel 07/04/2024 8:07 AM DIRECTOR OF PROPERTY MANAGEMENT Anesthesia Event [facility] [address] [place] [address] Tyler Mckoy MD Nelson, Kathryn M, MIX HOUSE TENDER Student 07/04/2024 7:30 AM DIRECTOR OF PROPERTY MANAGEMENT - 07/04/2024 1:27 PM DIRECTOR OF PROPERTY MANAGEMENT Surgery [facility] [address], [place] [address] Star Morfin MD LAPAROSCOPIC RIGHT HEMICOLECTOMY 07/04/2024 6:35 AM DIRECTOR OF PROPERTY MANAGEMENT - 07/15/2024 5:16 PM DIRECTOR OF PROPERTY MANAGEMENT Hospital Encounter [facility] [address] [place] [address] Star Morfin MD 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); Renal mass, right; Post-operative pain; Deep vein thrombosis (DVT) prophylaxis prescribed at discharge Discharge Disposition: Home Health 07/04/2024 Travel 07/01/2024 1:50 PM DIRECTOR OF PROPERTY MANAGEMENT Nurse/Clinic Staff Only [facility] [address] [place] [address] Urinary Problem (Leaking doll cath leg bag) 07/01/2024 Travel 07/01/2024 Telephone [facility] [address] [place] [address] Star Morfin MD pre surgical call 06/29/2024 Telephone [facility] [address] [place] [address] Star Morfin MD pre op teaching 06/22/2024 9:35 AM CDT Office Visit [facility] [address] [place] [address] Fazal Perez MD Preoperative Exam (07/04/24/ABNW/LAPA ROSCOPIC RIGHT HEMICOLECTOMY & HAND ASSISTED LAPAROSCOPIC RIGHT NEPHRECTOMY /Nicloa Dillon MD /Star Morfin MD /); Immunization/Inject ion 06/22/2024 Travel 06/09/2024 Telephone [facility] [address] [place] [address] Norma Francisco PA Abstract (Pt has no known allergies- confirmed ) from Last 3 Months Immunizations Name Administration Dates Next Due COVID-19 VACCINE SPIKEVAX (M ODERNA 50MCG/0.5ML) 12YO+ PFS 06/22/2024 COVID-19 vaccine (WIB-Bio NTech 30mcg/0.3mL) ADRIAN RABAGO 07/08/2021,10/27/2020,10/06/2020 Influenza A [...] pur e alcohol) one beer every night [facility] Utilities Answer Date Recorded Do you [...] on file Legal Sex Male 7:00 AM DIRECTOR OF PROPERTY MANAGEMENT Gender Identity Not on file Sexual Orientation Not on file Occupation Industry Job Start Date Job End Date retired Not on file Not on file Not on file Obstetrics History Last Filed Vital Signs Vital Sign Reading Time Taken Comments Blood Pressure 152/69 08/30/2024 2:40 PM DIRECTOR OF PROPERTY MANAGEMENT Pulse 50 08/30/2024 2:40 PM DIRECTOR OF PROPERTY MANAGEMENT Temperature 37.3 C (99.1 F) 08/15/2024 9:37 AM DIRECTOR OF PROPERTY MANAGEMENT Respiratory Rate 18 08/30/2024 2:40 PM DIRECTOR OF PROPERTY MANAGEMENT Oxygen Saturation 99% 08/30/2024 2:40 PM DIRECTOR OF PROPERTY MANAGEMENT Inhaled Oxygen Concentration - - Weight 93 kg (205 lb) 08/30/2024 2:40 PM DIRECTOR OF PROPERTY MANAGEMENT Height 177.8 cm (5' 10) 07/26/2024 10:24 AM DIRECTOR OF PROPERTY MANAGEMENT Body Mass Index 29.41 07/26/2024 10:24 AM DIRECTOR OF PROPERTY MANAGEMENT Plan of Treatment Upcoming Encounters Date Type Department Care Team (Late st Contact Info) Description 12/08/2024 3:15 PM CDT Orders Only [facility] [address] [place] [address] [place] 12/14/2024 3:15 PM CDT Office Visit [facility] [address] [facility] [place] [phone] Yadi Crane, BDC MANAGER [address] [place] [address] Health Maintenance Due Date Last Done Comments [...] NO DIFF Routine 08/23/2024 2:1 3 PM DIRECTOR OF PROPERTY MANAGEMENT Anemia due to acute blood loss BASIC METABOLIC PANEL Routine 08/23/2024 2:13 PM DIRECTOR OF PROPERTY MANAGEMENT SUNG (acute kidney injury) (HC) CBC WITH AUTO DIFFERENTIAL Routine 07/22/2024 11:28 AM DIRECTOR OF PROPERTY MANAGEMENT Hospital discharge follow-up Anemia due to acute blood loss BASIC METABOLIC PANEL Routine 07/22/2024 11:28 AM DIRECTOR OF PROPERTY MANAGEMENT Hospital discharge follow-up BASIC METABOLIC PANEL Early AM 07/14/2024 5:22 AM DIRECTOR OF PROPERTY MANAGEMENT CBC W PLT NO DIFF Early AM 07/14/2024 5:2 2 AM DIRECTOR OF PROPERTY MANAGEMENT XR ABDOMEN 1 VIEW PORTABLE Routine 07/13/2024 8:03 AM DIRECT[address] OF PROPERTY MANAGEMENT CT ABDOMEN PELVIS WO BILLY 07/12/2024 1:30 PM DIRECTOR OF PROPERTY MANAGEMENT XR ABDOMEN 1 VIEW PORTABLE Routine 07/12/2024 9:19 AM DIRECTOR OF PROPERTY MANAGEMENT CBC W PLT NO DIFF Early AM 07/12/2024 4:4 7 AM DIRECTOR OF PROPERTY MANAGEMENT BASIC METABOLIC PANEL Early AM 07/12/2024 4:47 AM DIRECTOR OF PROPERTY MANAGEMENT XR ABDOMEN 1 VIEW PORTABLE Routine 07/11/2024 9:36 AM DIRECTOR OF PROPERTY MANAGEMENT CBC W PLT NO DIFF Early AM 07/11/2024 5:0 4 AM DIRECTOR OF PROPERTY MANAGEMENT BASIC METABOLIC PANEL Early AM 07/11/2024 5:04 AM DIRECTOR OF PROPERTY MANAGEMENT LACTATE VENOUS Early AM 07/10/2024 5:57 AM DIRECTOR OF PROPERTY MANAGEMENT CBC W PLT NO DIFF Early AM 07/10/2024 5:5 7 AM DIRECTOR OF PROPERTY MANAGEMENT BASIC METABOLIC PANEL Early AM 07/10/2024 5:57 AM DIRECTOR OF PROPERTY MANAGEMENT CBC WITH AUTO DIFFERENTIAL Timed 07/09/2024 1:29 PM DIRECTOR OF PROPERTY MANAGEMENT LACTATE VENOUS STAT 07/09/2024 1:29 PM DIRECTOR OF PROPERTY MANAGEMENT BASIC METABOLIC PANEL Today 07/09/2024 1:29 PM DIRECTOR OF PROPERTY MANAGEMENT CBC WITH AUTO DIFFERENTIAL Timed 07/09/2024 1:29 PM DIRECTOR OF PROPERTY MANAGEMENT LACTATE VENOUS STAT 07/09/2024 11:17 AM DIRECTOR OF PROPERTY MANAGEMENT XR ABDOMEN 1 VIEW PORTABLE STAT 07/09/2024 9:19 AM DIRECTOR OF PROPERTY MANAGEMENT CBC WITH AUTO DIFFERENTIAL STAT 07/09/2024 9:05 AM DIRECTOR OF PROPERTY MANAGEMENT LACTATE VENOUS STAT 07/09/2024 9:05 AM DIRECTOR OF PROPERTY MANAGEMENT CBC WITH AUTO DIFFERENTIAL STAT 07/09/2024 9:05 AM DIRECTOR OF PROPERTY MANAGEMENT BLOOD GAS,VENOUS STAT 07/09/2024 9:05 AM DIRECTOR OF PROPERTY MANAGEMENT GLUCOSE METER Timed 07/09/2024 9:02 AM DIRECTOR OF PROPERTY MANAGEMENT XR CHEST 1 VIEW PORTABLE STAT 07/09/2024 8:44 AM DIRECTOR OF PROPERTY MANAGEMENT BASIC METABOLIC PANEL Early AM 07/09/2024 4:43 AM DIRECTOR OF PROPERTY MANAGEMENT US RENAL LEFT Routine 07/08/2024 3:49 PM DIRECTOR OF PROPERTY MANAGEMENT BASIC METABOLIC PANEL Early AM 07/08/2024 5:47 AM DIRECTOR OF PROPERTY MANAGEMENT CBC W PLT NO DIFF Early AM 07/08/2024 5:4 7 AM DIRECTOR OF PROPERTY MANAGEMENT URINALYSIS MICROSCOPIC Timed 07/07/2024 9:54 AM DIRECTOR OF PROPERTY MANAGEMENT URINE CULTURE Today 07/07/2024 9:54 AM DIRECTOR OF PROPERTY MANAGEMENT UA W/ SEDIMENT EXAM REFLEXED PER CRITERIA Today 07/07/2024 9:54 AM DIRECTOR OF PROPERTY MANAGEMENT BASIC METABOLIC PANEL Early AM 07/07/2024 5:05 AM DIRECTOR OF PROPERTY MANAGEMENT CBC W PLT NO DIFF Early AM 07/07/2024 5:0 5 AM DIRECTOR OF PROPERTY MANAGEMENT BASIC METABOLIC PANEL Early AM 07/06/2024 6:07 AM DIRECTOR OF PROPERTY MANAGEMENT CBC W PLT NO DIFF Early AM 07/06/2024 6:0 7 AM DIRECTOR OF PROPERTY MANAGEMENT BASIC METABOLIC PANEL Early AM 07/05/2024 4:12 AM DIRECTOR OF PROPERTY MANAGEMENT CBC W PLT NO DIFF Early AM 07/05/2024 4:1 2 AM DIRECTOR OF PROPERTY MANAGEMENT GLUCOSE METER Timed 07/04/2024 12:26 PM DIRECTOR OF PROPERTY MANAGEMENT PATH TISSUE EXAM Today 07/04/2024 9:45 AM DIRECTOR OF PROPERTY MANAGEMENT OR IMAGE CAPTURE Routine 07/04/2024 8:50 AM DIRECTOR OF PROPERTY MANAGEMENT AHC AN IV START Routine 07/04/2024 8:40 AM DIRECTOR OF PROPERTY MANAGEMENT ENDOTRACHEAL TUBE Routine 07/04/2024 8:3 8 AM DIRECTOR OF PROPERTY MANAGEMENT TYPE & SCREEN Preop 07/04/2024 7:37 AM DIRECTOR OF PROPERTY MANAGEMENT LAPAROSCOPIC NEPHRECTOMY HAND ASSISTED Elective 07/04/2024 7:35 AM DIRECTOR OF PROPERTY MANAGEMENT Colon adenocarcinoma (HC) LAPAROSCOPIC SHAYNE COLECTOMY RIGHT Elective 07/04/2024 7:35 AM DIRECTOR OF PROPERTY MANAGEMENT Colon adenocarcinoma (HC) GLUCOSE METER Timed 07/04/2024 7:31 AM DIRECTOR OF PROPERTY MANAGEMENT SCAN-CARDIAC STRIP 07/04/2024 12 :00 AM DIRECTOR OF PROPERTY MANAGEMENT BASIC METABOLIC PANEL Routine 06/22/2024 10:29 AM CDT Pre-op evaluation Unspecified essential hypertension HEMOGLOBIN Routine 06/22/2024 10:29 AM CDT Pre-op evaluation Malignant neoplasm of transverse colon (HC) Renal mass from Last 3 Months Results * (ABNORMAL) CBC W PLT NO DIFF (08/23/2024 2:13 PM DIRECTOR OF PROPERTY MANAGEMENT) Only the most recent of9 resultswithin the time period is included. WHITE BLOOD CELL COUNT 9.9 3.8 - 10.8 Thousand/u L [facility] RED BLOOD CELL COUNT 4.42 4.20 - 5.80 Million/uL [facility] HEMOGLOBIN 12.6(L) 13.2 - 17.1 g/dL [facility] HEMATOCRIT 39.6 38.5 - 50.0 % [facility] MCV 89.6 80.0 - 100.0 fL [facility] MCH 28.5 27.0 - 33.0 pg [facility] MCHC 31.8(L) 32.0 - 36.0 g/dL [facility] Comment: For adults, a slight decrease in the calculated MCHC value (in the range of 30 to 32 g/dL) is most likely not clinically significant; however, it should be interpreted with caution in correlation with other red cell parameters and the patient's clinical condition. RDW 14.5 11.0 - 15.0 % [facility] PLATELET COUNT 156 140 - 400 Thousand/u L [facility] MPV 11.5 7.5 - 12.5 fL [facility] Blood BLOOD SPECIMEN / Unknown 08/23/2024 2:13 PM DIRECTOR OF PROPERTY MANAGEMENT 08/23/2024 2:13 PM DIRECTOR OF PROPERTY MANAGEMENT us Silvia Palmer DO HEMATOLOGY Final Result [facility] [address] [place] [address], [facility] [address] [place] [address] * (ABNORMAL) BASIC METABOLIC PANEL (08/23/2024 2:13 PM DIRECTOR OF PROPERTY MANAGEMENT) Only the most recent of13 resultswithin the time period is included. Pathologist [facility] GLUCOSE 91 65 - 99 mg/dL [facility] [place] Comment: Fasting reference interval UREA NITROGEN (BUN) 23 7 - 25 mg/dL [facility] CREATININE 1.58(H) 0.70 - 1.22 mg/dL [facility] EGFR 42(L) > OR = 60 mL/min/1.7 3m2 [facility] BUN/CREATININE RATIO 15 6 - 22 (calc) [facility] SODIUM 142 135 - 146 mmol/L [facility] POTASSIUM 4.7 3.5 - 5.3 mmol/L [facility] CHLORIDE 106 98 - 110 mmol/L [facility] CARBON DIOXIDE 29 20 - 32 mmol/L [facility] ELECTROLYTE BALANCE 7 7 - 17 mmol/L (calc) [facility] CALCIUM 9.2 8.6 - 10.3 mg/dL [facility] Blood BLOOD SPECIMEN / Unknown 08/23/2024 2:13 PM DIRECTOR OF PROPERTY MANAGEMENT 08/23/2024 2:13 PM DIRECTOR OF PROPERTY MANAGEMENT us Silvia Palmer DO CHEMISTRY Final Result [facility] [address] [place] [address], [facility] [address] [place] [address] * (ABNORMAL) CBC AND DIFFERENTIAL (07/22/2024 11:28 AM DIRECTOR OF PROPERTY MANAGEMENT) [facility] WHITE BLOOD CELL COUNT 8.5 3.8 - 10.8 Thousand/u L [facility] RED BLOOD CELL COUNT 4.45 4.20 - 5.80 Million/uL [facility] HEMOGLOBIN 12.3(L) 13.2 - 17.1 g/dL [facility] HEMATOCRIT 39.5 38.5 - 50.0 % [facility] MCV 88.8 80.0 - 100.0 fL [facility] MCH 27.6 27.0 - [...] BLOOD SPECIMEN / Unknown 07/22/2024 11:28 AM DIRECTOR OF PROPERTY MANAGEMENT 07/22/2024 11:28 AM DIRECTOR OF PROPERTY MANAGEMENT us Silvia Palmer DO HEMATOLOGY Final Result [facility] [address] [place] [address], [facility] [address] [place] [address] * XR ABDOMEN 1 VIEW PORTABLE (07/13/2024 8:03 AM DIRECTOR OF PROPERTY MANAGEMENT) Only the most recent of4 resultswithin the time period is included. Anatomical Region Laterality Modality Abdomen Digital Radiogra phy 07/13/2024 9:03 AM DIRECTOR OF PROPERTY MANAGEMENT Narrative 07/13/2024 9:03 AM DIRECTOR OF PROPERTY MANAGEMENT For Patients: As a result of the [...] @ Jul 13 2024 9:03AM (Electronically Signed) [email or web address] Procedure Note Nayely Abdul MD - 07/13/2024 [...] @ Jul 13 2024 9:03AM (Electronically Signed) [email or web address] us Oksana REECE GENERAL IMAGING Final Result * CT ABDOMEN PELVIS WO (07/12/2024 1:30 PM DIRECTOR OF PROPERTY MANAGEMENT) Anatomical Region Laterality Modality Abdomen, Pelvis, AORTA, LIVER, SPLEEN Computed Tomography 07/12/2024 4:56 PM DIRECTOR OF PROPERTY MANAGEMENT Narrative 07/12/2024 4:56 PM DIRECTOR OF PROPERTY MANAGEMENT For Patients: As a result of the [...] MD @ 07/12/2024 4:56:17 PM (Electronically Signed) Oksana REECE CT Final Result * LACTATE VENOUS (07/10/2024 5:57 AM DIRECTOR OF PROPERTY MANAGEMENT) Only the most recent of4 resultswithin the time period is included. LACTATE,VENOUS 1.2 0.5 - 2.0 mmol/L 07/10/2024 6:35 AM DIRECTOR OF PROPERTY MANAGEMENT [facility] Blood BLOOD SPECIMEN / Unknown Venipuncture / Unknown 07/10/2024 5:57 AM DIRECTOR OF PROPERTY MANAGEMENT 07/10/2024 6:14 AM DIRECTOR OF PROPERTY MANAGEMENT Alphonso L Seese RN CHEMISTRY Final Result [facility] [address] [place] [address], [place] * (ABNORMAL) CBC WITH AUTO DIFFERENTIAL (07/09/2024 1:29 PM DIRECTOR OF PROPERTY MANAGEMENT) Only the most recent of2 resultswithin the time period is included. WHITE BLOOD COUNT 15.8(H) 4.5 - 11.0 thou/cu mm 07/09/2024 1:55 PM [facility] RED BLOOD COUNT 4.86 4.30 - 5.90 mil/cu mm 07/09/2024 1:55 PM [facility] HEMOGLOBIN 12.8(L) 13.5 - 17.5 g/dL 07/09/2024 1:55 PM DIRECTOR OF PROPERTY MANAGEMENT [facility] HEMATOCRIT 40.8 37.0 - 53.0 % 07/09/2024 1:55 PM DIRECTOR OF PROPERTY MANAGEMENT [facility] MCV 84 80 - 100 fL 07/09/2024 1:55 PM DIRECTOR OF PROPERTY MANAGEMENT [facility] MCH 26.3 26.0 - 34.0 pg 07/09/2024 1:55 PM DIRECTOR OF PROPERTY MANAGEMENT [facility] MCHC 31.4(L) 32.0 - 36.0 g/dL 07/09/2024 1:55 PM [facility] RDW 16.2(H) 11.5 - 15.5 % 07/09/2024 1:55 PM [facility] PLATELET COUNT 226 140 - 440 thou/cu mm 07/09/2024 1:55 PM [facility] MPV 10.7 6.5 - 11.0 fL 07/09/2024 1:55 PM [facility] NRBC 0.0 % 07/09/2024 1:55 PM [facility] ABS NRBC 0.0 thou /cu mm 07/09/2024 1:55 PM [facility] % NEUT 79.7 % 07/09/2024 1:55 PM DIRECTOR OF PROPERTY MANAGEMENT [facility] % LYMPH 9.8 % 07/09/2024 1:55 PM DIRECTOR OF PROPERTY MANAGEMENT [facility] % MONO 9.9 % 07/09/2024 1:55 PM DIRECTOR OF PROPERTY MANAGEMENT [facility] % EOS 0.1 % 07/09/2024 1:55 PM DIRECTOR OF PROPERTY MANAGEMENT [facility] % BASO 0.1 % 07/09/2024 1:55 PM DIRECTOR OF PROPERTY MANAGEMENT [facility] % IMMATURE GRAN (METAS,MYELOS,[place] OS) 0.4 % 07/09/2024 1:55 PM DIRECTOR OF PROPERTY MANAGEMENT [facility] ABSOLUTE NEUTROPHILS 12.6(H) 1.7 - 7.0 thou/cu mm 07/09/2024 1:55 PM DIRECTOR OF PROPERTY MANAGEMENT [facility] ABSOLUTE LYMPHOCYTES 1.5 0.9 - 2.9 thou/cu mm 07/09/2024 1:55 PM DIRECTOR OF PROPERTY MANAGEMENT [facility] ABSOLUTE MONOCYTES 1.6(H) <0.9 thou/cu mm 07/09/2024 1:55 PM DIRECTOR OF PROPERTY MANAGEMENT [facility] ABSOLUTE EOSINOPHILS 0.0 <0.5 thou/cu mm 07/09/2024 1:55 PM DIRECTOR OF PROPERTY MANAGEMENT [facility] ABSOLUTE BASOPHILS 0.0 <0.3 thou/cu mm 07/09/2024 1:55 PM DIRECTOR OF PROPERTY MANAGEMENT [facility] ABSOLUTE IMMATURE GRANULOCYTES(MET ,MYELOS,PROS) 0.1 <0.3 thou/cu mm 07/09/2024 1:55 PM DIRECTOR OF PROPERTY MANAGEMENT [facility] Blood BLOOD SPECIMEN / Unknown Butterfly / Unknown 07/09/2024 1:29 PM DIRECTOR OF PROPERTY MANAGEMENT 07/09/2024 1:49 PM DIRECTOR OF PROPERTY MANAGEMENT us Radha REECE HEMATOLOGY Final Result [facility] [address] [place] [address], [place] * (ABNORMAL) BLOOD GAS,VENOUS (07/09/2024 9:05 AM DIRECTOR OF PROPERTY MANAGEMENT) PH, VENOUS 7.35 7.32 - 7.43 07/09/2024 9:21 AM DIRECTOR OF PROPERTY MANAGEMENT [facility] PCO2, VENOUS 39(L) 41 - 51 mmHg 07/09/2024 9:21 AM DIRECTOR OF PROPERTY MANAGEMENT [facility] PO2, VENOUS 61(H) 35 - 40 mmHg 07/09/2024 9:21 AM DIRECTOR OF PROPERTY MANAGEMENT [facility] HCO3,VENOUS 22 22 - 29 mmol/L 07/09/2024 9:21 AM DIRECTOR OF PROPERTY MANAGEMENT [facility] BASE EXCESS, VENOUS, POCT -3.8(L) -2.0 - 3.0 07/09/2024 9:21 AM [facility] O2 SATURATION, VENOUS 90(H) 70 - 75 % 07/09/2024 9:21 AM [facility] PATIENT TEMPERATURE 37.0 Degrees C 07/09/2024 9:21 AM [facility] Blood VENOUS BLOOD SPECIMEN / Unknown Non-Lab Venipuncture / Unknown 07/09/2024 9:05 AM DIRECTOR OF PROPERTY MANAGEMENT 07/09/2024 9:15 AM DIRECTOR OF PROPERTY MANAGEMENT us Alphonso Esteban RN CHEMISTRY Final Result Performing Organization Address [facility] Co de Phone Number [facility] [address] [address], [place] * (ABNORMAL) GLUCOSE METER (07/09/2024 9:02 AM DIRECTOR OF PROPERTY MANAGEMENT) Only the most recent of3 resultswithin the time period is included. GLUCOSE METER 177(H) 65 - 100 mg/dL 07/09/2024 9:07 AM DIRECTOR OF PROPERTY MANAGEMENT [facility] Blood BLOOD SPECIMEN / Unknown 07/09/2024 9:02 AM DIRECTOR OF PROPERTY MANAGEMENT 07/09/2024 9:07 AM DIRECTOR OF PROPERTY MANAGEMENT Star Morfin MD CHEMISTRY Final Re sult Performing Organization Address City/[facility]/ZIP Co de Phone Number [facility] [address] [place] [id number], [place] * XR Chest 1 View Portable - ELIGIBILITY CONSULTANT (07/09/2024 8:44 AM DIRECTOR OF PROPERTY MANAGEMENT) Anatomical Region Laterality Modality HEART, THORAX, CHEST Digital Rad iography 07/09/2024 9:28 AM DIRECTOR OF PROPERTY MANAGEMENT Narrative 07/09/2024 9:28 AM DIRECTOR OF PROPERTY MANAGEMENT For Patients: As a result of the [...] @ Jul 09 2024 9:28AM (Electronically Signed) [email or web address] Procedure Note Jennifer Salter MD - 07/09/2024 [...] @ Jul 09 2024 9:28AM (Electronically Signed) [email or web address] us Alphonso Esteban RN GENERAL IMAGING Final Result * US RENAL LEFT LIMITED (07/08/2024 3:49 PM DIRECTOR OF PROPERTY MANAGEMENT) Anatomical Region Laterality Modality KIDNEY L, KIDNEYS Ultrasound 07/08/2024 6:07 PM DIRECTOR OF PROPERTY MANAGEMENT Addenda Addendum by Pierre Zepeda MD on 09/02/2024 2:12 PM DIRECTOR OF PROPERTY MANAGEMENT INDICATION: Renal failure. COMPARISON: CT 06 April [...] Pierre Zepeda MD @ 07/08/2024 6:07:34 PM ----- ADDENDUM ----- TECHNIQUE: Transabdominal grayscale and Doppler imaging of the kidneys and bladder. 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 No hydronephrosis or other acute source for renal failure demonstrated in the remaining left kidney. Dictated by Pierre Zepeda MD @ 07/08/2024 6:07:34 PM (Electronically Signed) Narrative 07/08/2024 6:07 PM DIRECTOR OF PROPERTY MANAGEMENT For Patients: As a result of the [...] PM (Electronically Signed) us Fazal Villarreal MD Edited Resul t - Final * (ABNORMAL) URINALYSIS MICROSCOPIC (07/07/2024 9:54 AM DIRECTOR OF PROPERTY MANAGEMENT) RBC 3-5(A) 0-2, None Seen /HPF 07/07/2024 10:18 AM DIRECTOR OF PROPERTY MANAGEMENT [facility] WBC 26-50(A) 0-2, 3-5, None Seen /HPF 07/07/2024 10:18 AM DIRECTOR OF PROPERTY MANAGEMENT [facility] BACTERIA None Seen None Seen, Rare, Few Bacteria/ HPF 07/07/2024 10:18 AM DIRECTOR OF PROPERTY MANAGEMENT [facility] EPITHELIAL CELLS None Seen None Seen, Few Epi/HPF 07/07/2024 10:18 AM DIRECTOR OF PROPERTY MANAGEMENT [facility] HYALINE CASTS 11-25(A) 0-2, 3-5 /LPF 07/07/2024 10:18 AM DIRECTOR OF PROPERTY MANAGEMENT [facility] Urine URINE SPECIMEN / Unknown Non-Blood / Unknown 07/07/2024 9:54 AM DIRECTOR OF PROPERTY MANAGEMENT 07/07/2024 10:09 AM DIRECTOR OF PROPERTY MANAGEMENT us Emilie REECE URINE Fin al Result [facility] [address] [place] [address], * URINE CULTURE (07/07/2024 9:54 AM DIRECTOR OF PROPERTY MANAGEMENT) CULTURE No growth (<1,000 CFU/mL) 07/08/2024 7:[address] [facility] Urine URINE SPECIMEN / Unknown Non-Blood / Unknown 07/07/2024 9:54 AM DIRECTOR OF PROPERTY MANAGEMENT 07/07/2024 10:09 AM [facility] Emilie REECE MICROBIOLOGY Fin al Result [facility] [address] [place] [address], * (ABNORMAL) UA W/ SEDIMENT EXAM REFLEXED PER CRITERIA (07/07/2024 9:54 AM DIRECTOR OF PROPERTY MANAGEMENT) COLOR Yellow Yellow Color 07/07/2024 10:18 AM [facility] CLARITY Clear Clear Clarity 07/07/2024 10:18 AM [facility] SPECIFIC GRAVITY,URINE 1.010 1.010, 1.015, 1.020, 1.025 07/07/2024 10:18 AM [facility] PH,URINE 5.5 6.0, 7.0, 8.0, 5.5, 6.5, 7.5, 8.5 07/07/2024 10:18 AM [facility] UROBILINOGEN, QUALITATIVE Normal Normal EU/dl 07/07/2024 10:18 AM [facility] PROTEIN, URINE Trace(A) Negative mg/dL 07/07/2024 10:18 AM [facility] [place] [facility] GLUCOSE, URINE Negative Negative mg/dL 07/07/2024 10:18 AM [facility] KETONES,URINE Negative Negative mg/dL 07/07/2024 10:18 AM [facility] BILIRUBIN,URI NE Negative Negative 07/07/2024 10:18 AM [facility] OCCULT BLOOD,URINE Moderate(A) Negative 07/07/2024 10:18 AM [facility] NITRITE Negative Negative 07/07/2024 10:18 AM [facility] LEUKOCYTE ESTERASE Moderate(A) Negative 07/07/2024 10:18 AM DIRECTOR OF PROPERTY MANAGEMENT [facility] Urine URINE SPECIMEN / Unknown Non-Blood / Unknown 07/07/2024 9:54 AM DIRECTOR OF PROPERTY MANAGEMENT 07/07/2024 10:09 AM DIRECTOR OF PROPERTY MANAGEMENT Emilie Toyincarley Vazquez PA URINE Fin al Result [facility] [address] [place] [address], [place] * PATH TISSUE EXAM (07/04/2024 9:45 AM DIRECTOR OF PROPERTY MANAGEMENT) Case Report Pathology Report Case: [id number] Authorizing Provider: Nicola Dillon MD Collected: 07/04/2024 0945 Ordering Location: [facility] Received: 07/04/2024 0954 Hospital Pathologist: Luis E Palacios MD Specimens: A) - Right Kidney B) - Right Colon 07/05/2024 4:15 PM DIRECTOR OF PROPERTY MANAGEMENT [facility] Final Diagnosis A) KIDNEY, RIGHT, [...] 2. Ancillary testing performed on prior biopsy [id number]: a. 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 Positive for BRAF mutation 3. Lymph nodes: Negative for metastatic carcinoma in 65 lymph nodes 4. 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 Appendix: fibrous obliteration of lumen is present 07/05/2024 4:15 PM DIRECTOR OF PROPERTY MANAGEMENT [facility] Comment Dr. Kodak Terrell has reviewed slides A3-A7 [address] Dr. Juan F East has reviewed slides B5-B8. 07/05/2024 4:15 PM DIRECTOR OF PROPERTY MANAGEMENT [facility] Clinical Information Colon cancer and renal mass 07/05/2024 4:15 PM DIRECTOR OF PROPERTY MANAGEMENT [facility] Gross Description A) Received fresh, labeled [...] Adrenal gland present: No Lymph nodes: No [employer] sections: 1. Ureteral margin 2. Hilar vessels subjacent to the trimmed staple line 3-4. Tumor with overlying pelvis, renal sinus and adjacent kidney parenchyma 4-5. Tumor with adjacent parenchyma and renal sinus 6. Tumor with renal pyramid 7. Additional c s s representative mass bulging the renal cortex 8. [...] Appendix: Grossly unremarkable, 7 x 0.6 cm [employer] sections are submitted as follows: 1. Proximal [...] on 07/04/2024 DPL 07/04/2024 07/05/2024 4:15 PM DIRECTOR OF PROPERTY MANAGEMENT [facility] Microscopic Description The final diagnosis is based on microscopic examination of appropriate sections of all specimens. 07/05/2024 4:15 PM DIRECTOR OF PROPERTY MANAGEMENT [facility] SYNOPTIC REPORTING COLON AND RECTUM: [...] potential ancillary testing: B6 07/05/2024 4:15 PM DIRECTOR OF PROPERTY MANAGEMENT [facility] Additional Information [facility] - [address], [place] [address] 07/05/2024 4:15 PM DIRECTOR OF PROPERTY MANAGEMENT [facility] Tissue (Right Kidney) 07/04/2024 9:45 AM DIRECTOR OF PROPERTY MANAGEMENT 07/04/2024 9:54 AM DIRECTOR OF PROPERTY MANAGEMENT Tissue specimen (specimen) (Right Colon) 07/04/2024 9:45 AM DIRECTOR OF PROPERTY MANAGEMENT 07/04/2024 10:44 AM DIRECTOR OF PROPERTY MANAGEMENT Nicola Dillon MD PATHOLOGY/CYTOLOGY Final Result [facility] [address] [place] [address], [place] * IV Start (07/04/2024 8:40 AM DIRECTOR OF PROPERTY MANAGEMENT) Narrative Anai Perdomo CRNA Student - 07/05/2024 6:33 AM DIRECTOR OF PROPERTY MANAGEMENT Anai Perdomo CRNA Student 07/04/2024 8:41 AM IV Start Patient location during procedure: OR PIV Site was prepped per hospital policy Laterality: right Needle Size: 18 G Site: wrist Insertion Technique: anatomical landmarks Supplies Used: extension set us Tyler Mckoy MD ANESTHESIA PX NOTE ORDERABLES Final Result * ETT (07/04/2024 8:38 AM DIRECTOR OF PROPERTY MANAGEMENT) Narrative Anai Perdomo CRNA Student - 07/04/2024 8:38 AM DIRECTOR OF PROPERTY MANAGEMENT Anai Perdomo CRNA Student 07/04/2024 8:40 AM [...] mobility Notes: DLx1 with MAC 3 and Ajy 2 by NANCY. DLx1 with Jay 2 by TERRI with successful intubation attempt x1. us Tyler Mckoy MD ANESTHESIA PX NOTE ORDERABLES Final Result * Type and Screen (07/04/2024 7:37 AM DIRECTOR OF PROPERTY MANAGEMENT) ABORH A Rh Positive 07/04/2024 8:42 AM DIRECTOR OF PROPERTY MANAGEMENT [facility] B[facility]OD BANK ANTIBODY SCREEN Negative Negative 07/04/2024 8:42 AM DIRECTOR OF PROPERTY MANAGEMENT [facility] BLOOD BANK SPECIMEN EXPIRATION DATE/TIME 07/07/24 23:59 07/04/2024 8:42 AM DIRECTOR OF PROPERTY MANAGEMENT [facility] B[facility]OD BANK Blood BLOOD SPECIMEN / Unknown Venipuncture / Unknown 07/04/2024 7:37 AM DIRECTOR OF PROPERTY MANAGEMENT 07/04/2024 7:48 AM DIRECTOR OF PROPERTY MANAGEMENT us Norma REECE BLOOD BANK Final Resu lt [facility] BLOOD BANK [address] [place] [address], [place] [phone] * SCAN-CARDIAC STRIP (07/04/2024 12:00 AM DIRECTOR OF PROPERTY MANAGEMENT) Narrative 07/04/2024 12:00 AM DIRECTOR OF PROPERTY MANAGEMENT Ordered by an unspecified provider. Other Clinical Staff OTHER Final Resul t * HEMOGLOBIN (06/22/2024 10:29 AM CDT) HEMOGLOBIN 13.3 13.2 - 17.1 g/dL [facility] Blood BLOOD SPECIMEN / Unknown 06/22/2024 10:29 AM CDT 06/22/2024 10:29 AM CDT Fazal Perez MD HEMATOLOGY Final Result [facility] [address] [place] [address], [place] [phone] [facility] [address] [facility] [place] [address] from Last 3 Months Insurance [employer] MEDICARE ADVANTAGE MR MEDICARE PART A HB ONLY HC [employer] MEDICARE PDGM WORKERS COMP Advance Directives * Full Code (Latest Code Status on File) Date Activated Date Inactivated Comments 07/04/2024 6:49 AM 07/15/2024 7:21 PM Question Answer Comments Code Status Discussion: Reviewed Preferences Care Teams Public Health Dentist Relationship Specialty Start Date End Date Juwan Avery MD [facility] [place] [address] PCP - General Family Practice 11/12/22 Venkat Elena, RN [address] [address] Nurse Navigator - Oncology Registered Nurse 04/26/24 Star Morfin MD [address] [place] [address] Surgery - General 04/26/24 Nicola Dillon MD [address] [place] [address] Surgery - Urology 05/03/24 Akila Markham RN [address] [place] [address] Nurse Navigator - Oncology Registered Nurse 07/28/24
--- OUTSIDE RECORDS SUMMARY | 2024-09-05 17:27 | XMS_ITS | Continuity of Care Document ---
Author Organization [facility] Address [address] [place] [address] Assessment No assessment recorded. Plan of Treatment Reminders Order Date Submit Date Provider Last Modified By Organization Details Last Modified Time Details Appointments None recorded. Lab None recorded. Referral None recorded. Procedures vascular embolizatio n or occlusion; for tumors, organ ischemia, or infarction (PROC) - 184cc prostate on office ultrasound 2023 024 [facility], [address], [place], [address], 5 08:15:21 Surgeries None recorded. Imaging None recorded. Medication Orders None recorded. Patient TargetsNo targets recorded. Patient InstructionsNo instructions recorded. Reason for Referral None Reported. Problems Name Problem SNOMED Code Status Onset Date Resolution Date Notes Provider Name and Address Organization Details Recorded Time Acute retention of urine 286682259 Active 024 Luda Watson PA-C [address] [facility] [place] [address], [phone], [facility] 4 11:29:06 Retention of urine 938573058 Active 024 Edmar Vaughn MD [address] [facility],[address] [place] [address], [phone], [facility] 4 11:33:59 Problem Notes None recorded. Procedures Surgical History Date Name Laterality Status Provider Name and Address Organization Details Recorded Time 08/18/20 24 Urethral Catheter Change completed Genet Álvarez [facility] 08/19/2024 15:14:03 08/18/20 24 TRUS- Volume size only completed Nicola Dillon MD [address] [facility],[address], [place], [address], [facility] 08/18/2024 15:08:20 07/04/20 24 NEPHRECTOMY, HAND ASSISTED LAPAROSCOPIC (SURG) completed Reena Paez [facility] 07/07/2024 09:40:04 06/13/20 24 COMPLEX VISIT completed Nicola Dillon MD [address] [place] [address],[address], [place], [address], [facility] 07/01/2024 13:18:31 05/27/20 24 Urodynamic Studies completed Garrett Vazquez [facility] 05/16/2024 17:20:05 05/27/20 24 BRAVO CHANGE completed Akila Mccall [facility] 05/27/2024 11:54:40 04/28/20 24 COMPLEX VISIT completed Nicola Dillon MD [address] [place] [address],[address], [place], [address], [facility] 04/28/2024 14:39:20 04/28/20 24 BRAVO CHANGE completed Nicola Dillon MD [address] [place] [address],[address], [place], [address], [facility] 04/28/2024 14:39:08 03/04/20 24 Cystoscopy- male completed Edmar Vaughn MD [address] [place] [address],[address], [place], [address], [facility] 03/04/2024 14:49:59 03/04/20 24 Bravo Catheter Insertion completed Trey Cabral [facility] 03/04/2024 15:44:20 03/04/20 24 Cipro post Cysto completed Trey Cabral [facility] 02/24/2024 14:58:47 03/04/20 24 Fill and Pull/Voiding Trial/TOV completed Trey Cabral [facility] 03/04/2024 15:44:41 02/12/20 24 Bravo Catheter Insertion completed Edmar Vaughn MD [address] [place] [address],[address], [place], [address], [facility] 02/12/2024 11:53:15 02/12/20 24 Fill and Pull/Voiding Trial/TOV completed Edmar Vaughn MD [address] [facility],[address], [address], [facility] 02/12/2024 11:28:34 02/10/20 24 Bravo Catheter Insertion completed Concetta Zapata [facility] 02/10/2024 14:26:17 02/10/20 24 Fill and Pull/Voiding Trial/TOV completed Concetta Zapata [facility] 02/10/2024 14:25:24 02/03/20 24 Bravo Catheter Insertion completed Franko magaña [facility] 02/03/2024 12:10:15 02/03/20 24 Fill and Pull/Voiding Trial/TOV completed Luda Watson PA-C [address] [facility] [address], [place], [address], [facility] 02/03/2024 11:16:06 Imaging Results [...] Updated DateTime 08/18/2024 180.34 cm 27.9 kg/m2 66678.47 g Genet Álvarez [facility] 08/18/2024 14:24:16 Social History Question Answer Notes LastModified by Organizat ion Details LastModified Time Tobacco Smoking Status [facility] 02/03/2024 10:40:30 What Is Your Level Of Alcohol Consumption? Moderate Beer At Supper Information not available 02/03/2024 What Is Your Level Of Caffeine Consumption? None Information not available 02/03/2024 When Did You Quit Smoking? 16+yearssinc elastcigaret te Information not available 02/03/2024 What Was The Date Of Your Most Recent Tobacco Screening? 08/18/2024 [email or web address] Information not available 08/18/2024 Have You Ever Been Counseled For Unhealthy Alcohol Use? No [email or web address] Information not available 02/12/2024 Do You Use Any Illicit Or Recreational Drugs? No Information not available 02/03/2024 Has Tobacco Cessation Counseling Been Provided? No [email or web address] Information not available 02/12/2024 Do You Or Have You Ever Used Any Other Forms Of Tobacco Or Nicotine? No [email or web address] Information not available 02/12/2024 How Many Days In The Past Year Have You Consumed 5 Or More Drinks? 0 [email or web address] Information not available 02/12/2024 Sex: Unknown Functional Status None recorded. Mental Status None recorded. Family History Relationship Description Onset Age of this Age Resolved Age Notes LastModified by Organization Details LastModified Time Father No current problems or disability [email or web address] Not available 02/21 14:27:02 Mother No current problems or disability [email or web address] Not available 02/21 14:27:03 Notes:brain cancer-cancer sp ouse-stomach cancer Medical History Condition Response Kidney Stones Y Immunizations Vaccine Type Date Status Note Provider Nam e and Address Organization Details Recorded Time Influenza, adjuvanted, trivalent, PF 9 completed Miletzi Arvizu-Bouchra ro null, [facility] 02/03/2024 10:37:30 Influenza, adjuvanted, trivalent, PF 8 completed Miletzi Arvizu-Willard ro null, [facility] 02/03/2024 10:37:30 Influenza, adjuvanted, trivalent, PF 0 completed Miletzi Arvizu-Willard ro null, [facility] 02/03/2024 10:37:30 zoster recombinant 4 completed Miletzi Arvizu-Willard ro null, [facility] 02/03/2024 10:37:30 Influenza, high-dose, quadrivalent, PF 3 completed Miletzi Arvizu-Willard ro null, [facility] 02/03/2024 10:37:30 Influenza, high-dose, quadrivalent, PF 2 completed Miletzi Arvizu-Bouchra ro null, [facility] 02/03/2024 10:37:30 Influenza, adjuvanted, quadrivalent, PF 1 completed Miletzi Arvizu-Bouchra ro null, [facility] 02/03/2024 10:37:30 COVID-19, mRNA, LNP-S, PF, 30 mcg/0.3 mL dose 1 completed Miletzi Arvizu-Willard ro null, [facility] 02/03/2024 10:37:30 COVID-19, mRNA, LNP-S, PF, 30 mcg/0.3 mL dose 1 completed Miletzi Arvizu-Bouchra ro null, [facility] 02/03/2024 10:37:30 COVID-19, mRNA, LNP-S, PF, 30 mcg/0.3 mL dose 1 completed Miletzi Arvizu-Bouchra ro null, [facility] 02/03/2024 10:37:30 COVID-19, mRNA, LNP-S, PF, 30 mcg/0.3 mL dose, gillian-sucrose 2 completed Miletzi Arvizu-Bouchra ro null, [facility] 02/03/2024 10:37:30 COVID-19, mRNA, LNP-S, bivalent, PF, 30 mcg/0.3 mL dose 2 completed Miletzi Arvizu-Bouchra ro null, [facility] 02/03/2024 10:37:30 RSV, recombinant, protein subunit RSVpreF, adjuvant reconstituted, 0.5 mL, PF 3 completed Miletzi Arvizu-Willard ro null, [facility] 02/03/2024 10:37:30 pneumococcal polysaccharide PPV23 6 completed Miletzi Arvizu-Willard ro null, [facility] 02/03/2024 10:37:30 Tdap 4 completed Miletzi Arvizu-Bouchra ro null, [facility] 02/03/2024 10:37:30 Novel [id number], all formulations 0 completed Miletzi Arvizu-Bouchra ro null, [facility] 02/03/2024 10:37:30 Pneumococcal conjugate PCV 13 5 completed Miletzi Arvizu-Willard ro null, [facility] 02/03/2024 10:37:30 Influenza, high-dose, trivalent, PF 7 completed Miletzi Arvizu-Bouchra ro null, [facility] 02/03/2024 10:37:30 Influenza, high-dose, trivalent, PF 4 completed Miletzi Arvizu-Bouchra ro null, [facility] 02/03/2024 10:37:30 Influenza, high-dose, trivalent, PF 5 completed Miletzi Arvizu-Bouchra ro null, [facility] 02/03/2024 10:37:30 Influenza, split virus, trivalent, preservative 8 completed Miletzi Arvizu-Willard ro null, [facility] 02/03/2024 10:37:30 Influenza, split virus, trivalent, preservative 7 completed Miletzi Arvizu-Willard ro null, [facility] 02/03/2024 10:37:30 Influenza, split virus, trivalent, preservative 0 completed Miletzi Arvizu-Willard ro null, [facility] 02/03/2024 10:37:30 Influenza, split virus, trivalent, preservative 4 completed Milnai Arvizu-Willard ro null, [facility] 02/03/2024 10:37:30 Influenza, split virus, trivalent, preservative 2 completed Miletzi Arvizu-Willard ro null, [facility] 02/03/2024 10:37:30 Influenza, split virus, trivalent, preservative 3 completed Miletzi Arvizu-Willard ro null, [facility] 02/03/2024 10:37:31 Influenza, split virus, trivalent, PF 0 [facility] 02/03/2024 10:37:31 Td (adult), 5 Lf tetanus toxoid, preservative free, adsorbed 6 completed Miletzi Arvizu-Bouchra ro null, [facility] 02/03/2024 10:37:31 Influenza, adjuvanted, trivalent, PF 4 completed Genet Álvarez null, [facility] 08/18/2024 14:24:21 COVID-19, mRNA, LNP-S, PF, 50 mcg/0.5 mL 4 completed [place] [facility] 08/18/2024 14:24:21 Past Encounters Encounter ID Performer Location Encounter Start Date Encounter Closed Date Diagnosis/Indication Diagnosis SNOMED-CT Code Diagnosis ICD10 Code Diagnosis Note [id number] Genet Álvarez [facility] 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 He would not need any follow up.He can f/u prn. Lower urin harshad tract symptoms due to benign prostatic hypertrophy [id number] 9101 N40.1 Catheter dependent with a very [...] AFTER 19 (MEDICARE REPLACEMENT/ ADVANTAGE - HMO) [id number] Kojo Ness [id number] Kojo Ness Notes Date Note Type Note [...] daughter and that was helpful. [place] [facility] 08/19/2024 15:14:22
[2024-09-05 17:33] VITALS: BP 157/70; PULSE 56; RESP 18; TEMP 36.4; O2SAT 97; BMI 27.9
--- NOTE | 2024-09-05 18:13 | ED_ITS ---
HPI - Male Genitourinary General Time Seen by Provider: 18:13 Date Seen: 09/05/24 Chief complaint: Urogenital Problems, Male Stated complaint: Catheter blood in urine Time Seen by Provider: 09/05/24 18:12 Source: patient, RN notes reviewed and old records reviewed Mode of arrival: ambulatory Limitations: no limitations History of Present Illness HPI Narrative: Lorrie is a very pleasant 89-year-old gentleman with a history of a Mcmullen catheter, hyperlipidemia comes to the emergency room for blood in his catheter. He had just noticed this this afternoon. He denies fever chills abdominal pain. He was here a few days ago for changing of his catheter bag which was leaking but did not have the catheter itself changed. While being interviewed patient had some episodes of coughing and states his voice has been somewhat hoarse. He notes has been on and off but the coughing to started today. Again no fever chills chest pain shortness of breath abdominal pain or vomiting or nausea. Related Data Home Medications ?Medication ?Instructions ?Recorded ?Confirmed atenolol 50 mg tablet 50 mg PO DAILY 01/18/24 03/31/24 chlorthalidone 25 mg tablet 25 mg PO DAILY 01/18/24 03/31/24 potassium chloride 20 mEq 20 meq PO 3XD 01/18/24 03/31/24 tablet,extended release(part/cryst) (Klor-Con M) pravastatin 80 mg tablet 80 mg PO QPM 01/18/24 03/31/24 tamsulosin 0.4 mg capsule 0.8 mg PO DAILY 01/18/24 03/31/24 ferrous sulfate 325 mg (65 mg 325 mg PO BID 03/31/24 03/31/24 iron) tablet,delayed release peg 3350-electrolytes 236 ml PO 03/31/24 gram-22.74 gram-6.74 gram-5.86 gram solution (GaviLyte-G) Previous Rx's ?Medication ?Instructions ?Recorded cephalexin 500 mg capsule 500 mg PO BID #14 caps 01/27/24 ciprofloxacin HCl 500 mg tablet 500 mg PO BID #10 tabs 02/04/24 (Cipro) Allergies Allergy/AdvReac Type Severity Reaction Status Date / Time No Known Drug Allergies Allergy Verified 08/28/24 11:39 Review of Systems Status of ROS: Reports: 10 or more systems reviewed and unremarkable except as noted in History and below Const: Denies: fever, chills or fatigue ENMT: Reports: hoarseness; Denies: throat pain or nasal congestion Cardio: Denies: chest pain or shortness of breath with exertion Resp: Reports: cough; Denies: shortness of breath or wheezing GI: Denies: abdominal pain, nausea or vomiting Endo: Denies: fatigue Allergy/Immuno: Denies: wheezing PFSH PFSH Social History Smoking Status: Never smoker Second hand tobacco smoke exposure: No How often do you have a drink containing alcohol: 4 or more times a week How many standard drinks containing alcohol do you have on a typical day: 1 or 2 How often do you have six or more drinks on one occasion: Never AUDIT-C Alcohol total score: 4 Non-prescribed substance use: denies use service: No Exam Narrative: Exam Narrative: Alert and oriented. No acute distress. Heart with regular rate and rhythm. Lungs are clear bilaterally. Abdomen soft. Examination of lower extremities shows 1+ peripheral edema. Patient does have dark tinged urine with a few clots in his bag. Const: Vital Signs, click to edit/add: Vital Signs - 24 hr 09/05/24 17:33 Temperature 97.5 F L Pulse Rate [Pulse Oximeter] 56 L Respiratory Rate 18 Blood Pressure [Ri ght Upper Arm] 157/70 H Pulse Oximetry 97 Oxygen Delivery Me thod Room Air Documenting provider has reviewed patient's vital signs: yes Course Course ED Course: Patient arrives at the ER with clots in his bag. No abdominal pain nausea or vomiting or fever. Will changes bag out at this time and collect the 1st urine from that. Also check a basic CBC and urinalysis as I am wondering about underlying UTI. Patient is not currently on any blood thinners. Will also swab him for COVID influenza and RSV as this appears to be a new cough for him. Reevaluation(s) Reevaluation #1: Patient noted to have a normal white count but unfortunately has not elevation of potassium to 5.2 and creatinine to 1.6 with a BUN of 31. Patient is on potassium 3 times daily which is likely part of the elevated number. Creatinine is 1.6 which is elevated from 1.0 in March. At this time will give patient 1 L of normal saline. Vital Signs Vital signs: Initial Vital Signs Temperature 97.5 F L 09/05/24 17:33 Temperature Source Temporal Artery Scan 09/05/24 17:33 Pulse Rate 56 L 09/05/24 17:33 Respiratory Rate 18 09/05/24 17:33 Blood Pressure 157/70 H 09/05/24 17:33 Blood Pressure Mean 99 09/05/24 17:33 Blood Pressure Position Sitting 09/05/24 17:33 Pulse Oximetry 97 09/05/24 17:33 Oxygen Delivery Method Room Air 09/05/24 17:33 Vital Signs Temperature 97.5 F L 09/05/24 17:33 Pulse Rate 56 L 09/05/24 17:33 Respiratory Rate 18 09/05/24 17:33 Blood Pressure 157/70 H 09/05/24 17:33 Pulse Oximetry 97 09/05/24 17:33 Oxygen Delivery Method Room Air 09/05/24 17:33 Temperature 97.5 F L 09/05/24 17:33 Pulse Rate 56 L 09/05/24 17:33 Respiratory Rate 18 09/05/24 17:33 Blood Pressure 157/70 H 09/05/24 17:33 Pulse Oximetry 97 09/05/24 17:33 Oxygen Delivery Method Room Air 09/05/24 17:33 Medications Administered Medications: Discontinued Medications Generic Name Dose Route Start Last Admin Trade Name Rancho PRN Reason Stop Dose Admin Sodium Chloride 500 mls @ 500 mls/hr 09/05/24 19:23 09/05/24 19:44 0.9 % Sodium Chloride 500 Ml IV 09/05/24 20:22 Not Given .Q1H ONE Sodium Chloride 500 mls @ 1,000 mls/hr 09/05/24 19:30 09/05/24 21:01 0.9 % Sodium Chloride 500 Ml IV 09/05/24 19:59 Infused .Q30M MARYELLEN Infusion MDM - Male Genitourinary MDM Narrative Medical decision making narrative: 1. Hematuria-patient's catheter and bag was changed. The urinalysis showed h ematuria but only a few white cells. Did discuss with riya and his daughter regarding possible etiologies including infection. At this time he has no fever chills abdominal pain or elevation of white count or fever. Did offer antibiotic but of course antibiotics themselves do have side effects and consequences of taking them. At this time after discussion we will not use an antibiotic but instead await the urine culture. I have asked him to maintain good hydration. Of course should he have worsening symptoms return. He does describe at times accidentally cooking the catheter bag while sleeping. He cannot recall any specific instance of trauma however. 2. Hyperkalemia-improved to 4.3 after hydration. Did ascertain that he is not currently taking any oral potassium as noted in the medication record. 3. Elevated creatinine-improved to 1.4. Last creatinine here was 1.0 summer 2023. 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 Does have a follow-up appointment with kidney specialist in the near future. 4. Cough-negative for COVID or influenza or RSV. 5. Disposition-home at this time. Return for fever, chills, vomiting, body aches and as needed. Medical Records Attestation: I reviewed the patient's medical records. Lab Data Attestation: I reviewed the patient's lab results. Labs: Lab Results 09/05/24 09/05/24 09/05/24 Range/Units 17:31 18:31 18:40 WBC 7.73 (4.50-11.00) K/uL RBC 4.59 (4.30-5.90) m/uL Hgb 13.0 L (13.5-17.5) gm/dL Hct 41.7 (37.0-53.0) % MCV 91 (80-100) fL MCH 28 (26-34) pg MCHC 31 L (32-36) gm/dL RDW Coeff of Shwetha 16.6 H (11.5-15.5) % Plt Count 161 (140-440) K/uL Neut % (Auto) 58.5 (42.0-72.0) % Lymph % (Auto) 26.4 (20-44) % [place] % (Auto) 11.1 H (0.0-11.0) % Eos % (Auto) 3.6 (0.0-7.0) % Baso % (Auto) 0.3 (0.0-3.0) % Neut # (Auto) 4.52 (1.7-7.0) K/uL Lymph # (Auto) 2.04 (0.90-2.90) K/uL [place] # (Auto) 0.90 (0.00-0.90) K/UL Eos # (Auto) 0.28 (0.00-0.50) K/uL Baso # (Auto) 0.02 (0.00-0.30) K/uL Abs Immat Gran (auto) 0.01 (0.00-0.30) K/uL Imm/Tot Granulo (auto) 0.1 % Sodium 140 (135-149) mmol/L Potassium 5.2 H (3.6-5.1) mmol/L Chloride 106 (96-114) mmol/L Carbon Dioxide 28 (20-32) mmol/L Anion Gap 6 L (7-15) mEq/L BUN 31 H (7-30) mg/dL Creatinine 1.6 H (0.5-1.5) mg/dL Estimated Creat Clear 34.64 Estimated GFR 41 ml/min Glucose 90 (60-115) mg/dL Calcium 9.1 (8.4-10.6) mg/dL Urine Color Cancelled Urine Appearance Cancelled Urine pH Cancelled Ur Specific [place] Cancelled Urine Protein Cancelled Urine Glucose (UA) Cancelled Urine Ketones Cancelled Urine Blood Cancelled Urine Nitrite Cancelled Urine Bilirubin Cancelled Urine Urobilinogen Cancelled Ur Leukocyte Esterase Cancelled Urine RBC Cancelled Urine WBC Cancelled Urine WBC Clumps Cancelled Ur Squamous Epith Cells Cancelled Stalin Biurate Crystals Cancelled Calcium Carbonate Cryst Cancelled Calcium Phosphate Cryst Cancelled Calcium Oxalate Crystal Cancelled Cystine Crystals Cancelled Uric Acid Crystals Cancelled Triple Phos Crystals Cancelled Sulfur Crystals Cancelled Cholesterol Crystals Cancelled Tyrosine Crystals Cancelled Hippuric Acid Crystals Cancelled Amorphous Sediment Cancelled Other Sediment Cancelled Urine Bacteria Cancelled Fatty Casts Cancelled Hyaline Casts Cancelled Fine Granular Casts Cancelled Coarse Granular Casts Cancelled Waxy Casts Cancelled RBC Casts Cancelled WBC Casts Cancelled Other Casts Cancelled Urine Starch Cancelled Urine Mucus Cancelled Urine Trichomonas Cancelled Urine Yeast Cancelled SARS-CoV-2 (PCR) Negative SARS-CoV-2 (Negative) Influenza Type A (PCR) Negative PCR FLU A (Negative) Influenza Type B (PCR) Negative PCR FLU B (Negative) RSV (PCR) Negative PCR RSV (Negative) 09/05/24 09/05/24 Range/Units 19:05 21:30 WBC (4.50-11.00) K/uL RBC (4.30-5.90) m/uL Hgb (13.5-17.5) gm/dL Hct (37.0-53.0) % MCV (80-100) fL MCH (26-34) pg MCHC (32-36) gm/dL RDW Coeff of Shwetha (11.5-15.5) % Plt Count (140-440) K/uL Neut % (Auto) (42.0-72.0) % Lymph % (Auto) (20-44) % [place] % (Auto) (0.0-11.0) % Eos % (Auto) (0.0-7.0) % Baso % (Auto) (0.0-3.0) % Neut # (Auto) (1.7-7.0) K/uL Lymph # (Auto) (0.90-2.90) K/uL [place] # (Auto) (0.00-0.90) K/UL Eos # (Auto) (0.00-0.50) K/uL Baso # (Auto) (0.00-0.30) K/uL Abs Immat Gran (auto) (0.00-0.30) K/uL Imm/Tot Granulo (auto) % Sodium 139 (135-149) mmol/L Potassium 4.3 (3.6-5.1) mmol/L Chloride 108 (96-114) mmol/L Carbon Dioxide 25 (20-32) mmol/L Anion Gap 6 L (7-15) mEq/L BUN 30 (7-30) mg/dL Creatinine 1.4 (0.5-1.5) mg/dL Estimated Creat Clear 39.59 Estimated GFR 49 ml/min Glucose 79 (60-115) mg/dL Calcium 8.7 (8.4-10.6) mg/dL Urine Color Yellow Urine Appearance Cloudy A Urine pH 5.5 Ur Specific [place] 1.015 Urine Protein Trace A Urine Glucose (UA) Negative Urine Ketones Negative Urine Blood 3+ A Urine Nitrite Negative Urine Bilirubin Negative Urine Urobilinogen 0.2 Ur Leukocyte Esterase 1+ A Urine RBC 50-100 A Urine WBC 2-5 Urine WBC Clumps Ur Squamous Epith Cells None [place]am Biurate Crystals Calcium Carbonate Cryst Calcium Phosphate Cryst Calcium Oxalate Crystal Cystine Crystals Uric Acid Crystals Triple Phos Crystals Sulfur Crystals Cholesterol Crystals Tyrosine Crystals Hippuric Acid Crystals Amorphous Sediment Other Sediment Urine Bacteria None Fatty Casts Hyaline Casts Fine Granular Casts Coarse Granular Casts Waxy Casts RBC Casts WBC Casts Other Casts Urine Starch Urine Mucus Urine Trichomonas Urine Yeast SARS-CoV-2 (PCR) (Negative) Influenza Type A (PCR) (Negative) Influenza Type B (PCR) (Negative) RSV (PCR) (Negative) Discharge Plan Discharge Clinical Impression: Acute hyperkalemia, Creatinine elevation Hematuria Qualifiers: Hematuria type: unspecified type Qualified Code(s): R31.9 - Hematuria, unspecified Patient Disposition: Home, Self-Care Condition: Improved Additional Instructions: It is important that you stay well hydrated. The 2nd labs today showed improvement of your potassium and creatinine. Decided tonight to wait on the urine culture before using an antibiotic. However, should you experience vomiting, body aches, fever chills, worsening blood in your urine bag you will need to return to the emergency room for further evaluation. Otherwise, we will call you with results of the culture if you need an antibiotic Return as needed for worsening symptoms. Prescriptions: No Action chlorthalidone 25 mg tablet 25 mg PO DAILY potassium chloride [Klor-Con M20] 20 mEq tablet,ER particles/crystals 20 meq PO 3XD pravastatin 80 mg tablet 80 mg PO QPM tamsulosin 0.4 mg capsule 0.8 mg PO DAILY atenolol 50 mg tablet 50 mg PO DAILY cephalexin 500 mg capsule 500 mg PO BID Qty: 14 0RF ciprofloxacin HCl [Cipro] 500 mg tablet 500 mg PO BID Qty: 10 0RF ferrous sulfate 325 mg (65 mg iron) tablet,delayed release (DR/EC) 325 mg PO BID peg 3350-electrolytes [GaviLyte-G] 236-22.74-6.74 -5.86 gram recon soln PO Follow Up/Referrals: Juwan Avery MD [Primary Care Provider] - Stand Alone Forms: Bundle Info Instructions
[2024-09-05 18:48] LABS: Basophils Absolute Auto 0.02 K/uL (0.00-0.30); Basophils Percent Auto 0.3 % (0.0-3.0); Eosinophils Absolute Auto 0.28 K/uL (0.00-0.50); Eosinophils Percent Auto 3.6 % (0.0-7.0); Hematocrit 41.7 % (37.0-53.0); Immature Granulocytes Abs Auto 0.01 K/uL (0.00-0.30); Immature Granulocytes Pct Auto 0.1 %; Lymphocytes Absolute Auto 2.04 K/uL (0.90-2.90); Lymphocytes Percent Auto 26.4 % (20-44); Mean Corpuscular HGB Conc 31 gm/dL (32-36); Mean Corpuscular Hemoglobin 28 pg (26-34); Mean Corpuscular Volume 91 fL (80-100); Monocytes Percent Auto 11.1 % (0.0-11.0); Neutrophils Absolute Auto 4.52 K/uL (1.7-7.0); Neutrophils Percent Auto 58.5 % (42.0-72.0); Platelet Count* 161 K/uL (140-440); RDW Coefficient of Variation % 16.6 % (11.5-15.5); Red Blood Count 4.59 m/uL (4.30-5.90); White Blood Count* 7.73 K/uL (4.50-11.00)
--- OUTSIDE RECORDS SUMMARY | 2024-09-05 18:55 | XMS_ITS | Continuity of Care Document ---
Author Name [facility] User [email or web address] llowed Address Unknown Organization Unknown Address Unknown Encounters FILTER APPLIED:Only known Encounters with Admission Date within the last 5 years Encounter Location Admission Discharge Billing Code Yard Switcher Attender Inpatient [facility] RHINA CARDONA
--- OUTSIDE RECORDS SUMMARY | 2024-09-05 18:55 | XMS_ITS | Clinical Summary ---
Author Organization [employer] [facility] Address [place], [place] [address] Care Team Providers Care Undercollar Maker Name Role Phone Juwan Avery MD Primary Care Provider [phone] Venkat Elena RN Unavailable [phone] Star Morfin MD Unavailable [phone] SoNicola peralta MD Unavailable [phone] [facility] Unavailable Allergies No known active allergies Medications VITAMINS A,C,A-[id number]-[id number] (OCUVITE PRESERVISION) 7,160-113-100 eddv-zi-gnxe tablet Take 2 Tablets by mouth two [...] Department Care Team Description 08/30/2024 3:00 PM SCHOOL TREASURER Office Visit [facility] [address] [facility] [place] [address] Marquita Omer MD Consult 08/30/2024 Travel 08/23/2024 2:15 PM SCHOOL TREASURER Orders Only [facility] [address] [facility] [place] [address] Lab, [place] Lab 08/23/2024 Travel 08/15/2024 8:45 AM SCHOOL TREASURER Home Care Visit [facility] [address] [place] [address] Bruce Nunes, PT PT - OASIS DISCHARGE 08/10/2024 8:45 AM SCHOOL TREASURER Home Care Visit [facility] [address] [place] [phone] Bruce Nunes, PT PT - HOME VISIT 08/05/2024 8:45 AM SCHOOL TREASURER Home Care Visit [facility] [address] [place] [phone] Bruce Nunes, PT PT - HOME VISIT 08/05/2024 Travel 08/02/2024 9:00 AM SCHOOL TREASURER Home Care Visit [facility] [address] [place] [address] Bruce Nunes, PT PT - HOME VISIT 08/02/2024 Travel 07/29/2024 9:00 AM SCHOOL TREASURER Home Care Visit [facility] [address] [place] [phone] Bruce Nunes, PT PT - HOME VISIT 07/27/2024 9:00 AM SCHOOL TREASURER Home Care Visit [facility] [address] [place] [phone] Bruce Nunes, PT PT - HOME VISIT 07/27/2024 Travel 07/26/2024 10:30 AM SCHOOL TREASURER Office Visit [facility] [address] [place] [address] Star Morfin MD Post-op 07/26/2024 Telephone [facility] [place] [address] [place] [phone] [place], [facility] Cancer 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) 07/26/2024 Travel 07/25/2024 Telephone [facility] [address] [place] [address] Silvia Palmer, DO Results 07/22/2024 11:00 AM SCHOOL TREASURER Office Visit [facility] [address] [place] [address] Silvia Palmer, DO Hospital F/U (R hemicolectomy ) 07/22/2024 Travel 07/19/2024 10:30 AM SCHOOL TREASURER Home Care Visit [facility] [address] [place] [phone] Bruce Nunes, PT PT - OASIS START OF CARE 07/19/2024 Plan of Care Documentation [facility] [address] [place] [phone] 07/19/2024 Patient Outreach [facility] Care Management - Advanced Care Team [address] [place] [address] Gabi Kennedy, PROJECT MANAGER Complex Care Management (CCM Engagement Outreach) 07/19/2024 Travel 07/18/2024 Patient Outreach [facility] [address] [place] [address] Claritza Ramos, RN Primary RN Care Management; Hospital F/U (LACE 65) 07/15/2024 Home Care Visit [facility] [address] [place] [phone] Toyin Blas, RN CARE COORDINATION 07/12/2024 Travel 07/04/2024 8:07 AM SCHOOL TREASURER Anesthesia Event [facility] [address] [place] [address] Tyler Mckoy MD Nelson, Kathryn M, MORTGAGE CLOSER Student 07/04/2024 7:30 AM SCHOOL TREASURER - 07/04/2024 1:27 PM SCHOOL TREASURER Surgery [facility] [address], [place] [address] Star Morfin MD LAPAROSCOPIC RIGHT HEMICOLECTOMY 07/04/2024 6:35 AM SCHOOL TREASURER - 07/15/2024 5:16 PM SCHOOL TREASURER Hospital Encounter [facility] [address] [place] [address] Star Morfin MD 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); Renal mass, right; Post-operative pain; Deep vein thrombosis (DVT) prophylaxis prescribed at discharge Discharge Disposition: Home Health 07/04/2024 Travel 07/01/2024 1:50 PM SCHOOL TREASURER Nurse/Clinic Staff Only [facility] [address] [place] [address] Urinary Problem (Leaking doll cath leg bag) 07/01/2024 Travel 07/01/2024 Telephone [facility] [address] [place] [address] Star Morfin MD pre surgical call 06/29/2024 Telephone [facility] [address] [place] [address] Star Morfin MD pre op teaching 06/22/2024 9:35 AM CDT Office Visit [facility] [address] [place] [address] Fazal Perez MD Preoperative Exam (07/04/24/ABNW/LAPA ROSCOPIC RIGHT HEMICOLECTOMY & HAND ASSISTED LAPAROSCOPIC RIGHT NEPHRECTOMY /Nicola Dillon MD /Star Morfin MD /); Immunization/Inject ion 06/22/2024 Travel 06/09/2024 Telephone [facility] [address] [place] [address] Norma Francisco PA Abstract (Pt has no known allergies- confirmed ) from Last 3 Months Immunizations Name Administration Dates Next Due COVID-19 VACCINE SPIKEVAX (M ODERNA 50MCG/0.5ML) 12YO+ PFS 06/22/2024 COVID-19 vaccine (Sqrl-Bio NTech 30mcg/0.3mL) ADRIAN RABAGO 07/08/2021,10/27/2020,10/06/2020 Influenza A [...] pur e alcohol) one beer every night [facility] Utilities Answer Date Recorded Do you [...] on file Legal Sex Male 7:00 AM SCHOOL TREASURER Gender Identity Not on file Sexual Orientation Not on file Occupation Industry Job Start Date Job End Date retired Not on file Not on file Not on file Obstetrics History Last Filed Vital Signs Vital Sign Reading Time Taken Comments Blood Pressure 152/69 08/30/2024 2:40 PM SCHOOL TREASURER Pulse 50 08/30/2024 2:40 PM SCHOOL TREASURER Temperature 37.3 C (99.1 F) 08/15/2024 9:37 AM SCHOOL TREASURER Respiratory Rate 18 08/30/2024 2:40 PM SCHOOL TREASURER Oxygen Saturation 99% 08/30/2024 2:40 PM SCHOOL TREASURER Inhaled Oxygen Concentration - - Weight 93 kg (205 lb) 08/30/2024 2:40 PM SCHOOL TREASURER Height 177.8 cm (5' 10) 07/26/2024 10:24 AM SCHOOL TREASURER Body Mass Index 29.41 07/26/2024 10:24 AM SCHOOL TREASURER Plan of Treatment Upcoming Encounters Date Type Department Care Team (Late st Contact Info) Description 12/08/2024 3:15 PM CDT Orders Only [facility] [address] [place] [address] [place], [place] 12/14/2024 3:15 PM CDT Office Visit [facility] [place] [address] [facility] [phone] Yadi Crane, DEPUTY INSURANCE COMMISSIONER [address] [place] [address] Health Maintenance Due Date Last [...] NO DIFF Routine 08/23/2024 2:1 3 PM SCHOOL TREASURER Anemia due to acute blood loss BASIC METABOLIC PANEL Routine 08/23/2024 2:13 PM SCHOOL TREASURER SUNG (acute kidney injury) (HC) CBC WITH AUTO DIFFERENTIAL Routine 07/22/2024 11:28 AM SCHOOL TREASURER Hospital discharge follow-up Anemia due to acute blood loss BASIC METABOLIC PANEL Routine 07/22/2024 11:28 AM SCHOOL TREASURER Hospital discharge follow-up BASIC METABOLIC PANEL Early AM 07/14/2024 5:22 AM SCHOOL TREASURER CBC W PLT NO DIFF Early AM 07/14/2024 5:2 2 AM SCHOOL TREASURER XR ABDOMEN 1 VIEW PORTABLE Routine 07/13/2024 8:[address] ABDOMEN PELVIS WO BILLY 07/12/2024 1:30 PM SCHOOL TREASURER XR ABDOMEN 1 VIEW PORTABLE Routine 07/12/2024 9:19 AM SCHOOL TREASURER CBC W PLT NO DIFF Early AM 07/12/2024 4:4 7 AM SCHOOL TREASURER BASIC METABOLIC PANEL Early AM 07/12/2024 4:47 AM SCHOOL TREASURER XR ABDOMEN 1 VIEW PORTABLE Routine 07/11/2024 9:36 AM SCHOOL TREASURER CBC W PLT NO DIFF Early AM 07/11/2024 5:0 4 AM SCHOOL TREASURER BASIC METABOLIC PANEL Early AM 07/11/2024 5:04 AM SCHOOL TREASURER LACTATE VENOUS Early AM 07/10/2024 5:57 AM SCHOOL TREASURER CBC W PLT NO DIFF Early AM 07/10/2024 5:5 7 AM SCHOOL TREASURER BASIC METABOLIC PANEL Early AM 07/10/2024 5:57 AM SCHOOL TREASURER CBC WITH AUTO DIFFERENTIAL Timed 07/09/2024 1:29 PM SCHOOL TREASURER LACTATE VENOUS STAT 07/09/2024 1:29 PM SCHOOL TREASURER BASIC METABOLIC PANEL Today 07/09/2024 1:29 PM SCHOOL TREASURER CBC WITH AUTO DIFFERENTIAL Timed 07/09/2024 1:29 PM SCHOOL TREASURER LACTATE VENOUS STAT 07/09/2024 11:17 AM SCHOOL TREASURER XR ABDOMEN 1 VIEW PORTABLE STAT 07/09/2024 9:19 AM SCHOOL TREASURER CBC WITH AUTO DIFFERENTIAL STAT 07/09/2024 9:05 AM SCHOOL TREASURER LACTATE VENOUS STAT 07/09/2024 9:05 AM SCHOOL TREASURER CBC WITH AUTO DIFFERENTIAL STAT 07/09/2024 9:05 AM SCHOOL TREASURER BLOOD GAS,VENOUS STAT 07/09/2024 9:05 AM SCHOOL TREASURER GLUCOSE METER Timed 07/09/2024 9:02 AM SCHOOL TREASURER XR CHEST 1 VIEW PORTABLE STAT 07/09/2024 8:44 AM SCHOOL TREASURER BASIC METABOLIC PANEL Early AM 07/09/2024 4:43 AM SCHOOL TREASURER US RENAL LEFT Routine 07/08/2024 3:49 PM SCHOOL TREASURER BASIC METABOLIC PANEL Early AM 07/08/2024 5:47 AM SCHOOL TREASURER CBC W PLT NO DIFF Early AM 07/08/2024 5:4 7 AM SCHOOL TREASURER URINALYSIS MICROSCOPIC Timed 07/07/2024 9:54 AM SCHOOL TREASURER URINE CULTURE Today 07/07/2024 9:54 AM SCHOOL TREASURER UA W/ SEDIMENT EXAM REFLEXED PER CRITERIA Today 07/07/2024 9:54 AM SCHOOL TREASURER BASIC METABOLIC PANEL Early AM 07/07/2024 5:05 AM SCHOOL TREASURER CBC W PLT NO DIFF Early AM 07/07/2024 5:0 5 AM SCHOOL TREASURER BASIC METABOLIC PANEL Early AM 07/06/2024 6:07 AM SCHOOL TREASURER CBC W PLT NO DIFF Early AM 07/06/2024 6:0 7 AM SCHOOL TREASURER BASIC METABOLIC PANEL Early AM 07/05/2024 4:12 AM SCHOOL TREASURER CBC W PLT NO DIFF Early AM 07/05/2024 4:1 2 AM SCHOOL TREASURER GLUCOSE METER Timed 07/04/2024 12:26 PM SCHOOL TREASURER PATH TISSUE EXAM Today 07/04/2024 9:45 AM SCHOOL TREASURER OR IMAGE CAPTURE Routine 07/04/2024 8:50 AM SCHOOL TREASURER AHC AN IV START Routine 07/04/2024 8:40 AM SCHOOL TREASURER ENDOTRACHEAL TUBE Routine 07/04/2024 8:3 8 AM SCHOOL TREASURER TYPE & SCREEN Preop 07/04/2024 7:37 AM SCHOOL TREASURER LAPAROSCOPIC NEPHRECTOMY HAND ASSISTED Elective 07/04/2024 7:35 AM SCHOOL TREASURER Colon adenocarcinoma (HC) LAPAROSCOPIC SHAYNE COLECTOMY RIGHT Elective 07/04/2024 7:35 AM SCHOOL TREASURER Colon adenocarcinoma (HC) GLUCOSE METER Timed 07/04/2024 7:31 AM SCHOOL TREASURER SCAN-CARDIAC STRIP 07/04/2024 12 :00 AM SCHOOL TREASURER BASIC METABOLIC PANEL Routine 06/22/2024 10:29 AM CDT Pre-op evaluation Unspecified essential hypertension HEMOGLOBIN Routine 06/22/2024 10:29 AM CDT Pre-op evaluation Malignant neoplasm of transverse colon (HC) Renal mass from Last 3 Months Results * (ABNORMAL) CBC W PLT NO DIFF (08/23/2024 2:13 PM SCHOOL TREASURER) Only the most recent of9 resultswithin the [...] BLOOD SPECIMEN / Unknown 08/23/2024 2:13 PM SCHOOL TREASURER 08/23/2024 2:13 PM SCHOOL TREASURER us Silvia Palmer DO HEMATOLOGY Final Result [facility] [employer] [facility] [address] [place] [address], [facility] [address] [place] [address] * (ABNORMAL) BASIC METABOLIC PANEL (08/23/2024 2:13 PM SCHOOL TREASURER) Only the most recent of13 resultswithin the time period is included. Pathologist [facility] GLUCOSE 91 65 - 99 mg/dL [facility] Comment: Fasting reference interval UREA NITROGEN (BUN) 23 7 - 25 mg/dL [facility] CREATININE 1.58(H) 0.70 - 1.22 mg/dL [facility] EGFR 42(L) > OR = 60 mL/min/1.7 3m2 [facility] BUN/CREATININE RATIO 15 6 - 22 (calc) [facility] SODIUM 142 135 - 146 mmol/L [facility] POTASSIUM 4.7 3.5 - 5.3 mmol/L [facility] [facility] CHLORIDE 106 98 - 110 mmol/L [facility] CARBON DIOXIDE 29 20 - 32 mmol/L [facility] ELECTROLYTE BALANCE 7 7 - 17 mmol/L (calc) [facility] CALCIUM 9.2 8.6 - 10.3 mg/dL [facility] Blood BLOOD SPECIMEN / Unknown 08/23/2024 2:13 PM SCHOOL TREASURER 08/23/2024 2:13 PM SCHOOL TREASURER us Silvia Palmer DO CHEMISTRY Final Result [facility] [facility] [address] [place] [address], [facility] [address] [place] [address] * (ABNORMAL) CBC AND DIFFERENTIAL (07/22/2024 11:28 AM SCHOOL TREASURER) [facility] WHITE BLOOD CELL COUNT 8.5 3.8 - 10.8 Thousand/u L [facility] RED BLOOD CELL COUNT 4.45 4.20 - 5.80 Million/uL [facility] HEMOGLOBIN 12.3(L) 13.2 - 17.1 [...] BLOOD SPECIMEN / Unknown 07/22/2024 11:28 AM SCHOOL TREASURER 07/22/2024 11:28 AM SCHOOL TREASURER us Silvia Palmer DO HEMATOLOGY Final Result [employer] [facility] [address] [place] [address], [facility] [address] [place] [address] * XR ABDOMEN 1 VIEW PORTABLE (07/13/2024 8:03 AM SCHOOL TREASURER) Only the most recent of4 resultswithin the time period is included. Anatomical Region Laterality Modality Abdomen Digital Radiogra phy 07/13/2024 9:03 AM SCHOOL TREASURER Narrative 07/13/2024 9:03 AM SCHOOL TREASURER For Patients: As a result of the [...] @ Jul 13 2024 9:03AM (Electronically Signed) [email or web address] Procedure Note Nayely Abdul MD - 07/13/2024 [...] @ Jul 13 2024 9:03AM (Electronically Signed) [email or web address] Oksana REECE GENERAL IMAGING Final Result * CT ABDOMEN PELVIS WO (07/12/2024 1:30 PM SCHOOL TREASURER) Anatomical Region Laterality Modality Abdomen, Pelvis, AORTA, LIVER, SPLEEN Computed Tomography 07/12/2024 4:56 PM SCHOOL TREASURER Narrative 07/12/2024 4:56 PM SCHOOL TREASURER For Patients: As a result of the [...] Result * LACTATE VENOUS (07/10/2024 5:57 AM SCHOOL TREASURER) Only the most recent of4 resultswithin the time period is included. LACTATE,VENOUS 1.2 0.5 - 2.0 mmol/L 07/10/2024 6:35 AM SCHOOL TREASURER [facility] Blood BLOOD SPECIMEN / Unknown Venipuncture / Unknown 07/10/2024 5:57 AM SCHOOL TREASURER 07/10/2024 6:14 AM SCHOOL TREASURER Alphonso L Seese RN CHEMISTRY Final Result [facility] [address] [place] [address], [place] * (ABNORMAL) CBC WITH AUTO DIFFERENTIAL (07/09/2024 1:29 PM SCHOOL TREASURER) Only the most recent of2 resultswithin the time period is included. WHITE BLOOD COUNT 15.8(H) 4.5 - 11.0 thou/cu mm 07/09/2024 1:55 PM [facility] RED BLOOD COUNT 4.86 4.30 - 5.90 mil/cu mm 07/09/2024 1:55 PM [facility] HEMOGLOBIN 12.8(L) 13.5 - 17.5 g/dL 07/09/2024 1:55 PM SCHOOL TREASURER [facility] HEMATOCRIT 40.8 37.0 - 53.0 % 07/09/2024 1:55 PM SCHOOL TREASURER [facility] MCV 84 80 - 100 fL 07/09/2024 1:55 PM SCHOOL TREASURER [facility] MCH 26.3 26.0 - 34.0 pg 07/09/2024 1:55 PM SCHOOL TREASURER [facility] MCHC 31.4(L) 32.0 - 36.0 g/dL 07/09/2024 1:55 PM [facility] RDW 16.2(H) 11.5 - 15.5 % 07/09/2024 1:55 PM [facility] PLATELET COUNT 226 140 - 440 thou/cu mm 07/09/2024 1:55 PM [facility] MPV 10.7 6.5 - 11.0 fL 07/09/2024 1:55 PM [facility] NRBC 0.0 % 07/09/2024 1:55 PM [facility] ABS NRBC 0.0 thou /cu mm 07/09/2024 1:55 PM [facility] % NEUT 79.7 % 07/09/2024 1:55 PM SCHOOL TREASURER [facility] % LYMPH 9.8 % 07/09/2024 1:55 PM SCHOOL TREASURER [facility] % MONO 9.9 % 07/09/2024 1:55 PM SCHOOL TREASURER [facility] % EOS 0.1 % 07/09/2024 1:55 PM SCHOOL TREASURER [facility] % BASO 0.1 % 07/09/2024 1:55 PM SCHOOL TREASURER [facility] % IMMATURE GRAN (METAS,MYELOS,MD OS) 0.4 % 07/09/2024 1:55 PM SCHOOL TREASURER [facility] ABSOLUTE NEUTROPHILS 12.6(H) 1.7 - 7.0 thou/cu mm 07/09/2024 1:55 PM SCHOOL TREASURER [facility] ABSOLUTE LYMPHOCYTES 1.5 0.9 - 2.9 thou/cu mm 07/09/2024 1:55 PM SCHOOL TREASURER [facility] ABSOLUTE MONOCYTES 1.6(H) <0.9 thou/cu mm 07/09/2024 1:55 PM SCHOOL TREASURER [facility] ABSOLUTE EOSINOPHILS 0.0 <0.5 thou/cu mm 07/09/2024 1:55 PM SCHOOL TREASURER [facility] ABSOLUTE BASOPHILS 0.0 <0.3 thou/cu mm 07/09/2024 1:55 PM SCHOOL TREASURER [facility] ABSOLUTE IMMATURE GRANULOCYTES(MET ,MYELOS,PROS) 0.1 <0.3 thou/cu mm 07/09/2024 1:55 PM SCHOOL TREASURER [facility] Blood BLOOD SPECIMEN / Unknown Butterfly / Unknown 07/09/2024 1:29 PM SCHOOL TREASURER 07/09/2024 1:49 PM SCHOOL TREASURER us Radha REECE HEMATOLOGY Final Result [facility] [address] [place] [address], [place] * (ABNORMAL) BLOOD GAS,VENOUS (07/09/2024 9:05 AM SCHOOL TREASURER) PH, VENOUS 7.35 7.32 - 7.43 07/09/2024 9:21 AM SCHOOL TREASURER [facility] PCO2, VENOUS 39(L) 41 - 51 mmHg 07/09/2024 9:21 AM SCHOOL TREASURER [facility] PO2, VENOUS 61(H) 35 - 40 mmHg 07/09/2024 9:21 AM SCHOOL TREASURER [facility] HCO3,VENOUS 22 22 - 29 mmol/L 07/09/2024 9:21 AM SCHOOL TREASURER [facility] BASE EXCESS, VENOUS, POCT -3.8(L) -2.0 - 3.0 07/09/2024 9:21 AM [facility] O2 SATURATION, VENOUS 90(H) 70 - 75 % 07/09/2024 9:21 AM [facility] PATIENT TEMPERATURE 37.0 Degrees C 07/09/2024 9:21 AM [facility] Blood VENOUS BLOOD SPECIMEN / Unknown Non-Lab Venipuncture / Unknown 07/09/2024 9:05 AM SCHOOL TREASURER 07/09/2024 9:15 AM SCHOOL TREASURER us Alphonso Esteban RN CHEMISTRY Final Result Performing Organization Address [facility] Co de Phone Number [facility] [address] [address], [place] * (ABNORMAL) GLUCOSE METER (07/09/2024 9:02 AM SCHOOL TREASURER) Only the most recent of3 resultswithin the time period is included. GLUCOSE METER 177(H) 65 - 100 mg/dL 07/09/2024 9:07 AM SCHOOL TREASURER [facility] Blood BLOOD SPECIMEN / Unknown 07/09/2024 9:02 AM SCHOOL TREASURER 07/09/2024 9:07 AM SCHOOL TREASURER Star Morfin MD CHEMISTRY Final Re sult Performing Organization Address City/[facility]/ZIP Co de Phone Number [facility] [address] [place] [address], [place] * XR Chest 1 View Portable - ASSET ANALYST (07/09/2024 8:44 AM SCHOOL TREASURER) Anatomical Region Laterality Modality HEART, THORAX, CHEST Digital Rad iography 07/09/2024 9:28 AM SCHOOL TREASURER Narrative 07/09/2024 9:28 AM SCHOOL TREASURER For Patients: As a result of the [...] @ Jul 09 2024 9:28AM (Electronically Signed) [email or web address] Procedure Note Jennifer Salter MD - 07/09/2024 [...] @ Jul 09 2024 9:28AM (Electronically Signed) [email or web address] us Alphonso Esteban RN GENERAL IMAGING Final Result * US RENAL LEFT LIMITED (07/08/2024 3:49 PM SCHOOL TREASURER) Anatomical Region Laterality Modality KIDNEY L, KIDNEYS Ultrasound 07/08/2024 6:07 PM SCHOOL TREASURER Addenda Addendum by Pierre Zepeda MD on 09/02/2024 2:12 PM SCHOOL TREASURER INDICATION: Renal failure. 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 No hydronephrosis or other acute source for renal failure demonstrated in the remaining left kidney. Dictated by Pierre Zepeda MD @ 07/08/2024 6:07:34 PM (Electronically Signed) Narrative 07/08/2024 6:07 PM SCHOOL TREASURER For Patients: As a result of the [...] * (ABNORMAL) URINALYSIS MICROSCOPIC (07/07/2024 9:54 AM SCHOOL TREASURER) RBC 3-5(A) 0-2, None Seen /HPF 07/07/2024 10:18 AM SCHOOL TREASURER [facility] WBC 26-50(A) 0-2, 3-5, None Seen /HPF 07/07/2024 10:18 AM SCHOOL TREASURER [facility] BACTERIA None Seen None Seen, Rare, Few Bacteria/ HPF 07/07/2024 10:18 AM SCHOOL TREASURER [facility] EPITHELIAL CELLS None Seen None Seen, Few Epi/HPF 07/07/2024 10:18 AM SCHOOL TREASURER [facility] HYALINE CASTS 11-25(A) 0-2, 3-5 /LPF 07/07/2024 10:18 AM SCHOOL TREASURER [facility] Urine URINE SPECIMEN / Unknown Non-Blood / Unknown 07/07/2024 9:54 AM SCHOOL TREASURER 07/07/2024 10:09 AM SCHOOL TREASURER us Emilie REECE URINE Fin al Result [facility] [address] [place] [address], * URINE CULTURE (07/07/2024 9:54 AM SCHOOL TREASURER) CULTURE No growth (<1,000 CFU/mL) 07/08/2024 7:40 AM [facility] Urine URINE SPECIMEN / Unknown Non-Blood / Unknown 07/07/2024 9:54 AM SCHOOL TREASURER 07/07/2024 10:09 AM [facility] Emilie REECE MICROBIOLOGY Fin al Result [facility] [address] [place] [id number], * (ABNORMAL) UA W/ SEDIMENT EXAM REFLEXED PER CRITERIA (07/07/2024 9:54 AM SCHOOL T[employer]ER) COLOR Yellow Yellow Color 07/07/2024 10:18 AM [facility] CLARITY Clear Clear Clarity 07/07/2024 10:18 AM [facility] SPECIFIC GRAVITY,URINE 1.010 1.010, 1.015, 1.020, 1.025 07/07/2024 10:18 AM [facility] PH,URINE 5.5 6.0, 7.0, 8.0, 5.5, 6.5, 7.5, 8.5 07/07/2024 10:18 AM [facility] UROBILINOGEN, QUALITATIVE Normal Normal EU/dl 07/07/2024 10:18 AM [facility] PROTEIN, URINE Trace(A) Negative mg/dL 07/07/2024 10:18 AM [facility] [employer] [facility] GLUCOSE, URINE Negative Negative mg/dL 07/07/2024 10:18 AM [facility] KETONES,URINE Negative Negative mg/dL 07/07/2024 10:18 AM [facility] BILIRUBIN,URI NE Negative Negative 07/07/2024 10:18 AM [facility] OCCULT BLOOD,URINE Moderate(A) Negative 07/07/2024 10:18 AM [facility] NITRITE Negative Negative 07/07/2024 10:18 AM [facility] LEUKOCYTE ESTERASE Moderate(A) Negative 07/07/2024 10:18 AM [employer] [facility] Urine URINE SPECIMEN / Unknown Non-Blood / Unknown 07/07/2024 9:54 AM [employer]CHO[employer]ER 07/07/2024 10:09 AM [employer] Emilie Toyincarley Vazquez PA URINE Fin al Result [facility] [address] [place] [address], [place] * PATH TISSUE EXAM (07/04/2024 9:45 AM SCHOOL TRE[employer]ER) Case Report Pathology Report Case: [id number] Authorizing Provider: Nicola Dillon MD Collected: 07/04/2024 0945 Ordering Location: [facility] Received: 07/04/2024 0954 Hospital Pathologist: Luis E Palacios MD Specimens: A) - Right Kidney B) - Right Colon 07/05/2024 4:15 PM [employer] [facility] Final Diagnosis A) KIDNEY, RIGHT, [...] 2. Ancillary testing performed on prior biopsy [id number]: a. 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 Positive for BRAF mutation 3. Lymph nodes: Negative for metastatic carcinoma in 65 lymph nodes 4. 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 Appendix: fibrous obliteration of lumen is present 07/05/2024 4:15 PM SCHOOL TREASURER [facility] ENTRAL LABORATORY Comment Dr. Kodak Terrell has reviewed slides A3-A[address] Juan F East has reviewed slides B5-B8. 07/05/2024 4:15 PM SCHOOL TREASURER [facility] Clinical Information Colon cancer and renal mass 07/05/2024 4:15 PM SCHOOL TREASURER [facility] Gross Description A) Received fresh, labeled [...] Adrenal gland present: No Lymph nodes: No Material Handler 1St Shift sections: 1. Ureteral margin 2. Hilar vessels subjacent to the trimmed staple line 3-4. Tumor with overlying pelvis, renal sinus and adjacent kidney parenchyma 4-5. Tumor with adjacent parenchyma and renal sinus 6. Tumor with renal pyramid 7. Additional sales solutions representative mass bulging the renal cortex 8. [...] Appendix: Grossly unremarkable, 7 x 0.6 cm Material Handler 1St Shift sections are submitted as follows: 1. Proximal [...] on 07/04/2024 DPL 07/04/2024 07/05/2024 4:15 PM SCHOOL TREASURER [facility] Microscopic Description The final diagnosis is based on microscopic examination of appropriate sections of all specimens. 07/05/2024 4:15 PM SCHOOL TREASURER [facility] SYNOPTIC REPORTING COLON AND RECTUM: [...] potential ancillary testing: B6 07/05/2024 4:15 PM SCHOOL TREASURER [facility] Additional Information [facility] - [address] [address] 07/05/2024 4:15 PM SCHOOL TREASURER [facility] EN[facility]AL [facility] Tissue (Right Kidney) 07/04/2024 9:45 AM SCHOOL TREASURER 07/04/2024 9:54 AM SCHOOL TREASURER Tissue specimen (specimen) (Right Colon) 07/04/2024 9:45 AM SCHOOL TREASURER 07/04/2024 10:44 AM SCHOOL TREASURER Nicola Dillon MD PATHOLOGY/CYTOLOGY Final Result [facility]EN[facility]AL LABORATORY [address] [place] [address], [place] * IV Start (07/04/2024 8:40 AM SCHOOL TREASURER) Narrative Anai Perdomo CRNA Student - 07/05/2024 6:33 AM SCHOOL TREASURER Anai Perdomo CRNA Student 07/04/2024 8:41 AM IV Start Patient location during procedure: OR PIV Site was prepped per hospital policy Laterality: right Needle Size: 18 G Site: wrist Insertion Technique: anatomical landmarks Supplies Used: extension set us Tyler Mckoy MD ANESTHESIA PX NOTE ORDERABLES Final Result * ETT (07/04/2024 8:38 AM SCHOOL TREASURER) Narrative Anai Perdomo CRNA Student - 07/04/2024 8:38 AM SCHOOL TREASURER Anai Perdomo CRNA Student 07/04/2024 8:40 AM [...] * Type and Screen (07/04/2024 7:37 AM SCHOOL TREASURER) ABORH A Rh Positive 07/04/2024 8:42 AM SCHOOL TREASURER [facility]-CENTRAL LAB BLOOD BANK ANTIBODY SCREEN Negative Negative 07/04/2024 8:42 AM SCHOOL TREASURER [facility]-CENTRAL LAB BLOOD BANK SPECIMEN EXPIRATION DATE/TIME 07/07/24 23:59 07/04/2024 8:42 AM SCHOOL TREASURER [facility]-C[facility]TRAL LAB BLOOD BANK Blood BLOOD SPECIMEN / Unknown Venipuncture / Unknown 07/04/2024 7:37 AM SCHOOL TREASURER 07/04/2024 7:48 AM SCHOOL TREASURER us Norma REECE BLOOD BANK Final Resu lt [facility]-C[facility]TRAL LAB BLOOD BANK [address] [place] [address], [place] [phone] * SCAN-CARDIAC STRIP (07/04/2024 12:00 AM SCHOOL TREASURER) Narrative 07/04/2024 12:00 AM SCHOOL TREASURER Ordered by an unspecified provider. Other Clinical Staff OTHER Final Resul t * HEMOGLOBIN (06/22/2024 10:29 AM CDT) HEMOGLOBIN 13.3 13.2 - 17.1 g/dL [facility] Blood BLOOD SPECIMEN / Unknown 06/22/2024 10:29 AM CDT 06/22/2024 10:29 AM CDT Fazal Perez MD HEMATOLOGY Final Result [facility] [address] [place] [address], [place] [phone] [facility] [address] [facility] [address] from Last 3 Months Insurance [employer] MED[employer]ARE ADVANTAGE MR MEDICARE PART A HB ONLY HC [employer] MED[employer]ARE PDGM WORKERS COMP Advance Directives * Full Code (Latest Code Status on File) Date Activated Date Inactivated Comments 07/04/2024 6:49 AM 07/15/2024 7:21 PM Question Answer Comments Code Status Discussion: Reviewed Preferences Care Teams Undercollar Maker Relationship Specialty Start Date End Date Juwan Avery MD [facility] [place] [facility] [place] [address] PCP - General Family Practice 11/12/22 Venkat Elena, RN [address] [address] Nurse Navigator - Oncology Registered Nurse 04/26/24 Star Morfin MD [address] [place] [id number] Surgery - General 04/26/24 Nicola Dillon MD [address] [place] [address] Surgery - Urology 05/03/24 Akila Markham RN [address] [place] [id number] Nurse Navigator - Oncology Registered Nurse 07/28/24
[2024-09-05 19:00] LABS: Chloride* 106 mmol/L (96-114); Potassium* 5.2 mmol/L (3.6-5.1); Sodium* 140 mmol/L (135-149)
[2024-09-05 19:03] LABS: Anion Gap 6 mEq/L (7-15); Blood Urea Nitrogen* 31 mg/dL (7-30); Carbon Dioxide* 28 mmol/L (20-32); Creatinine* 1.6 mg/dL (0.5-1.5); Est. Creatinine Clearance* 34.64; Estimated Glomerular Filt Rate 41 ml/min; Glucose* 90 mg/dL (60-115)
[2024-09-05 19:04] LABS: Calcium* 9.1 mg/dL (8.4-10.6)
[2024-09-05 19:16] LABS: Slide Review Reflex No
[2024-09-05 19:19] LABS: Appearance Urine Cloudy (Clear); Bilirubin Urine Negative (Negative); Blood Urine 3+ (Negative); Color Urine Yellow (Yellow); Glucose Urine Negative (Negative); Ketones Urine Negative (Negative); Leukocyte Esterase Urine 1+ (Negative); Nitrite Urine Negative (Negative); Protein Urine Trace (Negative); Specific Gravity Urine 1.015 (1.000-1.030); Urobilinogen Urine 0.2 (0.2-1.0); pH Urine 5.5 (5.0-8.5)
[2024-09-05 19:25] LABS: RBC Urine 50-100 (0-2)
[2024-09-05 19:32] LABS: PCR FLU A Negative PCR FLU A (Negative); PCR FLU B Negative PCR FLU B (Negative); PCR RSV Negative PCR RSV (Negative); SARS PCR* Negative SARS-CoV-2 (Negative)
[2024-09-05] MEDS: 0.9 % SODIUM CHLORIDE 500 ML 500 ML 1000 ML IV (19:45)
[2024-09-05 21:48] LABS: Chloride* 108 mmol/L (96-114); Potassium* 4.3 mmol/L (3.6-5.1); Sodium* 139 mmol/L (135-149)
[2024-09-05 21:51] LABS: Anion Gap 6 mEq/L (7-15); Blood Urea Nitrogen* 30 mg/dL (7-30); Carbon Dioxide* 25 mmol/L (20-32); Creatinine* 1.4 mg/dL (0.5-1.5); Est. Creatinine Clearance* 39.59; Estimated Glomerular Filt Rate 49 ml/min
[2024-09-05 21:52] LABS: Calcium* 8.7 mg/dL (8.4-10.6); Glucose* 79 mg/dL (60-115)
== END 2024-09-05 22:51 | disposition home or self-care (01) ==
PROVIDERS: Emergency Provider Family Medicine; PCP Family Medicine
DX: R31.9 Hematuria, unspecified (principal); E87.5 Hyperkalemia
CPT/HCPCS: 36415; 80048; 81001; 85025; 87086; 87631; 99283; 99284; J7030

== ENCOUNTER 2024-09-26 12:14 | Emergency (ER) | payer MEDICARE, SELFPAY ==
[2024-09-26 12:18] VITALS: BP 134/75; PULSE 99; RESP 18; TEMP 36.7; O2SAT 98; BMI 30.3
--- NOTE | 2024-09-26 12:41 | ED.NURSE ---
Pt presenting for concerns of leaking catheter bag. Leg bag appears to be leaking at the drainage point, even when clamped. New leg bag was replaced for the patient. Pt was denying any pain, and reports he is emptying his bladder normally. Leg bag was replaced for the patient, patient tolerated this well. Pt denied wanting to see a doctor. Pt states he as an appointment later today with a doctor, to see if his catheter can be removed. Pt signed a refusal of services form.
--- OUTSIDE RECORDS SUMMARY | 2024-09-26 12:49 | XMS_ITS | Clinical Summary ---
Author Organization [facility] Address [place], [place] [address] Care Team Providers Care Coyote Hunter Name Role Phone Juwan Avery MD Primary Care Provider [phone] Venkat Elena RN Unavailable [phone] Star Morfin MD Unavailable [phone] SoNicola peralta MD Unavailable [phone] [facility] Un[facility] Allergies No known active allergies Medications VITAMINS A,C,P-VTXF-LQWVUK (OCUVITE PRESERVISION) 7,160-113-100 tgls-cf-bawc tablet Take 2 Tablets by mouth two [...] Encounters Date Type Department Care Team Description 09/20/2024 12:45 PM SPORTS BOOK SERVER Orders Only [facility] [address] [place] [address] [place], [place] Lab 09/20/2024 Travel 09/14/2024 Telephone [facility] [address] [place] [address] Juwan Avery MD Lab (Orders) 08/30/2024 3:00 PM SPORTS BOOK SERVER Office Visit [facility] [address] [facility] [address] Marquita Omer MD Consult 08/30/2024 Travel 08/23/2024 2:15 PM SPORTS BOOK SERVER Orders Only [facility] [address] [place] [address] Lab, [place] Lab 08/23/2024 Travel 08/15/2024 8:45 AM SPORTS BOOK SERVER Home Care Visit [facility] [address] [place] [address] Bruce Nunes, PT PT - OASIS DISCHARGE 08/10/2024 8:45 AM SPORTS BOOK SERVER Home Care Visit [facility] [address] [place] [address] Bruce Nunes, PT PT - HOME VISIT 08/05/2024 8:45 AM SPORTS BOOK SERVER Home Care Visit [facility] [address] [place] [address] Bruce Nunes, PT PT - HOME VISIT 08/05/2024 Travel 08/02/2024 9:00 AM SPORTS BOOK SERVER Home Care Visit [facility] [address] [place] [address] Bruce Nunes, PT PT - HOME VISIT 08/02/2024 Travel 07/29/2024 9:00 AM SPORTS BOOK SERVER Home Care Visit [facility] [address] [place] [address] Bruce Nunes, PT PT - HOME VISIT 07/27/2024 9:00 AM SPORTS BOOK SERVER Home Care Visit [facility] [address] [place] [phone] Bruce Nunes, PT PT - HOME VISIT 07/27/2024 Travel 07/26/2024 10:30 AM SPORTS BOOK SERVER Office Visit [facility] [address] [place] [address] Star Morfin MD Post-op 07/26/[address] 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) 07/26/2024 Travel 07/25/2024 Telephone [facility] [address] [place] [address] Silvia Palmer, Results 07/22/2024 11:00 AM SPORTS BOOK SERVER Office Visit [facility] [address] [place] [address] Silvia Palmer, Hospital F/U (R hemicolectomy ) 07/22/2024 Travel 07/19/2024 10:30 AM SPORTS BOOK SERVER Home Care Visit [facility] [address] [place] [phone] Bruce Nunes, PT PT - OASIS START OF CARE 07/19/2024 Plan of Care Documentation [facility] [address] [place] [phone] 07/19/2024 Patient Outreach [facility] Care Management - Advanced Care Team [address] [place] [address] Gabi Kennedy, LOW PRESSURE FIRER Complex Care Management (CCM Engagement Outreach) 07/19/2024 Travel 07/18/2024 Patient Outreach [facility] [address] [place] [address] Claritza Ramos, RN Primary RN Care Management; Hospital F/U (LACE 65) 07/15/2024 Home Care Visit [facility] [address] [place] [phone] Toyin Blas, RN CARE COORDINATION 07/12/2024 Travel 07/04/2024 8:07 AM SPORTS BOOK SERVER Anesthesia Event [facility] [address] [place] [address] Tyler Mckoy MD Nelson, Kathryn M, SOURCE INSPECTOR Student 07/04/2024 7:30 AM SPORTS BOOK SERVER - 07/04/2024 1:27 PM SPORTS BOOK SERVER Surgery [facility] [address] [place] [address] Star Morfin MD LAPAROSCOPIC RIGHT HEMICOLECTOMY 07/04/2024 6:35 AM SPORTS BOOK SERVER - 07/15/2024 5:16 PM SPORTS BOOK SERVER Hospital Encounter [facility] [address] [place] [address] Star Morfin MD 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); Renal mass, right; Post-operative pain; Deep vein thrombosis (DVT) prophylaxis prescribed at discharge Discharge Disposition: Home Health 07/04/2024 Travel 07/01/2024 1:50 PM SPORTS BOOK SERVER Nurse/Clinic Staff Only [facility] [address] [place] [address] Urinary Problem (Leaking doll cath leg bag) 07/01/2024 Travel 07/01/2024 Telephone [facility] [address] [place] [address] Star Morfin MD pre surgical call 06/29/2024 Telephone [facility] [address] [place] [address] Star Morfin MD pre op teaching from Last 3 Months Immunizations Name Administration Dates Next Due COVID-19 VACCINE SPIKEVAX (M ODERNA 50MCG/0.5ML) 12YO+ PFS 06/22/2024 COVID-19 vaccine (Pfizer-Bio NTech 30mcg/0.3mL) ADRIAN RABAGO 07/08/2021,10/27/2020,10/06/2020 Influenza A [...] Ambulatory Vulnerability No t on file 07/05/2024 Utilities Answer Date Recorded Do you have trouble paying f or utilities (for example, heat, electricity, water, phone)? 1 07/05/2024 Sex and Gender Information Value Date Recorded Sex Assigned at Not on file Legal Sex Male 7:00 AM SPORTS BOOK SERVER Gender Identity Not on file Sexual Orientation Not on file Occupation Industry Job Start Date Job End Date retired Not on file Not on file Not on file Obstetrics History Last Filed Vital Signs Vital Sign Reading Time Taken Comments Blood Pressure 152/69 08/30/2024 2:40 PM SPORTS BOOK SERVER Pulse 50 08/30/2024 2:40 PM SPORTS BOOK SERVER Temperature 37.3 C (99.1 F) 08/15/2024 9:37 AM SPORTS BOOK SERVER Respiratory Rate 18 08/30/2024 2:40 PM SPORTS BOOK SERVER Oxygen Saturation 99% 08/30/2024 2:40 PM SPORTS BOOK SERVER Inhaled Oxygen Concentration - - Weight 93 kg (205 lb) 08/30/2024 2:40 PM SPORTS BOOK SERVER Height 177.8 cm (5' 10) 07/26/2024 10:24 AM SPORTS BOOK SERVER Body Mass Index 29.41 07/26/2024 10:24 AM SPORTS BOOK SERVER Plan of Treatment Upcoming Encounters Date Type Department Care Team (Late st Contact Info) Description 12/08/2024 3:15 PM CDT Orders Only [facility] [address] [place] [address] [place] 12/14/2024 3:15 PM CDT Office Visit [facility] [place] [facility] [place] [address] [place] [place] [phone] Yadi Crane, SENIOR INTEGRATION ARCHITECT [address] [facility] [place] [address] Health Maintenance Due Date Last Done [...] NO DIFF Routine 08/23/2024 2:1 3 PM SPORTS BOOK SERVER Anemia due to acute blood loss BASIC METABOLIC PANEL Routine 08/23/2024 2:13 PM SPORTS BOOK SERVER SUNG (acute kidney injury) (HC) CBC WITH AUTO DIFFERENTIAL Routine 07/22/2024 11:28 AM SPORTS BOOK SERVER Hospital discharge follow-up Anemia due to acute blood loss BASIC METABOLIC PANEL Routine 07/22/2024 11:28 AM SPORTS BOOK SERVER Hospital discharge follow-up BASIC METABOLIC PANEL Early AM 07/14/2024 5:22 AM SPORTS BOOK SERVER CBC W PLT NO DIFF Early AM 07/14/2024 5:2 2 AM SPORTS BOOK SERVER XR ABDOMEN 1 VIEW PORTABLE Routine 07/13/2024 8:[address] ABDOMEN PELVIS WO BILLY 07/12/2024 1:30 PM SPORTS BOOK SERVER XR ABDOMEN 1 VIEW PORTABLE Routine 07/12/2024 9:19 AM SPORTS BOOK SERVER CBC W PLT NO DIFF Early AM 07/12/2024 4:4 7 AM SPORTS BOOK SERVER BASIC METABOLIC PANEL Early AM 07/12/2024 4:47 AM SPORTS BOOK SERVER XR ABDOMEN 1 VIEW PORTABLE Routine 07/11/2024 9:36 AM SPORTS BOOK SERVER CBC W PLT NO DIFF Early AM 07/11/2024 5:0 4 AM SPORTS BOOK SERVER BASIC METABOLIC PANEL Early AM 07/11/2024 5:04 AM SPORTS BOOK SERVER LACTATE VENOUS Early AM 07/10/2024 5:57 AM SPORTS BOOK SERVER CBC W PLT NO DIFF Early AM 07/10/2024 5:5 7 AM SPORTS BOOK SERVER BASIC METABOLIC PANEL Early AM 07/10/2024 5:57 AM SPORTS BOOK SERVER CBC WITH AUTO DIFFERENTIAL Timed 07/09/2024 1:29 PM SPORTS BOOK SERVER LACTATE VENOUS STAT 07/09/2024 1:29 PM SPORTS BOOK SERVER BASIC METABOLIC PANEL Today 07/09/2024 1:29 PM SPORTS BOOK SERVER CBC WITH AUTO DIFFERENTIAL Timed 07/09/2024 1:29 PM SPORTS BOOK SERVER LACTATE VENOUS STAT 07/09/2024 11:17 AM SPORTS BOOK SERVER XR ABDOMEN 1 VIEW PORTABLE STAT 07/09/2024 9:19 AM SPORTS BOOK SERVER CBC WITH AUTO DIFFERENTIAL STAT 07/09/2024 9:05 AM SPORTS BOOK SERVER LACTATE VENOUS STAT 07/09/2024 9:05 AM SPORTS BOOK SERVER CBC WITH AUTO DIFFERENTIAL STAT 07/09/2024 9:05 AM SPORTS BOOK SERVER BLOOD GAS,VENOUS STAT 07/09/2024 9:05 AM SPORTS BOOK SERVER GLUCOSE METER Timed 07/09/2024 9:02 AM SPORTS BOOK SERVER XR CHEST 1 VIEW PORTABLE STAT 07/09/2024 8:44 AM SPORTS BOOK SERVER BASIC METABOLIC PANEL Early AM 07/09/2024 4:43 AM SPORTS BOOK SERVER US RENAL LEFT Routine 07/08/2024 3:49 PM SPORTS BOOK SERVER BASIC METABOLIC PANEL Early AM 07/08/2024 5:47 AM SPORTS BOOK SERVER CBC W PLT NO DIFF Early AM 07/08/2024 5:4 7 AM SPORTS BOOK SERVER URINALYSIS MICROSCOPIC Timed 07/07/2024 9:54 AM SPORTS BOOK SERVER URINE CULTURE Today 07/07/2024 9:54 AM SPORTS BOOK SERVER UA W/ SEDIMENT EXAM REFLEXED PER CRITERIA Today 07/07/2024 9:54 AM SPORTS BOOK SERVER BASIC METABOLIC PANEL Early AM 07/07/2024 5:05 AM SPORTS BOOK SERVER CBC W PLT NO DIFF Early AM 07/07/2024 5:0 5 AM SPORTS BOOK SERVER BASIC METABOLIC PANEL Early AM 07/06/2024 6:07 AM SPORTS BOOK SERVER CBC W PLT NO DIFF Early AM 07/06/2024 6:0 7 AM SPORTS BOOK SERVER BASIC METABOLIC PANEL Early AM 07/05/2024 4:12 AM SPORTS BOOK SERVER CBC W PLT NO DIFF Early AM 07/05/2024 4:1 2 AM SPORTS BOOK SERVER GLUCOSE METER Timed 07/04/2024 12:26 PM SPORTS BOOK SERVER PATH TISSUE EXAM Today 07/04/2024 9:45 AM SPORTS BOOK SERVER OR IMAGE CAPTURE Routine 07/04/2024 8:50 AM SPORTS BOOK SERVER AHC AN IV START Routine 07/04/2024 8:40 AM SPORTS BOOK SERVER ENDOTRACHEAL TUBE Routine 07/04/2024 8:3 8 AM SPORTS BOOK SERVER TYPE & SCREEN Preop 07/04/2024 7:37 AM SPORTS BOOK SERVER LAPAROSCOPIC NEPHRECTOMY HAND ASSISTED Elective 07/04/2024 7:35 AM SPORTS BOOK SERVER Colon adenocarcinoma (HC) LAPAROSCOPIC SHAYNE COLECTOMY RIGHT Elective 07/04/2024 7:35 AM SPORTS BOOK SERVER Colon adenocarcinoma (HC) GLUCOSE METER Timed 07/04/2024 7:31 AM SPORTS BOOK SERVER SCAN-CARDIAC STRIP 07/04/2024 12 :00 AM SPORTS BOOK SERVER from Last 3 Months Results * (ABNORMAL) CBC W PLT NO DIFF (08/23/2024 2:13 PM SPORTS BOOK SERVER) Only the most recent of9 resultswithin the [...] 156 140 - 400 Thousand/u L [facility] MPV 11.5 7.5 - 12.5 fL [facility] Blood BLOOD SPECIMEN / Unknown 08/23/2024 2:13 PM SPORTS BOOK SERVER 08/23/2024 2:13 PM SPORTS BOOK SERVER us Silvia Palmer DO HEMATOLOGY Final Result [facility] [address] [place] [address], [facility] [address] [place] [address] * (ABNORMAL) BASIC METABOLIC PANEL (08/23/2024 2:13 PM SPORTS BOOK SERVER) Only the most recent of12 resultswithin the time period is included. GLUCOSE 91 65 - 99 mg/dL [facility] Comment: Fasting reference interval UREA NITROGEN (BUN) 23 7 - 25 mg/dL [facility] CREATININE 1.58(H) 0.70 - 1.22 mg/dL [facility] EGFR 42(L) > OR = 60 mL/min/1.7 3m2 [facility] BUN/CREATININE RATIO 15 6 - [...] CALCIUM 9.2 8.6 - 10.3 mg/dL [facility] Blood BLOOD SPECIMEN / Unknown 08/23/2024 2:13 PM SPORTS BOOK SERVER 08/23/2024 2:13 PM SPORTS BOOK SERVER us Silvia Palmer DO CHEMISTRY Final Result [facility] [address] [place] [address], [facility] [address] [place] [address] * (ABNORMAL) CBC AND DIFFERENTIAL (07/22/2024 11:28 AM SPORTS BOOK SERVER) WHITE BLOOD CELL COUNT 8.5 3.8 - 10.8 Thousand/u L [facility] RED BLOOD CELL COUNT 4.45 [...] BLOOD SPECIMEN / Unknown 07/22/2024 11:28 AM SPORTS BOOK SERVER 07/22/2024 11:28 AM SPORTS BOOK SERVER us Silvia Palmer DO HEMATOLOGY Final Result [facility] [address] [place] [address], [facility] [address] [place] [address] * XR ABDOMEN 1 VIEW PORTABLE (07/13/2024 8:03 AM SPORTS BOOK SERVER) Only the most recent of4 resultswithin the time period is included. Anatomical Region Laterality Modality Abdomen Digital Radiogra phy 07/13/2024 9:03 AM SPORTS BOOK SERVER Narrative 07/13/2024 9:03 AM SPORTS BOOK SERVER For Patients: As a result of the [...] @ Jul 13 2024 9:03AM (Electronically Signed) [email or web address] Procedure Note Nayely Abdul MD - 07/13/2024 [...] @ Jul 13 2024 9:03AM (Electronically Signed) [email or web address] Oksana REECE GENERAL IMAGING Final Result * CT ABDOMEN PELVIS WO (07/12/2024 1:30 PM SPORTS BOOK SERVER) Anatomical Region Laterality Modality Abdomen, Pelvis, AORTA, LIVER, SPLEEN Computed Tomography 07/12/2024 4:5 6 PM SPORTS BOOK SERVER Narrative 07/12/2024 4:56 PM SPORTS BOOK SERVER For Patients: As a result of the [...] For Patients: As a result of the Century Cures Act, medical imagingexams and procedure [...] Result * LACTATE VENOUS (07/10/2024 5:57 AM SPORTS BOOK SERVER) Only the most recent of4 resultswithin the time period is included. [facility] LACTATE,VENOUS 1.2 0.5 - 2.0 mmol/L 07/10/2024 6:35 AM SPORTS BOOK SERVER [facility] Blood BLOOD SPECIMEN / Unknown Venipuncture / Unknown 07/10/2024 5:57 AM SPORTS BOOK SERVER 07/10/2024 6:14 AM SPORTS BOOK SERVER Alphonso Esteban RN CHEMISTRY Final Result [facility] [address] [place] [address], * (ABNORMAL) CBC WITH AUTO DIFFERENTIAL (07/09/2024 1:29 PM SPORTS BOOK SERVER) Only the most recent of2 resultswithin the time period is included. [facility] WHITE BLOOD COUNT 15.8(H) 4.5 - 11.0 thou/cu mm 07/09/2024 1:55 PM SPORTS BOOK SERVER [facility] RED BLOOD COUNT 4.86 4.30 - 5.90 mil/cu mm 07/09/2024 1:55 PM [facility] HEMOGLOBIN 12.8(L) 13.5 - 17.5 g/dL 07/09/2024 1:55 PM [facility] HEMATOCRIT 40.8 37.0 - 53.0 % 07/09/2024 1:55 PM [facility] MCV 84 80 - 100 fL 07/09/2024 1:55 PM [facility] MCH 26.3 26.0 - 34.0 pg 07/09/2024 1:55 PM [facility] MCHC 31.4(L) 32.0 - 36.0 g/dL 07/09/2024 1:55 PM [facility] RDW 16.2(H) 11.5 - 15.5 % 07/09/2024 1:55 PM [facility] PLATELET COUNT 226 140 - 440 thou/cu mm 07/09/2024 1:55 PM [facility] MPV 10.7 6.5 - 11.0 fL 07/09/2024 1:55 PM [facility] NRBC 0.0 % 07/09/2024 1:55 PM [facility] ABS NRBC 0.0 thou /cu mm 07/09/2024 1:55 PM [facility] % NEUT 79.7 % 07/09/2024 1:55 PM [facility] % LYMPH 9.8 % 07/09/2024 1:55 PM [facility] % MONO 9.9 % 07/09/2024 1:55 PM [facility] % EOS 0.1 % 07/09/2024 1:55 PM [facility] % BASO 0.1 % 07/09/2024 1:55 PM [facility] % IMMATURE GRAN (METAS,MYELOS,[place] OS) 0.4 % 07/09/2024 1:55 PM SPORTS BOOK SERVER [facility] ABSOLUTE NEUTROPHILS 12.6(H) 1.7 - 7.0 thou/cu mm 07/09/2024 1:55 PM SPORTS BOOK SERVER [facility] ABSOLUTE LYMPHOCYTES 1.5 0.9 - 2.9 thou/cu mm 07/09/2024 1:55 PM SPORTS BOOK SERVER [facility] ABSOLUTE MONOCYTES 1.6(H) <0.9 thou/cu mm 07/09/2024 1:55 PM SPORTS BOOK SERVER [facility] ABSOLUTE EOSINOPHILS 0.0 <0.5 thou/cu mm 07/09/2024 1:55 PM SPORTS BOOK SERVER [facility] ABSOLUTE BASOPHILS 0.0 <0.3 thou/cu mm 07/09/2024 1:55 PM SPORTS BOOK SERVER [facility] ABSOLUTE IMMATURE GRANULOCYTES(MET ,MYELOS,PROS) 0.1 <0.3 thou/cu mm 07/09/2024 1:55 PM SPORTS BOOK SERVER [facility] Blood BLOOD SPECIMEN / Unknown Butterfly / Unknown 07/09/2024 1:29 PM SPORTS BOOK SERVER 07/09/2024 1:49 PM SPORTS BOOK SERVER Radha REECE HEMATOLOGY Final Result [facility] [address] [place] [address], * (ABNORMAL) BLOOD GAS,VENOUS (07/09/2024 9:05 AM SPORTS BOOK SERVER) PH, VENOUS 7.35 7.32 - 7.43 07/09/2024 9:21 AM SPORTS BOOK SERVER [facility] PCO2, VENOUS 39(L) 41 - 51 mmHg 07/09/2024 9:21 AM SPORTS BOOK SERVER [facility] PO2, VENOUS 61(H) 35 - 40 mmHg 07/09/2024 9:21 AM SPORTS BOOK SERVER [facility] HCO3,VENOUS 22 22 - 29 mmol/L 07/09/2024 9:21 AM SPORTS BOOK SERVER [facility] BASE EXCESS, VENOUS, POCT -3.8(L) -2.0 - 3.0 07/09/2024 9:21 AM SPORTS BOOK SERVER [facility] O2 SATURATION, VENOUS 90(H) 70 - 75 % 07/09/2024 9:21 AM SPORTS BOOK SERVER [facility] PATIENT TEMPERATURE 37.0 Degrees C 07/09/2024 9:21 AM SPORTS BOOK SERVER [facility] Blood VENOUS BLOOD SPECIMEN / Unknown Non-Lab Venipuncture / Unknown 07/09/2024 9:05 AM SPORTS BOOK SERVER 07/09/2024 9:15 AM SPORTS BOOK SERVER us Alphonso Esteban RN CHEMISTRY Final Result Performing Organization Address City/[facility]/ZIP Co de Phone Number [facility] [address] [address], [place] * (ABNORMAL) GLUCOSE METER (07/09/2024 9:02 AM SPORTS BOOK SERVER) Only the most recent of3 resultswithin the time period is included. GLUCOSE METER 177(H) 65 - 100 mg/dL 07/09/2024 9:07 AM SPORTS BOOK SERVER [facility] Blood BLOOD SPECIMEN / Unknown 07/09/2024 9:02 AM SPORTS BOOK SERVER 07/09/2024 9:07 AM SPORTS BOOK SERVER us Star Morfin MD CHEMISTRY Final Re sult Performing Organization Address [facility]/ZIP Co de Phone Number [facility] [address] [address], [place] * XR Chest 1 View Portable - JEWELRY TECHNICIAN (07/09/2024 8:44 AM SPORTS BOOK SERVER) Anatomical Region Laterality Modality HEART, THORAX, CHEST Digital Rad iography 07/09/2024 9:28 AM SPORTS BOOK SERVER Narrative 07/09/2024 9:28 AM SPORTS BOOK SERVER For Patients: As a result of the Century Cures Act, medical imaging exams and [...] @ Jul 09 2024 9:28AM (Electronically Signed) [email or web address] Procedure Note Jennifer Salter MD - 07/09/2024 [...] @ Jul 09 2024 9:28AM (Electronically Signed) [email or web address] us Alphonso Esteban RN GENERAL IMAGING Final Result * US RENAL LEFT LIMITED (07/08/2024 3:49 PM SPORTS BOOK SERVER) Anatomical Region Laterality Modality KIDNEY L, KIDNEYS Ultrasound 07/08/2024 6:07 PM SPORTS BOOK SERVER Addenda Addendum by Pierre Zepeda MD on 09/02/2024 2:12 PM SPORTS BOOK SERVER INDICATION: Renal failure. 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 No hydronephrosis or other acute source for renal failure demonstrated in the remaining left kidney. Dictated by Pierre Zepeda MD @ 07/08/2024 6:07:34 PM (Electronically Signed) Narrative 07/08/2024 6:07 PM SPORTS BOOK SERVER For Patients: As a result of the [...] PM (Electronically Signed) us Fazal Villarreal MD US Edited Resul t - Final * (ABNORMAL) URINALYSIS MICROSCOPIC (07/07/2024 9:54 AM SPORTS BOOK SERVER) RBC 3-5(A) 0-2, None Seen /HPF 07/07/2024 10:18 AM SPORTS BOOK SERVER [facility] WBC 26-50(A) 0-2, 3-5, None Seen /HPF 07/07/2024 10:18 AM SPORTS BOOK SERVER [facility] BACTERIA None Seen None Seen, Rare, Few Bacteria/ HPF 07/07/2024 10:18 AM SPORTS BOOK SERVER [facility] EPITHELIAL CELLS None Seen None Seen, Few Epi/HPF 07/07/2024 10:18 AM SPORTS BOOK SERVER [facility] HYALINE CASTS 11-25(A) 0-2, 3-5 /LPF 07/07/2024 10:18 AM SPORTS BOOK SERVER [facility] Urine URINE SPECIMEN / Unknown Non-Blood / Unknown 07/07/2024 9:54 AM SPORTS BOOK SERVER 07/07/2024 10:09 AM SPORTS BOOK SERVER Emilie REECE URINE Fin al Result [facility] [address] [place] [address], [place] * URINE CULTURE (07/07/2024 9:54 AM SPORTS BOOK SERVER) CULTURE No growth (<1,000 CFU/mL) 07/08/2024 7:40 AM SPORTS BOOK SERVER [facility] Urine URINE SPECIMEN / Unknown Non-Blood / Unknown 07/07/2024 9:54 AM SPORTS BOOK SERVER 07/07/2024 10:09 AM SPORTS BOOK SERVER Emilie REECE MICROBIOLOGY Fin al Result [facility] [address] [place] [address], [place] * (ABNORMAL) UA W/ SEDIMENT EXAM REFLEXED PER CRITERIA (07/07/2024 9:54 AM SPORTS BOOK SERVER) COLOR Yellow Yellow Color 07/07/2024 10:18 AM [facility] CLARITY Clear Clear Clarity 07/07/2024 10:18 AM [facility] SPECIFIC GRAVITY,URINE 1.010 1.010, 1.015, 1.020, 1.025 07/07/2024 10:18 AM [facility] PH,URINE 5.5 6.0, 7.0, 8.0, 5.5, 6.5, 7.5, 8.5 07/07/2024 10:18 AM [facility] UROBILINOGEN, QUALITATIVE Normal Normal EU/dl 07/07/2024 10:18 AM [facility] PROTEIN, URINE Trace(A) Negative mg/dL 07/07/2024 10:18 AM [facility] GLUCOSE, URINE Negative Negative mg/dL 07/07/2024 10:18 AM [facility] KETONES,URINE Negative Negative mg/dL 07/07/2024 10:18 AM [facility] BILIRUBIN,URI NE Negative Negative 07/07/2024 10:18 AM [facility] OCCULT BLOOD,URINE Moderate(A) Negative 07/07/2024 10:18 AM [facility] NITRITE Negative Negative 07/07/2024 10:18 AM [facility] LEUKOCYTE ESTERASE Moderate(A) Negative 07/07/2024 10:[address] [facility] Urine URINE SPECIMEN / Unknown Non-Blood / Unknown 07/07/2024 9:54 AM [employer] 07/07/2024 10:09 AM [facility] us Emilie Vazquez PA URINE Fin al Result [facility] [address] [place] [address], [place] * PATH TISSUE EXAM (07/04/2024 9:45 AM [employer]) Case Report Pathology Report Case: [id number] Authorizing Provider: Nicola Dillon MD Collected: 07/04/2024 0945 Ordering Location: [facility] Received: 07/04/2024 0954 [facility] Pathologist: Luis E Palacios MD Specimens: A) - Right Kidney B) - Right Colon 07/05/2024 4:15 PM [employer] [facility] Final Diagnosis A) KIDNEY, [...] 2. Ancillary testing performed on prior biopsy [id number]: a. 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 Positive for BRAF mutation 3. Lymph nodes: Negative for metastatic carcinoma in 65 lymph nodes 4. 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 Appendix: fibrous obliteration of lumen is present 07/05/2024 4:15 PM [employer]OOK SERVER [facility] Comment Dr. Kodak Terrell has reviewed slides A3-A[address] Juan F East has reviewed slides B5-B8. 07/05/2024 4:15 PM SPORTS BOOK SERVER [employer] [facility] Clinical Information Colon cancer and renal mass 07/05/2024 4:15 PM SPORTS BOOK SERVER [facility] Gross Description A) Received fresh, [...] Adrenal gland present: No Lymph nodes: No Railcar Switcher sections: 1. Ureteral margin 2. Hilar vessels subjacent to the trimmed staple line 3-4. Tumor with overlying pelvis, renal sinus and adjacent kidney parenchyma 4-5. Tumor with adjacent parenchyma and renal sinus 6. Tumor with renal pyramid 7. Additional food service representative mass bulging the renal cortex 8. [...] Appendix: Grossly unremarkable, 7 x 0.6 cm Railcar Switcher sections are submitted as follows: 1. Proximal [...] on 07/04/2024 DPL 07/04/2024 07/05/2024 4:15 PM SPORTS BOOK SERVER [facility] Microscopic Description The final diagnosis is based on microscopic examination of appropriate sections of all specimens. 07/05/2024 4:15 PM SPORTS BOOK SERVER [facility] SYNOPTIC REPORTING COLON AND RECTUM: [...] potential ancillary testing: B6 07/05/2024 4:15 PM SPORTS BOOK SERVER [facility] [employer] [facility] Additional Information Interpreted at [facility], Central Laboratory - [address] [facility] [address], [place] [address] 07/05/2024 4:15 PM SPORTS BOOK SERVER [facility] [employer] [facility] Tissue (Right Kidney) 07/04/2024 9:45 AM SPORTS BOOK SERVER 07/04/2024 9:54 AM SPORTS BOOK SERVER Tissue specimen (specimen) (Right Colon) 07/04/2024 9:45 AM SPORTS BOOK SERVER 07/04/2024 10:44 AM SPORTS BOOK SERVER Nicola Dillon MD PATHOLOGY/CYTOLOGY Final Result [facility] [address] [place] [address], * IV Start (07/04/2024 8:40 AM SPORTS BOOK SERVER) Narrative Anai Perdomo CRNA Student - 07/05/2024 6:33 AM SPORTS BOOK SERVER Anai Perdomo CRNA Student 07/04/2024 8:41 AM IV Start Patient location during procedure: OR PIV Site was prepped per hospital policy Laterality: right Needle Size: 18 G Site: wrist Insertion Technique: anatomical landmarks Supplies Used: extension set Tyler Mckoy MD ANESTHESIA PX NOTE ORDERABLES Final Result * ETT (07/04/2024 8:38 AM SPORTS BOOK SERVER) Narrative Anai Perdomo, SOURCE INSPECTOR Student - 07/04/2024 8:38 AM SPORTS BOOK SERVER Anai Perdomo SOURCE INSPECTOR Student 07/04/2024 8:40 AM Procedure: ETT Patient [...] with MAC 3 and Jay 2 by SRNA. DLx1 with Jay 2 by MDA with successful intubation attempt x1. Tyler Mckoy MD ANESTHESIA PX NOTE ORDERABLES Final Result * Type and Screen (07/04/2024 7:37 AM SPORTS BOOK SERVER) Pathologist [facility] ABORH A Rh Positive 07/04/2024 8:42 AM SPORTS BOOK SERVER [facility] ANTIBODY SCREEN Negative Negative 07/04/2024 8:42 AM SPORTS BOOK SERVER [facility] SPECIMEN EXPIRATION DATE/TIME 07/07/24 23:59 07/04/2024 8:42 AM SPORTS BOOK SERVER [employer] [facility] Blood BLOOD SPECIMEN / Unknown Venipuncture / Unknown 07/04/2024 7:37 AM SPORTS BOOK SERVER 07/04/2024 7:48 AM SPORTS BOOK SERVER Norma REECE BLOOD BANK Final Resu lt [facility] [address] [place] [address], * SCAN-CARDIAC STRIP (07/04/2024 12:00 AM SPORTS BOOK SERVER) Narrative 07/04/2024 12:00 AM SPORTS BOOK SERVER Ordered by an unspecified provider. us Other Clinical Staff OTHER Final Resul t from Last 3 Months Insurance [employer] MEDICARE ADVANTAGE MR MEDICARE PART A HB ONLY HC [employer] MEDICARE PD WORKERS COMP Advance Directives * Full Code (Latest Code Status on File) Date Activated Date Inactivated Comments 07/04/2024 6:49 AM 07/15/2024 7:21 PM Question Answer Comments Code Status Discussion: Reviewed Preferences Care Teams Coyote Hunter Relationship Specialty Start Date End Date Juwan Avery MD [address] [place] [id number] PCP - General Family Practice 11/12/22 Venkat Elena, RN [address] [address] Nurse Navigator - Oncology Registered Nurse 04/26/24 Star Morfin MD [address] [place] [address] Surgery - General 04/26/24 Nicola Dillon MD [address] [place] [address] Surgery - Urology 05/03/24 Akila Markham, RN [address] [place] [address] Nurse Navigator - Oncology Registered Nurse 07/28/24
== END 2024-09-26 12:49 | disposition home or self-care (01) ==
LOC: ED 12:47
PROVIDERS: Emergency Provider Emergency Medicine Emergency Medical Services; PCP Family Medicine
DX: Z53.21 Procedure and treatment not carried out due to patient leaving prior to being seen by health care provider (principal)

== ENCOUNTER 2024-10-28 13:34 | Emergency (ER) | payer MEDICARE, SELFPAY ==
--- OUTSIDE RECORDS SUMMARY | 2024-10-28 13:36 | XMS_ITS | Data Portability ---
Author Organization [place] [facility], autoContract - [facility] - [place] Address [address] [address] Care Team Providers Care Shop Tailor Name Role Phone NICOLA VALLES Referring Provider Assessment Encounter Date Assessment Date Assessment LastModified by Organization Details LastModified Time 10/11/2024 10/11/2024 Assessment: A 89-year-old with BPH and indwelling catheter, indicating a significant impact on quality of life. We discussed the PAE procedure, a minimally invasive option with good success rates for relieving LUTS. Alternatives, potential side effects such as post-procedural pain and transient urinary symptoms, and risks like non-target embolization were also reviewed. Plan: - Anticipate patient is a candidate for PAE, will discuss case with Dr. Khan. [email or web address] Not available 10/11/2024 15:51:18 Plan of Treatment Reminders Order Date Submit Date Provider Last Modified By Organization Details Last Modified Time Details Appointments PROSTATE ARTERY EMBOLIZA TION 2024 09:00A M Dr. Khan Not available Not available Not available Lab None recorded . Referral None recorded . Procedures None recorded . Surgeries None recorded . Imaging None recorded . Medication Orders None recorded . Patient TargetsNo targets recorded. Patient InstructionsNo instructions recorded. Reason for Referral None Reported. Medical Equipment None Reported. Allergies No known drug allergies Medications Name Sig Start Date Stop Date Status Note LastModified by Organization Details LastModified Time metronidazo le 500 mg tablet Take 1 tablet by mouth at 1pm, 2pm and 11 pm.* 10/11 completed Not Available Not Available Not Available chlorthalid one 25 mg tablet TAKE ONE TABLET BY MOUTH ONE TIME DAILY* active Not Available Not Available No t Available ciprofloxac in 500 mg tablet TAKE ONE TABLET BY MOUTH TWICE DAILY* 10/11 completed Not Available Not Available Not Available pravastatin 80 mg tablet TAKE ONE TABLET BY MOUTH ONE TIME DAILY AT BEDTIME* active Not Available Not Available No t Available tamsulosin 0.4 mg capsule TAKE TWO CAPSULES BY MOUTH DAILY WITH A MEAL.* active Not Available Not Available No t Available cephalexin 500 mg capsule TAKE ONE CAPSULE BY MOUTH TWICE DAILY* 10/11 completed Not Available Not Available Not Available [...] MOUTH EVERY FOUR HOURS NEEDED FOR NAUSEA* 10/11 completed Not Available Not Available Not Available [...] Not Available Not Available No t Available Eliquis 2.5 mg tablet 10/11 completed Not Available Not Available Not Available Multi Vitamin active Not Available Not Available Not Available Vitals Date Recorded Body weight Heart rate Oxygen saturation Oxygen saturation in Arterial blood by Pulse oximetry Body mass index (BMI) Body height Systolic blood pressure Diastolic blood pressure Provider Name and Address Organization Details Last Updated DateTime 5 14990.8 1 g 54 /min 99 % 99 % 30 kg/m2 177.8 cm 125 mm[Hg] 54 mm[Hg] Noe PYLE - [facility] 5 11:40:42 Social History Question Answer Notes LastModified by Organizat ion Details LastModified Time Tobacco Smoking Status Former Smoker EDENILSON Jean - [facility] 10/11/2024 11:44:28 What Is Your Level Of Alcohol Consumption? Occasional [email or web address] Information not available 10/11/2024 Sex: Unknown Functional Status None recorded. Mental Status None recorded. Family History Nothing Reported. Medical History Condition Response Diabetes N Coronary Artery Disease N Pacemaker N Sleep Disorder N Heart Disease N Hypertension Y Stroke N Lung Disease N Asthma N COPD N Kidney Disease Y Past Encounters Encounter ID Performer Location Encounter Start Date Encounter Closed Date Diagnosis/Indication Diagnosis SNOMED-CT Code Diagnosis ICD10 Code Diagnosis Note [id number] BIN RIVAS PA-C [facility] [address] [facility] [place] [address] 10/11/2024 11:25:41 10/11/2024 12:31:36 Lower urinary tract symptoms due to benign prostatic hypertrophy 9619987365 9101 N40.1 Health Concerns Section Related Observation LastModified by Organization Detai ls LastModified Time None Recorded Concern Status LastModified by Organization Details LastModified Time None Recorded Advance Directives Directive None Recorded Payers Encounter Date Sequence Insurance Name Policy Number Policy Masterson Covered Member ID Masterson Member ID Guarantor Name 10/11/2024 2 [place]: [employer] Kojo Laabs [id number] Kojo Laabs 10/11/2024 1 [employer] ([place]) [id number] Kojo Laabs [id number] Kojo Laabs Notes Date Note Type Note Provider Name and Address Organization Details Recorded Time 10/11/2024 text/html PAE HPI v1.0Reported bypatient.Referral Source:Self-referr ed. Seen by urologist? yes; Dr. Nicola Crowderald is a pleasant 89 y/o male who presents accompanied by his daughter, Mita, for PAE. He was referred his urologist, Dr. Valles. In December 2023, patient developed urinary retention. He presented to the ED and had a catheter placed. 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 He underwent a radical nephrectomy and colon resection in June. He has bee following with nephrology, Dr. Patton. 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 Recent TRUS with prostate size at 184cc. BIN RIVAS PA-C [address] [facility],[address], [place], [address], [place] - [facility] 10/11/2024 15:51:33
--- OUTSIDE RECORDS SUMMARY | 2024-10-28 13:37 | XMS_ITS | Data Portability ---
Author Organization [place] [facility] Address [address] [place] [address] Care Team Providers Care Steamfitter Apprentice Name Role Phone DANG PAULO Primary Care Provider Assessment No assessment recorded. Plan of Treatment Reminders Order Date Submit Date Provider Last Modified By Organization Details Last Modified Time Details Appointments None recorded . Lab None recorded . Referral None recorded . Procedures vascular emboliza tion or occlusio n; for tumors, organ ischemia , or infarcti on (PROC) - 184cc prostate on office ultrasou nd 2023 024 [email or web address] [facility], [address], [address], [place], [address], 5 08:15:21 urodynam ic testing, complex (PROC) 2023 024 kaveh Not available 4 07:49:35 Surgeries nephrect loretta, hand assisted laparosc opic (SURG) 2023 024 demetria Not available 4 09:18:50 Imaging None recorded . Medication Orders None recorded . Patient TargetsNo targets recorded. Patient Instructions Encounter Date Encounter Id Patient Instructions Last Modified By Organization Details Last Modified Time 06/13/2024 [id number] 35 minutes spent with patient and reviewing [...] Details Recorded Time Acute retention of urine [id number] Active 024 Luda Watson PA-C [address], [place], [address], [facility] 4 11:29:06 Retention of urine 718992975 Active 024 Edmar Vaughn MD [address] [place] [address],[address], [place], [address], [facility] 4 11:33:59 Problem Notes None recorded. Procedures Surgical History Date Name Laterality Status Provider Name and Address Organization Details Recorded Time 10/19/19 25 Urethral Catheter Change completed Concetta Zapata [facility] 10/19/2024 12:51:33 08/18/20 24 Urethral Catheter Change completed Genet Álvarez [facility] 08/19/2024 15:14:03 08/18/20 24 TRUS- Volume size only completed Nicola Dillon MD [address] [place] [address],[address], [place], [address], [facility] 08/18/2024 15:08:20 07/04/20 24 NEPHRECTOMY, HAND ASSISTED LAPAROSCOPIC (SURG) completed Reena Paez [facility] 07/07/2024 09:40:04 06/13/20 24 COMPLEX VISIT completed Nicola Dillon MD [address] [place] [address],[address], [place], [address], [facility] 07/01/2024 13:18:31 05/27/20 24 Urodynamic Studies completed Garrett Vazquez [facility] 05/16/2024 17:20:05 05/27/20 24 BRAVO CHANGE completed Akila Mccall [facility] 05/27/2024 11:54:40 04/28/20 24 COMPLEX VISIT completed Nicola Dillon MD [address] [facility],[address], [place], [address], [facility] 04/28/2024 14:39:20 04/28/20 24 BRAVO CHANGE completed Nicola Dillon MD [address] [facility] [address], [place], [address], [facility] 04/28/2024 14:39:08 03/04/20 24 Cystoscopy- male completed Edmar Vaughn MD [address] [place] [address],[address], [place], [address], [facility] 03/04/2024 14:49:59 03/04/20 24 Bravo Catheter Insertion completed Trey Cabral [facility] 03/04/2024 15:44:20 03/04/20 24 Cipro post Cysto completed Trey Cabral [facility] 02/24/2024 14:58:47 03/04/20 24 Fill and Pull/Voiding Trial/TOV completed Trey Cabral [facility] 03/04/2024 15:44:41 02/12/20 24 Bravo Catheter Insertion completed Edmar Vaughn MD [address] [place] [address],[address], [place], [address], [facility] 02/12/2024 11:53:15 02/12/20 24 Fill and Pull/Voiding Trial/TOV completed Edmar Vaughn MD [address] [place] [address],[address], [place], [address], [facility] 02/12/2024 11:28:34 02/10/20 24 Bravo Catheter Insertion completed Concetta Zapata [facility] 02/10/2024 14:26:17 02/10/20 24 Fill and Pull/Voiding Trial/TOV completed Concetta Zapata [facility] 02/10/2024 14:25:24 02/03/20 24 Bravo Catheter Insertion completed Franko magaña [facility] 02/03/2024 12:10:15 02/03/20 24 Fill and Pull/Voiding Trial/TOV completed Luda Watson PA-C [address] [place] [address] [address], [place], [address], [facility] 02/03/2024 11:16:06 Imaging Results Imaging Date [...] Not Available Vitals Date Recorded Body height Provider Name an d Address Organization Details Last Updated DateTime 04/28/2024 180.34 cm Nicola Dillon MD [address] [facility] [address], [place], [address], [facility] 04/28/2024 14:01:24 Date Recorded Body height Provider Name an d Address Organization Details Last Updated DateTime 05/27/2024 180.34 cm Akila Cal [facility] 05/27/2024 11:54:17 Date Recorded Body height Provider Name an d Address Organization Details Last Updated DateTime 06/13/2024 180.34 cm Alma Delia Casey [facility] 06/13/2024 13:46:21 Date Recorded Body height Body mass index (BMI) Body weight Provider Name and Address Organization Details Last Updated DateTime 08/18/2024 180.34 cm 27.9 kg/m2 09565.47 g Genet Starkss [facility] 08/18/2024 14:24:16 Social History Question Answer Notes LastModified by Organizat ion Details LastModified Time Tobacco Smoking Status [facility]2024 10:40:30 What Is Your Level Of Alcohol Consumption? Moderate Beer At Supper Information not available 02/03/2024 What Is Your Level Of Caffeine Consumption? None Information not available 02/03/2024 When Did You Quit Smoking? 16+yearssinc elastcigaret te Information not available 02/03/2024 What Was The Date Of Your Most Recent Tobacco Screening? 08/18/2024 [email or web address] Information not available 08/18/2024 Have You Ever Been Counseled For Unhealthy Alcohol Use? No [email or web address] Information not available 02/12/2024 Do You Use Any Illicit Or Recreational Drugs? No Information not available 02/03/2024 Has Tobacco Cessation Counseling Been Provided? No [email or web address] Information not available 02/12/2024 Do You Or Have You Ever Used Any Other Forms Of Tobacco Or Nicotine? No [email or web address] Information not available 02/12/2024 How Many Days In The Past Year Have You Consumed 5 Or More Drinks? 0 [email or web address] Information not available 02/12/2024 Sex: Unknown Functional Status None recorded. Mental Status None recorded. Family History Relationship Description Onset Age of this Age Resolved Age Notes LastModified by Organization Details LastModified Time Father No current problems or disability [email or web address] Not available 02/21 14:27:02 Mother No current problems or disability [email or web address] Not available 02/21 14:27:03 Notes:brain cancer-cancer sp ouse-stomach cancer Medical History Condition Response Kidney Stones Y Immunizations Vaccine Type Date Status Note Provider Nam e and Address Organization Details Recorded Time Influenza, adjuvanted, trivalent, PF 9 completed Miletzi Arvizu-Bouchra ro null, [facility] 02/03/2024 10:37:30 Influenza, adjuvanted, trivalent, PF 8 completed Miletzi Arvizu-[place] ro null, [facility] 02/03/2024 10:37:30 Influenza, adjuvanted, trivalent, PF 0 completed Miletzi Arvizu-Bouchra ro null, [facility] 02/03/2024 10:37:30 zoster recombinant 4 completed Miletzi Arvizu-[place] ro null, [facility] 02/03/2024 10:37:30 Influenza, high-dose, quadrivalent, PF 3 completed Miletzi Arvizu-Bouchra ro null, [facility] 02/03/2024 10:37:30 Influenza, high-dose, quadrivalent, PF 2 completed Miletzi Arvizu-Bouchra ro null, [facility] 02/03/2024 10:37:30 Influenza, adjuvanted, quadrivalent, PF 1 completed Miletzi Arvizu-Bouchra ro null, [facility] 02/03/2024 10:37:30 COVID-19, mRNA, LNP-S, PF, 30 mcg/0.3 mL dose 1 completed Miletzi Arvizu-Bouchra ro null, [facility] 02/03/2024 10:37:30 COVID-19, mRNA, LNP-S, PF, 30 mcg/0.3 mL dose 1 completed Miletzi Arvizu-Bouchra ro null, [facility] 02/03/2024 10:37:30 COVID-19, mRNA, LNP-S, PF, 30 mcg/0.3 mL dose 1 completed Miletzi Arvizu-Bouchra ro null, [facility] 02/03/2024 10:37:30 COVID-19, mRNA, LNP-S, PF, 30 mcg/0.3 mL dose, gillian-sucrose 2 completed Miletzi Arvizu-[place] ro null, [facility] 02/03/2024 10:37:30 COVID-19, mRNA, LNP-S, bivalent, PF, 30 mcg/0.3 mL dose 2 completed Miletzi Arvizu-Bouchra ro null, [facility] 02/03/2024 10:37:30 RSV, recombinant, protein subunit RSVpreF, adjuvant reconstituted, 0.5 mL, PF 3 completed Miletzi Arvizu-[place] ro null, [facility] 02/03/2024 10:37:30 pneumococcal polysaccharide PPV23 6 completed Miletzi Arvizu-[place] ro null, [facility] 02/03/2024 10:37:30 Tdap 4 completed Miletzi Arvizu-Bouchra ro null, [facility] 02/03/2024 10:37:30 Novel Mlixtqrle-[id number], all formulations 0 completed Miletzi Arvizu-[place] ro null, [facility] 02/03/2024 10:37:30 Pneumococcal conjugate PCV 13 5 completed Miletzi Arvizu-[place] ro null, [facility] 02/03/2024 10:37:30 Influenza, high-dose, trivalent, PF 7 completed Miletzi Arvizu-Bouchra ro null, [facility] 02/03/2024 10:37:30 Influenza, high-dose, trivalent, PF 4 completed Miletzi Arvizu[place] ro null, [facility] 02/03/2024 10:37:30 Influenza, high-dose, trivalent, PF 5 completed Miletzi Arvizu[place] ro null, [facility] 02/03/2024 10:37:30 Influenza, split virus, trivalent, preservative 8 completed Miletzi Arvizu[place] ro null, [facility] 02/03/2024 10:37:30 Influenza, split virus, trivalent, preservative 7 completed Miletzi Arvizu-Bouchra ro null, [facility] 02/03/2024 10:37:30 Influenza, split virus, trivalent, preservative 0 completed Miletzi Arvizu-Bouchra ro null, [facility] 02/03/2024 10:37:30 Influenza, split virus, trivalent, preservative 4 completed Miletzi Arvizu-Bouchra ro null, [facility] 02/03/2024 10:37:30 Influenza, split virus, trivalent, preservative 2 completed Miletzi Arvizu[place] ro null, [facility] 02/03/2024 10:37:30 Influenza, split virus, trivalent, preservative 3 completed Miletzi Arvizu[place] ro null, [facility] 02/03/2024 10:37:31 Influenza, split virus, trivalent, PF 0 completed Miletzi Arvizu-[place] ro null, [facility] 02/03/2024 10:37:31 Td (adult), 5 Lf tetanus toxoid, preservative free, adsorbed 6 completed Miletzi Arvizu-[place] ro null, [facility] 02/03/2024 10:37:31 Influenza, adjuvanted, trivalent, PF 4 completed eGnet esquivel, EDENIL[facility] 08/18/2024 14:24:21 COVID-19, mRNA, LNP-S, PF, 50 mcg/0.5 mL 4 completed Genet esquivel, EDENILSON [facility] 08/18/2024 14:24:21 Past Encounters Encounter ID Performer Location Encounter Start Date Encounter Closed Date Diagnosis/Indication Diagnosis SNOMED-CT Code Diagnosis ICD10 Code Diagnosis Note [id number] Franko James elif [facility] [address] [place] [address] 02/03/2024 10:25:53 02/04/2024 08:33:51 Acute retention of urine 024747439 R33.8 [id number] Luda Watson PA-C [facility] [address] [place] [address] 02/10/2024 13:37:37 02/11/2024 09:27:45 Acute retention of urine 064721017 R33.8 [id number] Edmar Vaughn MD [facility] [address] [place] [address] 02/12/2024 10:44:21 02/15/2024 16:00:54 Retention of urine 773762363 R33.9 [id number] Edmar Vaughn MD [facility] [address] [place] [address] 03/04/2024 14:17:21 03/22/2024 12:42:48 Retention of urine 415097619 R33.9 [id number] Nicola Dillon MD [facility] [address] [place] [address] 04/28/2024 13:46:52 05/06/2024 08:43:02 Renal mass 345074401 N28.89 It is reasonable to have surgery to remove his kidney and colonic mass.I'll talk to Dr Morfin again and we'll try and coordinate the schedule. They were considerin g systemic therapy but would prefer to handle it surgically . Chronic re tention of urine 640121361 R33.8 We'll manage this with Bravo drainage for now. He'll also need Urodynamic s to asses bladder strength or lack of it. [id number] Akila Mccall [facility] [address] [place] [address] 05/27/2024 10:39:20 05/30/2024 10:54:56 Retention of urine 065346406 R33.9 F/u with CS or TF for UDS review [id number] Nicola Dillon MD [facility] [address] [place] [address] 06/13/2024 13:46:00 07/12/2024 08:41:58 Chronic retention of urine 280283671 R33.8 Will keep the Bravo for the next month but he could benefit from a HoLEP or Auquablati on. 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 I'll have him f/u with Dr Gonzáles or Levi to further discuss. Renal mass [id number] N28 .89 Will plan on a combined colectomy and nephrectom y. Risks, benefits, and complicati ons of the procedure were discussed including infection, bleeding, voiding discomfort , urinary retention, fever, chills, sepsis, and others. In particular , nephrectom y has the added risk of bowel or vascular injury. All questions were answered. [id number] Genet Álvarez [facility] [address] 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 He would not need any follow up.He can f/u prn. Lower urin harshad tract symptoms due to benign prostatic hypertrophy [id number] 9101 N40.1 Catheter dependent with a very large prostate at 184cc. We discussed suprapubic prostatect loretta, HoLEP and PAE. Given his age and recent surgeries, prostate artery embolizati on is a safe and effective option. Dr Khan. [id number] Concetta Zapata [facility] [address] [place] [address] 10/19/2024 11:53:44 10/24/2024 09:51:25 Retention of urine 720209399 R33.9 Health Concerns Section Related Observation LastModified by Organization Detai ls LastModified Time None Recorded Concern Status LastModified by Organization Details LastModified Time None Recorded Advance Directives Directive None Recorded Payers Encounter Date Sequence Insurance Name Policy Number Policy Masterson Covered Member ID Masterson Member ID Guarantor Name 04/28/2024 1 [employer] - DOS ON OR AFTER 19 (MEDICARE REPLACEMENT/ ADVANTAGE - HMO) [id number] Kojo N Laabs [id number] Kojo N Laabs 05/27/2024 1 [employer] - DOS ON OR AFTER 19 (MEDICARE REPLACEMENT/ ADVANTAGE - HMO) [id number] Kojo N Laabs [id number] Kojo N Laabs 06/13/2024 1 [employer] - DOS ON OR AFTER 19 (MEDICARE REPLACEMENT/ ADVANTAGE - HMO) [id number] 1_[id number] Kojo N Laabs [id number] Kojo N Laabs 08/18/2024 1 [employer] - DOS ON OR AFTER 19 (MEDICARE REPLACEMENT/ ADVANTAGE - HMO) [id number] 1_[id number] Kojo N Laabs [id number] Kojo N Laabs 10/19/2024 1 [employer] - DOS ON OR AFTER 19 (MEDICARE REPLACEMENT/ ADVANTAGE - HMO) [id number] 1_[id number] Kojo N Laabs [id number] Kojo N Laabs Notes Date Note Type Note Provider Name and Address Organization Details Recorded Time 04/28/2024 text/html Referred for a r enal [...] is a bit risky. Nicola Dillon MD [address] [place] [address],[address], [place], [address], [facility] 04/28/2024 14:39:38 05/27/2024 text/html Date of Service:05/27/2024Indic ation:Urinary retentionReferring Physician:Dr. Villagomez today included:Multichannel cystometry, EMG, and pressure flow [...] DS #1) for UTI preventionTester name:Akila esquivel [facility] 05/27/2024 11:56:43 06/13/2024 text/html [...] and coordinate their care. Nicola Dillon MD [address] [place] [address],[address], [place], [address], [facility] 07/11/2024 10:10:14 08/18/2024 text/html 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 He's recovered well from the double cancer surgery. He did have a prolonged ileus but is eating well now. Also has urinary retention wtih an indwelling Bravo.He came with his daughter and that was helpful. Genet esquivel, [facility] 08/19/2024 15:14:22 10/19/2024 text/html Don is here for catheter change. A 16 Fr coude was used. Pt reports no concerns.Nurse visit completed by Concetta Donnelly RN. Concetta esquivel [facility] 10/19/2024 13:57:40
--- OUTSIDE RECORDS SUMMARY | 2024-10-28 13:37 | XMS_ITS | Clinical Summary ---
Author Organization [facility] Address [facility] [place] [address] Care Team Providers Care Route Carrier Name Role Phone Juwan Avery MD Primary Care Provider [phone] Venkat Elena RN Unavailable [phone] Star Morfin MD Unavailable [phone] SoNicola peralta MD Unavailable [phone] [facility] Un[facility] Marquita Omer MD Unavailable Yadi Crane PANAMA HAT BLOCKER Unavailable Manuel Wilkins Unavailable [phone] Allergies No known active allergies Medications VITAMINS A,C,T-JFEY-ZJIVHU (OCUVITE PRESERVISION) 7,[id number] zkwd-ua-wwrl tablet Take 2 Tablets by mouth two times daily. 0 09/24/19 17 Active fluorometholone (FML) 0.1 % ophthalmic suspension Place 1 Drop into right eye two times daily. 11/06/19 18 Active potassium chloride (KLOR-CON M20) 20 mEq extended-release tablet (part/cryst)Indic ations:Essential hypertension Take 1 Tablet (20 mEq) by mouth two times daily with meals. 180 Tablet 3 12/16/19 24 Active atenoloL (TENORMIN) 50 mg tabletIndications :Essential hypertension Take 1 Tablet (50 mg) by mouth once daily. 90 Tablet 3 12/16/19 24 Active pravastatin (PRAVACHOL) 80 mg tabletIndications :Hyperlipidemia, unspecified hyperlipidemia type Take 1 Tablet (80 mg) by mouth at bedtime. 90 Tablet 3 12/16/19 Active tamsulosin (FLOMAX) 0.4 mg capsuleIndication s:Prostatic hypertrophy TAKE TWO CAPSULES BY MOUTH DAILY with a meal. 180 Capsule 3 12/16/19 Active Additional Information Patient taking differently: 0.4 mg Oral BID, (No instructions reported), Informant: Family, Reported on 10/05/2024 sodium chloride (ADSORBONAC) 2 % ophthalmic solution Place 1 Drop into right eye two times daily. Active ondansetron (ZOFRAN ODT) 4 mg disintegrating tabletIndications :Metastatic carcinoid tumor (HC) Take 1 tablet every 4 hours if needed for nausea. 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 1 Each 07/11/20 Active acetaminophen (TYLENOL EXTRA STRGTH) 500 mg tabletIndications :Renal mass, right,Post-operat garfield pain Take 1-2 Tablets (500-1,000 mg) by mouth every 6 hours if needed for Pain. Max acetaminophen dose: 4000mg in 24 hrs. 07/15/20 Active durable medical equipment (DME)Indications: Chronic indwelling Mcmullen catheter Bard Bvsrwc-G-Ljd 3 Each 5 10/05/19 25 Active ferrous sulfate 325 mg delayed release tabletIndications :Microcytic anemia Take 1 Tablet (325 mg) by mouth two times daily with meals. 180 Tablet 3 10/10/19 25 Active ferrous sulfate 325 mg delayed release tabletIndications :Microcytic anemia Take 1 Tablet (325 mg) by mouth two times daily with meals. 90 Tablet 3 03/17/20 24 025 Discontin ued(*Avai lability/ Formulary change/Co st of medicatio n) ferrous sulfate 325 mg delayed release tabletIndications :Microcytic anemia Take 1 Tablet (325 mg) by mouth two times daily with meals. 180 Tablet 2 10/10/19 25 025 Discontin ued(*Avai lability/ Formulary change/Co st of medicatio n) ferrous sulfate 325 mg delayed release tabletIndications :Microcytic anemia Take 1 Tablet (325 mg) by mouth two times daily with meals. 180 Tablet 2 10/10/19 25 025 Discontin ued(*Avai lability/ Formulary change/Co st of medicatio n) Active Problems Problem Noted Date Diagnosed Date [...] Encounters Date Type Department Care Team Description 10/08/2024 Refill [facility] [address] [facility] [place] [address] Brian Pate MD Refill Request (Ferrous Sulfate) 10/05/2024 8:25 AM VEHICLE SALES PROFESSIONAL Office Visit [facility] [address] [facility] [place] [address] Juwan Avery MD Home Care (Face to face visit for home care) 10/05/2024 Travel 09/26/2024 Telephone [facility] [address] [facility] [place] [address] Juwan Avery MD Home Care 09/20/2024 12:45 PM VEHICLE SALES PROFESSIONAL Orders Only [facility] [address] [facility] [place] [address] [place], [place] Lab 09/20/2024 Travel 09/14/2024 Telephone [facility] [address] [place] [address] Juwan Avery MD Lab (Orders) 08/30/2024 3:00 PM VEHICLE SALES PROFESSIONAL Office Visit [facility] [address] [place] [address] Marquita Omer MD Consult 08/30/2024 Travel 08/23/2024 2:15 PM VEHICLE SALES PROFESSIONAL Orders Only [facility] [address] [place] [address] [place] 08/23/2024 Travel 08/15/2024 8:45 AM VEHICLE SALES PROFESSIONAL Home Care Visit [facility] [address] [place] [address] Bruce Nunes, PT PT - OASIS DISCHARGE 08/10/2024 8:45 AM VEHICLE SALES PROFESSIONAL Home Care Visit [facility] [address] [place] [address] Bruce Nunes, PT PT - HOME VISIT 08/05/2024 8:45 AM VEHICLE SALES PROFESSIONAL Home Care Visit [facility] [address] [place] [address] Bruce Nunes, PT PT - HOME VISIT 08/05/2024 Travel 08/02/2024 9:00 AM VEHICLE SALES PROFESSIONAL Home Care Visit [facility] [address] [place] [address] Bruce Nunes, PT PT - HOME VISIT 08/02/2024 Travel from Last 3 Months Immunizations Name Administration Dates Next Due COVID-19 VACCINE SPIKEVAX (M ODERNA 50MCG/0.5ML) 12YO+ PFS 06/22/2024 COVID-19 vaccine (Scrip-t-Bio NTech 30mcg/0.3mL) ADRIAN RABAGO 07/08/2021,10/27/2020,10/06/2020 Influenza A [...] Answered Alcohol Use Standard Drinks/Week Comments Yes 7 (1 standard drink = 0.6 oz pur e alcohol) one beer every night PHQ-2 Answer Date Recorded PHQ-2 TOTAL SCORE 0 12/16/2023 Social Connections Answer Date Recorded Do you often feel lonely or isolated from those around you? 0 07/05/2024 Alcohol Use Answer Date Recorded How often do you have a drink containing alcohol ? 4 10/05/2024 How many drinks containing a lcohol do you have on a typical day when you are drinking? 0 10/05/2024 How often do you have five or more drinks on one occasion? 0 10/05/2024 Financial Resource Strain Answer Date R ecorded [...] on file Legal Sex Male 7:00 AM VEHICLE SALES PROFESSIONAL Gender Identity Not on file Sexual Orientation Not on file Occupation Industry Job Start Date Job End Date retired Not on file Not on file Not on file Obstetrics History Last Filed Vital Signs Vital Sign Reading Time Taken Comments Blood Pressure 139/63 10/05/2024 8:26 AM VEHICLE SALES PROFESSIONAL Pulse 48 10/05/2024 8:26 AM VEHICLE SALES PROFESSIONAL Temperature 36.4 C (97.6 F) 10/05/2024 8:26 AM VEHICLE SALES PROFESSIONAL Respiratory Rate 18 08/30/2024 2:40 PM VEHICLE SALES PROFESSIONAL Oxygen Saturation 99% 10/05/2024 8:26 AM VEHICLE SALES PROFESSIONAL Inhaled Oxygen Concentration - - Weight 93.4 kg (205 lb 14.4 oz) 10/05/2024 8:26 AM VEHICLE SALES PROFESSIONAL Height 177.8 cm (5' 10) 10/05/2024 8:26 AM VEHICLE SALES PROFESSIONAL Body Mass Index 29.54 10/05/2024 8:26 AM VEHICLE SALES PROFESSIONAL Plan of Treatment Upcoming Encounters Date Type Department Care Team (Late st Contact Info) Description 12/08/2024 3:15 PM CDT Orders Only [facility] [address] [place] [address] [place] 12/14/2024 3:15 PM CDT Office Visit [facility] [address] [place] [address] Yadi Crane, PANAMA HAT BLOCKER [address] [place] [address] 12/16/2024 1:15 PM CDT Orders Only [facility] [address] [place] [address] [place] 12/21/2024 2:25 PM CDT Office Visit [facility] [address] [place] [address] Juwan Avery MD [address] [place] [address] Health Maintenance Due Date Last Done Comments Zoster (shingles) series for age 50+ (2 of 2) 02/15/2024 12/21/2023 COVID-19 vaccine series (2023- season) 2024 06/22/2024, 07/31/2022, 02/11/2022, Additional history exists Depression screening for age 12+ 12/15/2024 12/16/2023, 11/12/2022, 10/22/2021, Additional history exists Medicare Wellness for age 65+ 12/16/2024, 11/12/2022, 10/21/2021, Additional history exists BMI (ht and wt on same day) for age 18+ 10/05/2025 10/05/2024, 07/26/2024, 06/22/2024, Additional history exists Tetanus booster 12/20/2033 12/21/2023, 09/2005, 05/25/2006 Pneumococcal series for age 50+ Completed 5, 05/25/2006 RSV vaccine for adults or Completed 06/30/2023 Tdap Completed 12/21/2023 Influenza for age 65+ Completed 06/22/2024 , 06/30/2023, 07/31/2022, Additional history exists Procedures Procedure Name Priority Date/Time Associated Diagnosis Comments CBC W PLT NO DIFF Routine 08/23/2024 2:1 3 PM VEHICLE SALES PROFESSIONAL Anemia due to acute blood loss BASIC METABOLIC PANEL Routine 08/23/2024 2:13 PM VEHICLE SALES PROFESSIONAL SUNG (acute kidney injury) from Last 3 Months Results * (ABNORMAL) CBC W PLT NO DIFF (08/23/2024 2:13 PM VEHICLE SALES PROFESSIONAL) WHITE BLOOD CELL COUNT 9.9 3.8 - [...] BLOOD SPECIMEN / Unknown 08/23/2024 2:13 PM VEHICLE SALES PROFESSIONAL 08/23/2024 2:13 PM VEHICLE SALES PROFESSIONAL Silvia Palmer DO HEMATOLOGY Final Result [employer] [facility] [address] [place] [address], [place] [phone] [facility] [address] [facility] [place] [address] * (ABNORMAL) BASIC METABOLIC PANEL (08/23/2024 2:13 PM VEHICLE SALES PROFESSIONAL) GLUCOSE 91 65 - 99 mg/dL [facility] [...] BLOOD SPECIMEN / Unknown 08/23/2024 2:13 PM VEHICLE SALES PROFESSIONAL 08/23/2024 2:13 PM VEHICLE SALES PROFESSIONAL Silvia Palmer DO CHEMISTRY Final Result [employer] [facility] [address] [place] [address], [place] [phone] [facility] [address] [place] [address] from Last 3 Months Insurance UCARE MEDICARE ADVANTAGE MR MEDICARE PART A HB ONLY HC UCARE [place] [address] WORKERS COMP Advance Directives * Full Code (Latest Code Status on File) Date Activated Date Inactivated Comments 07/04/2024 6:49 AM 07/15/2024 7:21 PM Question Answer Comments Code Status Discussion: Reviewed Preferences Care Teams Route Carrier Relationship Specialty Start Date End Date Juwan Avery MD [facility] [place] [address] PCP - General Family Practice 11/12/22 Venkat Elena, MIKAEL [address] [address] Nurse Navigator - Oncology Registered Nurse 04/26/24 Star Morfin MD [address] [place] [address] Surgery - General 04/26/24 Nicola Dillon MD [address] [place] [address] Surgery - Urology 05/03/24 Akila Markham RN [address] [place] [address] Nurse Navigator - Oncology Registered Nurse 07/28/24 Marquita Omer MD [address] [place] [address] Medical Oncologist Oncology 09/30/24 Yadi Crane, PANAMA HAT BLOCKER [address] [place] [address] Nurse Practitioner Oncology 09/30/24 [place], TAWNYA Tapia [address] [place] [address] Pipe Setter Oncology 09/30/24
--- OUTSIDE RECORDS SUMMARY | 2024-10-28 13:37 | XMS_ITS | Continuity of Care Document ---
Author Organization [facility] Address [address] [place] [address] Care Team Providers Care Coach Operator Name Role Phone DANG BATES Primary Care Provider Assessment No assessment recorded. [...] Details Recorded Time Acute retention of urine [id number] Active 024 Luda Watson PA-C [address] [facility],[address] [place] [address], [phone], [facility] 4 11:29:06 Retention of urine [id number] Active 024 Edmar Vaughn MD [address] [facility],[address] [place] [address], [phone], [facility] 4 11:33:59 Problem Notes None recorded. Procedures Surgical History Date Name Laterality Status Provider Name and Address Organization Details Recorded Time 10/19/19 25 Urethral Catheter Change completed Concetta Zapata [facility] 10/19/2024 12:51:33 08/18/20 24 Urethral Catheter Change completed Genet Álvarez [facility] 08/19/2024 15:14:03 08/18/20 24 TRUS- Volume size only completed Nicola Dillon MD [address] [facility],[address], [place], [address], [facility] 08/18/2024 15:08:20 07/04/20 24 NEPHRECTOMY, HAND ASSISTED LAPAROSCOPIC (SURG) completed Reena Jeannine [facility] 07/07/2024 09:40:04 06/13/20 24 COMPLEX VISIT completed Nicola Dillon MD [address] [place] [address],[address], [address], [facility] 07/01/2024 13:18:31 05/27/20 24 Urodynamic Studies completed Garrett Vazquez [facility] 05/16/2024 17:20:05 05/27/20 24 BRAVO CHANGE completed Akila Mccall [facility] 05/27/2024 11:54:40 04/28/20 24 COMPLEX VISIT completed Nicola Dillon MD [address] [place] [address],[address], [place], [address], [facility] 04/28/2024 14:39:20 04/28/20 24 BRAVO CHANGE completed Nicola Dillon MD [address] [place] [address],[address], [place], [address], [facility] 04/28/2024 14:39:08 03/04/20 24 Cystoscopy- male completed Edmar Vaughn MD [address] [place] [address],[address], [place], [address], [facility] 03/04/2024 14:49:59 03/04/20 24 Bravo Catheter Insertion [facility] 03/04/2024 15:44:20 03/04/20 24 Cipro post Cysto completed Trey Cabral [facility] 02/24/2024 14:58:47 03/04/20 24 Fill and Pull/Voiding Trial/TOV [facility] 03/04/2024 15:44:41 02/12/20 24 Brvao Catheter Insertion completed Edmar Vaughn MD [address] [place] [address],[address], [address], [facility] 02/12/2024 11:53:15 02/12/20 24 Fill and Pull/Voiding Trial/TOV completed Edmar Vaughn MD [address] [place] [address],[address], [address], [facility] 02/12/2024 11:28:34 02/10/20 24 Bravo Catheter Insertion completed Concetta Zapata [facility] 02/10/2024 14:26:17 02/10/20 24 Fill and Pull/Voiding Trial/TOV completed Concetta Zapata [facility] 02/10/2024 14:25:24 02/03/20 24 Bravo Catheter Insertion completed Franko magaña [facility] 02/03/2024 12:10:15 02/03/20 24 Fill and Pull/Voiding Trial/TOV completed Luda Watson PA-C [address] [place] [address], [address], [facility] 02/03/2024 11:16:06 Imaging Results None [...] Not Available Not Available Not Available Vitals None Recorded Social History Question Answer Notes LastModified by Organizat ion Details LastModified Time Tobacco Smoking Status Former Smoker Franko esquivel [facility] 02/03/2024 10:40:30 What Is Your Level [...] Been Counseled For Unhealthy Alcohol Use? No [email or web address] Information not available 02/12/2024 Do You Use Any Illicit Or Recreational Drugs? No Information not available 02/03/2024 Has Tobacco Cessation Counseling Been Provided? No Information not available 02/12/2024 Do You Or Have You Ever Used Any Other Forms Of Tobacco Or Nicotine? No [email or web address] Information not available 02/12/2024 How Many Days In The Past Year Have You Consumed 5 Or More Drinks? 0 [email or web address] Information not available 02/12/2024 Sex: Unknown Functional Status None recorded. Mental Status None recorded. Family History Relationship Description Onset Age of this Age Resolved Age Notes LastModified by Organization Details LastModified Time Father No current problems or disability [email or web address] Not available 02/21 14:27:02 Mother No current problems or disability Not available 02/21 14:27:03 Notes:brain cancer-cancer sp ouse-stomach cancer Medical History Condition Response Kidney Stones Y Immunizations Vaccine Type Date Status Note Provider Nam e and Address Organization Details Recorded Time Influenza, adjuvanted, trivalent, PF 9 completed Miletzi Arvizu-Bouchra ro null, [facility] 02/03/2024 10:37:30 Influenza, adjuvanted, trivalent, PF 8 completed Miletzi [facility] [facility] null, [facility] 02/03/2024 10:37:30 Influenza, adjuvanted, trivalent, PF 0 completed Miletzi Arvizu-Bouchra ro null, [facility] 02/03/2024 10:37:30 zoster recombinant 4 completed Miletzi Arviz[place] ro null, [facility] 02/03/2024 10:37:30 Influenza, high-dose, quadrivalent, PF 3 completed Miletzi Arvizu-Bouchra ro null, [facility] 02/03/2024 10:37:30 Influenza, high-dose, quadrivalent, PF 2 completed Miletzi [facility] ro null, [facility] 02/03/2024 10:37:30 Influenza, adjuvanted, quadrivalent, PF 1 completed Miletzi Arvizu-Bouchra ro null, [facility] 02/03/2024 10:37:30 COVID-19, mRNA, LNP-S, PF, 30 mcg/0.3 mL dose 1 completed Miletzi Arvizu-Bouchra ro null, [facility] 02/03/2024 10:37:30 COVID-19, mRNA, LNP-S, PF, 30 mcg/0.3 mL dose 1 completed Miletzi Arvizu[place] ro null, [facility] 02/03/2024 10:37:30 COVID-19, mRNA, LNP-S, PF, 30 mcg/0.3 mL dose 1 completed Miletzi Arvizu[place] ro null, [facility] 02/03/2024 10:37:30 COVID-19, mRNA, LNP-S, PF, 30 mcg/0.3 mL dose, gillian-sucrose 2 completed Miletzi Arvizu-Bouchra ro null, [facility] 02/03/2024 10:37:30 COVID-19, mRNA, LNP-S, bivalent, PF, 30 mcg/0.3 mL dose 2 completed Miletzi Arvizu[place] ro null, [facility] 02/03/2024 10:37:30 RSV, recombinant, protein subunit RSVpreF, adjuvant reconstituted, 0.5 mL, PF 3 completed Miletzi Arvizu-Bouchra ro null, [facility] 02/03/2024 10:37:30 pneumococcal polysaccharide PPV23 6 completed Miletzi Arvizu[place] ro null, [facility] 02/03/2024 10:37:30 Tdap 4 [facility], [facility] 02/03/2024 10:37:30 Novel Tfawyxhtr-H1A0-89, all formulations 0 completed Miletzi Arvizu[place] ro null, [facility] 02/03/2024 10:37:30 Pneumococcal conjugate PCV 13 5 completed Miletzi Arvizu-Bouchra ro null, [facility] 02/03/2024 10:37:30 Influenza, high-dose, trivalent, PF 7 completed Miletzi [facility] ro null, [facility] 02/03/2024 10:37:30 Influenza, high-dose, trivalent, PF 4 completed Miletzi [facility] ro null, [facility] 02/03/2024 10:37:30 Influenza, high-dose, trivalent, PF 5 completed Miletzi [facility] ro null, [facility] 02/03/2024 10:37:30 Influenza, split virus, trivalent, preservative 8 completed Miletzi Arv[facility] ro null, [facility] 02/03/2024 10:37:30 Influenza, split virus, trivalent, preservative 7 completed Miletzi Arvizu-Bouchra ro null, [facility] 02/03/2024 10:37:30 Influenza, split virus, trivalent, preservative 0 completed Miletzi [facility] ro null, [facility] 02/03/2024 10:37:30 Influenza, split virus, trivalent, preservative 4 completed Miletzi Arvizu-Bouchra ro null, [facility] 02/03/2024 10:37:30 Influenza, split virus, trivalent, preservative 2 completed Miletzi Arvizu-Bouchra ro null, [facility] 02/03/2024 10:37:30 Influenza, split virus, trivalent, preservative 3 completed Miletzi Arvizu-Bouchra ro null, [facility] 02/03/2024 10:37:31 Influenza, split virus, trivalent, PF 0 completed [facility], [facility] 02/03/2024 10:37:31 Td (adult), 5 Lf tetanus toxoid, preservative free, adsorbed 6 [facility] [facility] null, [facility] 02/03/2024 10:37:31 Influenza, adjuvanted, trivalent, PF 4 completed Genet Álvarez null, [facility] 08/18/2024 14:24:21 COVID-19, mRNA, LNP-S, PF, 50 mcg/0.5 mL 4 completed Genetfortunato Starkss null, [facility] 08/18/2024 14:24:21 Past Encounters Encounter ID Performer Location Encounter Start Date Encounter Closed Date Diagnosis/Indication Diagnosis SNOMED-CT Code Diagnosis ICD10 Code Diagnosis Note [id number] Concetta MCCLAIN_Johnnya [address] [place] [address] 10/19/2024 11:53:44 10/24/2024 09:51:25 Retention of urine 268522428 R33.9 Health Concerns Section Related Observation LastModified by Organization Detai ls LastModified Time None Recorded Concern Status LastModified by Organization Details LastModified Time None Recorded Payers Encounter Date Sequence Insurance Name Policy Number Policy Masterson Covered Member ID Masterson Member ID Guarantor Name 10/19/2024 1 [employer]ARE - DOS ON OR AFTER 19 (MEDICARE REPLACEMENT/ ADVANTAGE - HMO) [id number] Kojo Palmer Laabs [id number] Kojo Ness Notes Date Note Type Note Provider Name and Address Organization Details Recorded Time 10/19/2024 text/html Don is here for catheter change. A 16 Fr coude was used. Pt reports no concerns.Nurse visit completed by Concetta Donnelly RN. EDENILSON [facility] 10/19/2024 13:57:40
--- OUTSIDE RECORDS SUMMARY | 2024-10-28 13:37 | XMS_ITS | Continuity of Care Document ---
Author Organization [place] - [facility] ([facility] Address [address] [place] [address] Care Team Providers Care Real Estate Office Supervisor Name Role Phone NICOLA VALLES Referring Provider [...] PAE, will discuss case with Dr. Khan. colby Not available 10/11/2024 15:51:18 Plan of Treatment [...] Address Organization Details Last Updated DateTime 5 12220.8 1 g 54 /min 99 % 99 % 30 kg/m2 177.8 cm 125 mm[Hg] 54 mm[Hg] Noe PYLE - [facility] 5 11:40:42 Social History Question Answer Notes LastModified by Organizat ion Details LastModified Time Tobacco Smoking Status Former Smoker EDENILSON Jean - [facility] 10/11/2024 11:44:28 What Is Your Level Of Alcohol Consumption? Occasional [id number] Information not available 10/11/2024 Sex: Unknown Functional Status None recorded. Mental Status None recorded. Family History Nothing Reported. Medical History Condition Response Coronary Artery Disease N COPD N Stroke N Kidney Disease Y Asthma N Sleep Disorder N Lung Disease N Pacemaker N Diabetes N Heart Disease N Hypertension Y Past Encounters Encounter ID Performer Location Encounter Start Date Encounter Closed Date Diagnosis/Indication Diagnosis SNOMED-CT Code Diagnosis ICD10 Code Diagnosis Note [id number] BIN RIVAS PA-C [facility] [address] [place] [address] 10/11/2024 11:25:41 10/11/2024 12:31:36 Lower urinary tract symptoms due to benign prostatic hypertrophy 2715451559 9101 N40.1 Health Concerns Section Related Observation LastModified by Organization Detai ls LastModified Time None Recorded Concern Status LastModified by Organization Details LastModified Time None Recorded Payers Encounter Date Sequence Insurance Name Policy Number Policy Masterson Covered Member ID Masterson Member ID Guarantor Name 10/11/2024 2 [place]: [employer] Kojo Laabs [id number] Kojo Laabs 10/11/2024 1 UC[employer] (PP[place]) [id number] Kojo Laabs [id number] Kojo Laabs Notes Date Note Type Note Provider Name and Address Organization Details Recorded Time 10/11/2024 text/html PAE HPI v1.0Reported bypatient.Referral Source:Self-referr ed. Seen by urologist? yes; Dr. Nicola Varma is a pleasant 89 y/o male who [...] following with nephrology, Dr. Patton. Most recent snow technician was 1.6.Prior to catheter placement, he reports having nocturia. Recent TRUS with prostate size at 184cc. BIN RIVAS PA-C [address], [place], [address], [place] - [facility] 10/11/2024 15:51:33
[2024-10-28 14:03] VITALS: BP 127/59; PULSE 62; RESP 16; TEMP 36.7; O2SAT 97; BMI 28.6
--- NOTE | 2024-10-28 16:35 | ED.MALEGU ---
HPI - Male Genitourinary General Time Seen by Provider: 16:35 Date Seen: 10/28/24 Chief complaint: Urogenital Problems, Male Stated complaint: Bleeding from penis Time Seen by Provider: 10/28/24 16:13 Source: patient and RN notes reviewed Mode of arrival: ambulatory Limitations: no limitations History of Present Illness HPI Narrative: This 89-year-old male is coming in with complaint of bleeding around his catheter. He is not having any pain. He states he had a somewhat restless night sleeping, awoke and started noticing bleeding. No abdominal pain, no fevers or chills. He states it was bleeding out the head of the penis around the catheter. He did put an undergarment on, did put some gauze around the catheter where it comes out the penis. He denies any blood thinners. Catheter seems to still be functioning appropriately, has not noticed any significant blood in his bag. He really is having no pain. He wonders if he did something. Related Data Home Medications ?Medication ?Instructions ?Recorded ?Confirmed atenolol 50 mg tablet 50 mg PO DAILY 01/18/24 03/31/24 chlorthalidone 25 mg tablet 25 mg PO DAILY 01/18/24 03/31/24 potassium chloride 20 mEq 20 meq PO 3XD 01/18/24 03/31/24 tablet,extended release(part/cryst) (Klor-Con M) pravastatin 80 mg tablet 80 mg PO QPM 01/18/24 03/31/24 tamsulosin 0.4 mg capsule 0.8 mg PO DAILY 01/18/24 03/31/24 ferrous sulfate 325 mg (65 mg 325 mg PO BID 03/31/24 03/31/24 iron) tablet,delayed release peg 3350-electrolytes 236 ml PO 03/31/24 gram-22.74 gram-6.74 gram-5.86 gram solution (GaviLyte-G) Previous Rx's ?Medication ?Instructions ?Recorded cephalexin 500 mg capsule 500 mg PO BID #14 caps 01/27/24 ciprofloxacin HCl 500 mg tablet 500 mg PO BID #10 tabs 02/04/24 (Cipro) Allergies Allergy/AdvReac Type Severity Reaction Status Date / Time No Known Drug Allergies Allergy Verified 08/28/24 11:39 Review of Systems Narrative: As per HPI. PFSH PFSH Social History Smoking Status: Never smoker Second hand tobacco smoke exposure: No How often do you have a drink containing alcohol: 4 or more times a week How many standard drinks containing alcohol do you have on a typical day: 1 or 2 How often do you have six or more drinks on one occasion: Never AUDIT-C Alcohol total score: 4 Non-prescribed substance use: denies use service: No Exam Const: Vital Signs, click to edit/add: Vital Signs - 24 hr 10/28/24 14:03 Temperature 98.0 F Pulse Rate [Pulse Oximeter] 62 Respiratory Rate 16 Blood Pressure [Ri ght Upper Arm] 127/59 L Pulse Oximetry 97 Oxygen Delivery Me thod Room Air This 89-year-old male is alert, interactive, no apparent distress. Ambulatory into the ED of his own accord. Do see a little strand of a clot near the end of the urethral meatus but was not coming out. He has dried blood around the perineal area, some going down left leg where the left leg bag strap is. I have visualize it the urethral meatus, the penis, the scrotum and perineal area, can see no evidence of any active bleeding. Do not see any residual blood within the urethral meatus. Maybe just slight tinging of his urine, majority of urine in the bag looks yellow but some in the tubing maybe could have some pinkish discoloration, certainly see no clots. Documenting provider has reviewed patient's vital signs: yes Course Course ED Course: Nursing staff is going to get him cleaned up, changes undergarments. Will do a bladder scan just to make sure we do not see any large retained clot. Will observe him here. They are also going to flush the catheter just to make sure it is flowing good. My guess is that patient probably traumatized himself with inadvertently pulling on the catheter. Bleeding seems to have stopped, do not see any significant hematuria. Will ensure that we have a functioning Mcmullen, see no further bleeding. He has no symptomatology of UTI, likely colonized and will not do urinalysis at this time. Reevaluation(s) Time of Reevaluation #1: 18:10 Reevaluation #1: Patient's bladder scan shows no significant retention, his catheter flushed easily. On re-evaluation, he just has a little bit of dark blood around the urethral meatus, no significant bleeding. There is some darker brownish changing of his urine. I do think that he probably had traumatic injury from pulling on the Mcmullen catheter. We discussed that there is no way for me to you go up within the urethra, do not have scope capacity for that nor do we have Urology. There is not excessive bleeding. Hopefully if he has limitation of activity and rests a bit, this will settle down. He is aware of urinary obstruction and re-evaluation for that. Vital Signs Vital signs: Initial Vital Signs Temperature 98.0 F 10/28/24 14:03 Temperature Source Temporal Artery Scan 10/28/24 14:03 Pulse Rate 62 10/28/24 14:03 Respiratory Rate 16 10/28/24 14:03 Blood Pressure 127/59 L 10/28/24 14:03 Blood Pressure Mean 81 10/28/24 14:03 Blood Pressure Position Sitting 10/28/24 14:03 Pulse Oximetry 97 10/28/24 14:03 Oxygen Delivery Method Room Air 10/28/24 14:03 Vital Signs Temperature 98.0 F 10/28/24 14:03 Pulse Rate 62 10/28/24 14:03 Respiratory Rate 16 10/28/24 14:03 Blood Pressure 127/59 L 10/28/24 14:03 Pulse Oximetry 97 10/28/24 14:03 Oxygen Delivery Method Room Air 10/28/24 14:03 Temperature 98.0 F 10/28/24 14:03 Pulse Rate 62 10/28/24 14:03 Respiratory Rate 16 10/28/24 14:03 Blood Pressure 127/59 L 10/28/24 14:03 Pulse Oximetry 97 10/28/24 14:03 Oxygen Delivery Method Room Air 10/28/24 14:03 Discharge Plan Discharge Clinical Impression: Complication of Mcmullen catheter Qualifiers: Encounter type: initial encounter Qualified Code(s): T83.9XXA - Unspecified complication of genitourinary prosthetic device, implant and graft, initial encounter Patient Disposition: Home, Self-Care Condition: Stable Instructions: Mcmullen Catheter Placement and Care (ED) Additional Instructions: Continue with usual Mcmullen catheter cares. Recommend relative rest for the next day or 2 to minimize traumatic injury of the Mcmullen catheter. I do think you likely pulled on the Mcmullen catheter inadvertently and irritated or traumatized some of the tissue. You may have some slight bleeding but if you have increased hemorrhaging around the Mcmullen catheter, this is not stopping within the next 24-48 hours or have further concerns, do recommend re-evaluation. Prescriptions: No Action chlorthalidone 25 mg tablet 25 mg PO DAILY potassium chloride [Klor-Con M20] 20 mEq tablet,ER particles/crystals 20 meq PO 3XD pravastatin 80 mg tablet 80 mg PO QPM tamsulosin 0.4 mg capsule 0.8 mg PO DAILY atenolol 50 mg tablet 50 mg PO DAILY cephalexin 500 mg capsule 500 mg PO BID Qty: 14 0RF ciprofloxacin HCl [Cipro] 500 mg tablet 500 mg PO BID Qty: 10 0RF ferrous sulfate 325 mg (65 mg iron) tablet,delayed release (DR/EC) 325 mg PO BID peg 3350-electrolytes [GaviLyte-G] 236-22.74-6.74 -5.86 gram recon soln PO Follow Up/Referrals: Juwan Avery MD [Primary Care Provider] - Stand Alone Forms: [facility] Info Instructions
--- OUTSIDE RECORDS SUMMARY | 2024-10-28 17:18 | XMS_ITS | Clinical Summary ---
Author Organization [employer] [facility] [employer] [facility] Address [facility] [place] [address] Care Team Providers Care Clerical Warehouseman Name Role Phone Juwan Avery MD Primary Care Provider [phone] Venkat Elena RN Unavailable [phone] Star Morfin MD Unavailable SoNicola epralta MD Unavailable [phone] [facility] Center[facility] RN Unavailable Marquita Omer MD Unavailable Yadi Crane MANUFACTURING LEAD Unavailable Manuel Wilkins Unavailable [phone] Allergies No known active allergies Medications VITAMINS A,C,T-LIOC-TAHNGZ (OCUVITE PRESERVISION) 7,160-113-100 skof-de-krxh tablet Take 2 Tablets by mouth two [...] equipment (DME)Indications: Chronic indwelling Mcmullen catheter Bard Shdhoe-O-Cxx 3 Each 5 10/05/19 25 Active ferrous [...] Type Department Care Team Description 10/08/2024 Refill [facility] [address] [place] [address] Brian Pate MD Refill Request (Ferrous Sulfate) 10/05/2024 8:25 AM FUR POINTER Office Visit [facility] [address] [place] [address] Juwan Avery MD Home Care (Face to face visit for home care) 10/05/2024 Travel 09/26/2024 Telephone [facility] [address] [facility] [place] [address] Juwan Avery MD Home Care 09/20/2024 12:45 PM FUR POINTER Orders Only [facility] [address] [facility] [place] [address] [place], [place] Lab 09/20/2024 Travel 09/14/2024 Telephone [facility] [address] [place] [address] Juwan Avery MD Lab (Orders) 08/30/2024 3:00 PM FUR POINTER Office Visit [facility] [address] [place] [address] Marquita Omer MD Consult 08/30/2024 Travel 08/23/2024 2:15 PM FUR POINTER Orders Only [facility] [address] [place] [address] [place] Lab 08/23/2024 Travel 08/15/2024 8:45 AM FUR POINTER Home Care Visit [facility] [address] [place] [address] Bruce Nunes, PT PT - OASIS DISCHARGE 08/10/2024 8:45 AM FUR POINTER Home Care Visit [facility] [address] [place] [address] Bruce Nunes, PT PT - HOME VISIT 08/05/2024 8:45 AM FUR POINTER Home Care Visit [facility] [address] [place] [address] Bruce Nunes, PT PT - HOME VISIT 08/05/2024 Travel 08/02/2024 9:00 AM FUR POINTER Home Care Visit [facility] [address] [place] [address] Bruce Nunes, PT PT - HOME VISIT 08/02/2024 Travel from Last 3 Months Immunizations Name Administration Dates Next Due COVID-19 VACCINE SPIKEVAX (M ODERNA 50MCG/0.5ML) 12YO+ PFS 06/22/2024 COVID-19 vaccine (Sound[employer]-Bio NTech 30mcg/0.3mL) ADRIAN RABAGO 07/08/2021,10/27/2020,10/06/2020 Influenza A [...] on file Legal Sex Male 7:00 AM FUR POINTER Gender Identity Not on file Sexual Orientation Not on file Occupation Industry Job Start Date Job End Date retired Not on file Not on file Not on file Obstetrics History Last Filed Vital Signs Vital Sign Reading Time Taken Comments Blood Pressure 139/63 10/05/2024 8:26 AM FUR POINTER Pulse 48 10/05/2024 8:26 AM FUR POINTER Temperature 36.4 C (97.6 F) 10/05/2024 8:26 AM FUR POINTER Respiratory Rate 18 08/30/2024 2:40 PM FUR POINTER Oxygen Saturation 99% 10/05/2024 8:26 AM FUR POINTER Inhaled Oxygen Concentration - - Weight 93.4 kg (205 lb 14.4 oz) 10/05/2024 8:26 AM FUR POINTER Height 177.8 cm (5' 10) 10/05/2024 8:26 AM FUR POINTER Body Mass Index 29.54 10/05/2024 8:26 AM FUR POINTER Plan of Treatment Upcoming Encounters Date Type Department Care Team (Late st Contact Info) Description 12/08/2024 3:15 PM CDT Orders Only [facility] [address] [place] [address] [place] 12/14/2024 3:15 PM CDT Office Visit [facility] [address] [facility] [address] Yadi Crane, MANUFACTURING LEAD [address] [place] [address] 12/16/2024 1:15 PM CDT Orders Only [facility] [address] [place] [address] [place] 12/21/2024 2:25 PM CDT Office Visit [facility] [address] [place] [address] Juwan Avery MD [address] [place] [address] Health Maintenance Due Date Last Done Comments [...] NO DIFF Routine 08/23/2024 2:1 3 PM FUR POINTER Anemia due to acute blood loss BASIC METABOLIC PANEL Routine 08/23/2024 2:13 PM FUR POINTER SUNG (acute kidney injury) from Last 3 Months Results * (ABNORMAL) CBC W PLT NO DIFF (08/23/2024 2:13 PM FUR POINTER) WHITE BLOOD CELL COUNT 9.9 3.8 - [...] BLOOD SPECIMEN / Unknown 08/23/2024 2:13 PM FUR POINTER 08/23/2024 2:13 PM FUR POINTER Silvia Palmer DO HEMATOLOGY Final Result [facility] [employer] [facility] [address] [place] [address], [place] [phone] [facility] [place] [address] [facility] [place] [address] * (ABNORMAL) BASIC METABOLIC PANEL (08/23/2024 2:13 PM FUR POINTER) GLUCOSE 91 65 - 99 mg/dL [facility] [...] BLOOD SPECIMEN / Unknown 08/23/2024 2:13 PM FUR POINTER 08/23/2024 2:13 PM FUR POINTER Silvia Palmer DO CHEMISTRY Final Result [employer] [facility] [address] [place] [address], [place] [phone] [facility] [address] [place] [address] from Last 3 Months Insurance [employer] MEDICARE ADVANTAGE MR MEDICARE PART A HB ONLY HC [employer] [place] [address] WORKERS COMP Advance Directives * Full Code (Latest Code Status on File) Date Activated Date Inactivated Comments 07/04/2024 6:49 AM 07/15/2024 7:21 PM Question Answer Comments Code Status Discussion: Reviewed Preferences Care Teams Clerical Warehouseman Relationship Specialty Start Date End Date Juwan Avery MD [facility] [place] [address] PCP - General Family Practice 11/12/22 Venkat Elena, MIKAEL [address] [address] Nurse Navigator - Oncology Registered Nurse 04/26/24 Star Morfin MD [address] [place] [address] Surgery - General 04/26/24 Nicola Dillon MD [address] [place] [address] Surgery - Urology 05/03/24 Akila Markham RN [address] [place] [address] Nurse Navigator - Oncology Registered Nurse 07/28/24 Marquita Omer MD [address] [place] [address] Medical Oncologist Oncology 09/30/24 Yadi Crane, MANUFACTURING LEAD [address] [place] [address] Nurse Practitioner Oncology 09/30/24 [place], TAWNYA Tapia [address] [place] [address] Family Preservation Caseworker Oncology 09/30/24
== END 2024-10-28 18:23 | disposition home or self-care (01) ==
PROVIDERS: Emergency Provider Family Medicine; PCP Family Medicine
DX: T83.098A Other mechanical complication of other urinary catheter, initial encounter (principal)
CPT/HCPCS: 99283

== ENCOUNTER 2024-12-11 05:29 | Emergency (ER) | payer MEDICARE, SELFPAY ==
--- OUTSIDE RECORDS SUMMARY | 2024-12-11 05:31 | XMS_ITS | Continuity of Care Document ---
Author Organization [facility] Address [address] [place] [address] Care Team Providers Care Investigative Shopper Name Role Phone DANG BULL Primary Care Provider [phone] Assessment No assessment recorded. Plan of Treatment [...] Details Recorded Time Acute retention of urine [id number] Active 024 Luda Watson PA-C [address] [place] [address], [phone], [facility] 4 11:29:06 Retention of urine [id number] Active 024 Edmar Vaughn MD [address] [place] [address], [phone], [facility] 4 11:33:59 Problem Notes None recorded. Procedures Surgical History Date Name Laterality Status Provider Name and Address Organization Details Recorded Time 12/08/19 25 Fill and Pull/Voiding Trial/TOV completed Concetta Zapata [facility] 12/07/2024 11:06:38 11/17/19 25 Urethral Catheter Change completed Concetta Zapata [facility] 11/16/2024 12:53:08 10/19/19 25 Urethral Catheter Change completed Concetta Zapata [facility] 10/19/2024 12:51:33 08/18/20 24 Urethral Catheter Change completed Genet Álvarez [facility] 08/19/2024 15:14:03 08/18/20 24 TRUS- Volume size only completed Nicola Dillon MD [address] [place] [address],[address], [place], [address], [facility] 08/18/2024 15:08:20 07/04/20 24 NEPHRECTOMY, HAND ASSISTED LAPAROSCOPIC (SURG) completed Reena Paez [facility] 07/07/2024 09:40:04 06/13/20 24 COMPLEX VISIT completed Nicola Dillon MD [address] [place] [address],[address], [place], [address], [facility] 07/01/2024 13:18:31 05/27/20 24 Urodynamic Studies completed Garrett Vazquez [facility] 05/16/2024 17:20:05 05/27/20 24 BRAVO CHANGE completed Akila Mccall [facility] 05/27/2024 11:54:40 04/28/20 24 COMPLEX VISIT completed Nicola Dillon MD [address] [place] [address],[address], [place], [address], [facility] 04/28/2024 14:39:20 04/28/20 24 BRAVO CHANGE completed Nicola Dillon MD [address] [place] [address],[address], [place], [address], [facility] 04/28/2024 14:39:08 03/04/20 24 Cystoscopy- male completed Edmar Vaughn MD [address] [place] [address],[address], [place], [address], [facility] 03/04/2024 14:49:59 03/04/20 24 Bravo Catheter Insertion completed Trey Cabral [facility] 03/04/2024 15:44:20 03/04/20 24 Cipro post Cysto completed Trey Cabral [facility] 02/24/2024 14:58:47 03/04/20 24 Fill and Pull/Voiding Trial/TOV completed Trey Cabral [facility] 03/04/2024 15:44:41 02/12/20 24 Bravo Catheter Insertion completed Edmar Vaughn MD [address] [place] [address],[address], [place], [address], [facility] 02/12/2024 11:53:15 02/12/20 24 Fill and Pull/Voiding Trial/TOV completed Edmar Vaughn MD [address] [place] [address],[address], [place], [address], [facility] 02/12/2024 11:28:34 02/10/20 24 Bravo Catheter Insertion completed Concetta Zapata [facility] 02/10/2024 14:26:17 02/10/20 24 Fill and Pull/Voiding Trial/TOV completed Concetta Zapata [facility] 02/10/2024 14:25:24 02/03/20 24 Bravo Catheter Insertion completed Franko magaña [facility] 02/03/2024 12:10:15 02/03/20 24 Fill and Pull/Voiding Trial/TOV completed Luda Watson PA-C [address] [place] [address],[facility] [address], [place], [address], [facility] 02/03/2024 11:16:06 Imaging Results [...] mg tablet TAKE ONE TABLET BY MOUTH EVERY TWELVE HOURS* active Not Available Not Available No t Available pravastatin 80 mg tablet TAKE ONE TABLET BY MOUTH ONE TIME DAILY AT BEDTIME* active Not Available Not Available No t Available tamsulosin 0.4 mg capsule TAKE TWO CAPSULES BY MOUTH DAILY WITH A MEAL.* active Not Available Not Available No t Available cephalexin 500 mg capsule TAKE ONE CAPSULE BY MOUTH TWICE DAILY* 02/02 completed Not Available Not Available Not Available omeprazole 20 mg capsule,del ayed release TAKE ONE CAPSULE BY MOUTH ONE TIME DAILY* active Not Available Not Available No t Available methylpredn isolone 4 mg tablets in a dose pack Take by mouth as instructe d per packaging (on back of foil pouch).* active Not Available Not Available No t Available neomycin 500 mg tablet Take 2 tablets by mouth at 1pm, 2pm and 11pm.* active Not Available Not Available No t Available ferrous sulfate 325 mg (65 mg iron) tablet,terrence yed release TAKE ONE TABLET BY MOUTH TWICE A DAY WITH MEALS* active Not Available Not Available No t Available oxybutynin chloride 5 mg tablet TAKE 1 TABLET BY MOUTH TWICE DAILY FOR 7 DAYS* active Not Available Not Available No t [...] Time Tobacco Smoking Status Former Smoker Franko Garcia [place], [place] - [facility] 02/03/2024 10:40:30 What Is Your Level Of Alcohol Consumption? Moderate Beer At Supper Information not available 02/03/2024 What Is Your Level Of Caffeine Consumption? None Information not available 02/03/2024 When Did You Quit Smoking? 16+yearssinc [email or web address] te Information not available 02/03/2024 What Was The Date Of Your Most Recent Tobacco Screening? 08/18/2024 [email or web address] Information not available 08/18/2024 Have You Ever Been Counseled For Unhealthy Alcohol Use? No [email or web address] Information not available 02/12/2024 Do You Use Any Illicit Or Recreational Drugs? No Information not available 02/03/2024 Has Tobacco Cessation Counseling Been Provided? No [email or web address] Information not available 02/12/2024 Do You Or Have You Ever Used Any Other Forms Of Tobacco Or Nicotine? No [email or web address] Information not available 02/12/2024 How Many Days In The Past Year Have You Consumed 5 Or More Drinks? 0 [email or web address] Information not available 02/12/2024 Sex: Unknown Functional Status None recorded. Mental Status None recorded. Family History Relationship Description Onset Age of this Age Resolved Age Notes LastModified by Organization Details LastModified Time Father No current problems or disability [email or web address] Not available 02/21 14:27:02 Mother No current problems or disability [email or web address] Not available 02/21 14:27:03 Notes:brain cancer-cancer sp ouse-stomach cancer Medical History Condition Response Kidney Stones Y Immunizations Vaccine Type Date Status Note Provider Nam e and Address Organization Details Recorded Time Influenza, adjuvanted, trivalent, PF 9 completed Miletzi Arvizu-Munising ro null, [facility] 02/03/2024 10:37:30 Influenza, adjuvanted, trivalent, PF 8 completed Miletzi Arvizu-Bouchra ro null, [facility] 02/03/2024 10:37:30 Influenza, adjuvanted, trivalent, PF 0 completed Miletzi Arvizu-Bouchra ro null, [facility] 02/03/2024 10:37:30 zoster recombinant 4 completed Miletzi Arvizu-Bouchra ro null, [facility] 02/03/2024 10:37:30 Influenza, high-dose, quadrivalent, PF 3 completed Miletzi Arvizu-Bouchra ro null, [facility] 02/03/2024 10:37:30 Influenza, high-dose, quadrivalent, PF 2 completed Miletzi Arvizu-Munising ro null, [facility] 02/03/2024 10:37:30 Influenza, adjuvanted, quadrivalent, PF 1 completed Miletzi Arvizu-Bouchra ro null, [facility] 02/03/2024 10:37:30 COVID-19, mRNA, LNP-S, PF, 30 mcg/0.3 mL dose 1 completed Miletzi Arvizu-Munising ro null, [facility] 02/03/2024 10:37:30 COVID-19, mRNA, LNP-S, PF, 30 mcg/0.3 mL dose 1 completed Miletzi Arvizu-Bouchra ro null, [facility] 02/03/2024 10:37:30 COVID-19, mRNA, LNP-S, PF, 30 mcg/0.3 mL dose 1 completed Miletzi Arvizu-Bouchra ro null, [facility] 02/03/2024 10:37:30 COVID-19, mRNA, LNP-S, PF, 30 mcg/0.3 mL dose, gillian-sucrose 2 completed Miletzi Arvizu-Bouchra ro null, [facility] 02/03/2024 10:37:30 COVID-19, mRNA, LNP-S, bivalent, PF, 30 mcg/0.3 mL dose 2 completed Miletzi Arvizu-Munising ro null, [facility] 02/03/2024 10:37:30 RSV, recombinant, protein subunit RSVpreF, adjuvant reconstituted, 0.5 mL, PF 3 completed Miletzi Arvizu-Munising ro null, [facility] 02/03/2024 10:37:30 pneumococcal polysaccharide PPV23 6 completed Miletzi Arvizu-Bouchra ro null, [facility] 02/03/2024 10:37:30 Tdap 4 completed Miletzi Arvizu-Munising ro null, [facility] 02/03/2024 10:37:30 Novel [id number], all formulations 0 completed Miletzi Arvizu-Munising ro null, [facility] 02/03/2024 10:37:30 Pneumococcal conjugate PCV 13 5 completed Miletzi Arvizu-Bouchra ro null, [facility] 02/03/2024 10:37:30 Influenza, high-dose, trivalent, PF 7 completed Miletzi Arvizu-Bouchra ro null, [facility] 02/03/2024 10:37:30 Influenza, high-dose, trivalent, PF 4 completed Miletzi Arvizu-Munising ro null, [facility] 02/03/2024 10:37:30 Influenza, high-dose, trivalent, PF 5 completed Miletzi Arvizu-Bouchra ro null, [facility] 02/03/2024 10:37:30 Influenza, split virus, trivalent, preservative 8 completed Miletzi Arvizu-Bouchra ro null, [facility] 02/03/2024 10:37:30 Influenza, split virus, trivalent, preservative 7 completed Miletzi Arvizu-Munising ro null, [facility] 02/03/2024 10:37:30 Influenza, split virus, trivalent, preservative 0 completed Miletzi Arvizu-Munising ro null, [facility] 02/03/2024 10:37:30 Influenza, split virus, trivalent, preservative 4 completed Miletzi Arvizu-Bouchra ro null, [facility] 02/03/2024 10:37:30 Influenza, split virus, trivalent, preservative 2 completed Miletzi Arvizu-Bouchra ro null, [facility] 02/03/2024 10:37:30 Influenza, split virus, trivalent, preservative 3 completed Miletzi Arvizu-Munising ro null, [facility] 02/03/2024 10:37:31 Influenza, split virus, trivalent, PF 0 completed Miletzi Arvizu-Bouchra ro null, [facility] 02/03/2024 10:37:31 Td (adult), 5 Lf tetanus toxoid, preservative free, adsorbed 6 completed Miletzi Arvizu-Munising ro null, [facility] 02/03/2024 10:37:31 Influenza, adjuvanted, trivalent, PF [address] [facility] 08/18/2024 14:24:21 COVID-19, mRNA, LNP-S, PF, 50 mcg/0.5 mL 4 completed EDENILSON [facility] 08/18/2024 14:24:21 Past Encounters Encounter ID Performer Location Encounter Start Date Encounter Closed Date Diagnosis/Indication Diagnosis SNOMED-CT Code Diagnosis ICD10 Code Diagnosis Note [id number] Concetta Zapata [facility] [address] [place] [address] 11/16/2024 11:58:34 11/21/2024 15:55:27 Retention of urine 087552757 R33.9 [id number] Concetta [facility] [address] [place] [address] 12/07/2024 10:21:11 12/07/2024 17:13:23 Retention of urine 537620174 R33.9 Health Concerns Section Related Observation LastModified by Organization Detai ls LastModified Time None Recorded Concern Status LastModified by Organization Details LastModified Time None Recorded Payers Encounter Date Sequence Insurance Name Policy Number Policy Masterson Covered Member ID Masterson Member ID Guarantor Name 12/07/2024 1 [employer] - DOS ON OR AFTER 19 (MEDICARE REPLACEMENT/ ADVANTAGE - HMO) [id number] Kojo Ness [id number] Kojo Ness Notes Date Note Type Note Provider Name and Address Organization Details Recorded Time 12/07/2024 text/html Pt presents to clinic for TONadira esquivel [facility] 12/07/2024 17:13:20
--- OUTSIDE RECORDS SUMMARY | 2024-12-11 05:32 | XMS_ITS | Continuity of Care Document ---
Author Organization [place] [facility] Address [address] [place] [address] Care Team Providers Care Fuel Cell Test Engineer Name Role Phone ISAAC VALLES Referring Provider [phone] Assessment No assessment recorded. Plan of Treatment Reminders Order Date Submit Date Provider Last Modified By Organization Details Last Modified Time Details Appointments PAE FOLLOW UP 2024 02:00P M BIN RIVAS PA-C Not available Not available Not available Lab None recorded. Referral None recorded. Procedures None recorded. Surgeries None recorded. Imaging None recorded. Medication Orders ciproflox acin 500 mg tablet 2024 025 [id number], [address], [address], 11/09/2024 11:39:19 omeprazol e 20 mg capsule,d elayed release 2024 025 [id number], [address], [address], 11/09/2024 11:39:19 methylpre dnisolone 4 mg tablets in a dose pack 2024 025 [id number], [address], [address], 11/09/2024 11:39:16 Pyridium 200 mg tablet 2024 025 [id number], [address], [address], 11/09/2024 11:39:15 oxybutyni n chloride 5 mg tablet 2024 025 [id number], [address], [address], 11/09/2024 11:39:19 Patient TargetsNo targets recorded. Patient InstructionsNo instructions recorded. Reason for Referral None Reported. Procedures Surgical History Date Name Laterality Status Provider Name and Address Organization Details Recorded Time 11/09/2024 PAE V1 completed [facility] 11/09/2024 12:12:50 Imaging Results None recorded. Procedure Notes None recorded. Medical Equipment None Reported. Allergies No known drug allergies Medications Name Sig Start Date Stop Date Status Note LastModified by Organization Details LastModified Time Pyridium 200 mg tablet Take 1 tablet 3 times a day by oral route as needed for 7 days. 2024 active Not Available Not Available Not Avai lable metronidazo le 500 mg tablet Take 1 [...] Smoker [place] [facility] 10/11/2024 11:44:28 What Is Your Level Of Alcohol Consumption? Occasional [email or web address] Information not available 10/11/2024 Sex: Unknown Functional [...] SNOMED-CT Code Diagnosis ICD10 Code Diagnosis Note [id number] Juan Khan MD [facility] [address] [facility] [place] [id number] 11/09/2024 09:00:56 11/09/2024 13:44:33 Lower urinary tract symptoms due to benign prostatic hypertrophy [id number] 9101 N40.1 Health Concerns Section Related Observation LastModified by Organization Detai ls LastModified Time None Recorded Concern Status LastModified by Organization Details LastModified Time None Recorded Payers Encounter Date Sequence Insurance Name Policy Number Policy Masterson Covered Member ID Masterson Member ID Guarantor Name 11/09/2024 1 [employer] - DOS ON OR AFTER 19 (MEDICARE REPLACEMENT/ ADVANTAGE - HMO) [id number] Kojo Ness [id number] Kojo Ness
--- OUTSIDE RECORDS SUMMARY | 2024-12-11 05:32 | XMS_ITS | Data Portability ---
Author Organization [facility], [facility] Address [address] [place] [address] Care Team Providers Care Cna Pct Name Role Phone DANG PAULO Primary Care Provider [phone] Assessment No assessment recorded. Plan of Treatment Reminders Order Date Submit Date Provider Last Modified By Organization Details Last Modified Time Details Appointments None recorded. Lab None recorded. Referral None recorded. Procedures vascular embolizatio n or occlusion; for tumors, organ ischemia, or infarction (PROC) - 184cc prostate on office ultrasound 2023 024 [email or web address], [address], [address], [place], [address], 5 08:15:21 Surgeries None recorded. Imaging None recorded. Medication Orders None recorded. Patient TargetsNo targets recorded. Patient Instructions Encounter Date Encounter Id Patient Instructions Last Modified By Organization Details Last Modified Time 06/13/2024 [id number] 35 minutes spent with patient and reviewing chart [email or web address] Not available 07/11/2024 10:10:09 Reason for Referral None Reported. Results Created Date Observation Date Name Description Value Unit Range Abnormal Flag Note LastModifiedBy Organization Detail LastModifiedTime Result Notes None recorded. Problems Name Problem SNOMED Code Status Onset Date Resolution Date Notes Provider Name and Address Organization Details Recorded Time Acute retention of urine 734255435 Active 024 Luda Watson PA-C [address] [place] [address],[address], [address], [place] [facility] 4 11:29:06 Retention of urine 453074053 Active 024 Edmar Vaughn MD [address] [place] [address],[address], [place], [address], [facility] 11:33:59 Problem Notes None recorded. Procedures Surgical History Date Name Laterality Status Provider Name and Address Organization Details Recorded Time 12/08/19 25 Fill and Pull/Voiding Trial/TOV completed Concetta Zapata [facility] 12/07/2024 11:06:38 11/17/19 25 Urethral Catheter Change completed Concetta Zapata [facility] 11/16/2024 12:53:08 10/19/19 25 Urethral Catheter Change completed Concetta Zapata [facility] 10/19/2024 12:51:33 08/18/20 24 Urethral Catheter Change completed Genet Álvarez [facility] 08/19/2024 15:14:03 08/18/20 24 TRUS- Volume size only completed Nicola Dillon MD [address] [place] [address],[address], [place], [address], [facility] 08/18/2024 15:08:20 07/04/20 24 NEPHRECTOMY, HAND ASSISTED LAPAROSCOPIC (SURG) completed Reena Paez [facility] 07/07/2024 09:40:04 06/13/20 24 COMPLEX VISIT completed Nicola Dillon MD [address] [place] [address],[address], [place], [address], [facility] 07/01/2024 13:18:31 05/27/20 24 Urodynamic Studies completed Garrett Vazquez [facility] 05/16/2024 17:20:05 05/27/20 24 BRAVO CHANGE completed Akila Mccall [facility] 05/27/2024 11:54:40 04/28/20 24 COMPLEX VISIT completed Nicola Dillon MD [address] [place] [address],[address], [place], [address], [facility] 04/28/2024 14:39:20 04/28/20 24 BRAVO CHANGE completed Nicola Dillon MD [address] [place] [address],[address], [place], [address], [facility] 04/28/2024 14:39:08 03/04/20 24 Cystoscopy- male completed Edmar Vaughn MD [address] [place] [address],[address], [place], [address], [facility] 03/04/2024 14:49:59 03/04/20 24 Bravo Catheter Insertion completed Trey Cabral [facility] 03/04/2024 15:44:20 03/04/20 24 Cipro post Cysto completed Trey Cabral [facility] 02/24/2024 14:58:47 03/04/20 24 Fill and Pull/Voiding Trial/TOV completed Trey Cabral [facility] 03/04/2024 15:44:41 02/12/20 24 Bravo Catheter Insertion completed Edmar Vaughn MD [address] [place] [address],[address], [place], [address], [facility] 02/12/2024 11:53:15 02/12/20 24 Fill and Pull/Voiding Trial/TOV completed Edmar Vaughn MD [address] [place] [address],[address], [place], [address], [facility] 02/12/2024 11:28:34 02/10/20 24 Bravo Catheter Insertion completed Concetta Zapata [facility] 02/10/2024 14:26:17 02/10/20 24 Fill and Pull/Voiding Trial/TOV completed Concetta Zapata [facility] 02/10/2024 14:25:24 02/03/20 24 Bravo Catheter Insertion completed Franko magaña [facility] 02/03/2024 12:10:15 02/03/20 24 Fill and Pull/Voiding Trial/TOV completed Luda Watson PA-C [address] [place] [address],[address], [place], [address], [facility] 02/03/2024 11:16:06 Imaging Results None recorded. Procedure [...] DateTime 06/13/2024 180.34 cm Alma Delia Casey [place] [facility] 06/13/2024 13:46:21 Date Recorded Body height Body mass index (BMI) Body weight Provider Name and Address Organization Details Last Updated DateTime 08/18/2024 180.34 cm 27.9 kg/m2 70881.47 g Genet Álvarez [facility] 08/18/2024 14:24:16 Social History Question Answer Notes LastModified by Organizat ion Details LastModified Time Tobacco Smoking Status Former Smoker Franko esquivel [facility] 02/03/2024 10:40:30 What Is Your Level [...] Been Counseled For Unhealthy Alcohol Use? No [email or web address] Information not available 02/12/2024 Do You Use Any Illicit Or Recreational Drugs? No Information not available 02/03/2024 Has Tobacco Cessation Counseling Been Provided? No Information not available 02/12/2024 Do You Or Have You Ever Used Any Other Forms Of Tobacco Or Nicotine? No [email or web address] Information not available 02/12/2024 How Many Days In The Past Year Have You Consumed 5 Or More Drinks? 0 [email or web address] Information not available 02/12/2024 Sex: Unknown Functional Status None recorded. Mental Status None recorded. Family History Relationship Description Onset Age of this Age Resolved Age Notes LastModified by Organization Details LastModified Time Father No current problems or disability [email or web address] Not available 02/21 14:27:02 Mother No current problems or disability Not available 02/21 14:27:03 Notes:brain cancer-cancer sp ouse-stomach cancer Medical History Condition Response Kidney Stones Y Immunizations Vaccine Type Date Status Note Provider Nam e and Address Organization Details Recorded Time Influenza, adjuvanted, trivalent, PF 9 completed Franko esquivel [facility] [place]/03/2024 10:37:30 Influenza, adjuvanted, trivalent, PF 8 completed Miletzi Arvizu-Bohannon ro null, [facility] 02/03/2024 10:37:30 Influenza, adjuvanted, trivalent, PF 0 completed Miletzi Arvizu-Bouchra ro null, [facility] 02/03/2024 10:37:30 zoster recombinant 4 completed Miletzi Arvizu-Bohannon ro null, [facility] 02/03/2024 10:37:30 Influenza, high-dose, quadrivalent, PF 3 completed Miletzi Arvizu-Bouchra ro null, [facility] 02/03/2024 10:37:30 Influenza, high-dose, quadrivalent, PF 2 completed Miletzi Arvizu-Bouchra ro null, [facility] 02/03/2024 10:37:30 Influenza, adjuvanted, quadrivalent, PF 1 completed Miletzi Arvizu-Bohannon ro null, [facility] 02/03/2024 10:37:30 COVID-19, mRNA, LNP-S, PF, 30 mcg/0.3 mL dose 1 completed Miletzi Arvizu-Bohannon ro null, [facility] 02/03/2024 10:37:30 COVID-19, mRNA, LNP-S, PF, 30 mcg/0.3 mL dose 1 completed Miletzi Arvizu-Bouchra ro null, [facility] 02/03/2024 10:37:30 COVID-19, mRNA, LNP-S, PF, 30 mcg/0.3 mL dose 1 completed Miletzi Arvizu-Bohannon ro null, [facility] 02/03/2024 10:37:30 COVID-19, mRNA, LNP-S, PF, 30 mcg/0.3 mL dose, gillian-sucrose 2 completed Miletzi Arvizu-Bohannon ro null, [facility] 02/03/2024 10:37:30 COVID-19, mRNA, LNP-S, bivalent, PF, 30 mcg/0.3 mL dose 2 completed Miletzi Arvizu-Bouchra ro null, [facility] 02/03/2024 10:37:30 RSV, recombinant, protein subunit RSVpreF, adjuvant reconstituted, 0.5 mL, PF 3 completed Miletzi Arvizu-Bohannon ro null, [facility] 02/03/2024 10:37:30 pneumococcal polysaccharide PPV23 6 completed Miletzi Arvizu-Bouchra ro null, [facility] 02/03/2024 10:37:30 Tdap 4 completed Miletzi Arvizu-Bouchra ro null, [facility] 02/03/2024 10:37:30 Novel Pkoqhniuy-E2S0-53, all formulations 0 completed Miletzi Arvizu-Bohannon ro null, [facility] 02/03/2024 10:37:30 Pneumococcal conjugate PCV 13 5 completed Miletzi Arvizu-Bohannon ro null, [facility] 02/03/2024 10:37:30 Influenza, high-dose, trivalent, PF 7 completed Miletzi Arvizu-Bouchra ro null, [facility] 02/03/2024 10:37:30 Influenza, high-dose, trivalent, PF 4 [facility], [facility] 02/03/2024 10:37:30 Influenza, high-dose, trivalent, PF 5 completed Miletzi Arvizu-Bouchra ro null, [facility] 02/03/2024 10:37:30 Influenza, split virus, trivalent, preservative 8 completed Miletzi Arvizu-Bohannon ro null, [facility] 02/03/2024 10:37:30 Influenza, split virus, trivalent, preservative 7 completed Miletzi Arvizu-Bohannon ro null, [facility] 02/03/2024 10:37:30 Influenza, split virus, trivalent, preservative 0 completed Fantasmanai Arvizu-Bouchra ro null, [facility] 02/03/2024 10:37:30 Influenza, split virus, trivalent, preservative 4 completed Teddyi Arvizu-Bouchra ro null, [facility] 02/03/2024 10:37:30 Influenza, split virus, trivalent, preservative 2 completed Fantasmanai Arvizu-Bohannon ro null, [facility] 02/03/2024 10:37:30 Influenza, split virus, trivalent, preservative 3 completed Fantasmanai Arvizu-Bouchra ro null, [facility] 02/03/2024 10:37:31 Influenza, split virus, trivalent, PF [facility], [facility] 02/03/2024 10:37:31 Td (adult), 5 Lf tetanus toxoid, preservative free, adsorbed 6 completed [facility], [facility] 02/03/2024 10:37:31 Influenza, adjuvanted, trivalent, PF 4 completed Genet esquivel, [facility] 08/18/2024 14:24:21 COVID-19, mRNA, LNP-S, PF, 50 mcg/0.5 mL 4 completed Genet esquivel, [facility] 08/18/2024 14:24:21 Past Encounters Encounter ID Performer Location Encounter Start Date Encounter Closed Date Diagnosis/Indication Diagnosis SNOMED-CT Code Diagnosis ICD10 Code Diagnosis Note [id number] Franko hinesro [facility] [address] [place] [id number] 02/03/2024 10:25:53 02/04/2024 08:33:51 Acute retention of urine 498621815 R33.8 [id number] Luda Watson PA-C [facility] [address] [place] [address] 02/10/2024 13:37:37 02/11/2024 09:27:45 Acute retention of urine 143771721 R33.8 [id number] Edmar Vaughn MD [facility] [address] [place] [id number] 02/12/2024 10:44:21 02/15/2024 16:00:54 Retention of urine 066475666 R33.9 [id number] Edmar Vaughn MD [facility] [address] [place] [id number] 03/04/2024 14:17:21 03/22/2024 12:42:48 Retention of urine 934700478 R33.9 [id number] Nicola Dillon MD [facility] [address] [place] [id number] 04/28/2024 13:46:52 05/06/2024 08:43:02 Renal mass 264747021 N28.89 It is reasonable to have surgery to remove his kidney and colonic mass.I'll talk to Dr Morfin again and we'll try and coordinate the schedule. They were considerin g systemic therapy but would prefer to handle it surgically . Chronic re tention of urine 475959832 R33.8 We'll manage this with Bravo drainage for now. He'll also need Urodynamic s to asses bladder strength or lack of it. [id number] Akila Mccall [facility] [address] [place] [id number] 05/27/2024 10:39:20 05/30/2024 10:54:56 Retention of urine 924493609 R33.9 F/u with CS or TF for UDS review [id number] Nicola Dillon MD [facility] [address] [place] [id number] 06/13/2024 13:46:00 07/12/2024 08:41:58 Chronic retention of urine 935168091 R33.8 Will keep the Bravo for the next month but he could benefit from a HoLEP or Auquablati on. 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 I'll have him f/u with Dr Gonzáles or Levi to further discuss. Renal mass 483230080 N28 .89 Will plan on a combined colectomy and nephrectom y. Risks, benefits, and complicati ons of the procedure were discussed including infection, bleeding, voiding discomfort , urinary retention, fever, chills, sepsis, and others. In particular , nephrectom y has the added risk of bowel or vascular injury. All questions were answered. [id number] Genet [facility]IN[facility] [address] 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 He would not need any follow up.He can f/u prn. Lower urin harshad tract symptoms due to benign prostatic hypertrophy 4157893576 9101 N40.1 Catheter dependent with a very large prostate at 184cc. We discussed suprapubic prostatect loretta, HoLEP and PAE. Given his age and recent surgeries, prostate artery embolizati on is a safe and effective option. Dr Khan. [id number] Concetta Goddardamberly [facility] [address] [place] [id number] 10/19/2024 11:53:44 10/24/2024 09:51:25 Retention of urine 896945294 R33.9 [id number] Concetta [facility] [address] [place] [id number] 11/16/2024 11:58:34 11/21/2024 15:55:27 Retention of urine 050335187 R33.9 [id number] Concetta [facility] [address] [place] [id number] 12/07/2024 10:21:11 12/07/2024 17:13:23 Retention of urine 364463134 R33.9 Health Concerns Section Related Observation LastModified by Organization Detai ls LastModified Time None Recorded Concern Status LastModified by Organization Details LastModified Time None Recorded Advance Directives Directive None Recorded Payers Encounter Date Sequence Insurance Name Policy Number Policy Mastreson Covered Member ID Masterson Member ID Guarantor Name 06/13/2024 1 [employer] - DOS ON OR AFTER 19 (MEDICARE REPLACEMENT/ ADVANTAGE - HMO) [id number] 1 Kojo N Laabs [id number] Kjoo N Laabs 08/18/2024 1 [employer] - DOS ON OR AFTER 19 (MEDICARE REPLACEMENT/ ADVANTAGE - HMO) [id number] Kojo N Laabs [id number] Kojo N Laabs 10/19/2024 1 [employer] - DOS ON OR AFTER 19 (MEDICARE REPLACEMENT/ ADVANTAGE - HMO) [id number] 1 Kojo N Laabs [id number] Kojo N Laabs 11/16/2024 1 [employer] - DOS ON OR AFTER 19 (MEDICARE REPLACEMENT/ ADVANTAGE - HMO) [id number] 1 Kojo N Laabs [id number] Kojo N Laabs 12/07/2024 1 [employer] - DOS ON OR AFTER 19 (MEDICARE REPLACEMENT/ ADVANTAGE - HMO) [id number] 1 Kojo N Laabs [id number] Kojo N Laabs Notes Date Note Type Note Provider Name and Address Organization Details Recorded Time 06/13/2024 text/html Follow up for hi s [...] and coordinate their care. Nicola Dillon MD [address], [place], [address], [facility] 07/11/2024 10:10:14 08/18/2024 text/html Follow [...] daughter and that was helpful. Genet esquivel [facility] 08/19/2024 15:14:22 10/19/2024 text/html Don is here for catheter change. A 16 Fr coude was used. Pt reports no concerns.Nurse visit completed by Concetta Donnelly RN. Concetta esquivel [facility] 10/19/2024 13:57:40 11/16/2024 text/html Don is here for catheter change. A 16 Fr coude. Pt reports no concerns.Nurse visit completed by Concetta Donnelly RN. Concetta esquivel [facility] 11/16/2024 13:19:05 12/07/2024 text/html Pt presents to [facility] for TOV Concetta esquivel [facility] 12/07/2024 17:13:20
--- OUTSIDE RECORDS SUMMARY | 2024-12-11 05:32 | XMS_ITS | Clinical Summary ---
Author Organization [employer] [facility] Address [facility] [place] [address] Care Team Providers Care Bessemer Converter Blower Name Role Phone Juwan Avery MD Primary Care Provider [phone] Venkat Elena RN Unavailable [phone] Star Morfin MD Unavailable [phone] SoNicola peralta MD Unavailable [phone] [facility] Unavailable Marquita Omer MD Unavailable Yadi Crane PRODUCTION BOW MAKER Unavailable Manuel Wilkins Unavailable [phone] Allergies No known active allergies Medications VITAMINS A,C,G-MOHM-YVGQQM (OCUVITE PRESERVISION) 7,160-113-100 sgzl-nh-gilz tablet Take 2 Tablets by mouth two [...] 3 12/16/19 Active tamsulosin (FLOMAX) 0.4 mg capsuleIndications :Prostatic [...] 24 hrs. 07/15/20 Active durable medical equipment (DME)Indications:C hronic indwelling Mcmullen catheter Bard Ofdwtp-K-Tdb 3 Each 5 10/05/19 Active ferrous sulfate 325 mg delayed release tabletIndications: Microcytic anemia Take 1 Tablet (325 mg) by mouth two times daily with meals. 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, pN0, cM0) - Signed [...] Encounters Date Type Department Care Team Description 12/08/2024 3:15 PM CDT Orders Only [facility] [place] [address] Lab, [place] [facility] 12/08/2024 Travel 10/08/2024 Refill [facility] [address] [place] [address] Brian Pate MD Refill Request (Ferrous Sulfate) 10/05/2024 8:25 AM SCRAPE GATHERER Office Visit [facility] [place] [address] Juwan Avery MD Home Care (Face to face visit for home care) 10/05/2024 Travel 09/26/2024 Telephone [facility] [place] [address] Juwan Avery MD Home Care 09/20/2024 12:45 PM SCRAPE GATHERER Orders Only [facility] [place] [place] [address] Lab, [place] [facility] 09/20/2024 Travel 09/14/2024 Telephone [facility] [place] [address] Juwan Avery MD Lab (Orders) from Last 3 Months Immunizations Immunization Administration Dates Next Due COVID-19 VACCINE SPIKEVAX [...] on file Legal Sex Male 7:00 AM SCRAPE GATHERER Gender Identity Not on file Sexual Orientation Not on file Occupation Industry Job Start Date Job End Date retired Not on file Not on file Not on file Obstetrics History Last Filed Vital Signs Vital Sign Reading Time Taken Comments Blood Pressure 139/63 10/05/2024 8:26 AM SCRAPE GATHERER Pulse 48 10/05/2024 8:26 AM SCRAPE GATHERER Temperature 36.4 C (97.6 F) 10/05/2024 8:26 AM SCRAPE GATHERER Respiratory Rate 18 08/30/2024 2:40 PM SCRAPE GATHERER Oxygen Saturation 99% 10/05/2024 8:26 AM SCRAPE GATHERER Inhaled Oxygen Concentration - - Weight 93.4 kg (205 lb 14.4 oz) 10/05/2024 8:26 AM SCRAPE GATHERER Height 177.8 cm (5' 10) 10/05/2024 8:26 AM SCRAPE GATHERER Body Mass Index 29.54 10/05/2024 8:26 AM SCRAPE GATHERER Plan of Treatment Upcoming Encounters Date Type Department Care Team (Late st Contact Info) Description 12/14/2024 3:15 PM CDT Office Visit [facility] [address] [place] [phone] Yadi Crane, PRODUCTION BOW MAKER [address] [facility] [place] [address] 12/15/2024 11:45 AM CDT Orders Only [facility] [address] [place] [address] [facility]Ryan 12/21/2024 2:25 PM CDT Office Visit [facility] [address] [place] [address] Juwan Avery MD [address] [place] [address] Health Maintenance Due Date Last Done Comments Zoster (shingles) series for age 50+ (2 of 2) 02/15/2024 12/21/2023 Depression screening for age 12+ 12/15/2024 12/16/2023, 11/12/2022, 10/22/2021, Additional history exists Medicare Wellness for age 65+ 12/16/2024, 11/12/2022, 10/21/2021, Additional history exists COVID-19 vaccine series (7 - Pfizer risk 2023- season) 2024 06/22/2024, 07/31/2022, 02/11/2022, Additional history exists BMI (ht and wt on same day) for age 18+ 10/05/2025 10/05/2024, 07/26/2024, 06/22/2024, Additional history exists Tetanus booster 12/20/2033 12/21/2023, 09/2005, 05/25/2006 Pneumococcal series for age 50+ Completed 5, 05/25/2006 RSV vaccine for adults or Completed 06/30/2023 Tdap Completed 12/21/2023 Influenza Vaccine Completed 06/22/2024, , 10/14/2019, Additional history exists Procedures Procedure Name Priority Date/Time Associated Diagnosis Comments CBC WITH AUTO DIFFERENTIAL Routine 12/08/2024 3:29 PM CDT Malignant neoplasm of transverse colon (HC) COMP METABOLIC PANEL Routine 12/08/2024 3:29 PM CDT Malignant neoplasm of transverse colon (HC) IRON PLUS IRON BINDING CAP Routine 12/08/2024 3:29 PM CDT Malignant neoplasm of transverse colon (HC) RETICULOCYTES Routine 12/08/2024 3:29 PM CDT Malignant neoplasm of transverse colon (HC) FERRITIN Routine 12/08/2024 3:29 PM CDT Malignant neoplasm of transverse colon (HC) VITAMIN B12 Routine 12/08/2024 3:29 PM CDT Malignant neoplasm of transverse colon (HC) FOLIC ACID Routine 12/08/2024 3:29 PM CDT Malignant neoplasm of transverse colon (HC) CEA Routine 12/08/2024 3:29 PM CDT Malignant neoplasm of transverse colon (HC) BASIC METABOLIC PANEL Routine 12/08/2024 3:29 PM CDT Controlled type 2 diabetes mellitus without complication, without long-term current use of insulin (HC) LIPID PANEL W REFLEX MEASURED LDL Routine 12/08/2024 3:29 PM CDT Other hyperlipidemia HEMOGLOBIN A1C Routine 12/08/2024 3:29 PM CDT Controlled type 2 diabetes mellitus without complication, without long-term current use of insulin (HC) from Last 3 Months Results * (ABNORMAL) HEMOGLOBIN A1C (12/08/2024 3:29 PM CDT) HEMOGLOBIN A1C 5.8(H) <5.7 % [facility] Comment: For someone without known diabetes, a hemoglobin A1c value between 5.7% and 6.4% is consistent with prediabetes and should be confirmed with a follow-up test. For someone with known diabetes, a value <7% indicates that their diabetes is well controlled. A1c targets should be individualized based on duration of diabetes, age, comorbid conditions, and other considerations. This assay result is consistent with an increased risk of diabetes. Currently, no consensus exists regarding use of hemoglobin A1c for diagnosis of diabetes for children. Blood BLOOD SPECIMEN / Unknown 12/08/2024 3:29 PM CDT 12/08/2024 3:29 PM CDT Narrative [facility] - 12/09/2024 5:35 AM CDT FASTING:NO FASTING: NO us Juwan Avery MD CHEMISTRY Final Resu lt [facility] [address] [place] [address], [facility] [address] [place] [address] * (ABNORMAL) LIPID PANEL W REFLEX MEASURED LDL (12/08/2024 3:29 PM CDT) [facility] CHOLESTEROL, TOTAL 125 <200 mg/dL [facility] HDL CHOLESTEROL 44 > OR = 40 mg/dL [facility] TRIGLYCERIDES 177(H) <150 mg/dL [facility] LDL-CHOLESTEROL 56 mg/dL (calc) [facility] Comment: Reference range: <100 Desirable range <100 mg/dL for primary prevention; <70 mg/dL for patients with CHD or diabetic patients with > or = 2 CHD risk factors. LDL-C is now calculated using the Tanner calculation, which is a validated novel method providing better accuracy than the Friedewald equation in the estimation of LDL-C. Eliecer ADAME et al. REGGIE. 2013;310(19): 4116-3422 (http://education.Solar Census.AGNITiO/faq/LND950) CHOL/HDLC RATIO 2.8 <5.0 (calc) [facility] NON HDL CHOLESTEROL 81 <130 mg/dL (calc) [facility] Comment: For patients with diabetes plus 1 major ASCVD risk factor, treating to a non-HDL-C goal of <100 mg/dL (LDL-C of <70 mg/dL) is considered a therapeutic option. Blood BLOOD SPECIMEN / Unknown 12/08/2024 3:29 PM CDT 12/08/2024 3:29 PM CDT Narrative [facility] - 12/09/2024 5:57 AM CDT FASTING:NO FASTING: NO Juwan Avery MD CHEMISTRY Final Resu lt Performing Organization Address City/[facility]/ZIP Co de Phone Number [facility] [address] [place] [address], [facility] [address] [place] [address] * (ABNORMAL) IRON PLUS IRON BINDING CAP (12/08/2024 3:29 PM CDT) Pathologist [facility] IRON, TOTAL 50 50 - 180 mcg/dL [facility] IRON BINDING CAPACITY 284 250 - 425 mcg/dL (calc) [facility] % SATURATION 18(L) 20 - 48 % (calc) [facility] Blood BLOOD SPECIMEN / Unknown 12/08/2024 3:29 PM CDT 12/08/2024 3:29 PM CDT Narrative [facility] - 12/09/2024 5:57 AM CDT FASTING:NO FASTING: NO Marquita Omer MD CHEMISTRY Final Resu lt [facility] [address] [place] [address], [place] [phone] [facility] [address] [place] [address] * RETICULOCYTES (12/08/2024 3:29 PM CDT) Pathologist [facility] RETICULOCYTE COUNT, AUTOMATED 1.2 % [facility] RETICULOCYTE, ABSOLUTE 54,360 25,000 - 90,000 cells/uL [facility] Blood BLOOD SPECIMEN / Unknown 12/08/2024 3:29 PM CDT 12/08/2024 3:29 PM CDT Narrative [facility] - 12/09/2024 6:36 AM CDT FASTING:NO FASTING: NO Marquita Omer MD HEMATOLOGY Final Resu lt [facility] [address] [place] [address], [facility] [address] [place] [address] * (ABNORMAL) CBC AND DIFFERENTIAL (12/08/2024 3:29 PM CDT) [facility] WHITE BLOOD CELL COUNT 6.6 3.8 - 10.8 Thousand/u L [facility] RED BLOOD CELL COUNT 4.53 4.20 - 5.80 Million/uL [facility] HEMOGLOBIN 13.3 13.2 - 17.1 g/dL [facility] HEMATOCRIT 41.5 38.5 - 50.0 % [facility] MCV 91.6 80.0 - 100.0 fL [facility] MCH 29.4 27.0 - 33.0 pg [facility] MCHC 32.0 32.0 - 36.0 g/dL [facility] Comment: For adults, a slight decrease in the calculated MCHC value (in the range of 30 to 32 g/dL) is most likely not clinically significant; however, it should be interpreted with caution in correlation with other red cell parameters and the patient's clinical condition. RDW 13.2 11.0 - 15.0 % [facility] PLATELET COUNT 120(L) 140 - 400 Thousand/u L [facility] MPV 11.8 7.5 - 12.5 fL [facility] ABSOLUTE NEUTROPHILS 3,689 1,500 - 7,800 cells/uL [facility] ABSOLUTE LYMPHOCYTES 1,808 850 - 3,900 cells/uL [facility] ABSOLUTE MONOCYTES 832 200 - 950 cells/uL [facility] ABSOLUTE EOSINOPHILS 251 15 - 500 cells/uL [facility] ABSOLUTE BASOPHILS 20 0 - 200 cells/uL [facility] NEUTROPHILS 55.9 % [facility] LYMPHOCYTES 27.4 % [facility] MONOCYTES 12.6 % [facility] EOSINOPHILS 3.8 % [facility] BASOPHILS 0.3 % [facility] CBC (INCLUDES DIFF/PLT) COMMENTS [facility] Comment: Review of peripheral smear confirms automated results. Blood BLOOD SPECIMEN / Unknown 12/08/2024 3:29 PM CDT 12/08/2024 3:29 PM CDT Narrative [facility] - 12/09/2024 5:10 AM CDT FASTING:NO FASTING: NO Marquita Omer MD HEMATOLOGY Final Resu lt [facility] [address] [place] [address], [facility] [address] * FOLIC ACID (12/08/2024 3:29 PM CDT) Pathologist [facility] FOLATE, SERUM 21.4 ng/mL [facility] Comment: Reference Range Low: <3.4 Borderline: 3.4-5.4 Normal: >5.4 Blood BLOOD SPECIMEN / Unknown 12/08/2024 3:29 PM CDT 12/08/2024 3:29 PM CDT Narrative [facility] - 12/09/2024 8:32 AM CDT FASTING:NO FASTING: NO Marquita Omer MD CHEMISTRY Final Resu lt Performing Organization Address City/[facility]/ZIP Co de Phone Number [facility] [address] [place] [address], [place] [phone] [facility] [address] [place] [address] * FERRITIN (12/08/2024 3:29 PM CDT) Pathologist [facility] FERRITIN 104 24 - 380 ng/mL [facility] Blood BLOOD SPECIMEN / Unknown 12/08/2024 3:29 PM CDT 12/08/2024 3:29 PM CDT Narrative [facility] - 12/09/2024 8:32 AM CDT FASTING:NO FASTING: NO Marquita Omer MD CHEMISTRY Final Resu lt Performing Organization Address [facility]/ZIP Co de Phone Number [facility] [address] [place] [address], [place] [phone] [facility] [address] [place] [address] * VITAMIN B12 (12/08/2024 3:29 PM CDT) Pathologist [facility] VITAMIN B12 443 200 - 1,100 pg/mL [facility] Blood BLOOD SPECIMEN / Unknown 12/08/2024 3:29 PM CDT 12/08/2024 3:29 PM CDT Narrative [facility] - 12/09/2024 8:32 AM CDT FASTING:NO FASTING: NO Marquita Omer MD CHEMISTRY Final Resu lt Performing Organization Address City/[facility]/ZIP Co de Phone Number [facility] [address] [place] [address], [place] [phone] [facility] [address] [place] [address] * CEA (12/08/2024 3:29 PM CDT) Pathologist [facility] CEA <2.0 See Note: ng/mL [facility] Comment: Reference Range: Non-Smoker: <2.5 Smoker: <5.0 This test was performed using the Siemens chemiluminescent method. Values obtained from different assay methods cannot be used interchangeably. CEA levels, regardless of value, should not be interpreted as absolute evidence of the presence or absence of disease. Blood BLOOD SPECIMEN / Unknown 12/08/2024 3:29 PM CDT 12/08/2024 3:29 PM CDT Narrative [facility] - 12/09/2024 8:32 AM CDT FASTING:NO FASTING: NO Marquita Omer MD CHEMISTRY Final Resu lt [facility] [address] [place] [address], [facility] [address] [place] [address] * (ABNORMAL) COMP METABOLIC PANEL (12/08/2024 3:29 PM CDT) [facility] GLUCOSE 80 65 - 139 mg/dL [facility] Comment: Non-fasting reference interval UREA NITROGEN (BUN) 33(H) 7 - 25 mg/dL [facility] CREATININE 1.72(H) 0.70 - 1.22 mg/dL [facility] EGFR 38(L) > OR = 60 mL/min/1.7 3m2 [facility] BUN/CREATININE RATIO 19 6 - 22 (calc) [facility] SODIUM 140 135 - 146 mmol/L [facility] POTASSIUM 4.9 3.5 - 5.3 mmol/L [facility] CHLORIDE 107 98 - 110 mmol/L [facility] CARBON DIOXIDE 25 20 - 32 mmol/L [facility] CALCIUM 8.9 8.6 - 10.3 mg/dL [facility] PROTEIN, TOTAL 6.8 6.1 - 8.1 g/dL [facility] ALBUMIN 4.0 3.6 - 5.1 g/dL [facility] GLOBULIN 2.8 1.9 - 3.7 g/dL (calc) [facility] ALBUMIN/GLOBULIN RATIO 1.4 1.0 - 2.5 (calc) [facility] BILIRUBIN, TOTAL 0.6 0.2 - 1.2 mg/dL [facility] ALKALINE PHOSPHATASE 63 35 - 144 U/L [facility] AST 13 10 - 35 U/L [facility] ALT 11 9 - 46 U/L [facility] Blood BLOOD SPECIMEN / Unknown 12/08/2024 3:29 PM CDT 12/08/2024 3:29 PM CDT Narrative [facility] - 12/09/2024 5:57 AM CDT FASTING:NO FASTING: NO Marquita Omer MD CHEMISTRY Final Resu lt [facility] [address] [place] [address], [facility] [address] * (ABNORMAL) BASIC METABOLIC PANEL (12/08/2024 3:29 PM CDT) [facility] GLUCOSE 80 65 - 139 mg/dL [facility] Comment: Non-fasting reference interval UREA NITROGEN (BUN) 33(H) 7 - 25 mg/dL [facility] CREATININE 1.72(H) 0.70 - 1.22 mg/dL [facility] EGFR 38(L) > OR = 60 mL/min/1.7 3m2 [facility] BUN/CREATININE RATIO 19 6 - 22 (calc) [facility] SODIUM 140 135 - 146 mmol/L [facility] POTASSIUM 4.9 3.5 - 5.3 mmol/L [facility] CHLORIDE 107 98 - 110 mmol/L [facility] CARBON DIOXIDE 25 20 - 32 mmol/L [facility] ELECTROLYTE BALANCE 8 7 - 17 mmol/L (calc) [facility] CALCIUM 8.9 8.6 - 10.3 mg/dL [facility] Blood BLOOD SPECIMEN / Unknown 12/08/2024 3:29 PM CDT 12/08/2024 3:29 PM CDT Narrative [facility] - 12/09/2024 5:57 AM CDT FASTING:NO FASTING: NO us Juwan Avery MD CHEMISTRY Final Resu lt [facility] [address] [place] [address], [place] [phone] [facility] [address] [place] [address] from Last 3 Months Insurance [facility] MEDICARE ADVANTAGE MR MEDICARE PART A HB ONLY HC UCARE MEDICARE [id number] WORKERS COMP Advance Directives * Full Code (Latest Code Status on File) Date Activated Date Inactivated Comments 07/04/2024 6:49 AM 07/15/2024 7:21 PM Question Answer Comments Code Status Discussion: Reviewed Preferences Care Teams Bessemer Converter Blower Relationship Specialty Start Date End Date Juwan Avery MD [address] [place] [address] PCP - General Family Practice 11/12/22 Venkat Elena, RN [address] [address] Nurse Navigator - Oncology Registered Nurse 04/26/24 Star Morfin MD [address] [place] [address] Surgery - General 04/26/24 Nicola Dillon MD [address] [place] [address] Surgery - Urology 05/03/24 Akila Markham RN [address] [place] [address] Nurse Navigator - Oncology Registered Nurse 07/28/24 Marquita Omer MD [address] [place] [address] Medical Oncologist Oncology 09/30/24 Yadi Crane, PRODUCTION BOW MAKER [address] [place], [place] [id number] Nurse Practitioner Oncology 09/30/24 Manuel Wilkins LSW [address] [place], [place] [id number] Mechanical Systems Control Engineer Oncology 09/30/24
--- OUTSIDE RECORDS SUMMARY | 2024-12-11 05:32 | XMS_ITS | Continuity of Care Document ---
Author Organization [facility] Address [address] [place] [address] Care Team Providers Care Sales Agent Pest Control Service Name Role Phone DANG BULL Primary Care Provider [phone] Assessment No assessment recorded. Plan of Treatment [...] Details Recorded Time Acute retention of urine 825380802 Active 024 Luda Watson PA-C [address] [place] [address], [phone], [facility] 4 11:29:06 Retention of urine [id number] Active 024 Edmar Vaughn MD [address] [place] [address], [phone], [facility] 4 11:33:59 Problem Notes None recorded. Procedures Surgical History Date Name Laterality Status Provider Name and Address Organization Details Recorded Time 12/08/19 25 Fill and Pull/Voiding Trial/TOV completed Concetta Zapata [facility] 12/07/2024 11:06:38 11/17/19 25 Urethral Catheter Change completed Concetta Zapata [facility] 11/16/2024 12:53:08 10/19/19 25 Urethral Catheter Change completed Concetta Zapata [facility] 10/19/2024 12:51:33 08/18/20 24 Urethral Catheter Change completed Genet Álvarez [facility] 08/19/2024 15:14:03 08/18/20 24 TRUS- Volume size only completed Nicola Dillon MD [address] [place] [address],[address], [place], [address], [facility] 08/18/2024 15:08:20 07/04/20 24 NEPHRECTOMY, HAND ASSISTED LAPAROSCOPIC (SURG) completed Reena Paez [facility] 07/07/2024 09:40:04 06/13/20 24 COMPLEX VISIT completed Nicola Dillon MD [address] [place] [address],[address], [place], [address], [facility] 07/01/2024 13:18:31 05/27/20 24 Urodynamic Studies completed Garrett Vazquez [facility] 05/16/2024 17:20:05 05/27/20 24 BRAVO CHANGE completed Akila Mccall [facility] 05/27/2024 11:54:40 04/28/20 24 COMPLEX VISIT completed Nicola Dillon MD [address] [place] [address],[address], [place], [address], [facility] 04/28/2024 14:39:20 04/28/20 24 BRAVO CHANGE completed Nicola Dillon MD [address] [place] [address],[address], [place], [address], [facility] 04/28/2024 14:39:08 03/04/20 24 Cystoscopy- male completed Edmar Vaughn MD [address] [place] [address],[address], [place], [address], [facility] 03/04/2024 14:49:59 03/04/20 24 Bravo Catheter Insertion completed Trey Cabral [facility] 03/04/2024 15:44:20 03/04/20 24 Cipro post Cysto completed Trey Cabral [facility] 02/24/2024 14:58:47 03/04/20 24 Fill and Pull/Voiding Trial/TOV completed Trey Cabral [facility] 03/04/2024 15:44:41 02/12/20 24 Bravo Catheter Insertion completed Edmar Vaughn MD [address] [place] [address],[address], [place], [address], [facility] 02/12/2024 11:53:15 02/12/20 24 Fill and Pull/Voiding Trial/TOV completed Edmar Vaughn MD [address] [place] [address],[address], [place], [address], [facility] 02/12/2024 11:28:34 02/10/20 24 Bravo Catheter Insertion completed Concetta Zapata [facility] 02/10/2024 14:26:17 02/10/20 24 Fill and Pull/Voiding Trial/TOV completed Concetta Zapata [facility] 02/10/2024 14:25:24 02/03/20 24 Bravo Catheter Insertion completed Franko magaña [facility] 02/03/2024 12:10:15 02/03/20 24 Fill and Pull/Voiding Trial/TOV completed Luda Watson PA-C [address] [place] [address],[facility] [address], [place], [address], [facility] 02/03/2024 11:16:06 Imaging Results None recorded. [...] Tobacco Smoking Status Former Smoker Franko Garcia [place], [place] - [facility] 02/03/2024 10:40:30 What Is Your Level Of Alcohol Consumption? Moderate Beer At Supper Information not available 02/03/2024 What Is Your Level Of Caffeine Consumption? None Information not available 02/03/2024 When Did You Quit Smoking? 16+yearssinc elastcigaret te Information not available 02/03/2024 What Was The Date Of Your Most Recent Tobacco Screening? 08/18/2024 [email or web address] Information not available 08/18/2024 Have You Ever Been Counseled For Unhealthy Alcohol Use? No [email or web address] Information not available 02/12/2024 Do You Use Any Illicit Or Recreational Drugs? No Information not available 02/03/2024 Has Tobacco Cessation Counseling Been Provided? No [email or web address] Information not available 02/12/2024 Do You Or Have You Ever Used Any Other Forms Of Tobacco Or Nicotine? No Information not available 02/12/2024 How Many Days In The Past Year Have You Consumed 5 Or More Drinks? 0 [email or web address] Information not available 02/12/2024 Sex: Unknown Functional Status None recorded. Mental Status None recorded. Family History Relationship Description Onset Age of this Age Resolved Age Notes LastModified by Organization Details LastModified Time Father No current problems or disability [email or web address] Not available 02/21 14:27:02 Mother No current problems or disability [email or web address] Not available 02/21 14:27:03 Notes:brain cancer-cancer sp ouse-stomach cancer Medical History Condition Response Kidney Stones Y Immunizations Vaccine Type Date Status Note Provider Nam e and Address Organization Details Recorded Time Influenza, adjuvanted, trivalent, PF 9 completed Miletzi Arvizu-Stanley ro null, [facility] 02/03/2024 10:37:30 Influenza, adjuvanted, trivalent, PF 8 completed Miletzi Arvizu-Bouchra ro null, [facility] 02/03/2024 10:37:30 Influenza, adjuvanted, trivalent, PF 0 completed Miletzi Arvizu-Bouchra ro null, [facility] 02/03/2024 10:37:30 zoster recombinant 4 completed Miletzi Arvizu-Bouchra ro null, [facility] 02/03/2024 10:37:30 Influenza, high-dose, quadrivalent, PF 3 completed Miletzi Arvizu-Bouchra ro null, [facility] 02/03/2024 10:37:30 Influenza, high-dose, quadrivalent, PF 2 completed Miletzi Arvizu-Stanley ro null, [facility] 02/03/2024 10:37:30 Influenza, adjuvanted, quadrivalent, PF 1 completed Miletzi Arvizu-Bouchra ro null, [facility] 02/03/2024 10:37:30 COVID-19, mRNA, LNP-S, PF, 30 mcg/0.3 mL dose 1 completed Miletzi Arvizu-Stanley ro null, [facility] 02/03/2024 10:37:30 COVID-19, mRNA, LNP-S, PF, 30 mcg/0.3 mL dose 1 completed Miletzi Arvizu-Bouchra ro null, [facility] 02/03/2024 10:37:30 COVID-19, mRNA, LNP-S, PF, 30 mcg/0.3 mL dose 1 completed Miletzi Arvizu-Bouchra ro null, [facility] 02/03/2024 10:37:30 COVID-19, mRNA, LNP-S, PF, 30 mcg/0.3 mL dose, gillian-sucrose 2 completed Miletzi Arvizu-Bouchra ro null, [facility] 02/03/2024 10:37:30 COVID-19, mRNA, LNP-S, bivalent, PF, 30 mcg/0.3 mL dose 2 completed Miletzi Arvizu-Stanley ro null, [facility] 02/03/2024 10:37:30 RSV, recombinant, protein subunit RSVpreF, adjuvant reconstituted, 0.5 mL, PF 3 completed Miletzi Arvizu-Stanley ro null, [facility] 02/03/2024 10:37:30 pneumococcal polysaccharide PPV23 6 completed Miletzi Arvizu-Bouchra ro null, [facility] 02/03/2024 10:37:30 Tdap 4 completed Miletzi Arvizu-Stanley ro null, [facility] 02/03/2024 10:37:30 Novel Wsuwcyomg-[id number], all formulations 0 completed Miletzi Arvizu-Stanley ro null, [facility] 02/03/2024 10:37:30 Pneumococcal conjugate PCV 13 5 completed Miletzi Arvizu-Bouchra ro null, [facility] 02/03/2024 10:37:30 Influenza, high-dose, trivalent, PF 7 completed Miletzi Arvizu-Bouchra ro null, [facility] 02/03/2024 10:37:30 Influenza, high-dose, trivalent, PF 4 completed Miletzi Arvizu-Stanley ro null, [facility] 02/03/2024 10:37:30 Influenza, high-dose, trivalent, PF 5 completed Miletzi Arvizu-Bouchra ro null, [facility] 02/03/2024 10:37:30 Influenza, split virus, trivalent, preservative 8 completed Miletzi Arvizu-Bouchra ro null, [facility] 02/03/2024 10:37:30 Influenza, split virus, trivalent, preservative 7 completed Miletzi Arvizu-Stanley ro null, [facility] 02/03/2024 10:37:30 Influenza, split virus, trivalent, preservative 0 completed Miletzi Arvizu-Stanley ro null, [facility] 02/03/2024 10:37:30 Influenza, split virus, trivalent, preservative 4 completed Miletzi Arvizu-Bouchra ro null, [facility] 02/03/2024 10:37:30 Influenza, split virus, trivalent, preservative 2 completed Miletzi Arvizu-Bouchra ro null, [facility] 02/03/2024 10:37:30 Influenza, split virus, trivalent, preservative 3 completed Miletzi Arvizu-Stanley ro null, [facility] 02/03/2024 10:37:31 Influenza, split virus, trivalent, PF 0 completed Miletzi Arvizu-Bouchra ro null, [facility] 02/03/2024 10:37:31 Td (adult), 5 Lf tetanus toxoid, preservative free, adsorbed 6 completed Miletzi Arvizu-Stanley ro null, [facility] 02/03/2024 10:37:31 Influenza, adjuvanted, trivalent, PF 4 completed Genet esquivel [facility] 08/18/2024 14:24:21 COVID-19, mRNA, LNP-S, PF, 50 mcg/0.5 mL 4 completed EDENILSON [facility] 08/18/2024 14:24:21 Past Encounters Encounter ID Performer Location Encounter Start Date Encounter Closed Date Diagnosis/Indication Diagnosis SNOMED-CT Code Diagnosis ICD10 Code Diagnosis Note [id number] Concetta Benny [facility] [address] [place] [address] 10/19/2024 11:53:44 10/24/2024 09:51:25 Retention of urine 877146224 R33.9 [id number] Concetta Benny [facility] [address] [place] [address] 11/16/2024 11:58:34 11/21/2024 15:55:27 Retention of urine 746581226 R33.9 Health Concerns Section Related Observation LastModified by Organization Detai ls LastModified Time None Recorded Concern Status LastModified by Organization Details LastModified Time None Recorded Payers Encounter Date Sequence Insurance Name Policy Number Policy Masterson Covered Member ID Masterson Member ID Guarantor Name 11/16/2024 1 [employer]ARE - DOS ON OR AFTER 19 (MEDICARE REPLACEMENT/ ADVANTAGE - HMO) [id number] 1 Kojo Ness [id number] Kojo Ness Notes Date Note Type Note Provider Name and Address Organization Details Recorded Time 11/16/2024 text/html Don is here for catheter change. A 16 Fr coude. Pt reports no concerns.Nurse visit completed by Concetta Donnelly RN. Concetta esquivel [facility] 11/16/2024 13:19:05
--- OUTSIDE RECORDS SUMMARY | 2024-12-11 05:32 | XMS_ITS | Data Portability ---
Author Organization [place] [facility] Address [address] [address] Care Team Providers Care Desk Editor Name Role Phone NICOLA VALLES Referring Provider [...] ciproflox acin 500 mg tablet 2024 025 [id number], [address], [address], 11/09/2024 11:39:19 omeprazol e 20 mg capsule,d elayed release 2024 025 [id number], [address], [address], 11/09/2024 11:39:19 methylpre dnisolone 4 mg tablets in a dose pack 2024 025 [id number], [address], [address], 11/09/2024 11:39:16 Pyridium 200 mg tablet 2024 025 [id number], [address], [address], 11/09/2024 11:39:15 oxybutyni n chloride 5 mg tablet 2024 025 [id number], [address], [address], 11/09/2024 11:39:19 Patient TargetsNo targets recorded. Patient InstructionsNo instructions recorded. Reason for Referral None Reported. Procedures Surgical History Date Name Laterality Status Provider Name and Address Organization Details Recorded Time 11/09/2024 PAE V1 completed Marichuy [facility] 11/09/2024 12:12:50 Imaging Results None recorded. Procedure [...] Address Organization Details Last Updated DateTime 5 47955.8 1 g 54 /min 99 % 99 % 30 kg/m2 177.8 cm 125 mm[Hg] 54 mm[Hg] Noe Gannon [place] - [facility] 11:40:42 Social History Question Answer Notes LastModified by Organizat ion Details LastModified Time Tobacco Smoking Status Former Smoker Noe esquivel [place] - [facility] 10/11/2024 11:44:28 What Is Your Level Of Alcohol Consumption? Occasional [email or web address] Information not available 10/11/2024 Sex: Unknown Functional Status None recorded. Mental Status None recorded. Family History Nothing Reported. Medical History Condition Response Coronary Artery Disease N COPD N Lung Disease N Pacemaker N Diabetes N Stroke N Asthma N Sleep Disorder N Heart Disease N Hypertension Y Kidney Disease Y Past Encounters Encounter ID Performer Location Encounter Start Date Encounter Closed Date Diagnosis/Indication Diagnosis SNOMED-CT Code Diagnosis ICD10 Code Diagnosis Note [id number] BIN RIVAS PA-C [facility] [address] [place] [address] 10/11/2024 11:25:41 10/11/2024 12:31:36 Lower urinary tract symptoms due to benign prostatic hypertrophy 5769194841 9101 N40.1 [id number] Juan Khan MD [facility] [address] [place] [address] 11/09/2024 09:00:56 11/09/2024 13:44:33 Lower urinary tract symptoms due to benign prostatic hypertrophy 3547664131 9101 N40.1 Health Concerns Section Related Observation LastModified by Organization Detai ls LastModified Time None Recorded Concern Status LastModified by Organization Details LastModified Time None Recorded Advance Directives Directive None Recorded Payers Encounter Date Sequence Insurance Name Policy Number Policy Masterson Covered Member ID Masterson Member ID Guarantor Name 10/11/2024 2 [place]: [employer] Kojo Ness [id number] [employer] 10/11/2024 1 UCARE (PPO) [id number] 1 [employer] [id number] [employer] 11/09/2024 1 [employer]ARE - DOS ON OR AFTER 19 (MEDICARE REPLACEMENT/A DVANTAGE - HMO) [id number] 1 [employer] [id number] [employer] Notes Date Note Type Note Provider Name [...] following with nephrology, Dr. Patton. Most recent mirror polisher was 1.6.Prior to catheter placement, he reports having nocturia. Recent TRUS with prostate size at 184cc. BIN RIVAS PA-C [address],[facility] [address], [place], [address], [facility] 10/11/2024 15:51:33
[2024-12-11 05:35] VITALS: BP 140/93; PULSE 60; RESP 16; TEMP 36.6; O2SAT 99
--- NOTE | 2024-12-11 05:50 | ED.GENADULT ---
HPI - General Adult General Chief complaint: Urogenital Problems, Male Stated complaint: uncontrolled urination Time Seen by Provider: 12/11/24 05:34 History of Present Illness HPI narrative: patient recently had doll catheter removed after having it in place for about a year and now is dribbling urine all the time . some pain when he urinates. no c/ o pain in back or abd. 89-year-old man presenting to the emergency department with concern of leaking urine. Did have a little bit of discomfort at 1 point. No fever or blood noted. Had a Doll in place for about a year due to enlarged prostate, urinary retention and had prostate procedure including embolization as described by daughter I believe. Catheter remained in place 1 further month and was just discontinued this last week 3? days ago. No fever. Related Data Home Medications ?Medication ?Instructions ?Recorded ?Confirmed atenolol 50 mg tablet 50 mg PO DAILY 01/18/24 03/31/24 chlorthalidone 25 mg tablet 25 mg PO DAILY 01/18/24 03/31/24 potassium chloride 20 mEq 20 meq PO 3XD 01/18/24 03/31/24 tablet,extended release(part/cryst) (Klor-Con M) pravastatin 80 mg tablet 80 mg PO QPM 01/18/24 03/31/24 tamsulosin 0.4 mg capsule 0.8 mg PO DAILY 01/18/24 03/31/24 ferrous sulfate 325 mg (65 mg 325 mg PO BID 03/31/24 03/31/24 iron) tablet,delayed release peg 3350-electrolytes 236 ml PO 03/31/24 gram-22.74 gram-6.74 gram-5.86 gram solution (GaviLyte-G) Previous Rx's ?Medication ?Instructions ?Recorded cephalexin 500 mg capsule 500 mg PO BID #14 caps 01/27/24 ciprofloxacin HCl 500 mg tablet 500 mg PO BID #10 tabs 02/04/24 (Cipro) Allergies Allergy/AdvReac Type Severity Reaction Status Date / Time No Known Drug Allergies Allergy Verified 08/28/24 11:39 Review of Systems Status of ROS: Reports: 6 or more systems reviewed and unremarkable except as noted in History and below PFSH PFSH Social History Smoking Status: Never smoker Second hand tobacco smoke exposure: No How often do you have a drink containing alcohol: 4 or more times a week How many standard drinks containing alcohol do you have on a typical day: 1 or 2 How often do you have six or more drinks on one occasion: Never AUDIT-C Alcohol total score: 4 Non-prescribed substance use: denies use service: No Exam Narrative: Exam Narrative: Pleasant. NAD. Slightly flatter affect. Skin is warm and dry. Breathing easily. No flank pain. A little tender to suprapubic area palpation. Generally a little tense. Const: Vital Signs, click to edit/add: Vital Signs - 24 hr 12/11/24 05:35 Temperature 97.8 F Pulse Rate [Pulse Oximeter] 60 Respiratory Rate 16 Blood Pressure [Ri ght Upper Arm] 140/93 H Pulse Oximetry 99 Oxygen Delivery Me thod Room Air Documenting provider has reviewed patient's vital signs: yes Course Vital Signs Vital signs: Initial Vital Signs Temperature 97.8 F 12/11/24 05:35 Temperature Source Temporal Artery Scan 12/11/24 05:35 Pulse Rate 60 12/11/24 05:35 Respiratory Rate 16 12/11/24 05:35 Blood Pressure 140/93 H 12/11/24 05:35 Blood Pressure Mean 108 H 12/11/24 05:35 Blood Pressure Position Sitting 12/11/24 05:35 Pulse Oximetry 99 12/11/24 05:35 Oxygen Delivery Method Room Air 12/11/24 05:35 Vital Signs Temperature 97.8 F 12/11/24 05:35 Pulse Rate 60 12/11/24 05:35 Respiratory Rate 16 12/11/24 05:35 Blood Pressure 140/93 H 12/11/24 05:35 Pulse Oximetry 99 12/11/24 05:35 Oxygen Delivery Method Room Air 12/11/24 05:35 Temperature 97.8 F 12/11/24 05:35 Pulse Rate 60 12/11/24 05:35 Respiratory Rate 16 12/11/24 05:35 Blood Pressure 140/93 H 12/11/24 05:35 Pulse Oximetry 99 12/11/24 05:35 Oxygen Delivery Method Room Air 12/11/24 05:35 Medications Administered Medications: Discontinued Medications Generic Name Dose Route Start Last Admin Trade Name Freq PRN Reason Stop Dose Admin Lidocaine HCl 6 ml 12/11/24 06:07 12/11/24 06:16 Lidocaine Hcl 2 % Jelly (Top) Sterile UR 6 ml ONCE PRN Administration catheter placement Medical Decision Making MDM Narrative Medical decision making narrative: It is possible there is urinary tract infection although I would actually have more concern about return of urinary retention with overflow incontinence. Will do bladder scan. Urinalysis in process at this point. Bladder scan noted at 727 mL. I would suspect there is more there than measured. Did order your uroject as has been a little uncomfortable with placement of catheter apparently and I would suspect potential difficulty with placement of catheter. Would begin with coude. Placed without notable difficulty. Over 800 mL urine obtained initially. Mr. Ness more comfortable. Urinalysis unremarkable See patient discharge plan for further discussion I suspect you know how to manage a urinary catheter. Please follow-up within a week with primary care or Urology to discuss duration of catheter placement, next steps in management Medical Records Medical records reviewed: Yes I reviewed the patient's medical records Lab Data Lab results reviewed: Yes I reviewed the patient's lab results Labs: Lab Results 12/11/24 Range/Units Unknown Urine Color Yellow (Yellow) Urine Appearance Clear (Clear) Urine pH 5.5 (5.0-8.5) Ur Specific [place] 1.010 (1.000-1.030) Urine Protein Negative (Negative) Urine Glucose (UA) Negative (Negative) Urine Ketones Negative (Negative) Urine Blood Negative (Negative) Urine Nitrite Negative (Negative) Urine Bilirubin Negative (Negative) Urine Urobilinogen 0.2 (0.2-1.0) Ur Leukocyte Esterase Negative (Negative) Urine RBC 0-2 (0-2) Urine WBC 0-2 (0-5) Ur Squamous Epith Cells None (None-Few) Urine Bacteria None (None) Discharge Plan Discharge Clinical Impression: Urinary retention, Overflow incontinence, Enlarged prostate Patient Disposition: Home w/ Parent or Adult Condition: Improved Additional Instructions: I suspect you know how to manage a urinary catheter. Please follow-up within a week with primary care or Urology to discuss duration of catheter placement, next steps in management Prescriptions: No Action chlorthalidone 25 mg tablet 25 mg PO DAILY potassium chloride [Klor-Con M20] 20 mEq tablet,ER particles/crystals 20 meq PO 3XD pravastatin 80 mg tablet 80 mg PO QPM tamsulosin 0.4 mg capsule 0.8 mg PO DAILY atenolol 50 mg tablet 50 mg PO DAILY cephalexin 500 mg capsule 500 mg PO BID Qty: 14 0RF ciprofloxacin HCl [Cipro] 500 mg tablet 500 mg PO BID Qty: 10 0RF ferrous sulfate 325 mg (65 mg iron) tablet,delayed release (DR/EC) 325 mg PO BID peg 3350-electrolytes [GaviLyte-G] 236-22.74-6.74 -5.86 gram recon soln PO Follow Up/Referrals: Juwan Avery MD [Primary Care Provider] - Stand Alone Forms: MyHealth Info Instructions
--- OUTSIDE RECORDS SUMMARY | 2024-12-11 06:07 | XMS_ITS | Clinical Summary ---
Author Organization [facility] Address [facility] [place] [address] Care Team Providers Care Card Tender Name Role Phone Juwan Avery MD Primary Care Provider [phone] Venkat Elena RN Unavailable [phone] Star Morfin MD Unavailable SoNicola peralta MD Unavailable [phone] [facility] Unavailable Marquita Omer MD Unavailable [phone] Yadi Crane OIL AND GAS PRINCIPAL Unavailable Manuel Wilkins Unavailable [phone] Allergies No known active allergies Medications VITAMINS A,C,W-LBVD-EOQGKY (OCUVITE PRESERVISION) 7,160-113-100 fvqs-gy-zfru tablet Take 2 Tablets by mouth two [...] equipment (DME)Indications:C hronic indwelling Mcmullen catheter Bard Cxruel-U-Wyg 3 Each 5 10/05/19 Active ferrous sulfate [...] 12/08/2024 3:15 PM CDT Orders Only [facility] [place] [address] [place] [address] Lab, [place] 12/08/2024 Travel 10/08/2024 Refill [facility] [address] [place] [address] Brian Pate MD Refill Request (Ferrous Sulfate) 10/05/2024 8:25 AM [facility] [employer] Office Visit [facility] [place] [address] Juwan Avery MD Home Care (Face to face visit for home care) 10/05/2024 Travel 09/26/2024 Telephone [facility] [place] [address] [address] Juwan Avery MD Home Care 09/20/2024 12:45 PM [facility] Orders Only [facility] [place] [address] Lab, [place] 09/20/2024 Travel 09/14/2024 Telephone [facility] [address] [facility] [place] [address] Juwan Avery MD Lab (Orders) from Last [...] on file Legal Sex Male 7:00 AM [facility] [employer] Gender Identity Not on file Sexual Orientation Not on file Occupation Industry Job Start Date Job End Date retired Not on file Not on file Not on file Obstetrics History Last Filed Vital Signs Vital Sign Reading Time Taken Comments Blood Pressure 139/63 10/05/2024 8:26 AM [facility] Pulse 48 10/05/2024 8:26 AM [facility] [employer] Temperature 36.4 C (97.6 F) 10/05/2024 8:26 AM [facility] [employer] [employer] Respiratory Rate 18 08/30/2024 2:40 PM [facility] [employer] Oxygen Saturation 99% 10/05/2024 8:26 AM [facility] [employer] Inhaled Oxygen Concentration - - Weight 93.4 kg (205 lb 14.4 oz) 10/05/2024 8:26 AM [facility] [employer] [employer] Height 177.8 cm (5' 10) 10/05/2024 8:26 AM [facility] [employer] Body Mass Index 29.54 10/05/2024 8:26 AM [facility] [employer] Plan of Treatment Upcoming Encounters Date Type Department Care Team (Late st Contact Info) Description 12/14/2024 3:15 PM CDT Office Visit [facility] [address] [facility] [place] [phone] Yadi Crane, OIL AND GAS PRINCIPAL [address] [facility] [place] [address] 12/15/2024 11:45 AM CDT Orders Only [facility] [address] [place] [address] LabRyan 12/21/2024 2:25 PM CDT Office Visit [facility] [address] [place] [address] Juwan Avery MD [address] [place] [address] Health Maintenance Due Date Last Done Comments [...] PM CDT) HEMOGLOBIN A1C 5.8(H) <5.7 % [employer] [facility] Comment: For someone without known [...] Juwan Avery MD CHEMISTRY Final Resu lt [facility] [address] [place] [address], [facility] [address] [place] [address] * (ABNORMAL) LIPID PANEL W REFLEX MEASURED LDL (12/08/2024 3:29 PM CDT) [facility] CHOLESTEROL, TOTAL 125 <200 mg/dL [facility] HDL CHOLESTEROL 44 > OR = 40 mg/dL [facility] TRIGLYCERIDES 177(H) <150 mg/dL [facility] [...] LDL-C. Eliecer ADAME et al. REGGIE. 2013;310(19): 7598-6102 (http://education.[employer].PureWRX/faq/UDM190) CHOL/HDLC RATIO 2.8 <5.0 (calc) [facility] [...] CHEMISTRY Final Resu lt Performing Organization Address City/[facility]/ZIP Co de Phone Number [facility] [address] [place] [address], [facility] [address] [place] [address] * (ABNORMAL) IRON PLUS IRON BINDING CAP (12/08/2024 3:29 PM CDT) Pathologist [facility] IRON, TOTAL 50 50 - 180 mcg/dL [...] Marquita Omer MD CHEMISTRY Final Resu lt [facility] [address] [place] [address], [place] [phone] [facility] [address] [place] [address] * RETICULOCYTES (12/08/2024 3:29 PM CDT) Pathologist [facility] RETICULOCYTE COUNT, AUTOMATED 1.2 % [facility] RETICULOCYTE, ABSOLUTE 54,360 25,000 - 90,000 cells/uL [facility] Blood BLOOD SPECIMEN / Unknown 12/08/2024 3:29 PM CDT 12/08/2024 3:29 PM CDT Narrative [facility] - 12/09/2024 6:36 AM CDT FASTING:NO FASTING: NO Marquita Omer MD HEMATOLOGY Final Resu lt [facility] [address] [place] [address], [facility] [address] [place] [address] * (ABNORMAL) CBC AND DIFFERENTIAL (12/08/2024 3:29 PM CDT) [facility] WHITE BLOOD CELL COUNT 6.6 3.8 - [...] Alex NEUTROPHILS 55.9 % [facility] LYMPHOCYTES 27.4 % [facility] [...] Omer MD HEMATOLOGY Final Resu lt [facility] [address] [place] [address], [employer] [address] * FOLIC ACID (12/08/2024 3:29 PM CDT) Pathologist [facility] FOLATE, SERUM 21.4 ng/mL [facility] Comment: Reference Range Low: <3.4 Borderline: 3.4-5.4 Normal: >5.4 Blood BLOOD SPECIMEN / Unknown 12/08/2024 3:29 PM CDT 12/08/2024 3:29 PM CDT Narrative [facility] - 12/09/2024 8:32 AM CDT FASTING:NO FASTING: NO Marquita Omer MD CHEMISTRY Final Resu lt Performing Organization Address City/[facility]/ZIP Co de Phone Number [facility] [address] [place] [address], [place] [phone] [facility] [address] [place] [address] * FERRITIN (12/08/2024 3:29 PM CDT) Pathologist [facility] FERRITIN 104 24 - 380 ng/mL [facility] Blood BLOOD SPECIMEN / Unknown 12/08/2024 3:29 PM CDT 12/08/2024 3:29 PM CDT Narrative [facility] - 12/09/2024 8:32 AM CDT FASTING:NO FASTING: NO Marquita Omer MD CHEMISTRY Final Resu lt Performing Organization Address [facility]/ZIP Co de Phone Number [facility] [address] [place] [address], [place] [phone] [facility] [address] [place] [address] * VITAMIN B12 (12/08/2024 3:29 PM CDT) Pathologist [facility] VITAMIN B12 443 200 - 1,100 pg/mL [facility] Blood BLOOD SPECIMEN / Unknown 12/08/2024 3:29 PM CDT 12/08/2024 3:29 PM CDT Narrative [facility] - 12/09/2024 8:32 AM CDT FASTING:NO FASTING: NO Marquita Omer MD CHEMISTRY Final Resu lt Performing Organization Address City/[facility]/ZIP Co de Phone Number [facility] [address] [place] [place] [address], [place] [phone] [facility] [address] [place] [address] * CEA (12/08/2024 3:29 PM CDT) Pathologist [facility] CEA <2.0 See Note: ng/mL [facility] Comment: Reference Range: Non-Smoker: <2.5 [...] Marquita Omer MD CHEMISTRY Final Resu lt [facility] [address] [place] [address], [facility] [place] [address] [place] [address] * (ABNORMAL) COMP METABOLIC PANEL (12/08/2024 3:29 PM CDT) [facility] GLUCOSE 80 65 - 139 mg/dL [facility] Comment: Non-fasting reference interval [...] Marquita Omer MD CHEMISTRY Final Resu lt [facility] [address] [place] [address], [employer] [address] * (ABNORMAL) BASIC METABOLIC PANEL (12/08/2024 3:29 PM CDT) [facility] GLUCOSE 80 65 - 139 mg/dL [facility] Comment: Non-fasting reference interval UREA [...] MD CHEMISTRY Final Resu lt [facility] [address] [place] [address], [place] [phone] [facility] [address] [place] [address] from Last 3 Months Insurance [facility] MEDICARE ADVANTAGE MR MEDICARE PART A HB ONLY HC UCARE MEDICARE PDGM WORKERS COMP Advance Directives * Full Code (Latest Code Status on File) Date Activated Date Inactivated Comments 07/04/2024 6:49 AM 07/15/2024 7:21 PM Question Answer Comments Code Status Discussion: Reviewed Preferences Care Teams Card Tender Relationship Specialty Start Date End Date Juwan [place] [address] [place] [address] [place] [address] PCP - General Family Practice 11/12/22 Venkat Elena, RN [address] [address] Nurse Navigator - Oncology Registered Nurse 04/26/24 Star Morfin MD [address] [place] [address] Surgery - General 04/26/24 Nicola Dillon MD [address] [place] [address] Surgery - Urology 05/03/24 Akila Markham RN [address] [place] [address] Nurse Navigator - Oncology Registered Nurse 07/28/24 Marquita Omer MD [address] [place] [address] Medical Oncologist Oncology 09/30/24 Yadi Crane, OIL AND GAS PRINCIPAL [address] [place], [place] [phone] Nurse Practitioner Oncology 09/30/24 Manuel Wilkins LSW [address] [place], [place] [phone] Agent Licensing Clerk Oncology 09/30/24
[2024-12-11] MEDS: lidocaine HCL 2 % JELLY (TOP) STERILE 6 ML UR (06:16)
[2024-12-11 06:27] LABS: Appearance Urine Clear (Clear); Bilirubin Urine Negative (Negative); Blood Urine Negative (Negative); Color Urine Yellow (Yellow); Glucose Urine Negative (Negative); Ketones Urine Negative (Negative); Leukocyte Esterase Urine Negative (Negative); Nitrite Urine Negative (Negative); Protein Urine Negative (Negative); Urobilinogen Urine 0.2 (0.2-1.0); pH Urine 5.5 (5.0-8.5)
[2024-12-11 06:32] LABS: RBC Urine 0-2 (0-2); WBC Urine 0-2 (0-5)
== END 2024-12-11 06:46 | disposition home or self-care (01) ==
PROVIDERS: Emergency Provider Family Medicine; PCP Family Medicine
DX: N40.1 Benign prostatic hyperplasia with lower urinary tract symptoms (principal); R33.8 Other retention of urine; N39.490 Overflow incontinence
CPT/HCPCS: 51702; 51798; 81001; 99283